=== PATIENT | female | born 1945 | race Caucasian/White ===

== ENCOUNTER → 2017-03-25 | Day surgery (SDC) | payer OTHER ==
[~2017-03-25] VITALS: Ht 160 cm; Wt 82.0 kg
[~2017-03-25] MED LIST: AMLO5TAB2 PO; ASPI1TAB69 PO; CHOL50006 PO; CYAN1LOZ BUCCAL; FAMO20TA2 PO; FAMOTIDINE 20 MG/2 ML VIAL ONE; KETOROLAC TROMETHAMINE 60 MG/2 ML (IM) VIAL IM ONE; LACTATED RINGER'S 1000 ML INJ 1,000 ML ONE; LEVO75TA3 PO; MIDAZOLAM HCL 2 MG/2 ML VIAL ONE; MULTTAB67 PO; OMEP20TA PO; ONDANSETRON HCL 4 MG/2 ML VIAL IV PUSH ONE; PROPOFOL 200 MG/20 ML AMP IV ONE; TRAM50TA PO; ceFAZolin INJ 1,000 MG VIAL ONE
[2017-03-25 07:50] VITALS: BP 135/81; PULSE 61; RESP 20; TEMP 98.9; O2SAT 96
[2017-03-25 11:43] VITALS: TEMP 98.8
[2017-03-25 12:03] VITALS: BP 150/79; PULSE 73; RESP 16; O2SAT 98
--- NOTE | 2017-04-26 16:08 | PD.OP ---
post menopausal bleeding Operative Report Date of Surgery: March 25, 2017 Preoperative Diagnosis: (1) Postmenopausal bleeding (2) Abnormal findings on diagnostic imaging of other specified body structures (3) Body mass index (BMI) of 39.0-39.9 in adult Postoperative Diagnosis: (1) Postmenopausal bleeding (2) Abnormal findings on diagnostic imaging of other specified body structures (3) Body mass index (BMI) of 39.0-39.9 in adult Procedure: Hysteroscopy with dilation and curettage Anesthesia: general, Dr. Hoffman Surgeon: Leona Schuster Procurement Clerk(s): Christen Leger Surgeon: n/a Operation and Findings: Indications: [post-menopausal bleeding, irregular and thickened endometrium and ultrasound-] Findings: Patient was found on hysteroscopic view to have [no polyps and thin endometrium. Procedure: Patient was brought to the OR and laid supine on the table. After inducing general anesthesia she was positioned in low stirrups in dorso- lithotomy position. An open-sided speculum was placed in the vagina after Betadine prep and time out. The anterior lip of the cervix was grasped with a single tooth tenaculum, and the cervix was dilated to accept a standard rigid hysteroscope. The endocervix was curetted for a separate specimen. The endometrium was then thoroughly sampled using a medium sharp curet. A small amount of tissue returned. A second hysteroscopic view confirmed that all the findings described above were included in the specimen. The procedure being complete, the instruments were removed, the patient was replaced supine and she was awakened. She was transferred to the PACU breathing on her own in stable condition. Sponge, needle, and instrument counts were correct. Leona Schuster MD Apr 26, 2017 16:08
== END | disposition home or self-care (01) ==
LOC: PHSDC 06:43
PROVIDERS: ATTEND Obstetrics & Gynecology
DX: N95.0 Postmenopausal bleeding (principal); N88.2 Stricture and stenosis of cervix uteri; I10 Essential (primary) hypertension; E03.9 Hypothyroidism, unspecified; K21.9 Gastro-esophageal reflux disease without esophagitis; M16.10 Unilateral primary osteoarthritis, unspecified hip; J30.9 Allergic rhinitis, unspecified; Z87.891 Personal history of nicotine dependence
CPT/HCPCS: 00952; 58558; 88305; J0690; J1885; J2250; J2405; J7120

== ENCOUNTER 2017-08-25 06:30 | Inpatient (IN) | payer OTHER, MEDICARE ==
[~2017-08-25] VITALS: Ht 160 cm; Wt 75.6 kg
[2017-08-25] VITALS (8 sets, daily range): BP systolic 145–183; BP diastolic 79–98; PULSE 57–85; RESP 16–20; TEMP 96.1–98.2; O2SAT 94–99
[~2017-08-25 06:30] MED LIST changes: -FAMOTIDINE 20 MG/2 ML VIAL ONE; -KETOROLAC TROMETHAMINE 60 MG/2 ML (IM) VIAL IM ONE; -LACTATED RINGER'S 1000 ML INJ 1,000 ML ONE; -MIDAZOLAM HCL 2 MG/2 ML VIAL ONE; -ONDANSETRON HCL 4 MG/2 ML VIAL IV PUSH ONE; -PROPOFOL 200 MG/20 ML AMP IV ONE; -ceFAZolin INJ 1,000 MG VIAL ONE
[2017-08-25] MEDS ORDERED: ASPI81CH CHEW (06:49)
--- NOTE | 2017-08-25 06:54 | PD ---
HPI Chief Complaint: Abdominal Pain Time Seen by Provider: 06:51 Travel History International Travel<30 days: No Contact w/Intl Traveler<30days: No Traveled to known affect area: No History of Present Illness HPI The patient is a 72-year-old female who presents to the emergency department for epigastric abdominal pain. The patient developed epigastric abdominal pain at 3 AM associated with nausea and vomiting which she describes as dry heaves. The abdominal pain is epigastric, nonradiating, sharp, and burning. The patient does have a history of recent upper GI series which revealed questionable gastric carcinoma and was advised to follow-up with gastroenterology. The patient had an appointment later in August, however, was told by her insurance company [employer] that she would be able to follow-up with a nursing home administrator in [place], [place]. However, she is unable to follow-up with a nursing home administrator and must schedule an appointment for a local GI physician appointment for outpatient endoscopy. The patient does have a previous history of diverticulitis with partial colon resection, cholecystectomy, and tubal ligation. She denies any fever, chills, sweats, or dysuria. Last bowel movement was earlier today and normal. She denies any associated diarrhea. Symptoms are moderate without any alleviating or exacerbating factors. PFSH Past Medical History Cancer: No Cardiovascular Problems: No Diabetes: No Endocrine: No Genitourinary: No Hepatitis: No Hiatal Hernia: No Immune Disorder: No Musculoskeletal: No Neurologic: No Psychiatric: No Reproductive: No Respiratory: No Thyroid Disease: Yes ?: Not Past Surgical History Abdominal Surgery: Yes (BOWEL REPAIR, CHOLECYSTECTOMY, LAP BAND) AICD: No Eye Surgery: Yes (BL CATARACTS) Gynecologic Surgery: Yes (TUBAL LIGATION, D&C) Joint Replacement: No Oral Surgery: Yes (T&A) Pacemaker: No Social History Tobacco Use: No Substance Use: No Allergies-Medications (Allergen,Severity, Reaction): Coded Allergies: Sulfa (Sulfonamide Antibiotics) (Unverified Allergy, Severe, Hives, ) amoxicillin (Unverified Allergy, Severe, Hives, 08/25/17) clavulanic acid (Unverified Allergy, Severe, Hives, 08/25/17) doxycycline (Unverified Allergy, Severe, Nausea/Vomiting, 08/25/17) meloxicam (Unverified Allergy, Unknown, gi upset, 08/25/17) Uncoded Allergies: METAL (Allergy, Severe, Rash, 03/25/17) ALL METAL EXCEPT GOLD AND SILVER Reported Meds & Prescriptions Reported Meds & Active Scripts Active Reported Aspirin 81 Mg Chew 81 Mg CHEW DAILY Omeprazole 20 Mg Tab 20 Mg PO DAILY Levothyroxine (Levothyroxine Sodium) 75 Mcg Tab 75 Mcg PO HS Multiple Vitamin 1 Tab 1 Tab PO DAILY Amlodipine (Amlodipine Besylate) 5 Mg Tab 5 Mg PO DAILY Review of Systems Except as stated in HPI: all other systems reviewed are Neg General / Constitutional: No: Fever, Chills Cardiovascular: No: Chest Pain or Discomfort Respiratory: No: Shortness of Breath Gastrointestinal: Positive: Nausea, Vomiting, Abdominal Pain, No: Diarrhea Genitourinary: No: Dysuria Neurologic: No: Dizziness Physical Exam Narrative GENERAL: Awake, alert, nontoxic-appearing 72-year-old female who appears her stated age and is in no acute respiratory distress. SKIN: Focused skin assessment warm/dry. HEAD: Atraumatic. Normocephalic. EYES: Pupils equal and round. No scleral icterus. No injection or drainage. ENT: No nasal bleeding or discharge. Mucous membranes pink and moist. NECK: Trachea midline. No JVD. CARDIOVASCULAR: Regular rate and rhythm. No murmur appreciated. RESPIRATORY: No accessory muscle use. Clear to auscultation. Breath sounds equal bilaterally. GASTROINTESTINAL: Abdomen soft, tender palpation in the epigastrium with palpable lab band. No guarding or rigidity. MUSCULOSKELETAL: No obvious deformities. No clubbing. No cyanosis. No edema. NEUROLOGICAL: Awake and alert. No obvious cranial nerve deficits. Motor grossly within normal limits. Normal speech. PSYCHIATRIC: Appropriate mood and affect; insight and judgment normal. Data Data Last Documented VS Vital Signs Date Time Temp Pulse Resp B/P (MAP) Pulse Ox O2 Delivery O2 Flow Rate FiO2 08/25/17 09:36 68 18 148/82 (104) 96 Room Air 08/25/17 06:37 98.1 Orders Orders Complete Blood Count With Diff (08/25/17 06:58) Comprehensive Metabolic Panel (08/25/17 06:58) Lipase (08/25/17 06:58) Ct Abd/Pel W Iv Contrast(Rout) (08/25/17 06:58) Iv Access Insert/Monitor (08/25/17 06:58) Ecg Monitoring (08/25/17 06:58) Oximetry (08/25/17 06:58) Morphine Inj (Morphine Inj) (08/25/17 07:00) Ondansetron Inj (Zofran Inj) (08/25/17 07:00) Sodium Chlor 0.9% 1000 Ml Inj (Ns 1000 M (08/25/17 06:58) Sodium Chloride 0.9% Flush (Ns Flush) (08/25/17 07:00) Famotidine Inj (Pepcid Inj) (08/25/17 07:00) Al-Mag Hy-Si 40-40-4 Mg/Ml Liq (Mag-Al P (08/25/17 07:00) Lidocaine 2% Viscous (Xylocaine 2% Visco (08/25/17 07:00) Oral Contrast - Adult (08/25/17 07:32) Diatrizoate Liq ( Gastroview Liq) (08/25/17 07:39) Morphine Inj (Morphine Inj) (08/25/17 09:00) Ondansetron Inj (Zofran Inj) (08/25/17 09:00) Iohexol 350 Inj (Omnipaque 350 Inj) (08/25/17 09:06) Admit Order (Ed Use Only) (08/25/17 09:43) Labs Laboratory Tests Test 08/25/17 07:15 White Blood Count 11.9 TH/MM3 Red Blood Count 4.55 MIL/MM3 Hemoglobin 11.3 GM/DL Hematocrit 34.7 % Mean Corpuscular Volume 76.3 FL Mean Corpuscular Hemoglobin 24.8 PG Mean Corpuscular Hemoglobin Concent 32.5 % Red Cell Distribution Width 14.2 % Platelet Count 367 TH/MM3 Mean Platelet Volume 8.6 FL Neutrophils (%) (Auto) 87.2 % Lymphocytes (%) (Auto) 8.1 % Monocytes (%) (Auto) 2.8 % Eosinophils (%) (Auto) 1.2 % Basophils (%) (Auto) 0.7 % Neutrophils # (Auto) 10.4 TH/MM3 Lymphocytes # (Auto) 1.0 TH/MM3 Monocytes # (Auto) 0.3 TH/MM3 Eosinophils # (Auto) 0.1 TH/MM3 Basophils # (Auto) 0.1 TH/MM3 CBC Comment AUTO DIFF Differential Comment AUTO DIFF CONFIRMED Blood Urea Nitrogen 10 MG/DL Creatinine 0.69 MG/DL Random Glucose 177 MG/DL Total Protein 7.5 GM/DL Albumin 3.4 GM/DL Calcium Level 9.0 MG/DL Alkaline Phosphatase 124 U/L Aspartate Amino Transf (AST/SGOT) 12 U/L Alanine Aminotransferase (ALT/SGPT) 13 U/L Total Bilirubin 0.2 MG/DL Sodium Level 140 MEQ/L Potassium Level 3.5 MEQ/L Chloride Level 105 MEQ/L Carbon Dioxide Level 26.2 MEQ/L Anion Gap 9 MEQ/L Estimat Glomerular Filtration Rate 84 ML/MIN Lipase 119 U/L MDM Medical Decision Making Medical Screen Exam Complete: Yes Emergency Medical Condition: Yes Medical Record Reviewed: Yes Interpretation(s) The patient had a upper GI with air and small bowel performed on July 23, 2017 which revealed a left band across the proximal stomach and the fundus. Beyond this the folds along the lesser curvature. All-purpose lobular and enlarged with suggestion of faint contrast type diverticulum or ulceration. The possibility of gastric carcinoma not excludable and direct visualization is recommended. Differential Diagnosis Differential diagnosis includes gastritis, peptic ulcer disease, gastric ulcer, peptic ulcer disease, pancreatitis, perforated viscus, retained biliary stone, atypical diverticulitis. Narrative Course IV was established, labs are drawn and sent, and the patient was placed on cardiac telemetry monitoring and continuous pulse oximetry monitoring. I reviewed the patient's upper GI series study that she had with her, printed report. The patient was administered morphine, Zofran, GI cocktail, Zantac, and IV fluids. CT of the abdomen and pelvis with oral and IV contrast was ordered. Labs reveal mildly elevated white count, otherwise unremarkable. CT the abdomen and pelvis reveals questionable masslike structure in the thorax, possibly could be hiatal hernia, recommends CT of the thorax. The patient continued to have nausea and vomiting, was redosed with morphine and Zofran. She was then reevaluated and continued to have moderate epigastric pain and mild nausea. I had a discussion with the patient regarding 23 hour observation versus discharge home with outpatient follow-up. The patient states her symptoms are still persisting, therefore, patient will be 23 hour observation. The patient's primary physician is Dr. Rodriguez with [facility], therefore, [facility] were paged for 23 hour observation. Physician Communication Physician Communication I discussed the patient with Dr. Banks who agrees with 23 hour observation. Diagnosis Primary Impression: Intractable epigastric abdominal pain Condition: Stable Jett Zepeda MD Aug 25, 2017 06:54
[2017-08-25] MEDS ORDERED: SODIUM CHLOR 0.9% 1000 ML INJ 1,000 ML IV SCH (06:58)
[2017-08-25] MEDS ORDERED: LIDOCAINE VISCOUS 2% SOLN 15 ML UDC PO ONE (07:00)
[2017-08-25] MEDS ORDERED: ONDANSETRON HCL 4 MG/2 ML VIAL IVP ONE (07:00)
[2017-08-25] MEDS ORDERED: FAMOTIDINE 20 MG/2 ML VIAL IV PUSH ONE (07:00)
[2017-08-25] MEDS ORDERED: ALUMINUM/MAGNESIUM/SIMETH 30 ML CUP PO ONE (07:00)
[2017-08-25] MEDS ORDERED: SODIUM CHLORIDE 0.9% FLUSH 10 ML FLUSH IV FLUSH PRN ×2 (07:00→09:45)
[2017-08-25] MEDS ORDERED: MORPHINE SULFATE 4 MG/ML INJ IV PUSH ONE ×2 (07:00→09:00)
[2017-08-25 07:26] LABS: AUTOMATED NEUTROPHIL # 10.4 TH/MM3 (1.8-7.7); BASOPHIL # 0.1 TH/MM3 (0-0.2); BASOPHIL % 0.7 % (0.0-2.0); EOSINOPHIL # 0.1 TH/MM3 (0-0.4); EOSINOPHIL % 1.2 % (0.0-4.0); HEMATOCRIT 34.7 % (35.0-46.0); LYMPH % 8.1 % (9.0-44.0); MEAN CELL VOLUME 76.3 FL (80.0-100.0); MEAN CORPUSCULAR HEMOGLOBIN 24.8 PG (27.0-34.0); MEAN CORPUSCULAR HGB CONC 32.5 % (32.0-36.0); MONO % 2.8 % (0.0-8.0); NEUT % 87.2 % (16.0-70.0); PLATELET COUNT 367 TH/MM3 (150-450); RED BLOOD COUNT 4.55 MIL/MM3 (4.00-5.30); RED CELL DISTRIBUTION WIDTH 14.2 % (11.6-17.2); WHITE BLOOD COUNT 11.9 TH/MM3 (4.0-11.0)
[2017-08-25 07:29] LABS: HEMO FLAGS AUTO DIFF
[2017-08-25 07:35] LABS: CHLORIDE 105 MEQ/L (98-107); POTASSIUM 3.5 MEQ/L (3.5-5.1); SODIUM (NA) 140 MEQ/L (136-145)
[2017-08-25 07:39] LABS: ANION GAP 9 MEQ/L (5-15); BICARBONATE 26.2 MEQ/L (21.0-32.0); BLOOD UREA NITROGEN 10 MG/DL (7-18)
[2017-08-25] MEDS ORDERED: DIATRIZOATE MEGLUM/DIATRIZOATE SOD 9 ML CUP ONE (07:39)
[2017-08-25 07:42] LABS: ALT (GPT) 13 U/L (10-53); AST (GOT) 12 U/L (15-37); GLOMERULAR FILTRATION RATE 84 ML/MIN (>89)
[2017-08-25 07:43] LABS: TOTAL BILIRUBIN ADULT 0.2 MG/DL (0.2-1.0)
[2017-08-25 07:44] LABS: ALKALINE PHOSPHATASE 124 U/L (45-117)
[2017-08-25 07:51] LABS: SCAN/DIFF AUTO DIFF CONFIRMED
[2017-08-25] MEDS ORDERED: ONDANSETRON HCL 4 MG/2 ML VIAL IV PUSH ONE (09:00)
[2017-08-25] MEDS ORDERED: IOHEXOL 350 MG/ML 10 ML VIAL (for RAD DIAG) IVCONTRAST ONE (09:06)
--- NOTE | 2017-08-25 09:18 | RADRPT ---
EXAM DATE/TIME: 08/25/2017 08:50 [facility] COMPARISON: No previous studies available for comparison. INDICATIONS : Epigastric pain with nausea and vomiting. IV CONTRAST: 90 cc Omnipaque 350 (iohexol) IV ORAL CONTRAST: Prescribed oral contrast ingested. RADIATION DOSE: 17.92 CTDIvol (mGy) MEDICAL HISTORY : Hypertension. Diverticulitis. Gastroesophageal reflux disease. SURGICAL HISTORY : Colon resection. Tubal ligation.Cholecystectomy.Lap band. ENCOUNTER: Initial ACUITY: 1 day PAIN SCALE: 6/10 LOCATION: upper quadrant TECHNIQUE: Volumetric scanning of the abdomen and pelvis was performed. Using automated exposure control and ad justment of the mA and/or kV according to patient size, radiation dose was kept as low as reasonably achievable to obtain optimal diagnostic quality images. DICOM format image data is available electro nically for review and comparison. FINDINGS: LOWER LUNGS: Nearly masslike nodular medial lung base airspace consolidation and trace left pleural effusion. LIVER: Liver is enlarged with mild intrahepatic ductal dilatation likely due to reservoir effect from prior cholecystectomy. SPLEEN: Normal size without lesion. PANCREAS: Within normal limits. KIDNEYS: 1.57 m cyst in the posterior mid left kidney. Smaller sub-centimeters cystic lesion or inferiorly is too small to characterize. Kidneys otherwise demonstrate symmetrical enhancement without evidence for hydronephrosis or radiopaque renal calculi. ADRENAL GLANDS: Within normal limits. VASCULAR: There is no aortic aneurysm. BOWEL/MESENTERY: Post surgical features of lap band procedure. Small hiatal hernia. Postsurgical features of apparent partial sigmoidectomy. All appear grossly unremarkable without evidence for obstruction. No free air or pneumatosis. No focal drainable fluid collections. ABDOMINAL WALL: Within normal limits. RETROPERITONEUM: There is no lymphadenopathy. BLADDER: No wall thickening or mass. REPRODUCTIVE: Within normal limits. INGUINAL: There is no lymphadenopathy or hernia. MUSCULOSKELETAL: Degenerative spondylosis of the lower lumbar spine. No definite abnormal focal lytic or blastic bony lesions. CONCLUSION: 1. No acute CT abnormality to account for patient's veloping. 2. Postsurgical features of prior partial sigmoidectomy and lap band procedure with small hiatal nadya ia. 3. Medial nodular somewhat masslike lung base airspace consolidation with associated pleural effusion . This is partially imaged on this examination and may reflect chronic change in the left lung base d ue to small hiatal hernia. Consider chest CT examination for full characterization. Jeffrey Hill MD on August 25, 2017 at 9:06 Board Certified Radiologist. This report was verified electronically.
[2017-08-25] MEDS ORDERED: NALOXONE HCL 0.4 MG/ML AMP IV PUSH PRN (09:45)
[2017-08-25] MEDS ORDERED: BISACODYL 10 MG SUPP RECTAL PRN (09:45)
[2017-08-25] MEDS ORDERED: MORPHINE SULFATE 4 MG/ML INJ IV PUSH PRN (10:00)
[2017-08-25] MEDS ORDERED: LACTULOSE SYRUP 20 GM/30 ML CUP PO PRN (10:00)
[2017-08-25] MEDS ORDERED: MAGNESIUM HYDROXIDE SUSP 30 ML CUP PO PRN (10:00)
[2017-08-25] MEDS ORDERED: SENNOSIDES 8.6 MG TAB PO PRN (10:00)
[2017-08-25] MEDS ORDERED: ACETAMINOPHEN 325 MG TAB PO PRN (10:00)
--- NOTE | 2017-08-25 10:28 | RADRPT ---
EXAM DATE/TIME: 08/25/2017 09:55 [facility] COMPARISON: No previous studies available for comparison. INDICATIONS : Evaluate for mass. RADIATION DOSE: 14.51 CTDIvol (mGy) MEDICAL HISTORY : Hypertension. Diverticulitis. Gastroesophageal reflux disease. SURGICAL HISTORY : Colon resection. Tubal ligation.Cholecystectomy. Lap band. ENCOUNTER: Initial ACUITY: 1 day PAIN SCALE: 4/10 LOCATION: chest TECHNIQUE: Volumetric scanning of the chest was performed. Using automated exposure control and adjustment of t he mA and/or kV according to patient size, radiation dose was kept as low as reasonably achievable to obtain optimal diagnostic quality images. DICOM format image data is available electronically for r eview and comparison. Follow-up recommendations for detected pulmonary nodules are based at a minimum on nodule size and pa tient risk factors according to Fleischner Society Guidelines. FINDINGS: There is a 2.7 cm mass in the left infrahilar region with left hilar adenopathy suspicious for malign minnie. A small left sided effusion is present. The right lung is free of acute parenchymal opacity. Coronary artery calcifications are present. There is adenopathy involving aortic root window and left hilar region. Gastric banding is present. CONCLUSION: 1. 2.7 cm left infrahilar mass with mediastinal adenopathy suspicious for malignancy. PET/CT scan is recommended to further evaluation if clinically indicated. James Mensah MD on August 25, 2017 at 10:24 Board Certified Radiologist. This report was verified electronically.
[2017-08-25] MEDS: SODIUM CHLOR 0.9% 1000 ML INJ 1,000 ML IV SCH ×2 (10:36→21:16)
[2017-08-25] MEDS: PANTOPRAZOLE SODIUM 40 MG VIAL IV PUSH SCH (10:36)
[2017-08-25] MEDS ORDERED: METOCLOPRAMIDE HCL 10 MG/2 ML VIAL IV PUSH PRN (11:00)
[2017-08-25] MEDS: ACETAMINOPHEN/HYDROcodone 325 MG/5 MG TAB PO PRN ×2 (11:53→17:15)
--- NOTE | 2017-08-25 13:14 | HHI.HP ---
[facility] Service [facility] Primary Care Physician Raoul Rodriguez MD Admission Diagnosis intractable epigastric pain, intractable nausea/vomiting Diagnoses: Travel History International Travel<30 Days: No Contact w/Intl Traveler <30 Da: No Traveled to Known Affected Are: No History of Present Illness This is a pleasant 72-year-old female with past medical history of diverticulitis status post partial colon resection, irritable bowel syndrome, lap band in 2006 who presents to the emergency department with intermittent epigastric pain nausea and vomiting. The patient states that she has been having belching for months along with intermittent epigastric pain associated with nausea since May. Her PCP had ordered an upper GI series which revealed questionable gastric carcinoma and was advised to follow-up with gastroenterology. The patient has been having difficulty getting in to see a compound worker. This morning around 3 AM she woke up with severe epigastric pain associated with nausea and dry heaves. The patient states she has lost 10-12 pounds over the past several months. She denies any blood in the stool. The patient does have chronic diarrhea since her partial colon resection. She denies difficulty swallowing or globus sensation. Eating seems to cause the pain flareup. The patient received morphine IV in the emergency department and currently states she does not have abdominal pain. Abdominal CT scan without contrast in the emergency department showed nodular masslike left lung base airspace consolidation, postsurgical features of prior lap band procedure. Chest CT reveals a 2.7 cm left infrahilar mass with mediastinal adenopathy suspicious for malignancy. Review of Systems Constitutional: COMPLAINS OF: Weight loss, DENIES: Fever Eyes: DENIES: Blurred vision, Diplopia Ears, nose, mouth, throat: DENIES: Throat pain, Odynophagia Respiratory: DENIES: Cough, Shortness of breath Cardiovascular: DENIES: Chest pain, Palpitations Gastrointestinal: COMPLAINS OF: Abdominal pain, Diarrhea, Nausea, Vomiting, DENIES: Black stools, Bloody stools, Difficulty Swallowing Genitourinary: DENIES: Urinary frequency, Dysuria Integumentary: DENIES: Rash, Breast masses Hematologic/lymphatic: DENIES: Lymphadenopathy Neurologic: DENIES: Abnormal gait, Headache Psychiatric: DENIES: Anxiety, Confusion Past Family Social History Past Medical History Hypothyroidism Hypertension GERD Past Surgical History Partial sigmoid colon resection Cholecystectomy, lap band, bilateral cataracts, tubal ligation, D&C, tonsillectomy Reported Medications Allergies Coded Allergies Type Severity Reaction Last Updated Verified Sulfa (Sulfonamide Antibiotics) Allergy Severe Hives 08/25/17 No amoxicillin Allergy Severe Hives 08/25/17 No clavulanic acid Allergy Severe Hives 08/25/17 No doxycycline Allergy Severe Nausea/Vomiting 08/25/17 No meloxicam Allergy Unknown gi upset 08/25/17 No Uncoded Allergies Type Severity Reaction Last Updated Verified METAL Allergy Severe Rash 03/25/17 Active Scripts Medications Dose Route/Sig Max Daily Dose Days Date Category Aspirin 81 Mg Chew 81 Mg CHEW DAILY 08/25/17 Reported Omeprazole 20 Mg Tab 20 Mg PO DAILY 03/25/17 Reported Levothyroxine (Levothyroxine Sodium) 75 Mcg Tab 75 Mcg PO HS 03/25/17 Reported Multiple Vitamin 1 Tab 1 Tab PO DAILY 03/25/17 Reported Amlodipine (Amlodipine Besylate) 5 Mg Tab 5 Mg PO DAILY 03/25/17 Reported Allergies: Coded Allergies: Sulfa (Sulfonamide Antibiotics) (Unverified Allergy, Severe, Hives, ) amoxicillin (Unverified Allergy, Severe, Hives, 08/25/17) clavulanic acid (Unverified Allergy, Severe, Hives, 08/25/17) doxycycline (Unverified Allergy, Severe, Nausea/Vomiting, 08/25/17) meloxicam (Unverified Allergy, Unknown, gi upset, 08/25/17) Uncoded Allergies: METAL (Allergy, Severe, Rash, 03/25/17) ALL METAL EXCEPT GOLD AND SILVER Family History Negative for gastric or colon cancer. Social History She quit smoking several years ago after smoking on and off for 40 years. No significant alcohol use. Physical Exam Vital Signs Vital Signs Date Time Temp Pulse Resp B/P (MAP) Pulse Ox O2 Delivery O2 Flow Rate FiO2 08/25/17 12:00 96.1 85 20 165/98 (120) 98 08/25/17 11:17 08/25/17 09:36 68 18 148/82 (104) 96 Room Air 08/25/17 09:35 18 08/25/17 08:35 63 18 161/87 (111) 99 Room Air 08/25/17 07:44 18 08/25/17 07:35 68 18 178/87 (117) 95 Room Air 08/25/17 07:33 18 95 Room Air 08/25/17 06:37 98.1 71 16 183/79 (113) 95 Physical Exam GENERAL: Well-nourished, well-developed pleasant elderly obese female patient. SKIN: Warm and dry. HEAD: Normocephalic. EYES: No scleral icterus. No injection or drainage. NECK: Supple, trachea midline. No JVD or lymphadenopathy. CARDIOVASCULAR: Regular rate and rhythm without murmurs, gallops, or rubs. RESPIRATORY: Breath sounds equal bilaterally. No accessory muscle use. GASTROINTESTINAL: Abdomen soft, non-tender, nondistended. EXTREMITIES: No cyanosis, or edema. NEUROLOGICAL: Awake, alert, and oriented x 3. Non-focal. Laboratory Laboratory Tests Test 08/25/17 07:15 White Blood Count 11.9 Red Blood Count 4.55 Hemoglobin 11.3 Hematocrit 34.7 Mean Corpuscular Volume 76.3 Mean Corpuscular Hemoglobin 24.8 Mean Corpuscular Hemoglobin Concent 32.5 Red Cell Distribution Width 14.2 Platelet Count 367 Mean Platelet Volume 8.6 Neutrophils (%) (Auto) 87.2 Lymphocytes (%) (Auto) 8.1 Monocytes (%) (Auto) 2.8 Eosinophils (%) (Auto) 1.2 Basophils (%) (Auto) 0.7 Neutrophils # (Auto) 10.4 Lymphocytes # (Auto) 1.0 Monocytes # (Auto) 0.3 Eosinophils # (Auto) 0.1 Basophils # (Auto) 0.1 CBC Comment AUTO DIFF Differential Comment AUTO DIFF CONFIRMED Blood Urea Nitrogen 10 Creatinine 0.69 Random Glucose 177 Total Protein 7.5 Albumin 3.4 Calcium Level 9.0 Alkaline Phosphatase 124 Aspartate Amino Transf (AST/SGOT) 12 Alanine Aminotransferase (ALT/SGPT) 13 Total Bilirubin 0.2 Sodium Level 140 Potassium Level 3.5 Chloride Level 105 Carbon Dioxide Level 26.2 Anion Gap 9 Estimat Glomerular Filtration Rate 84 Lipase 119 Result Diagram: 08/25/1715 08/25/1715 Imaging Last Impressions Abdomen/Pelvis CT 08/25/1758 Signed Impressions: Service Date/Time: Friday, August 25, 2017 08:50 - CONCLUSION: 1. No acute CT abnormality to account for patient's veloping. 2. Postsurgical features of prior partial sigmoidectomy and lap band procedure with small hiatal hernia. 3. Medial nodular somewhat masslike lung base airspace consolidation with associated pleural effusion. This is partially imaged on this examination and may reflect chronic change in the left lung base due to small hiatal hernia. Consider chest CT examination for full characterization. Jeffrey Hill MD Chest CT 08/25/17 0000 Signed Impressions: Service Date/Time: Friday, August 25, 2017 09:55 - CONCLUSION: 1. 2.7 cm left infrahilar mass with mediastinal adenopathy suspicious for malignancy. PET/CT scan is recommended to further evaluation if clinically indicated. MD China Taylor VTE Risk Assessment Capangeloi VTE Risk Assessment: Mod/High Risk (score >= 2) Caprini Risk Assessment Model Point Value = 1 Point Value = 2 Point Value = 3 Point Value = 5 Age 41-60 Minor surgery BMI > 25 kg/m2 Swollen legs Varicose veins or History of unexplained or recurrent spontaneous Oral contraceptives or hormone replacement Sepsis (< 1 month) Serious lung disease, including pneumonia (< 1 month) Abnormal pulmonary function Acute myocardial infarction Congestive heart failure (< 1 month) History of inflammatory bowel disease Medical patient at bed rest Age 61-74 Arthroscopic surgery Major open surgery (> 45 min) Laparoscopic surgery (> 45 min) Malignancy Confined to bed (> 72 hours) Immobilizing plaster cast Central venous access Age >= 75 History of VTE Family history of VTE Factor V Leiden Prothrombin [id number] Lupus anticoagulant Anticardiolipin antibodies Elevated serum homocysteine Heparin-induced thrombocytopenia Other congenital or acquired thrombophilia Stroke (< 1 month) Elective arthroplasty Hip, pelvis, or leg fracture Acute spinal cord injury (< 1 month) Prophylaxis Regimen Total Risk Factor Score Risk Level Prophylaxis Regimen 0-1 Low Early ambulation 2 Moderate Order ONE of the following: *Sequential Compression Device (SCD) *Heparin 5000 units SQ BID 3-4 Higher Order ONE of the following medications: *Heparin 5000 units SQ TID *Enoxaparin/Lovenox 40 mg SQ daily (WT < 150 kg, CrCl > 30 mL/min) *Enoxaparin/Lovenox 30 mg SQ daily (WT < 150 kg, CrCl > 10-29 mL/min) *Enoxaparin/Lovenox 30 mg SQ BID (WT < 150 kg, CrCl > 30 mL/min) AND/OR *Sequential Compression Device (SCD) 5 or more Highest Order ONE of the following medications: *Heparin 5000 units SQ TID (Preferred with Epidurals) *Enoxaparin/Lovenox 40 mg SQ daily (WT < 150 kg, CrCl > 30 mL/min) *Enoxaparin/Lovenox 30 mg SQ daily (WT < 150 kg, CrCl > 10-29 mL/min) *Enoxaparin/Lovenox 30 mg SQ BID (WT < 150 kg, CrCl > 30 mL/min) AND *Sequential Compression Device (SCD) Assessment and Plan Problem List: (1) Gastric mass ICD Code: K31.9 - Disease of stomach and duodenum, unspecified (2) Lung mass ICD Code: R91.8 - Other nonspecific abnormal finding of lung field (3) Epigastric pain ICD Code: R10.13 - Epigastric pain Assessment and Plan -Epigastric pain, nausea, vomiting, belching associated with 10-12 pound weight loss over the past several months in a patient with previous lap band- outpatient upper GI study showing possible gastric mass with obstruction. Positive tobacco and GERD history. Abdominal CT scan without contrast in the emergency department showed nodular masslike left lung base airspace consolidation, postsurgical features of prior lap band procedure. Chest CT reveals a 2.7 cm left infrahilar mass with mediastinal adenopathy suspicious for malignancy. GI has been consulted and plans for an EGD. If EGD shows a gastric mass I will consult hematology. Otherwise she will need pulmonology consult for the lung mass. We will continue with symptom control with IV fluids , anti-medics and pain medicine as needed. Continue PPI. -Hypothyroidism - continue Synthroid. -Hypertension - continue Norvasc. -GERD - continue PPI -DVT prophylaxis with SCDs. Zuri Banks MD Aug 25, 2017 13:14
--- NOTE | 2017-08-25 15:22 | PD.CONS ---
HPI History of Present Illness This is a 72 year old female who presented to the ED with c/o epigastric abdominal pain, nausea, and vomiting. Reports symptoms have been present since May of this year. Reports increased belching and intermittent epigastric pain, with associated nausea and vomiting. Patient states that usually symptoms improve if she lies flat, but recently this has no longer helped alleviate her symptoms. Eating aggravates her symptoms. PCP ordered an upper GI series which showed questionable gastric carcinoma and patient was advised to followup with GI, but she has not done so. Reports weight loss of 10-12 pounds since May 2017. PMH significant for diverticulitis s/p partial colon resection, irritable bowel syndrome, and lap band (2006). States she has had chronic diarrhea since partial colon resection. Denies dark stools or bright red blood in stools. (Tana Ashraf) PFSH Past Medical History Hypothyroidism Hypertension GERD Past Surgical History Diverticulitis, s/p partial sigmoid colon resection Cholecystectomy Lap band Bilateral cataracts Tubal ligation, D&C Tonsillectomy (Tana Ashraf) Coded Allergies: Sulfa (Sulfonamide Antibiotics) (Unverified Allergy, Severe, Hives, ) amoxicillin (Unverified Allergy, Severe, Hives, 08/25/17) clavulanic acid (Unverified Allergy, Severe, Hives, 08/25/17) doxycycline (Unverified Allergy, Severe, Nausea/Vomiting, 08/25/17) meloxicam (Unverified Allergy, Unknown, gi upset, 08/25/17) Uncoded Allergies: METAL (Allergy, Severe, Rash, 03/25/17) ALL METAL EXCEPT GOLD AND SILVER Medications Current Medications Medications (Trade) Dose Ordered Sig/Finn Route PRN Reason Start Time Stop Time Status Last Admin Dose Admin Sodium Chloride (NS Flush) 2 ml UNSCH PRN IV FLUSH FLUSH AFTER USING IV ACCESS 08/25/17 07:00 Sodium Chloride 1,000 ml @ 100 mls/hr Q10H IV 08/25/17 11:00 08/25/17 10:36 Sodium Chloride (NS Flush) 2 ml UNSCH PRN IV FLUSH FLUSH AFTER USING IV ACCESS 08/25/17 09:45 Sodium Chloride (NS Flush) 2 ml BID IV FLUSH 08/25/17 21:00 Acetaminophen (Tylenol) 650 mg Q4H PRN PO TEMP > 100.4 08/25/17 10:00 Ondansetron HCl (Zofran Inj) 4 mg Q6H PRN IVP SEE LABEL COMMENTS 08/25/17 11:00 Metoclopramide HCl (Reglan Inj) 5 mg Q6H PRN IV PUSH SEE LABEL COMMENTS 08/25/17 11:00 Acetaminophen/ Hydrocodone Bitart (Nephi 5-325 Mg) 1 tab Q4H PRN PO PAIN SCALE 3 TO 5 08/25/17 10:00 08/25/17 11:53 Morphine Sulfate (Morphine Inj) 2 mg Q3H PRN IV PUSH Pain 3-5; if unable to take PO 08/25/17 10:00 Naloxone HCl (Narcan Inj) 0.4 mg UNSCH PRN IV PUSH SEE LABEL COMMENTS 08/25/17 09:45 Senna/Docusate Sodium (Tamika-Colace) 1 tab BID PO 08/25/17 21:00 Magnesium Hydroxide (Milk Of Magnesia Liq) 30 ml Q12H PRN PO MILD - MODERATE CONSTIPATION 08/25/17 10:00 Sennosides (Senokot) 17.2 mg Q12H PRN PO MODERATE - SEVERE CONSTIPATION 08/25/17 10:00 Bisacodyl (Dulcolax Supp) 10 mg DAILY PRN RECTAL SEVERE CONSITIPATION 08/25/17 09:45 Lactulose (Lactulose Liq) 30 ml DAILY PRN PO SEVERE CONSITIPATION 08/25/17 10:00 Pantoprazole Sodium (Protonix Inj) 40 mg Q24H IV PUSH 08/25/17 10:00 08/25/17 10:36 Amlodipine Besylate (Norvasc) 5 mg DAILY PO 08/26/17 09:00 Levothyroxine Sodium (Synthroid) 75 mcg DAILY@0600 PO 08/26/17 06:00 Multivitamins (Theragran) 1 tab DAILY PO 08/26/17 09:00 Family History Non contributory Social History Tobacco, history. Quit 3 years ago, used to smoke intermittently for 40 years ETOH, denies Illicit Drugs, denies. (Tana Ashraf) Review of Systems Constitutional: COMPLAINS OF: Weight loss, DENIES: Diaphoretic episodes, Fatigue, Fever, Weight gain, Chills, Dizziness, Change in appetite, Night Sweats Endocrine: DENIES: Polydipsia, Polyuria Eyes: DENIES: Blurred vision, Photosensitivity, Double Vision Ears, nose, mouth, throat: DENIES: Hearing loss, Vertigo, Oral lesions, Throat pain, Hoarseness Respiratory: DENIES: Cough, Wheezing, Hemoptysis, Sputum production, Shortness of breath Cardiovascular: DENIES: Chest pain, Palpitations, Syncope, Lower Extremity Edema, Orthopnea, Claudication Gastrointestinal: COMPLAINS OF: Abdominal pain, Diarrhea, Nausea, Vomiting, DENIES: Black stools, Bloody stools, Constipation, Difficulty Swallowing, Anorexia, Odynophagia, Swelling of Abdomen, Heartburn, Hematemesis Genitourinary: DENIES: Urinary frequency, Urinary incontinence, Urgency, Hematuria, Dysuria, Nocturia Musculoskeletal: DENIES: Joint pain, Muscle aches, Stiffness, Joint Swelling, Back pain, Neck pain Integumentary: DENIES: Abnormal pigmentation, Nail changes, Pruritus, Rash, Jaundice Hematologic/lymphatic: DENIES: Bruising, Lymphadenopathy Immunologic/allergic: DENIES: Eczema, Urticaria Neurologic: DENIES: Abnormal gait, Headache, Localized weakness, Paresthesias Psychiatric: DENIES: Anxiety, Confusion, Mood changes, Depression, Agitation, Suicidal Ideation (Tana Ashraf) GI Exam Vitals I&O Vital Signs Date Time Temp Pulse Resp B/P (MAP) Pulse Ox O2 Delivery O2 Flow Rate FiO2 08/25/17 12:00 96.1 85 20 165/98 (120) 98 08/25/17 11:17 08/25/17 09:36 68 18 148/82 (104) 96 Room Air 08/25/17 09:35 18 08/25/17 08:35 63 18 161/87 (111) 99 Room Air 08/25/17 07:44 18 08/25/17 07:35 68 18 178/87 (117) 95 Room Air 08/25/17 07:33 18 95 Room Air 08/25/17 06:37 98.1 71 16 183/79 (113) 95 I/O 08/24/17 08/24/17 08/24/17 08/25/17 08/25/17 08/25/17 07:00 15:00 23:00 07:00 15:00 23:00 Intake Total 1000 ml Balance 1000 ml Intake IV Total 1000 ml Imaging Last Impressions Abdomen/Pelvis CT 08/25/17 0658 Signed Impressions: Service Date/Time: Friday, August 25, 2017 08:50 - CONCLUSION: 1. No acute CT abnormality to account for patient's veloping. 2. Postsurgical features of prior partial sigmoidectomy and lap band procedure with small hiatal hernia. 3. Medial nodular somewhat masslike lung base airspace consolidation with associated pleural effusion. This is partially imaged on this examination and may reflect chronic change in the left lung base due to small hiatal hernia. Consider chest CT examination for full characterization. Jeffrey Hill MD Chest CT 08/25/17 0000 Signed Impressions: Service Date/Time: Friday, August 25, 2017 09:55 - CONCLUSION: 1. 2.7 cm left infrahilar mass with mediastinal adenopathy suspicious for malignancy. PET/CT scan is recommended to further evaluation if clinically indicated. James Mensah MD Laboratory Test 08/25/17 07:15 White Blood Count 11.9 TH/MM3 Red Blood Count 4.55 MIL/MM3 Hemoglobin 11.3 GM/DL Hematocrit 34.7 % Mean Corpuscular Volume 76.3 FL Mean Corpuscular Hemoglobin 24.8 PG Mean Corpuscular Hemoglobin Concent 32.5 % Red Cell Distribution Width 14.2 % Platelet Count 367 TH/MM3 Mean Platelet Volume 8.6 FL Neutrophils (%) (Auto) 87.2 % Lymphocytes (%) (Auto) 8.1 % Monocytes (%) (Auto) 2.8 % Eosinophils (%) (Auto) 1.2 % Basophils (%) (Auto) 0.7 % Neutrophils # (Auto) 10.4 TH/MM3 Lymphocytes # (Auto) 1.0 TH/MM3 Monocytes # (Auto) 0.3 TH/MM3 Eosinophils # (Auto) 0.1 TH/MM3 Basophils # (Auto) 0.1 TH/MM3 CBC Comment AUTO DIFF Differential Comment AUTO DIFF CONFIRMED Blood Urea Nitrogen 10 MG/DL Creatinine 0.69 MG/DL Random Glucose 177 MG/DL Total Protein 7.5 GM/DL Albumin 3.4 GM/DL Calcium Level 9.0 MG/DL Alkaline Phosphatase 124 U/L Aspartate Amino Transf (AST/SGOT) 12 U/L Alanine Aminotransferase (ALT/SGPT) 13 U/L Total Bilirubin 0.2 MG/DL Sodium Level 140 MEQ/L Potassium Level 3.5 MEQ/L Chloride Level 105 MEQ/L Carbon Dioxide Level 26.2 MEQ/L Anion Gap 9 MEQ/L Estimat Glomerular Filtration Rate 84 ML/MIN Lipase 119 U/L Physical Examination HEENT: Normocephalic; atraumatic; no jaundice. NECK: Neck is supple. CHEST: CTA CARDIAC: RRR with no murmur gallop or rubs. ABDOMEN: Soft, nondistended, mild epigastric TTP; bowel sounds are present. EXTREMITIES: No clubbing, cyanosis, or edema. SKIN: Normal; no rash; no jaundice. MEDICAL ADMINISTRATIVE SPECIALIST: No focal deficits; alert and oriented x 3 (Tana Ashraf) Assessment and Plan Plan ASSESSMENT: - Epigastric pain, with nausea/vomiting. Increased belching. + Weight loss 10- 12 pounds since May. History of lap band in 2006. Upper GI series showed questionable gastric carcinoma? Abdomen/Pelvis CT --1. No acute CT abnormality to account for patient's veloping. 2. Postsurgical features of prior partial sigmoidectomy and lap band procedure with small hiatal hernia. 3. Medial nodular somewhat masslike lung base airspace consolidation with associated pleural effusion. This is partially imaged on this examination and may reflect chronic change in the left lung base due to small hiatal hernia. Consider chest CT examination for full characterization. Chest CT 08/25/17--1. 2.7 cm left infrahilar mass with mediastinal adenopathy suspicious for malignancy. PET/CT scan is recommended to further evaluation if clinically indicated. - Hypothyroidism, hypertension, GERD, per attending. PLAN: - EGD Thursday - Obtain consents - NPO after MN tonight. - Monitor labs - Supportive care - Further recommendations to follow based on the results of above. Patient seen and examined by Dr. Decker and myself and this note is written on his behalf. (Tana Ashraf) Plan patient was seen and examined, agree with above note, will plan on doing upper endoscopy tomorrow for evaluation of the nausea vomiting and abdominal pain (Sima Decker MD) Tana Ashraf [facility] Aug 25, 2017 15:22 Sima Decker MD Aug 25, 2017 17:48
[2017-08-25] MEDS: ONDANSETRON HCL 4 MG/2 ML VIAL IVP PRN (17:14)
[2017-08-25] MEDS: SODIUM CHLORIDE 0.9% FLUSH 10 ML FLUSH IV FLUSH SCH (21:15)
[2017-08-25] MEDS: DOCUSATE SODIUM 50 MG/SENNA 8.6 MG TAB PO SCH (21:15)
[2017-08-26] VITALS: BP 150/90; PULSE 70; RESP 20; TEMP 98; O2SAT 95
[2017-08-26] MEDS: LEVOTHYROXINE SODIUM 75 MCG TAB PO SCH (05:28)
[2017-08-26 05:44] LABS: AUTOMATED NEUTROPHIL # 7.9 TH/MM3 (1.8-7.7); BASOPHIL % 0.3 % (0.0-2.0); EOSINOPHIL # 0.3 TH/MM3 (0-0.4); EOSINOPHIL % 2.8 % (0.0-4.0); LYMPH % 12.8 % (9.0-44.0); LYMPHOCYTE # 1.3 TH/MM3 (1.0-4.8); MEAN CELL VOLUME 77.1 FL (80.0-100.0); MEAN CORPUSCULAR HEMOGLOBIN 24.9 PG (27.0-34.0); MEAN CORPUSCULAR HGB CONC 32.3 % (32.0-36.0); MONO % 5.7 % (0.0-8.0); NEUT % 78.4 % (16.0-70.0); PLATELET COUNT 332 TH/MM3 (150-450); RED CELL DISTRIBUTION WIDTH 14.3 % (11.6-17.2); WHITE BLOOD COUNT 10.1 TH/MM3 (4.0-11.0)
[2017-08-26 05:52] LABS: POTASSIUM 3.5 MEQ/L (3.5-5.1)
[2017-08-26 05:55] LABS: BICARBONATE 29.8 MEQ/L (21.0-32.0); HEMO FLAGS AUTO DIFF
[2017-08-26] MEDS: SODIUM CHLOR 0.9% 1000 ML INJ 1,000 ML IV SCH ×2 (06:15→16:12)
[2017-08-26 07:44] LABS: SCAN/DIFF AUTO DIFF CONFIRMED
[2017-08-26 08:00] VITALS: BP 159/88; PULSE 76; RESP 20; TEMP 98.6; O2SAT 94
[2017-08-26] MEDS: SODIUM CHLORIDE 0.9% FLUSH 10 ML FLUSH IV FLUSH SCH ×2 (08:01→20:29)
[2017-08-26] MEDS: amLODIPine BESYLATE 5 MG TAB PO SCH (08:01)
[2017-08-26] MEDS: DOCUSATE SODIUM 50 MG/SENNA 8.6 MG TAB PO SCH ×2 (08:02→20:29)
[2017-08-26] MEDS: MULTIVITAMIN TAB PO SCH (08:02)
[2017-08-26] MEDS ORDERED: ASPIRIN 81 MG CHEW TAB CHEW SCH (09:00)
[2017-08-26] MEDS ORDERED: NON-FORMULARY DRUG (Omeprazole 20 MG) PO SCH (09:00)
[2017-08-26] MEDS ORDERED: PROPOFOL 200 MG/20 ML AMP IV ONE (09:54)
--- NOTE | 2017-08-26 10:07 | PD.PROCEDR ---
GI Procedure REFERRING PHYSICIAN HANSA PROCEDURE PERFORMED EGD INDICATION FOR PROCEDURE Nausea vomiting, abdominal pain PROCEDURE: The procedure, risks and benefits were discussed with Ms. Cohn and informed consent was obtained. Anesthesia sedated her with Diprivan. She was placed in the left lateral decubitus position. EGD: The Pentax videoscope was introduced through the oropharynx and advanced to the second portion of the duodenum under direct visualization. Retroflexion was performed in the stomach. FINDINGS: The esophagus this was normal The stomach there was a foreign body noted in the upper third of the stomach this is the lap band that has eroded into the stomach otherwise gastric mucosa appeared to be unremarkable and within normal limits The duodenum this was normal ESTIMATED BLOOD LOSS: None SPECIMENS REMOVED: None COMPLICATIONS: None IMPRESSION: Eroded lap band into the stomach PLAN: Will need for surgical evaluation for lap band removal Continue with current supportive care Jonah Angeles MD Aug 26, 2017 10:07
--- NOTE | 2017-08-26 10:22 | EKG ---
Date Performed: 08/25/2017 Time Performed: 19:58:33 PTAGE: 72 years EKG: Sinus rhythm WITH OCCASIONAL VENTRICULAR PREMATURE COMPLEXES BORDERLINE ECG NO PREVIOUS TRACING DOCTOR: Josiah Salazar Interpretating Date/Time 08/26/2017 10:20:48
[2017-08-26] MEDS: ONDANSETRON HCL 4 MG/2 ML VIAL IVP PRN (11:14)
[2017-08-26] MEDS: ACETAMINOPHEN/HYDROcodone 325 MG/5 MG TAB PO PRN (11:15)
[2017-08-26] MEDS: PANTOPRAZOLE SODIUM 40 MG VIAL IV PUSH SCH (11:15)
--- NOTE | 2017-08-26 11:48 | HHI.PR ---
Subjective Remarks Having some R sided abdominal pain, no n/v, tiana clears. s/p EGD this morning showing lap band eroded into stomach. Objective Vitals Vital Signs Date Time Temp Pulse Resp B/P (MAP) Pulse Ox O2 Delivery O2 Flow Rate FiO2 08/26/17 08:10 98.6 73 16 140/90 (107) 97 08/26/17 08:00 98.6 76 20 159/88 (111) 94 08/26/17 00:00 98.0 70 20 150/90 (110) 95 08/25/17 20:00 98.2 66 20 154/90 (111) 94 08/25/17 16:00 97.6 57 20 145/85 (105) 96 08/25/17 12:00 96.1 85 20 165/98 (120) 98 I/O 08/25/17 08/25/17 08/25/17 08/26/17 08/26/17 08/26/17 07:00 15:00 23:00 07:00 15:00 23:00 Intake Total 1000 ml 1000 ml 400 ml Balance 1000 ml 1000 ml 400 ml Intake Oral 60 ml IV Total 1000 ml 1000 ml 140 ml Other 200 ml # Voids 3 2 # Bowel Movements 1 0 Result Diagram: 08/26/1744708/26/17447 Objective Remarks GENERAL: Well-nourished, well-developed pleasant CF patient. SKIN: Warm and dry. HEAD: Normocephalic. EYES: No scleral icterus. No injection or drainage. NECK: Supple, trachea midline. No JVD or lymphadenopathy. CARDIOVASCULAR: Regular rate and rhythm without murmurs, gallops, or rubs. RESPIRATORY: Breath sounds equal bilaterally. No accessory muscle use. GASTROINTESTINAL: Abdomen soft, non-tender, nondistended. EXTREMITIES: No cyanosis, or edema. NEUROLOGICAL: Awake, alert, and oriented x 3. Non-focal. A/P Problem List: (1) Lung mass ICD Code: R91.8 - Other nonspecific abnormal finding of lung field (2) Epigastric pain ICD Code: R10.13 - Epigastric pain (3) LAP-BAND surgery status ICD Code: Z98.84 - Bariatric surgery status Assessment and Plan -Epigastric pain, nausea, vomiting, belching associated with 10-12 pound weight loss over the past several months in a patient with previous lap band- outpatient upper GI study showing possible gastric mass with obstruction. EGD this morning showing erosion of lap band into stomach, no gastric mass. General surgery has been consulted for removal. - Chest CT demonstrates 2.7 cm left infrahilar mass with mediastinal adenopathy suspicious for malignancy. +tobacco history. Needs biopsy, outpatient PET. Consult pulmonology. -Overdue for colonoscopy - was told 5 years ago she had an abnormal polyp and to have repeat colonoscopy in 3 years, however did not followup. Patient to f/u outpatient with GI. -Hypothyroidism - continue Synthroid. -Hypertension - continue Norvasc. -GERD - continue PPI -DVT prophylaxis with SCDs. D/w daughter at bedside. Zuri Banks MD Aug 26, 2017 11:48
[2017-08-26 12:00] VITALS: BP 143/89; PULSE 73; RESP 20; TEMP 98.4; O2SAT 95
[2017-08-26] MEDS ORDERED: LACTATED RINGER'S 1000 ML INJ 1,000 ML ONE (12:07)
[2017-08-26 14:26] LABS: APTT (PATIENT) 31.4 SEC (24.3-30.1); PROTHROMBIN TIME - PATIENT 10.5 SEC (9.8-11.6)
[2017-08-26 16:00] VITALS: BP 138/85; PULSE 64; RESP 20; TEMP 98.3; O2SAT 93
[2017-08-26 20:00] VITALS: BP 149/84; PULSE 73; RESP 20; TEMP 98.3; O2SAT 98
[2017-08-26 22:30] VITALS: BP 166/75; PULSE 77; RESP 16; TEMP 98.7; O2SAT 95
[2017-08-27] VITALS: BP 166/75; PULSE 77; RESP 16; TEMP 98.7; O2SAT 95
[2017-08-27 04:00] VITALS: BP 140/61; PULSE 67; RESP 17; TEMP 98.7; O2SAT 96
[2017-08-27] MEDS: SODIUM CHLOR 0.9% 1000 ML INJ 1,000 ML IV SCH ×2 (05:12→13:00)
[2017-08-27] MEDS: LEVOTHYROXINE SODIUM 75 MCG TAB PO SCH (06:00)
[2017-08-27 07:50] VITALS: BP 140/76; PULSE 66; RESP 18; TEMP 98.7; O2SAT 96
[2017-08-27] MEDS: DOCUSATE SODIUM 50 MG/SENNA 8.6 MG TAB PO SCH ×2 (09:00→20:12)
[2017-08-27 09:01] LABS: HEMATOCRIT 33.3 % (35.0-46.0); MEAN CELL VOLUME 77.7 FL (80.0-100.0); MEAN CORPUSCULAR HEMOGLOBIN 24.7 PG (27.0-34.0); MEAN CORPUSCULAR HGB CONC 31.8 % (32.0-36.0); PLATELET COUNT 309 TH/MM3 (150-450); RED BLOOD COUNT 4.29 MIL/MM3 (4.00-5.30); RED CELL DISTRIBUTION WIDTH 15.8 % (11.6-17.2); REVIEW FLAG FINAL; WHITE BLOOD COUNT 7.8 TH/MM3 (4.0-11.0)
[2017-08-27] MEDS ORDERED: RESP: ALBUTEROL CONC 2.5 MG/0.5 ML NEB NEB SCH (09:15)
[2017-08-27] MEDS ORDERED: RESP: LIDOCAINE HCL 4% PF 5 ML NEB NEB SCH (09:15)
[2017-08-27] MEDS: PANTOPRAZOLE SODIUM 40 MG VIAL IV PUSH SCH (09:25)
[2017-08-27] MEDS: amLODIPine BESYLATE 5 MG TAB PO SCH (09:25)
[2017-08-27] MEDS: MULTIVITAMIN TAB PO SCH (09:25)
[2017-08-27] MEDS: SODIUM CHLORIDE 0.9% FLUSH 10 ML FLUSH IV FLUSH SCH ×2 (09:26→20:11)
[2017-08-27] MEDS ORDERED: SODIUM CHLOR 0.45% 1000 ML INJ 1,000 ML IV SCH (10:00)
--- NOTE | 2017-08-27 11:34 | HHI.PR ---
Subjective Remarks Reports she feels good. No complaint of abdominal pain at this time. No shortness of breath. She is surprised of the findings of the CT Objective Vitals Vital Signs Date Time Temp Pulse Resp B/P (MAP) Pulse Ox O2 Delivery O2 Flow Rate FiO2 08/27/17 09:47 Room Air 08/27/17 07:50 98.7 66 18 140/76 (97) 96 08/27/17 04:00 98.7 67 17 140/61 (87) 96 08/27/17 00:00 98.7 77 16 166/75 (105) 95 08/27/17 00:00 Room Air 08/26/17 22:30 98.7 77 16 166/75 (105) 95 08/26/17 20:00 98.3 73 20 149/84 (105) 98 08/26/17 16:00 98.3 64 20 138/85 (102) 93 08/26/17 12:00 98.4 73 20 143/89 (107) 95 I/O 08/26/17 08/26/17 08/26/17 08/27/17 08/27/17 08/27/17 07:00 15:00 23:00 07:00 15:00 23:00 Intake Total 1000 ml 500 ml 1671 ml 885 ml Balance 1000 ml 500 ml 1671 ml 885 ml Intake Oral 60 ml 1525 ml 800 ml IV Total 1000 ml 240 ml 146 ml 85 ml Other 200 ml # Voids 2 5 4 # Bowel Movements 0 2 3 Result Diagram: 08/27/17 0828 08/26/17 0448 Imaging Last Impressions Abdomen/Pelvis CT 08/25/17 0658 Signed Impressions: Service Date/Time: Friday, August 25, 2017 08:50 - CONCLUSION: 1. No acute CT abnormality to account for patient's veloping. 2. Postsurgical features of prior partial sigmoidectomy and lap band procedure with small hiatal hernia. 3. Medial nodular somewhat masslike lung base airspace consolidation with associated pleural effusion. This is partially imaged on this examination and may reflect chronic change in the left lung base due to small hiatal hernia. Consider chest CT examination for full characterization. Jeffrey Hill MD Chest CT 08/25/17 0000 Signed Impressions: Service Date/Time: Friday, August 25, 2017 09:55 - CONCLUSION: 1. 2.7 cm left infrahilar mass with mediastinal adenopathy suspicious for malignancy. PET/CT scan is recommended to further evaluation if clinically indicated. James Mensah MD Objective Remarks GENERAL: This is a well-nourished, well-developed patient, in no apparent distress. CARDIOVASCULAR: Regular rate and rhythm with 3/6 systolic murmur RESPIRATORY: Clear to auscultation. Breath sounds equal bilaterally. No wheezes , rales, or rhonchi. GASTROINTESTINAL: Abdomen soft, non-tender, nondistended. Normal active bowel sounds MUSCULOSKELETAL: Extremities without clubbing, cyanosis, or edema. NEURO: Alert & Oriented x4 to person, place, time, situation. Moves all ext x4 Procedures EGD performed on 08/27 showed erosion of lap band into stomach, no gastric mass A/P Problem List: (1) Lung mass ICD Code: R91.8 - Other nonspecific abnormal finding of lung field Status: Acute (2) Epigastric pain ICD Code: R10.13 - Epigastric pain Status: Resolved (3) LAP-BAND surgery status ICD Code: Z98.84 - Bariatric surgery status Status: Chronic Assessment and Plan 1. Presenting Epigastric pain, nausea, vomiting, belching associated with 10- 12 pound weight loss over the past several months in a patient with previous lap band-outpatient upper GI study showing possible gastric mass with obstruction. EGD performed on 08/27 showed erosion of lap band into stomach, no gastric mass. Dr. Wilde, Gen. surgery has been consulted for removal and will follow with the patient as outpatient for future surgical intervention due to findings of lung mass and heart murmur that needs further evaluation workup during this hospitalization. 2.-Left infrahilar mass with mediastinal adenopathy suspicious for malignancy with her tobacco history pulmonary has recommended a bronchoscopy and outpatient PET scan Heart murmur 2-D echo for further workup and evaluation - Overdue for colonoscopy - was told 5 years ago she had an abnormal polyp and to have repeat colonoscopy in 3 years, however did not followup. Patient to f/u outpatient with GI. 3.-Hypothyroidism - continue Synthroid. 4.-Hypertension, essential - continue Norvasc. Overall blood pressure controlled 5.-GERD - continue PPI 6.-DVT prophylaxis with SCDs. Discharge Planning Home when workup completed Meghan Minaya MD Aug 27, 2017 11:31
[2017-08-27 12:00] VITALS: BP 141/82; PULSE 71; RESP 19; TEMP 98.1; O2SAT 95
--- NOTE | 2017-08-27 12:17 | ECHRPT ---
Indication: Nonrheumatic aortic (valve) stenosis CONCLUSIONS The left ventricular systolic function is normal with an estimated ejection fraction in the range of 55-60%. Wall thickness is measured at the upper limits of normal. Normal left ventricular size. Trace mitral valve regurgitation. Mild aortic valve stenosis. Aortic valve area is 1.8 cm. There is mild to moderate tricuspid valve regurgitation. The estimated pulmonary arterial pressure is 38.9 mmHg. BP: 140 / 76 HR: 66 Rhythm: Sinus MEASUREMENTS (Male / Female) Normal Values Technical Quality:Fair 2D ECHO LV Diastolic Diameter PLAX 4.3 cm 4.2 - 5.9 / 3.9 - 5.3 cm LV Systolic Diameter PLAX 3.3 cm IVS Diastolic Thickness 1.1 cm 0.6 - 1.0 / 0.6 - 0.9 cm LVPW Diastolic Thickness 1.2 cm 0.6 - 1.0 / 0.6 - 0.9 cm LV Relative Wall Thickness 0.5 LVOT Diameter 2.4 cm Aortic Root Diameter 2.8 cm M-MODE Aortic Root Diameter MM 2.5 cm AV Cusp Separation MM 1.7 cm DOPPLER AV Peak Velocity 282.6 cm/s AV Peak Gradient 31.9 mmHg AV Mean Gradient 19.7 mmHg AV Velocity Time Integral 68.2 cm LVOT Peak Velocity 110.0 cm/s LVOT Peak Gradient 4.8 mmHg AV Area Cont Eq pk 1.8 cm MR Peak Velocity 392.5 cm/s MR Peak Gradient 61.6 mmHg Mitral E Point Velocity 89.3 cm/s Mitral A Point Velocity 120.0 cm/s Mitral E to A Ratio 0.7 LV E' Lateral Velocity 6.6 cm/s Mitral E to LV E' Lateral Ratio 13.5 LV E' Septal Velocity 6.9 cm/s Mitral E to LV E' Septal Ratio 12.9 TR Peak Velocity 269.0 cm/s TR Peak Gradient 28.9 mmHg Right Atrial Pressure 10.0 mmHg Pulmonary Artery Systolic Pressu 38.9 mmHg Right Ventricular Systolic Press 38.9 mmHg PV Peak Velocity 141.0 cm/s PV Peak Gradient 8.0 mmHg FINDINGS LEFT VENTRICLE The left ventricular systolic function is normal with an estimated ejection fraction in the range of 55-60%. Wall thickness is measured at the upper limits of normal. Normal left ventricular size. RIGHT VENTRICLE Normal right ventricular size and systolic function. LEFT ATRIUM The left atrial size is normal. RIGHT ATRIUM The right atrial size is normal. ATRIAL SEPTUM Normal atrial septal thickness without atrial level shunting by limited color doppler interrogation. AORTA The aortic root and proximal ascending aorta are normal in size on limited imaging. MITRAL VALVE Trace mitral valve regurgitation. AORTIC VALVE Mild aortic valve stenosis. Aortic valve area is 1.8 cm. TRICUSPID VALVE There is mild to moderate tricuspid valve regurgitation. The estimated pulmonary arterial pressure is 38.9 mmHg. PULMONARY VALVE No pulmonary valve regurgitation or stenosis. VESSELS The inferior vena cava is normal in size. PERICARDIUM No pericardial effusion. Josiah Salazar MD, FACC (Electronically Signed) Final Date:27 August 2017 12:16
[2017-08-27] MEDS ORDERED: LIDOCAINE 2%/EPINEPHrine 1:100,000 20ML MDV INFIL ONE (13:00)
[2017-08-27] MEDS ORDERED: LIDOCAINE 2%/EPINEPHrine 1:100,000 30ML MDV INFIL ONE (13:00)
--- NOTE | 2017-08-27 13:14 | MB ---
cc: Corbin MOYER DATE OF CONSULTATION 08/27/2017 HISTORY OF PRESENT ILLNESS Ms. Cohn is a 72-year-old white female who presented to the hospital with epigastric pain on 08/25. She had a prior history of diverticulitis and a partial colon resection for that and a lap band was done in 2006. CT scan of her abdomen and pelvis on presentation revealed postsurgical features and the lap band with a small hiatal hernia. An abnormality was also noted at the left base of her lung and a CT of the chest was suggested. She was endoscoped by GI and has been found to have an erosion of the lap band into the stomach which is now being addressed by the surgeon. I spoke to Dr. Wilde earlier today and he did not feel this was an emergent problem but something that could be evaluated over the next several days and also he would like to take into account what we find with her lung. CT scan the chest was done and she has a 2.7 cm left infrahilar mass with mediastinal adenopathy very suspicious for malignancy. I reviewed these scans with the radiologist. The patient was surprised by these findings because she has no pulmonary symptoms. However, she was a smoker of one pack to 1-1/2 packs per day for about 40 years. She quit smoking back in the . She has never been diagnosed with COPD. She has not had recurrent pneumonias. She has no current cough or congestion. No chest pain. No progressive dyspnea. No hemoptysis. Again, this came as a surprise to her as she has been asymptomatic. PAST MEDICAL HISTORY 1. The colon surgery noted above due to diverticulitis. 2. Prior cholecystectomy. 3. The lap band surgery in 2006. 4. She has had a tubal ligation. 5. Bilateral cataracts removed. 6. She is hypothyroid. 7. Has chronic reflux disease. 8. Hypertension. ALLERGIES SULFA. AMOXICILLIN. DOXYCYCLINE. MELOXICAM. SOCIAL HISTORY Smoking noted above. No excessive alcohol use. FAMILY HISTORY Negative for lung cancer. She does have a daughter who is in the health care profession and works at the [employer] in [place]. CURRENT MEDICATIONS Reviewed in the EMR and she is on no anticoagulants. PHYSICAL EXAMINATION VITAL SIGNS: 98 degrees, 140/60, respirations 18-20, pulse 70, room air saturation 96%. EYES: Sclerae anicteric. PHARYNX: Clear. LYMPHATICS: No palpable adenopathy in the neck or supraclavicular region. CHEST: Completely clear. No wheezes, rales or congestion. CARDIOVASCULAR: Soft systolic murmur. No audible S3. Regular rhythm. ABDOMEN: Soft. EXTREMITIES: No peripheral edema or calf tenderness. No cyanosis or clubbing. IMAGING STUDIES Chest CT is reviewed as noted above. LABORATORY DATA White count is 7800, hemoglobins is 10, BUN and creatinine are normal. Electrolytes were normal. INR is normal. Ms. Cohn presented with abdominal complaints but on CT scan was found to have a left infrahilar mass with mediastinal adenopathy. In light of the prior smoking history, this is suspicious for malignancy. I have reviewed these findings with the patient and recommended that we proceed with a diagnostic bronchoscopy including EBUS. We have reviewed the potential for complications including although not limited to anesthetic complications, bleeding or pneumothorax related to biopsy. She also understands that the procedure may not provide a definitive diagnosis. As I noted above, Dr. Wilde and I spoke earlier today; he agrees with proceeding with the lung evaluation initially while he is pursuing further recommendations for the problem with the lap band. Further diagnostic and/or therapeutic intervention with regard to the lung problem well depend on the results of these initial diagnostic studies. I have also ordered a bedside spirometry. Preoperative orders have also been placed today with the plan for this procedure to be done tomorrow. R. MD SHAY Hinton/SOO /12:29 PM /12:37 PM
[2017-08-27 16:00] VITALS: BP 138/70; PULSE 69; RESP 18; TEMP 98.5; O2SAT 97
--- NOTE | 2017-08-27 18:18 | MB ---
cc: CYNDI MOCK MD DATE OF CONSULTATION 08/27/17 REASON FOR CONSULTATION Epigastric pain, gastric band with erosion HISTORY OF PRESENT ILLNESS The patient is a 72-year-old female with a history of morbid obesity and gastric band placement in 2007. The patient had relatively good weight loss of approximately 100 pounds with some weight gain. However, recently the patient developed onset of nausea, vomiting and epigastric pain. The symptoms seem to have progressed and the patient has had some significant recent weight loss. She was admitted to the hospital with further workup including CT scan and an upper GI by her primary care showing concerns and EGD was also done showing concern for erosion of gastric band. Bariatric surgery was consulted for further evaluation. There is also a question of a gastric carcinoma as well. On my exam, the patient is resting a little more comfortably. She states her pain is a little better controlled with IV pain medication. She states her pain is epigastric with some radiation to bilateral upper quadrants. It is currently a 6/10 occasionally 8/10. It is sharp and she has not had pain quite this severe, although she has had some difficulty with gastric band in the past. She does state she has seen bariatric surgeon approximately five years ago. She is unsure as to the amount of fluid that is currently retained in her band. She has complained of chronic diarrhea as well. Denies any blood in the stool. PAST MEDICAL HISTORY 1. Morbid obesity, 2. Hypothyroidism, 3. Hypertension 4. Reflux. PAST SURGICAL HISTORY 1. Diverticulitis with sigmoid colon resection, 2. Cholecystectomy, 3. Laparoscopic banding placed in 2007, 4. Cataracts 5. Tubal ligation, 6. Tonsillectomy ALLERGIES SULFA AMOXICILLIN CLAVULANIC ACID DOXYCYCLINE MELOXICAM MEDICATIONS See EMR. FAMILY HISTORY Denies hypertension or diabetes. SOCIAL HISTORY Distant history of smoking, quit three years ago, smokes approximately 40 years, denies ETOH or IVDA. REVIEW OF SYSTEMS GENERAL: Complains of weight loss. Denies fevers or chills. HEENT: Denies eye pain, ear pain. NECK: Denies swelling or pain. LUNGS: Denies cough or wheeze, lung mass. CARDIAC: Denies palpitation or chest pain. ABDOMEN: Complains of nausea, vomiting and abdominal pain. : Denies dysuria or hematuria. MUSCULOSKELETAL: Denies arthralgia, myalgias. INTEGUMENT: Denies pigmentation or nail changes. HEMATOLOGIC: Denies bruising or bleeding DERMATOLOGIC: Denies eczema. NEUROLOGIC: Denies numbness or tingling. PHYSICAL EXAMINATION GENERAL: The patient in no acute distress. VITAL SIGNS: Temperature 98.7, pulse 67, respirations 17, blood pressure 140/61, saturation 96%. HEENT: Pupils equal, round, reactive. NECK: Supple, trachea midline. No evidence of adenopathy. HEART: S1-S2 regular rhythm. ABDOMEN: Soft. Mild tenderness to palpation in epigastrium. Well-healed surgical scars. No rebound. No guarding or peritoneal signs. EXTREMITIES: Warm, well-perfused. NEUROLOGIC: GCS of 15, 5/5 motor all extremities. PSYCHIATRIC: Appropriate mood and insight. LABORATORY DATA WBC 7.8, hemoglobin 10.6, hematocrit 33.3, platelets 309. Sodium 139, potassium 3.5, chloride 103, BUN of five, creatinine 0.64, glucose 104, INR is one. IMAGING STUDIES CT scan reviewed by myself. Evidence of partial sigmoidectomy, banding in place, small hiatal hernia, small effusion with lung nodule confirmed on CT chest with a 2.7 cm left hilar mass with mediastinal adenopathy suspicious for malignancy. ASSESSMENT The patient is a 72-year-old female with history of morbid obesity, gastric banding placement, currently with hiatal hernia and nausea, vomiting, decreased p.o. intake, also with a left lung mass suspicious for carcinoma. PLAN After full clinical, radiologic and laboratory workup, the patient with above-named issues. The patient has two main issues. The patient does have a gastric band in place and appears to have some erosion. At this point, the patient is not septic or displaying any peritoneal signs which is relatively typical of eroded gastric band. The patient will need the gastric band removed. However, this is a non-emergent situation. Further, the patient does have a lung mass that is being evaluated by pulmonology with bronchoscopy tomorrow. This is very suspicious and concerning for cancer. The further issue is that when biopsies are obtained, the final diagnosis of the lung mass will dictate of course further management. If indeed the patient does have a cancer and appears to be locally advanced and the patient is a candidate for chemo radiation, this could pose some problems with gastric healing and the eroded band. So likely the patient would warrant the band being removed first allowing for several weeks of healing and then the initiation of chemo radiation. We will continue to follow and await biopsy results and further delineation of treatment for the patient's current somewhat complex situation. Discussed with the patient in detail. The patient understands. In the meantime, I will deflate the band and access the port and continue to review the records. Thank you for consultation. MD DEXTER Conte/ /5:16 PM /5:52 PM
[2017-08-27 20:00] VITALS: BP 154/80; PULSE 68; RESP 20; TEMP 98.6; O2SAT 97
[2017-08-28] VITALS: BP 135/76; PULSE 68; RESP 19; TEMP 97.6; O2SAT 96
[2017-08-28] MEDS: SODIUM CHLOR 0.9% 1000 ML INJ 1,000 ML IV SCH ×3 (03:45→17:28)
[2017-08-28 04:00] VITALS: BP 151/77; PULSE 65; RESP 19; TEMP 98; O2SAT 98
[2017-08-28] MEDS: LEVOTHYROXINE SODIUM 75 MCG TAB PO SCH (05:03)
[2017-08-28] MEDS: DOCUSATE SODIUM 50 MG/SENNA 8.6 MG TAB PO SCH ×2 (07:39→20:32)
[2017-08-28] MEDS: MULTIVITAMIN TAB PO SCH (07:40)
[2017-08-28] MEDS: amLODIPine BESYLATE 5 MG TAB PO SCH (07:40)
[2017-08-28] MEDS: SODIUM CHLORIDE 0.9% FLUSH 10 ML FLUSH IV FLUSH SCH ×2 (07:40→20:31)
--- NOTE | 2017-08-28 07:42 | PD.CONS ---
HPI History of Present Illness This is a 72 year old []. CT Abdomen and pelvis (08/25/17)---> No acute abnormality to account for patient' s veloping. Post surgical features of prior partial sigmoidectomy and lab band procedure with small hiatal hernia. Medial nodular somewhat masslike lung base airspace consolidation with associated pleural effusion. This is partially imaged on this examination and may reflect chronic change in the left lung base due to small hiatal hernia. Consider chest CT examination for full characterization. CT thorax (08/25/17)----> 2.7 cm left infrahilar mass with mediastinal adenopathy suspicious for malignancy. PET/CT scan is recommended for further evaluation if clinically indicated. PFSH Past Medical History Hypothyroidism Hypertension GERD Sinusitis Diverticulitis Past Surgical History Diverticulitis, s/p partial sigmoid colon resection Cholecystectomy Lap band Bilateral cataracts Tubal ligation, D&C Tonsillectomy Coded Allergies: Sulfa (Sulfonamide Antibiotics) (Unverified Allergy, Severe, Hives, ) amoxicillin (Unverified Allergy, Severe, Hives, 08/25/17) clavulanic acid (Unverified Allergy, Severe, Hives, 08/25/17) doxycycline (Unverified Allergy, Severe, Nausea/Vomiting, 08/25/17) meloxicam (Unverified Allergy, Unknown, gi upset, 08/25/17) Uncoded Allergies: METAL (Allergy, Severe, Rash, 03/25/17) ALL METAL EXCEPT GOLD AND SILVER Medications Allergies Coded Allergies Type Severity Reaction Last Updated Verified Sulfa (Sulfonamide Antibiotics) Allergy Severe Hives 08/25/17 No amoxicillin Allergy Severe Hives 08/25/17 No clavulanic acid Allergy Severe Hives 08/25/17 No doxycycline Allergy Severe Nausea/Vomiting 08/25/17 No meloxicam Allergy Unknown gi upset 08/25/17 No Uncoded Allergies Type Severity Reaction Last Updated Verified METAL Allergy Severe Rash 03/25/17 Active Scripts Medications Dose Route/Sig Max Daily Dose Days Date Category Aspirin 81 Mg Chew 81 Mg CHEW DAILY 08/25/17 Reported Omeprazole 20 Mg Tab 20 Mg PO DAILY 03/25/17 Reported Levothyroxine (Levothyroxine Sodium) 75 Mcg Tab 75 Mcg PO HS 03/25/17 Reported Multiple Vitamin 1 Tab 1 Tab PO DAILY 03/25/17 Reported Amlodipine (Amlodipine Besylate) 5 Mg Tab 5 Mg PO DAILY 03/25/17 Reported Family History Non contributory Social History Tobacco, history. Quit 3 years ago, used to smoke intermittently for 40 years ETOH, denies Illicit Drugs, denies. GI Exam Vitals I&O Vital Signs Date Time Temp Pulse Resp B/P (MAP) Pulse Ox O2 Delivery O2 Flow Rate FiO2 08/28/17 04:00 98.0 65 19 151/77 (101) 98 08/28/17 00:00 97.6 68 19 135/76 (95) 96 08/27/17 20:00 98.6 68 20 154/80 (104) 97 08/27/17 19:45 Room Air 08/27/17 16:00 98.5 69 18 138/70 (92) 97 08/27/17 12:00 98.1 71 19 141/82 (101) 95 08/27/17 09:47 Room Air 08/27/17 07:50 98.7 66 18 140/76 (97) 96 I/O 08/27/17 08/27/17 08/27/17 08/28/17 08/28/17 08/28/17 07:00 15:00 23:00 07:00 15:00 23:00 Intake Total 885 ml 960 ml 1830 ml Balance 885 ml 960 ml 1830 ml Intake Oral 800 ml 960 ml 580 ml IV Total 85 ml 1250 ml # Voids 4 3 4 # Bowel Movements 3 4 0 Laboratory Test 08/27/17 08:28 White Blood Count 7.8 TH/MM3 Red Blood Count 4.29 MIL/MM3 Hemoglobin 10.6 GM/DL Hematocrit 33.3 % Mean Corpuscular Volume 77.7 FL Mean Corpuscular Hemoglobin 24.7 PG Mean Corpuscular Hemoglobin Concent 31.8 % Red Cell Distribution Width 15.8 % Platelet Count 309 TH/MM3 Mean Platelet Volume 8.4 FL Physical Examination HEENT: Pupils round and reactive to light; normocephalic; atraumatic; no jaundice. Throat is clear. NECK: Neck is supple, no JVD, no lymphadenopathy. CHEST: Chest is clear to auscultation and percussion. CARDIAC: Regular rate and rhythm with no murmur gallop or rubs. ABDOMEN: Soft, nondistended, nontender; no hepatosplenomegaly; bowel sounds are present in all four quadrants. EXTREMITIES: No clubbing, cyanosis, or edema. SKIN: Normal; no rash; no jaundice. HOME AIDE: No focal deficits; alert and oriented times three. Assessment and Plan Plan patient was seen and examined, agree with above note, will plan on doing upper endoscopy tomorrow for evaluation of the nausea vomiting and abdominal pain Samanta Gorman Aug 28, 2017 07:42
[2017-08-28 08:00] VITALS: BP 126/75; PULSE 62; RESP 18; TEMP 97.9; O2SAT 97
[2017-08-28] MEDS: PANTOPRAZOLE SODIUM 40 MG VIAL IV PUSH SCH (10:23)
--- NOTE | 2017-08-28 10:23 | HHI.GIFU ---
Subjective Remarks Resting bed. Not currently having nausea/vomiting. She was having some abdominal discomfort, but states this is better after moving her bowels. Going for bronchoscopy today at 2pm. GS is also following for removal of eroded lap band, timing to be determined. Pt is concerned, states she had an upper GI series at [facility] on July 23, and that this showed some growth with blood vessels on the outside of her stomach. Also states that she would like to get a colonoscopy done. (Samanta Gorman) Objective Vitals I&O Vital Signs Date Time Temp Pulse Resp B/P (MAP) Pulse Ox O2 Delivery O2 Flow Rate FiO2 08/28/17 08:00 97.9 62 18 126/75 (92) 97 08/28/17 07:45 Room Air 08/28/17 04:00 98.0 65 19 151/77 (101) 98 08/28/17 00:00 97.6 68 19 135/76 (95) 96 08/27/17 20:00 98.6 68 20 154/80 (104) 97 08/27/17 19:45 Room Air 08/27/17 16:00 98.5 69 18 138/70 (92) 97 08/27/17 12:00 98.1 71 19 141/82 (101) 95 I/O 08/27/17 08/27/17 08/27/17 08/28/17 08/28/17 08/28/17 07:00 15:00 23:00 07:00 15:00 23:00 Intake Total 885 ml 960 ml 1830 ml Balance 885 ml 960 ml 1830 ml Intake Oral 800 ml 960 ml 580 ml IV Total 85 ml 1250 ml # Voids 4 3 4 # Bowel Movements 3 4 0 Imaging Last Impressions Abdomen/Pelvis CT 08/25/17 0658 Signed Impressions: Service Date/Time: Friday, August 25, 2017 08:50 - CONCLUSION: 1. No acute CT abnormality to account for patient's veloping. 2. Postsurgical features of prior partial sigmoidectomy and lap band procedure with small hiatal hernia. 3. Medial nodular somewhat masslike lung base airspace consolidation with associated pleural effusion. This is partially imaged on this examination and may reflect chronic change in the left lung base due to small hiatal hernia. Consider chest CT examination for full characterization. Jeffrey Hill MD Chest CT 08/25/17 0000 Signed Impressions: Service Date/Time: Friday, August 25, 2017 09:55 - CONCLUSION: 1. 2.7 cm left infrahilar mass with mediastinal adenopathy suspicious for malignancy. PET/CT scan is recommended to further evaluation if clinically indicated. James Mensah MD Physical Exam HEENT: Normocephalic; atraumatic; no jaundice. CHEST: CTA CARDIAC: RRR. ABDOMEN: Soft, nondistended, nontender; no hepatosplenomegaly; bowel sounds are present in all four quadrants. EXTREMITIES: No clubbing, cyanosis, or edema. SKIN: Normal; no rash; no jaundice. NAVAL MARINE ENGINEER: No focal deficits; alert and oriented times three. (Samanta Gorman) Assessment and Plan Plan ASSESSMENT: - Epigastric pain, with nausea/vomiting. Increased belching. History of lap band in 2006. Abdomen/Pelvis CT 08/25/17--1. No acute CT abnormality to account for patient's symptoms 2. Postsurgical features of prior partial sigmoidectomy and lap band procedure with small hiatal hernia. 3. Medial nodular somewhat masslike lung base airspace consolidation with associated pleural effusion. This is partially imaged on this examination and may reflect chronic change in the left lung base due to small hiatal hernia. Consider chest CT examination for full characterization. S/P EGD (08/26/17)----> Eroded lap band into the stomach. GS following. Not having abdominal pain, nausea/vomiting. NPO for procedure - 2.[address] 08/25/17--1. 2.7 cm left infrahilar mass with mediastinal adenopathy suspicious for malignancy. PET/CT scan is recommended to further evaluation if clinically indicated. For bronchoscopy today. - Eroded lap. band into stomach. GS following, will need to be removed- timing to be determined. - Hypothyroidism, hypertension, GERD, per attending. - Abnormal weight loss. 10-12 lbs since May 2017. - Constipation. improved. + BM. Pt is requesting colonoscopy, states last one was 5 years ago. - Pt reports that she had an upper GI series by PCP on 07/23/17 at [facility], which showed questionable gastric carcinoma and patient was advised to followup with GI, but she has not done so. Reports weight loss of 10-12 pounds since May 2017. I looked in our outpatient records and we do not have records of this. Will try to get records- primary Dr. Rodriguez. PLAN: - NPO for procedures - Okay to have MATT from GI standpoint - Cont. PPI - Supportive care - Obtain records of Upper GI series [facility] 07/23, Dr. Rodriguez as outpatient - Further recommendations to follow based on the results of above. - Pt requesting colonoscopy. We can plan for this as outpatient after she has the above issues addressed - Pt seen and examined by Dr. Hampton and myself and this note is written on her behalf (Samanta Gorman) Physician Comments seen, examined agree with above s/p bronchoscopy-preliminary showing malignant cells awaiting Laband removal by dr Wilde, most likely the cause of her problems gi will sign off call us as needed (Jada Hampton MD) Samanta Gorman Aug 28, 2017 10:23 Jada Hampton MD Aug 28, 2017 18:53
[2017-08-28 12:00] VITALS: BP 123/76; PULSE 62; RESP 18; TEMP 98.2; O2SAT 96
[2017-08-28] MEDS ORDERED: PROPOFOL 200 MG/20 ML AMP IV ONE (12:13)
[2017-08-28] MEDS ORDERED: ONDANSETRON HCL 4 MG/2 ML VIAL IV PUSH ONE (12:13)
[2017-08-28] MEDS ORDERED: LIDOCAINE HCL 1% PF 5 ML AMPULE OTHER ONE (12:13)
[2017-08-28] MEDS ORDERED: ROCURONIUM INJ 50 MG/5 ML SYRINGE IV PUSH ONE (12:13)
[2017-08-28] MEDS ORDERED: NEOSTIGMINE 3 MG/3 ML SYR IV ONE (12:13)
[2017-08-28] MEDS ORDERED: PHENYLEPH/NS 1000 MCG/10 ML SYR IV ONE (12:13)
[2017-08-28] MEDS ORDERED: GLYCOPYRROLATE 1 MG/5 ML SYRINGE IV PUSH ONE (12:13)
[2017-08-28] MEDS ORDERED: ePHEDrine/NS 25 MG/5 ML SYR IV ONE (12:13)
--- NOTE | 2017-08-28 12:35 | HHI.PR ---
Subjective Remarks Patient states that she has no pain at this time. No complaints of abdominal pain. Objective Vitals Vital Signs Date Time Temp Pulse Resp B/P (MAP) Pulse Ox O2 Delivery O2 Flow Rate FiO2 08/28/17 08:00 97.9 62 18 126/75 (92) 97 08/28/17 07:45 Room Air 08/28/17 04:00 98.0 65 19 151/77 (101) 98 08/28/17 00:00 97.6 68 19 135/76 (95) 96 08/27/17 20:00 98.6 68 20 154/80 (104) 97 08/27/17 19:45 Room Air 08/27/17 16:00 98.5 69 18 138/70 (92) 97 I/O 08/27/17 08/27/17 08/27/17 08/28/17 08/28/17 08/28/17 07:00 15:00 23:00 07:00 15:00 23:00 Intake Total 885 ml 960 ml 1830 ml Balance 885 ml 960 ml 1830 ml Intake Oral 800 ml 960 ml 580 ml IV Total 85 ml 1250 ml # Voids 4 3 4 # Bowel Movements 3 4 0 Result Diagram: 08/27/17 0828 08/26/17 0448 Imaging Last Impressions Abdomen/Pelvis CT 08/25/17 0658 Signed Impressions: Service Date/Time: Friday, August 25, 2017 08:50 - CONCLUSION: 1. No acute CT abnormality to account for patient's veloping. 2. Postsurgical features of prior partial sigmoidectomy and lap band procedure with small hiatal hernia. 3. Medial nodular somewhat masslike lung base airspace consolidation with associated pleural effusion. This is partially imaged on this examination and may reflect chronic change in the left lung base due to small hiatal hernia. Consider chest CT examination for full characterization. Jeffrey Hill MD Chest CT 08/25/17 0000 Signed Impressions: Service Date/Time: Friday, August 25, 2017 09:55 - CONCLUSION: 1. 2.7 cm left infrahilar mass with mediastinal adenopathy suspicious for malignancy. PET/CT scan is recommended to further evaluation if clinically indicated. James Mensah MD Objective Remarks GENERAL: This is a well-nourished, well-developed patient, in no apparent distress. CARDIOVASCULAR: Regular rate and rhythm with 3/6 systolic murmur RESPIRATORY: Clear to auscultation. Breath sounds equal bilaterally. No wheezes , rales, or rhonchi. GASTROINTESTINAL: Abdomen soft, non-tender, nondistended. Normal active bowel sounds MUSCULOSKELETAL: Extremities without clubbing, cyanosis, or edema. NEURO: Alert & Oriented x4 to person, place, time, situation. Moves all ext x4 Procedures EGD performed on 08/27 showed erosion of lap band into stomach, no gastric mass A/P Problem List: (1) Lung mass ICD Code: R91.8 - Other nonspecific abnormal finding of lung field Status: Acute (2) Epigastric pain ICD Code: R10.13 - Epigastric pain Status: Resolved (3) LAP-BAND surgery status ICD Code: Z98.84 - Bariatric surgery status Status: Chronic Assessment and Plan 1. Presenting Epigastric pain, nausea, vomiting, belching associated with 10- 12 pound weight loss over the past several months in a patient with previous lap band- outpatient upper GI study showing possible gastric mass with obstruction. EGD performed on 08/27 showed erosion of lap band into stomach, no gastric mass. Dr. Wilde Gen. surgery has been consulted for removal; he has completed deflating the band and access port at bedside yesterday he plans to further evaluate the area with EGD when patient is undergoing bronchoscopy with Dr. ayala today to determine next steps. 2.-Left infrahilar mass with mediastinal adenopathy suspicious for malignancy with her tobacco history pulmonary scheduled a bronchoscopy today and recommended outpatient PET scan for further workup Heart murmur 2-D echo for further workup and evaluation which showed EF of 55-60 %, moderate TR, mild aortic stenosis, trace MR, - 3.-Hypothyroidism - continue Synthroid. 4.-Hypertension, essential - continue Norvasc. Overall blood pressure controlled 5.-GERD - continue PPI 6.-DVT prophylaxis with SCDs. Discharge Planning Home when workup completed and cleared by Meghan Conrad MD Aug 28, 2017 12:35
[2017-08-28] MEDS ORDERED: RESP: ALBUTEROL CONC 2.5 MG/0.5 ML NEB ONE (13:04)
[2017-08-28] MEDS ORDERED: RESP: LIDOCAINE HCL 4% PF 5 ML NEB ONE (13:05)
[2017-08-28] MEDS ORDERED: RESP: ALBUTEROL 2.5 MG/IPRATROPIUM 0.5 MG NEB (PRN) NEB (16:30)
[2017-08-28] MEDS ORDERED: DO NOT ADM ANY ANTICOAGULANT DRUGS PRN (16:31)
[2017-08-28] MEDS ORDERED: RESP: ALBUTEROL 2.5 MG/IPRATROPIUM 0.5 MG NEB (PRN) INH (17:15)
--- NOTE | 2017-08-28 17:20 | RADRPT ---
EXAM DATE/TIME: 08/28/2017 16:44 [place] COMPARISON: CT THORAX W/O CONTRAST, August 25, 2017, 9:55. INDICATIONS : Evaluate for pneumothorax post bronch. MEDICAL HISTORY : Hypertension. Diverticulitis. Gastroesophageal reflux disease. SURGICAL HISTORY : Colon resection. Tubal ligation.Cholecystectomy. Lap band. ENCOUNTER: Initial ACUITY: 1 day PAIN SCORE: 0/10 LOCATION: Bilateral chest FINDINGS: No significant pneumothorax. Redemonstration of left infrahilar prominence corresponding to mass note d on recent CT exam. Mild volume loss in the left lower lobe with patchy ill-defined opacities in the left lower to midlung zones. Small left pleural effusion. Cardiomediastinal contours are stable. Rem ainder of the exam is unchanged. CONCLUSION: 1. No significant pneumothorax status post bronchoscopy. 2. Left infrahilar prominence corresponding to mass noted on recent CT exam. 3. Redemonstration of patchy left mid to lower lung zone airspace disease and small left pleural effu chucky. Jeffrey Hill MD on August 28, 2017 at 17:17 Board Certified Radiologist. This report was verified electronically.
[2017-08-28 18:00] VITALS: BP 136/98; PULSE 78; RESP 18; TEMP 97.6; O2SAT 93
--- NOTE | 2017-08-28 18:08 | MP ---
cc: CRISTINE MOYER DATE OF SURGERY: 08/28/2017 TYPE OF PROCEDURE: Bronchoscopy. INDICATIONS FOR PROCEDURE: Mediastinal adenopathy. Probable malignancy. PROCEDURE: After informed consent was obtained the patient underwent diagnostic bronchoscopy with ultrasound guidance for lymph node biopsies and fluoroscopy. Initial examination of the mid to distal trachea was normal. Examination of the right main stem bronchus, right upper lobe middle lobe and lower lobe orifices was entirely unremarkable. Examination of the left main stem bronchus revealed narrowing from its outset, down to the takeoff of the left upper lobe and lower lobes. There was clearly extrinsic compression but careful examination of the lingula, left upper lobe and lower lobe orifices revealed no endobronchial pathology. Just marked mucosal thickening and extrinsic compression. Evus was performed and lymph nodes were identified in the 4L, 10L and 1lL location. Initial aspirate from the station 10L where she had large bulky lymph nodes was performed using ultrasound. Math Professor assisted with preparation of slides for rapid on site evaluation. Additional specimens with a separate needle were then taken from the 4L location and submitted in Cytolyt for evaluation and additional specimens again with ultrasound guidance were taken from the 11L location and submitted Cytolyt for further evaluation. At that point we got a call from the pathologist and there were malignant cells in the initial specimens. Having established a malignant cells were present and having collected three separate stations and submitted additional material in Cytolyt for cell blocks we then washed the left upper lobe extensively and brushed the left upper lobe for cytology. Washings were submitted for cytology and cultures. At the end of the procedure there was minimal bleeding. No active bleeding. She tolerated the procedure well without apparent complication. Fluoroscopy was performed at the end of the procedure and no pneumothorax was identified. The patient was actually scheduled to have an upper endoscopy following this procedure by Dr. Wilde because she had a lap band that had eroded into her stomach. She tolerated the bronchoscopy well as I said fluoroscopy revealed no obvious pneumothorax and I left the case and turned over to anesthesia and the surgeon for her upper endoscopy. All specimens are submitted through of the laboratory for cytology and cultures. The patient will be transferred to recovery after the upper endoscopy procedure. RMD SHAY Canchola/nancy /5:12 PM /5:56 PM
[2017-08-28 20:00] VITALS: BP 135/65; PULSE 82; RESP 19; TEMP 98.2; O2SAT 97
[2017-08-29] VITALS: BP 148/73; PULSE 98; RESP 21; TEMP 98.8; O2SAT 94
[2017-08-29] MEDS: ACETAMINOPHEN/HYDROcodone 325 MG/5 MG TAB PO PRN (01:59)
[2017-08-29] MEDS: SODIUM CHLOR 0.9% 1000 ML INJ 1,000 ML IV SCH ×2 (03:05→12:21)
[2017-08-29 04:00] VITALS: BP 127/60; PULSE 84; RESP 24; TEMP 99.3; O2SAT 93
[2017-08-29] MEDS: LEVOTHYROXINE SODIUM 75 MCG TAB PO SCH (05:56)
--- NOTE | 2017-08-29 07:24 | MP ---
cc: KAIDEN WILDE MD DATE OF SURGERY: 08/28/2017 PREOPERATIVE DIAGNOSIS: Eroded lap band. Concern for lung cancer. POSTOPERATIVE DIAGNOSIS Eroded lap band. Concern for lung cancer. PROCEDURE PERFORMED Esophagogastroduodenoscopy SURGEON Dr. Kaiden Wilde TRAINING OFFICER: None ANESTHESIA GETA. IV FLUIDS See anesthesia sheet. ESTIMATED BLOOD LOSS: None. DRAINS: None. COMPLICATIONS: None. WOUND CLASSIFICATION: Clean contaminated INDICATION The patient is 78-year-old female who has history of laparoscopic gastric banding. The patient presented with epigastric pain, nausea, vomiting. She had or further workup. Including CT chest, abdomen, pelvis upper GI and EGD evaluation showing reviewed gastric band and concern for pulmonary malignancy. She is being brought to the endoscopy suite for evaluation of mediastinal at the adenopathy with endobronchial ultrasound the patient is in need of EGD for evaluation and possible removal discussed with the patient in detail. PROCEDURE IN DETAIL The patient was already and taken to the endoscopy suite, placed in supine position and intubated for endobronchial ultrasound by Dr. Kirk Bradley to dictate his portion of procedure and S1. On completion of his procedure. A new time-out was done stating correct patient, procedure surgical site were all in agreement with this. The consent was documented and Signed. The mechanical wound was checked for proper functioning. The patient again was already under anesthesia the Olympus endoscope was obtained and introduced through the mouth and oropharynx, esophagus down to the stomach. Upon evaluation of the esophagus, mild dilation entrance through the GE junction noted small hiatal hernia and evidence of significant portion of for eroded gastric band. My scope was advanced and band had eroded significantly so, almost completely occluding the inter loom of the band and therefore appearance of liquid and scope passed laterally to the band. On retroflexion again noted the band to be significant portion that had eroded through and was visible. There is no identified buccal in the scar tissue. Several pictures were taken. The scope was advanced down to the first portion of the duodenum which otherwise looked normal. On gross examination there is no evidence of intraluminal gastric mass to be identified. Following this the gastroscope was slowly removed to the stomach was desufflated. The patient tolerated procedure well. There is no intraoperative complication. The patient was extubated, taken to the PACU. MD Carol Conte /6:46 AM /7:14 AM
[2017-08-29 08:00] VITALS: BP 129/69; PULSE 69; RESP 20; TEMP 98.4; O2SAT 95
[2017-08-29] MEDS: DOCUSATE SODIUM 50 MG/SENNA 8.6 MG TAB PO SCH ×2 (09:00→20:10)
[2017-08-29] MEDS: SODIUM CHLORIDE 0.9% FLUSH 10 ML FLUSH IV FLUSH SCH ×2 (09:00→20:10)
[2017-08-29] MEDS: MULTIVITAMIN TAB PO SCH (09:09)
[2017-08-29] MEDS: amLODIPine BESYLATE 5 MG TAB PO SCH (09:09)
[2017-08-29] MEDS: PANTOPRAZOLE SODIUM 40 MG VIAL IV PUSH SCH (10:25)
[2017-08-29 12:00] VITALS: BP 146/69; PULSE 74; RESP 20; TEMP 98.4; O2SAT 96
--- NOTE | 2017-08-29 14:31 | HHI.PR ---
Subjective Remarks Patient denied pain, afebrile, she is anxious about the next step surgeon will be taking Objective Vitals Vital Signs Date Time Temp Pulse Resp B/P (MAP) Pulse Ox O2 Delivery O2 Flow Rate FiO2 08/29/17 12:00 98.4 74 20 146/69 (94) 96 08/29/17 08:00 98.4 69 20 129/69 (89) 95 08/29/17 08:00 95 Room Air 08/29/17 04:00 99.3 84 24 127/60 (82) 93 08/29/17 00:00 98.8 98 21 148/73 (98) 94 08/28/17 20:00 Room Air 08/28/17 20:00 98.2 82 19 135/65 (88) 97 08/28/17 18:00 97.6 78 18 136/98 (111) 93 08/28/17 17:10 16 96 Room Air 08/28/17 17:00 80 16 125/78 (94) 100 08/28/17 16:45 92 16 127/72 (90) 100 Nasal Cannula 2 08/28/17 16:30 98.0 86 16 123/68 (86) 100 Nasal Cannula 2 I/O 08/28/17 08/28/17 08/28/17 08/29/17 08/29/17 08/29/17 07:00 15:00 23:00 07:00 15:00 23:00 Intake Total 1830 ml 1000 ml 928 ml 760 ml Balance 1830 ml 1000 ml 928 ml 760 ml Intake Oral 580 ml 580 ml IV Total 1250 ml 348 ml 760 ml Other 1000 ml # Voids 4 3 8 # Bowel Movements 0 1 0 Result Diagram: 08/27/17 0828 08/26/17 0448 Objective Remarks GENERAL: This is a well-nourished, well-developed patient, in no apparent distress. SKIN: No rashes, warm and dry HEAD: Atraumatic. Normocephalic. EYES: Pupils equal round and reactive. Extraocular motions intact. No scleral icterus. ENT: Nose without bleeding, or drainage, Airway patent. NECK: Trachea midline. Supple CARDIOVASCULAR: Regular rate and rhythm positive systolic murmur 3 out of 6 RESPIRATORY: Fair air entry bilaterally. No wheezes, rales, or rhonchi. GASTROINTESTINAL: Abdomen soft, non-tender, nondistended. Positive bowel sounds MUSCULOSKELETAL: Extremities without clubbing, cyanosis, or edema. Pedal pulses appreciated NEUROLOGICAL: Awake and alert. Moves all extremity. Normal speech.no focal neurological deficit Procedures EGD performed on 08/27 showed erosion of lap band into stomach, no gastric mass A/P Problem List: (1) Lung mass ICD Code: R91.8 - Other nonspecific abnormal finding of lung field Status: Acute (2) Epigastric pain ICD Code: R10.13 - Epigastric pain Status: Resolved (3) LAP-BAND surgery status ICD Code: Z98.84 - Bariatric surgery status Status: Chronic Assessment and Plan 08/29: Discussed with the nurse awaiting surgery for further recommendation, continue current care 1. Presenting Epigastric pain, nausea, vomiting, belching associated with 10- 12 pound weight loss over the past several months in a patient with previous lap band- outpatient upper GI study showing possible gastric mass with obstruction. EGD performed on 08/27 showed erosion of lap band into stomach, no gastric mass. Dr. Wilde, Gen. surgery has been consulted for removal; status post deflating the band and access port at bedside status post EGD 2.-Left infrahilar mass with mediastinal adenopathy suspicious for malignancy with her tobacco history status post bronchoscopy and recommended outpatient PET scan for further workup Heart murmur 2-D echo for further workup and evaluation which showed EF of 55-60 %, moderate TR, mild aortic stenosis, trace MR, - 3.-Hypothyroidism - continue Synthroid. 4.-Hypertension, essential - continue Norvasc. Overall blood pressure controlled 5.-GERD - continue PPI 6.-DVT prophylaxis with SCDs. Discharge Planning Home when workup completed and cleared by Arabella Rico MD Aug 29, 2017 14:31
[2017-08-29 16:00] VITALS: BP 124/72; PULSE 64; RESP 20; TEMP 98.4; O2SAT 95
--- NOTE | 2017-08-29 16:47 | HHI.PR ---
Subjective Subjective Notes Feels OK today Results of EGD reviewed with her again; she didn't remember much after procedure when Dr. Wilde discussed findings. Objective Vitals/I&O Vital Signs Date Time Temp Pulse Resp B/P (MAP) Pulse Ox O2 Delivery O2 Flow Rate FiO2 08/29/17 16:00 95 Room Air 08/29/17 12:00 98.4 74 20 146/69 (94) 08/28/17 16:45 2 Labs Date/Time Source Procedure Growth Status 08/28/17 17:11 Bronchial Washings Left Upper Lobe Fungal Smear - Final NO FUNGAL ELEMENTS SEEN. 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 Dr. José Luis Bradley would like band removed prior to starting any treatment for lung neoplasm. Endoscopic vs. laparoscopic removal depending on equipment available for Dr. Wilde. Ayan Pat MD Aug 29, 2017 16:47
--- NOTE | 2017-08-29 19:05 | HHI.PR ---
Subjective Remarks ALERT NO SOB AT REST Objective Vital Signs Date Time Temp Pulse Resp B/P (MAP) Pulse Ox O2 Delivery O2 Flow Rate FiO2 08/29/17 16:00 98.4 64 20 124/72 (89) 95 08/29/17 16:00 95 Room Air 08/29/17 12:00 98.4 74 20 146/69 (94) 96 08/29/17 08:00 98.4 69 20 129/69 (89) 95 08/29/17 08:00 95 Room Air 08/29/17 04:00 99.3 84 24 127/60 (82) 93 08/29/17 00:00 98.8 98 21 148/73 (98) 94 08/28/17 20:00 Room Air 08/28/17 20:00 98.2 82 19 135/65 (88) 97 I/O 08/28/17 08/28/17 08/28/17 08/29/17 08/29/17 08/29/17 06:59 14:59 22:59 06:59 14:59 22:59 Intake Total 1830 ml 1000 ml 580 ml 1108 ml 720 ml Balance 1830 ml 1000 ml 580 ml 1108 ml 720 ml Intake Oral 580 ml 580 ml 720 ml IV Total 1250 ml 1108 ml Other 1000 ml # Voids 4 3 8 4 # Bowel Movements 0 1 0 3 Result Diagram: 08/27/17 0828 08/26/17 0448 Objective Remarks GENERAL: SKIN: Warm and dry. HEAD: Atraumatic. Normocephalic. EYES: Pupils equal and round. No scleral icterus. No injection or drainage. ENT: No nasal bleeding or discharge. Mucous membranes pink and moist. NECK: Trachea midline. No JVD. CARDIOVASCULAR: Regular rate and rhythm. RESPIRATORY: No accessory muscle use. Clear to auscultation. Breath sounds equal bilaterally. GASTROINTESTINAL: Abdomen soft, non-tender, nondistended. Hepatic and splenic margins not palpable. MUSCULOSKELETAL: Extremities without clubbing, cyanosis, or edema. No obvious deformities. NEUROLOGICAL: Awake and alert. No obvious cranial nerve deficits. Motor grossly within normal limits. Five out of 5 muscle strength in the arms and legs. Normal speech. PSYCHIATRIC: Appropriate mood and affect; insight and judgment normal. Medications and IVs Laboratory Tests Test 08/27/17 08:28 Hemoglobin 10.6 GM/DL (11.6-15.3) Hematocrit 33.3 % (35.0-46.0) Mean Corpuscular Volume 77.7 FL (80.0-100.0) Mean Corpuscular Hemoglobin 24.7 PG (27.0-34.0) Mean Corpuscular Hemoglobin Concent 31.8 % (32.0-36.0) Assessment and Plan Assessment and Plan LUNG MASS LAPBAND EROSION PLAN FOR LAPBAND REMOVAL Ethan Long MD Aug 29, 2017 19:05
[2017-08-29 20:04] VITALS: BP 143/75; PULSE 74; RESP 20; TEMP 98.5; O2SAT 96
[2017-08-30] VITALS: BP 122/57; PULSE 72; RESP 20; TEMP 98.5; O2SAT 95
[2017-08-30] MEDS: SODIUM CHLOR 0.9% 1000 ML INJ 1,000 ML IV SCH ×3 (01:00→20:51)
[2017-08-30 04:00] VITALS: BP 137/79; PULSE 67; RESP 20; TEMP 98.3; O2SAT 93
[2017-08-30] MEDS: LEVOTHYROXINE SODIUM 75 MCG TAB PO SCH (06:04)
[2017-08-30 08:00] VITALS: BP 130/71; PULSE 60; RESP 20; TEMP 98.1; O2SAT 94
[2017-08-30] MEDS: DOCUSATE SODIUM 50 MG/SENNA 8.6 MG TAB PO SCH ×2 (09:54→20:51)
[2017-08-30] MEDS: MULTIVITAMIN TAB PO SCH (09:54)
[2017-08-30] MEDS: amLODIPine BESYLATE 5 MG TAB PO SCH (09:54)
[2017-08-30] MEDS: PANTOPRAZOLE SODIUM 40 MG VIAL IV PUSH SCH (09:55)
[2017-08-30] MEDS: SODIUM CHLORIDE 0.9% FLUSH 10 ML FLUSH IV FLUSH SCH ×2 (09:56→20:51)
[2017-08-30 12:00] VITALS: BP 146/70; PULSE 75; RESP 20; TEMP 98.8; O2SAT 92
--- NOTE | 2017-08-30 15:01 | HHI.PR ---
Subjective Remarks Discussed with the patient, family at the bedside She stated she hasn't been passing flatus, but she is burping Plan is for lap band removal either by endoscopy or laparoscopy per surgery( awaiting some surgical equipment) Objective Vitals Vital Signs Date Time Temp Pulse Resp B/P (MAP) Pulse Ox O2 Delivery O2 Flow Rate FiO2 08/30/17 12:00 98.8 75 20 146/70 (95) 92 08/30/17 08:00 Room Air 08/30/17 08:00 98.1 60 20 130/71 (90) 94 08/30/17 04:00 98.3 67 20 137/79 (98) 93 08/30/17 00:00 98.5 72 20 122/57 (78) 95 08/29/17 20:11 Room Air 08/29/17 20:04 98.5 74 20 143/75 (97) 96 08/29/17 16:00 98.4 64 20 124/72 (89) 95 08/29/17 16:00 95 Room Air I/O 08/29/17 08/29/17 08/29/17 08/30/17 08/30/17 08/30/17 07:00 15:00 23:00 07:00 15:00 23:00 Intake Total 928 ml 760 ml 720 ml 400 ml Balance 928 ml 760 ml 720 ml 400 ml Intake Oral 580 ml 720 ml 400 ml IV Total 348 ml 760 ml # Voids 8 4 2 # Bowel Movements 0 3 Result Diagram: 08/27/17 0828 08/26/17 0448 Objective Remarks GENERAL: This is a well-nourished, well-developed patient, in no apparent distress. SKIN: No rashes, warm and dry HEAD: Atraumatic. Normocephalic. EYES: Pupils equal round and reactive. Extraocular motions intact. No scleral icterus. ENT: Nose without bleeding, or drainage, Airway patent. NECK: Trachea midline. Supple CARDIOVASCULAR: Regular rate and rhythm positive systolic murmur 3 out of 6 RESPIRATORY: Fair air entry bilaterally. No wheezes, rales, or rhonchi. GASTROINTESTINAL: Abdomen soft, non-tender, nondistended. Positive bowel sounds MUSCULOSKELETAL: Extremities without clubbing, cyanosis, or edema. Pedal pulses appreciated NEUROLOGICAL: Awake and alert. Moves all extremity. Normal speech.no focal neurological deficit Procedures EGD performed on 08/27 showed erosion of lap band into stomach, no gastric mass A/P Problem List: (1) Lung mass ICD Code: R91.8 - Other nonspecific abnormal finding of lung field Status: Acute (2) Epigastric pain ICD Code: R10.13 - Epigastric pain Status: Resolved (3) LAP-BAND surgery status ICD Code: Z98.84 - Bariatric surgery status Status: Chronic Assessment and Plan 08/29: Discussed with the nurse awaiting surgery for further recommendation, continue current care 08/30: Continue current care, surgery following for lap band removal(awaiting some surgical equipment) A/P: 1. Presenting Epigastric pain, nausea, vomiting, belching associated with 10- 12 pound weight loss over the past several months in a patient with previous lap band- outpatient upper GI study showing possible gastric mass with obstruction. EGD performed on 08/27 showed erosion of lap band into stomach, no gastric mass. Dr. Wilde, Gen. surgery has been consulted for removal; status post deflating the band and access port at bedside status post EGD 2.-Left infrahilar mass with mediastinal adenopathy suspicious for malignancy with her tobacco history status post bronchoscopy and recommended outpatient PET scan for further workup Heart murmur 2-D echo for further workup and evaluation which showed EF of 55-60 %, moderate TR, mild aortic stenosis, trace MR, - 3.-Hypothyroidism - continue Synthroid. 4.-Hypertension, essential - continue Norvasc. Overall blood pressure controlled 5.-GERD - continue PPI 6.-DVT prophylaxis with SCDs. Discharge Planning Home when workup completed and cleared by Arabella Rico MD Aug 30, 2017 15:01
[2017-08-30 16:00] VITALS: BP 132/79; PULSE 81; RESP 20; TEMP 98.6; O2SAT 97
[2017-08-30 19:58] VITALS: BP 145/74; PULSE 77; RESP 20; TEMP 98.9; O2SAT 96
[2017-08-31 00:05] VITALS: BP 122/61; PULSE 72; RESP 20; TEMP 99.2; O2SAT 93
[2017-08-31 03:36] VITALS: BP 127/61; PULSE 70; RESP 20; TEMP 98.7; O2SAT 97
[2017-08-31] MEDS: SODIUM CHLOR 0.9% 1000 ML INJ 1,000 ML IV SCH ×2 (07:00→17:00)
[2017-08-31] MEDS: LEVOTHYROXINE SODIUM 75 MCG TAB PO SCH (07:17)
[2017-08-31 08:00] VITALS: BP 124/70; PULSE 65; RESP 20; TEMP 98.2; O2SAT 94
[2017-08-31] MEDS: MULTIVITAMIN TAB PO SCH (08:32)
[2017-08-31] MEDS: SODIUM CHLORIDE 0.9% FLUSH 10 ML FLUSH IV FLUSH SCH ×2 (08:32→21:17)
[2017-08-31] MEDS: amLODIPine BESYLATE 5 MG TAB PO SCH (08:32)
[2017-08-31] MEDS: DOCUSATE SODIUM 50 MG/SENNA 8.6 MG TAB PO SCH ×2 (08:32→21:00)
[2017-08-31] MEDS: PANTOPRAZOLE SODIUM 40 MG VIAL IV PUSH SCH (10:51)
--- NOTE | 2017-08-31 11:18 | RSPPFT ---
DATE OF PROCEDURE: 08/28/17 COMMENTS: The forced vital capacity shows a moderate reduction with borderline improvement after bronchodilator. The FEV1 and FEF 25-75 are both mildly reduced with borderline improvement after bronchodilator. The FEV1/FVC ratio is normal. IMPRESSION: This is compatible with mild, large and small airways, partially reversible obstructive lung disease.
[2017-08-31 12:00] VITALS: BP 146/74; PULSE 80; RESP 20; TEMP 98.5; O2SAT 95
[2017-08-31 16:00] VITALS: BP 135/72; PULSE 77; RESP 20; TEMP 98.7; O2SAT 97
--- NOTE | 2017-08-31 17:02 | HHI.PR ---
Subjective Remarks Stable no acute issue, plan for surgery on Thursday morning as she was told by the surgeon Objective Vitals Vital Signs Date Time Temp Pulse Resp B/P (MAP) Pulse Ox O2 Delivery O2 Flow Rate FiO2 08/31/17 16:00 98.7 77 20 135/72 (93) 97 08/31/17 12:00 98.5 80 20 146/74 (98) 95 08/31/17 09:57 97 Room Air 08/31/17 08:00 98.2 65 20 124/70 (88) 94 08/31/17 03:36 98.7 70 20 127/61 (83) 97 08/31/17 00:05 99.2 72 20 122/61 (81) 93 08/30/17 20:54 Room Air 08/30/17 19:58 98.9 77 20 145/74 (97) 96 I/O 08/30/17 08/30/17 08/30/17 08/31/17 08/31/17 08/31/17 07:00 15:00 23:00 07:00 15:00 23:00 Intake Total 400 ml 840 ml 420 ml 720 ml Balance 400 ml 840 ml 420 ml 720 ml Intake Oral 400 ml 840 ml 420 ml 720 ml # Voids 2 4 4 # Bowel Movements 2 1 Result Diagram: 08/27/17827 Objective Remarks GENERAL: This is a well-nourished, well-developed patient, in no apparent distress. SKIN: No rashes, warm and dry HEAD: Atraumatic. Normocephalic. EYES: Pupils equal round and reactive. Extraocular motions intact. No scleral icterus. ENT: Nose without bleeding, or drainage, Airway patent. NECK: Trachea midline. Supple CARDIOVASCULAR: Regular rate and rhythm positive systolic murmur 3 out of 6 RESPIRATORY: Fair air entry bilaterally. No wheezes, rales, or rhonchi. GASTROINTESTINAL: Abdomen soft, non-tender, nondistended. Positive bowel sounds MUSCULOSKELETAL: Extremities without clubbing, cyanosis, or edema. Pedal pulses appreciated NEUROLOGICAL: Awake and alert. Moves all extremity. Normal speech.no focal neurological deficit Procedures EGD performed on 08/27 showed erosion of lap band into stomach, no gastric mass A/P Problem List: (1) Lung mass ICD Code: R91.8 - Other nonspecific abnormal finding of lung field Status: Acute (2) Epigastric pain ICD Code: R10.13 - Epigastric pain Status: Resolved (3) LAP-BAND surgery status ICD Code: Z98.84 - Bariatric surgery status Status: Chronic Assessment and Plan 08/29: Discussed with the nurse awaiting surgery for further recommendation, continue current care 08/30: Continue current care, surgery following for lap band removal(awaiting some surgical equipment) 08/31: Continue current care, plan for lap band removal surgery on Thursday A/P: 1. Presenting Epigastric pain, nausea, vomiting, belching associated with 10- 12 pound weight loss over the past several months in a patient with previous lap band- outpatient upper GI study showing possible gastric mass with obstruction. EGD performed on 08/27 showed erosion of lap band into stomach, no gastric mass. Dr. Wilde Gen. surgery has been consulted for removal; status post deflating the band and access port at bedside status post EGD 2.-Left infrahilar mass with mediastinal adenopathy suspicious for malignancy with her tobacco history status post bronchoscopy and recommended outpatient PET scan for further workup Heart murmur 2-D echo for further workup and evaluation which showed EF of 55-60 %, moderate TR, mild aortic stenosis, trace MR, - 3.-Hypothyroidism - continue Synthroid. 4.-Hypertension, essential - continue Norvasc. Overall blood pressure controlled 5.-GERD - continue PPI 6.-DVT prophylaxis with SCDs. Discharge Planning Home when workup completed and cleared by Arabella Rico MD Aug 31, 2017 17:02
[2017-08-31 20:00] VITALS: BP 145/69; PULSE 74; RESP 18; TEMP 98.8; O2SAT 93
--- NOTE | 2017-08-31 21:37 | HHI.PR ---
Subjective Subjective Notes tolerating liquids, path pending, still with pain but better Objective Vitals/I&O Vital Signs Date Time Temp Pulse Resp B/P (MAP) Pulse Ox O2 Delivery O2 Flow Rate FiO2 08/31/17 16:00 98.7 77 20 135/72 (93) 97 08/31/17 09:57 Room Air 08/28/17 16:45 2 Labs Date/Time Source Procedure Growth Status 08/28/17 17:11 Bronchial Washings Left Upper Lobe Fungal Smear - Final NO FUNGAL ELEMENTS SEEN. Resulted 08/28/17 17:11 Bronchial Washings Left Upper Lobe Fungal Culture Pending Resulted Abdomen: Other (soft mild ttp, palpable port) A/P Assessment and Plan eroded gastric band, lung cancer PLAN Will plan for OR thursday for port removal discussed with pt Endoscopic removal possible laparoscopic removal, power port placement await bx results consult rad and med onc will continue to follow Kaiden Wilde MD Aug 31, 2017 21:37
[2017-09-01] VITALS: BP_SYST 112; BP_SYST 132; BP_DIAS 55; BP_DIAS 69; PULSE 71; PULSE 73; RESP 18; TEMP 97.1; TEMP 98.8; O2SAT 93; O2SAT 95
[2017-09-01] MEDS: SODIUM CHLOR 0.9% 1000 ML INJ 1,000 ML IV SCH ×3 (03:00→23:00)
[2017-09-01 04:00] VITALS: BP 138/65; PULSE 68; RESP 18; TEMP 97.5; O2SAT 92
[2017-09-01] MEDS: LEVOTHYROXINE SODIUM 75 MCG TAB PO SCH (06:04)
--- NOTE | 2017-09-01 06:05 | MB ---
cc: RONNIE SIM MD DATE OF CONSULTATION 08/31/2017 DATE OF 1945. REASON FOR CONSULTATION Lung mass. HISTORY OF PRESENT ILLNESS Ms. Cohn is a 72-year lady with a history of lap band placement, diverticulitis status post partial colon resection, irritable bowel syndrome who presented to the emergency department on August 25 with epigastric pain, nausea and vomiting. She reports that this has been progressively worsening over the past two to three months. EGD was performed on August 25 which showed a foreign body in the upper third of the stomach which was found to be the lap band that had eroded into the stomach. Otherwise gastric mucosa was noted to be within normal limits. CT of the chest performed on August 25 showed a 2.7 cm left infrahilar mass with mediastinal adenopathy suspicious for malignancy. CT of the abdomen and pelvis showed post-surgical features of prior partial sigmoidectomy an dlap band procedure with a small hiatal hernia. Laboratory studies reveal a WBC count of 7.8, hemoglobin of 10.6, a platelet count of 309,000. Chemistry studies with normal renal function, elevated alkaline phosphatase of 124 and coags with slightly prolonged PTT of 31.4. She is status bronchoscopy with final pathology pending. PAST MEDICAL HISTORY 1. Hypothyroidism. 2. Hypertension. 3. Acid reflux. PAST SURGICAL HISTORY 1. Partial sigmoid colon resection. 2. Cholecystectomy. 3. Lap band in 2006. 4. Bilateral cataracts. 5. Tubal ligation. 6. D&C. 7. Tonsillectomy. FAMILY HISTORY Dad at the age of 46 [address]. A brother from lymphoma. SOCIAL HISTORY Quit smoking in 1992. Prior to that she was an intermittent low-volume smoker. No illegal drug use. Reports social alcohol use. She is retired with a good support system. ALLERGIES SULFA. AMOXICILLIN. DOXYCYCLINE. MELOXICAM. REVIEW OF SYSTEMS Positive for intermittent epigastric pain, nausea and vomiting. All other review of systems are negative. PHYSICAL EXAMINATION GENERAL: A well-developed, well-nourished lady in no distress. SKIN: Warm and dry. HEAD: Normocephalic, atraumatic. EYES: No scleral icterus. No injection or drainage. NECK: Supple with no palpable lymphadenopathy. CARDIOVASCULAR: Regular rate and rhythm with no murmurs. RESPIRATORY: Clear to auscultation bilaterally. GASTROINTESTINAL: Abdomen is soft, nontender, nondistended with bowel sounds present. EXTREMITIES: With no edema. NEUROLOGIC: Awake and alert. No focal deficits. PSYCH: Normal mood and affect. ASSESSMENT AND PLAN 1. Lung lesion suspicious for primary lung malignancy: s/p bronchoscopy and awaiting final pathology results. Will order MRi of brain. She has been evaluated by radiation oncology team. 2. Anemia. With history of lap band placement. Will order anemia workup to include iron profile, ferritin, vitamin B12, folate, smear review. Thank you for this consult. Will continue to follow. Ronnie Sim MD BLANK/SSB /10:44 PM /5:52 AM MTDD
[2017-09-01 08:00] VITALS: BP 136/87; PULSE 71; RESP 17; TEMP 98.5; O2SAT 94
[2017-09-01] MEDS: DOCUSATE SODIUM 50 MG/SENNA 8.6 MG TAB PO SCH ×2 (08:07→21:00)
[2017-09-01] MEDS: amLODIPine BESYLATE 5 MG TAB PO SCH (08:07)
[2017-09-01] MEDS: MULTIVITAMIN TAB PO SCH (08:07)
[2017-09-01] MEDS: SODIUM CHLORIDE 0.9% FLUSH 10 ML FLUSH IV FLUSH SCH ×2 (08:07→21:32)
[2017-09-01 08:46] LABS: TRANSFERRIN IRON PROFILE 236 MG/DL (200-360)
[2017-09-01 09:11] LABS: FERRITIN 35 NG/ML (8-252)
[2017-09-01] MEDS: PANTOPRAZOLE SODIUM 40 MG VIAL IV PUSH SCH (10:07)
[2017-09-01] MEDS ORDERED: GADODIAMIDE PF 287 MG/ML 5 ML VIAL (for RAD MRI) IVCONTRAST ONE (10:17)
--- NOTE | 2017-09-01 11:39 | RADRPT ---
EXAM DATE/TIME: 09/01/2017 10:05 [facility] COMPARISON: No previous studies available for comparison. INDICATIONS : Lung cancer. CONTRAST: 15 cc Omniscan (gadodiamide) IV MEDICAL HISTORY : Carcinoma, lung. SURGICAL HISTORY : Tonsillectomy. Cholecystectomy. Colon resection. lap band, tubal, d/c, cataract ENCOUNTER: Subsequent ACUITY: 4-6 days PAIN SCORE: Nonresponsive. LOCATION: cranial TECHNIQUE: Multiplanar, multisequence MRI of the brain was performed both prior to and following the administrat ion of paramagnetic contrast. FINDINGS: CEREBRUM: The ventricles are normal for age. No evidence of midline shift, mass lesion, hemorrhage or acute in farction. No extraaxial fluid collections are seen. The pituitary gland and suprasellar cistern are normal in configuration. WHITE MATTER: Moderate T2 hyperintense changes are identified throughout the cerebral white matter. A there signifi cant hyperintensity in the periventricular and deep white matter tracks. Subcortical involvement is a lso noted. POSTERIOR FOSSA: The cerebellum and brainstem are intact. The 4th ventricle is midline. The cerebellopontine angle is unremarkable. The cerebellar tonsils are normal in position. DIFFUSION IMAGING: No focal areas of restricted diffusion are seen. No evidence of acute infarction. EXTRACRANIAL: The visualized portions of the orbits and paranasal sinuses are unremarkable. POST-CONTRAST: No abnormal areas of parenchymal or dural enhancement. No evidence of blood-brain barrier breakdown. CONCLUSION: 1. Moderate cerebral white matter disease characteristic of chronic microvascular ischemic changes. 2. No evidence of enhancing intra-axial lesions. 3. No evidence of acute infarct, hemorrhage, mass, edema or metastatic disease. Juan Luis Cintron MD on September 01, 2017 at 11:20 Board Certified Radiologist. This report was verified electronically.
--- NOTE | 2017-09-01 11:51 | HHI.PR ---
Subjective Subjective Notes Resting in bed watching TV No issues Objective Vitals/I&O Vital Signs Date Time Temp Pulse Resp B/P (MAP) Pulse Ox O2 Delivery O2 Flow Rate FiO2 09/01/17 08:00 98.5 71 17 136/87 (103) 94 08/31/17 20:15 Room Air 08/28/17 16:45 2 Labs Laboratory Tests Test 09/01/17 06:50 Iron Level 27 Total Iron Binding Capacity 330 Percent Iron Saturation 8.2 Ferritin 35 Vitamin B12 Level 631 Folate 18.9 Date/Time Source Procedure Growth Status 08/28/17 17:11 Bronchial Washings Left Upper Lobe Fungal Smear - Final NO FUNGAL ELEMENTS SEEN. Resulted 08/28/17 17:11 Bronchial Washings Left Upper Lobe Fungal Culture Pending Resulted Cardiovascular: Regular Lungs: Clear Abdomen: Non-distended, Non-tender Extremities: No edema A/P Assessment and Plan 72 year old female with newly found lung mass s/p bx; eroded LapBand in need of removal -Plan for Lap Band removal tomorrow; endoscopically vs laparoscopically; in addition will plan to place port -Obtain consents -Continue full liquids; NPO after MN -OOB and mobilize -Medical Oncology and Radiation Oncology following Attending Statement patient seen at bedside discussed with patient risks and benefits of surgery pt agrees and would like to proceed Attestation The exam, history, and the medical decision-making described in the above note were completed with the assistance of the mid-level provider. I reviewed and agree with the findings presented. I attest that I had a [id number] encounter with the patient on the same day, and personally performed and documented my assessment and findings in the medical record. Darby Aguirre Sep 01, 2017 11:51 Kaiden Wilde MD Sep 09, 2017 13:04
[2017-09-01 12:00] VITALS: BP 130/75; PULSE 89; RESP 18; TEMP 98.8; O2SAT 95
--- NOTE | 2017-09-01 14:24 | HHI.PR ---
Subjective Remarks no acute event overnight planned for lab band removal tomorrow morning for surgery MRI of the brain as ordered by the oncology team Objective Vitals Vital Signs Date Time Temp Pulse Resp B/P (MAP) Pulse Ox O2 Delivery O2 Flow Rate FiO2 09/01/17 12:00 98.8 89 18 130/75 (93) 95 09/01/17 08:00 98.5 71 17 136/87 (103) 94 09/01/17 04:00 97.5 68 18 138/65 (89) 92 09/01/17 00:00 98.8 71 18 132/69 (90) 95 08/31/17 20:15 Room Air 08/31/17 20:00 98.8 74 18 145/69 (94) 93 08/31/17 16:00 98.7 77 20 135/72 (93) 97 I/O 08/31/17 08/31/17 08/31/17 09/01/17 09/01/17 09/01/17 07:00 15:00 23:00 07:00 15:00 23:00 Intake Total 420 ml 720 ml Output Total 200 ml Balance 420 ml 520 ml Intake Oral 420 ml 720 ml Output Urine Total 200 ml # Voids 4 # Bowel Movements 1 Objective Remarks GENERAL: This is a well-nourished, well-developed patient, in no apparent distress. SKIN: No rashes, warm and dry HEAD: Atraumatic. Normocephalic. EYES: Pupils equal round and reactive. Extraocular motions intact. No scleral icterus. ENT: Nose without bleeding, or drainage, Airway patent. NECK: Trachea midline. Supple CARDIOVASCULAR: Regular rate and rhythm positive systolic murmur 3 out of 6 RESPIRATORY: Fair air entry bilaterally. No wheezes, rales, or rhonchi. GASTROINTESTINAL: Abdomen soft, non-tender, nondistended. Positive bowel sounds MUSCULOSKELETAL: Extremities without clubbing, cyanosis, or edema. Pedal pulses appreciated NEUROLOGICAL: Awake and alert. Moves all extremity. Normal speech.no focal neurological deficit Procedures EGD performed on 08/27 showed erosion of lap band into stomach, no gastric mass A/P Problem List: (1) Lung mass ICD Code: R91.8 - Other nonspecific abnormal finding of lung field Status: Acute (2) Epigastric pain ICD Code: R10.13 - Epigastric pain Status: Resolved (3) LAP-BAND surgery status ICD Code: Z98.84 - Bariatric surgery status Status: Chronic Assessment and Plan 08/29: Discussed with the nurse awaiting surgery for further recommendation, continue current care 08/30: Continue current care, surgery following for lap band removal(awaiting some surgical equipment) 08/31: Continue current care, plan for lap band removal surgery on Thursday morning 09/01: MRI ordered by oncology team, Will follow, plan to go to or in a.m. A/P: 1. Presenting Epigastric pain, nausea, vomiting, belching associated with 10- 12 pound weight loss over the past several months in a patient with previous lap band- outpatient upper GI study showing possible gastric mass with obstruction. EGD performed on 08/27 showed erosion of lap band into stomach, no gastric mass. Dr. Wilde, Gen. surgery has been consulted for removal; status post deflating the band and access port at bedside status post EGD 2.-Left infrahilar mass with mediastinal adenopathy suspicious for malignancy with her tobacco history status post bronchoscopy and recommended outpatient PET scan for further workup Heart murmur 2-D echo for further workup and evaluation which showed EF of 55-60 %, moderate TR, mild aortic stenosis, trace MR, - 3.-Hypothyroidism - continue Synthroid. 4.-Hypertension, essential - continue Norvasc. Overall blood pressure controlled 5.-GERD - continue PPI 6.-DVT prophylaxis with SCDs. Discharge Planning Home when workup completed and cleared by Arabella Rico MD Sep 01, 2017 14:24
[2017-09-01 16:00] VITALS: BP 126/71; PULSE 81; RESP 18; TEMP 99.2; O2SAT 94
[2017-09-01 20:00] VITALS: BP 155/83; PULSE 78; RESP 18; TEMP 99.1; O2SAT 97
[2017-09-01] MEDS: ACETAMINOPHEN/HYDROcodone 325 MG/5 MG TAB PO PRN (21:32)
[2017-09-02] VITALS: BP 123/62; PULSE 69; RESP 18; TEMP 98.7; O2SAT 96
[2017-09-02 04:00] VITALS: BP 144/71; PULSE 63; RESP 16; TEMP 97.5; O2SAT 96
[2017-09-02] MEDS: LEVOTHYROXINE SODIUM 75 MCG TAB PO SCH (05:14)
[2017-09-02] MEDS ORDERED: MIDAZOLAM HCL 2 MG/2 ML VIAL ONE (07:58)
[2017-09-02] MEDS ORDERED: FAMOTIDINE 20 MG/2 ML VIAL ONE (07:58)
[2017-09-02] MEDS ORDERED: DEXAMETHASONE SOD PHOS 4 MG/ML VIAL ONE (07:58)
[2017-09-02 08:00] VITALS: BP 157/77; PULSE 80; RESP 18; TEMP 99; O2SAT 93
[2017-09-02] MEDS ORDERED: ceFAZolin 2 GM PREMIX 50 ML ONE ×2 (08:44→14:01)
[2017-09-02] MEDS ORDERED: metroNIDAZOLE 500 MG INJ 100 ML IV ONE (08:44)
[2017-09-02] MEDS: DOCUSATE SODIUM 50 MG/SENNA 8.6 MG TAB PO SCH ×2 (09:00→20:27)
[2017-09-02] MEDS: SODIUM CHLOR 0.9% 1000 ML INJ 1,000 ML IV SCH (09:00)
[2017-09-02] MEDS: amLODIPine BESYLATE 5 MG TAB PO SCH (09:00)
[2017-09-02] MEDS: MULTIVITAMIN TAB PO SCH (09:00)
[2017-09-02] MEDS: PANTOPRAZOLE SODIUM 40 MG VIAL IV PUSH SCH ×3 (10:00→16:00)
[2017-09-02] MEDS ORDERED: HEPARIN SODIUM - IV 10,000 UNITS/10 ML VIAL ONE (10:11)
[2017-09-02] MEDS ORDERED: HEPARIN SODIUM - SQ 10,000 UNITS/ML VIAL ONE (10:11)
[2017-09-02] MEDS ORDERED: BUPIVACAINE/EPINEPHRINE 0.25% 50 ML VIAL ONE (10:12)
[2017-09-02] MEDS ORDERED: PHENYLEPH/NS 1000 MCG/10 ML SYR IV ONE (12:00)
[2017-09-02] MEDS ORDERED: ePHEDrine/NS 25 MG/5 ML SYR IV ONE (12:00)
[2017-09-02] MEDS ORDERED: ROCURONIUM INJ 50 MG/5 ML SYRINGE IV PUSH ONE (12:00)
[2017-09-02] MEDS ORDERED: ONDANSETRON HCL 4 MG/2 ML VIAL IV PUSH ONE (12:00)
[2017-09-02] MEDS ORDERED: LIDOCAINE HCL 1% PF 5 ML AMPULE OTHER ONE (12:00)
[2017-09-02] MEDS ORDERED: PROPOFOL 200 MG/20 ML AMP IV ONE (12:00)
[2017-09-02] MEDS ORDERED: NEOSTIGMINE 3 MG/3 ML SYR IV ONE (12:00)
[2017-09-02] MEDS ORDERED: GLYCOPYRROLATE 1 MG/5 ML SYRINGE IV PUSH ONE (12:00)
[2017-09-02] MEDS ORDERED: PHENYLEPHRINE HCL 10 MG/ML VIAL IV ONE (12:00)
[2017-09-02] MEDS ORDERED: LIDOCAINE 2%/EPINEPHrine PF 1:200,000 20ML SDV ONE (13:02)
[2017-09-02] MEDS ORDERED: DO NOT ADM ANY ANTICOAGULANT DRUGS PRN (14:37)
[2017-09-02] MEDS ORDERED: *RESP: ALBUTEROL 2.5 MG/3 ML NEB (PRN) PERIprocedural Use ONLY NEB ONE (14:40)
[2017-09-02] MEDS ORDERED: *morphine SULFATE 8 MG/ML PERIprocedure ONLY ONE ×2 (14:41→14:53)
[2017-09-02] MEDS ORDERED: LACTATED RINGER'S 1000 ML IV PRN (14:45)
[2017-09-02] MEDS ORDERED: CHLORHEXIDINE GLUCONATE 2 % 1 PACK (2 CLOTHS) TOPICAL PRN (14:45)
[2017-09-02] MEDS ORDERED: SODIUM CHLORID 0.9% 500 ML IV PRN (14:45)
[2017-09-02] MEDS ORDERED: METOPROLOL TARTRATE 25 MG TAB PO PRN (14:45)
[2017-09-02] MEDS ORDERED: INSULIN HUMAN REGULAR 1,000 UNITS/10 ML VIAL SQ PRN (14:45)
[2017-09-02] MEDS ORDERED: POVIDONE IODINE 5% (ANTISEPSIS KIT) 4 APPLICATIONS EACH NARE PRN (14:45)
--- NOTE | 2017-09-02 14:45 | GIPROC ---
[facility] [address] [facility]. [facility], [address] EGD PROCEDURE REPORT EXAM DATE: 09/02/2017 PATIENT NAME: Pearl Cohn MR #: [id number] BIRTHDATE: 1945 ATTENDING: Vonda Schultz ORDER #: [id number] ENTRY LEVEL SOFTWARE DEVELOPER: Tena Padilla and Brandon Schuster STATUS: inpatient INDICATIONS: The patient is a 72 yr old female here for an EGD due to foreign body removal and foreign body removal from stomach PROCEDURE PERFORMED: EGD w/ fb removal MEDICATIONS: None and Per Anesthesia. TOPICAL ANESTHETIC: CONSENT: The patient understands the risks and benefits of the procedure and understands that these risks include, but are not limited to: sedation, allergic reaction, infection, perforation and/or bleeding. Alternative means of evaluation and treatment include, among others: physical exam, x-rays, and/or surgical intervention. The patient elects to proceed with this endoscopic procedure. medical equipment was checked for proper function. Hand hygiene and appropriate measures for infection prevention was taken. After the risks, benefits and alternatives of the procedure were thoroughly explained, Informed consent was verified, confirmed and timeout was successfully executed by the treatment team. The patient was anesthetized with topical anesthesia and the Pentax [id number] endoscope was introduced through the mouth and advanced to the stomach antrum. Retroflexed views revealed no abnormalities The gastroscope was then slowly withdrawn and removed. ESOPHAGUS: The mucosa of the esophagus appeared normal. STOMACH: Severe gastritis and blood seen. Gastric lap band grabbed with long jaw forceps and pulled into the hypopharynx. This was then grabbed under diret vision with a laryngoscope using Mcgills forceps and removed through the mouth. ADVERSE EVENTS: There were no complications. IMPRESSIONS: 1. The esophagus appeared normal 2. Severe gastritis and blood seen. Gastric lap band grabbed with long jaw forceps and pulled into the hypopharynx. This was then grabbed under diret vision with a laryngoscope using Mcgills forceps and removed through the mouth 3. Retroflexed views revealed no abnormalities RECOMMENDATIONS: 1. Anti-reflux regimen 2. Continue PPI PATIENT CONDITION: stable DISPOSITION: Inpatient REPEAT EXAM: Return as needed for EGD Vonda Schultz eSigned: Vonda Schultz MD 09/02/2017 2:45 PM cc: Kaiden Wilde MD PATIENT NAME: SukiPearl MR#: [id number]
--- NOTE | 2017-09-02 14:51 | HHI.PR ---
Immediate Post Op Note Procedure Date: Sep 02, 2017 Pre Op Diagnosis: gastric band erosion, lung cancer Post Op Diagnosis: same Surgeon: Kaiden Wilde MD Hydrogenation Still Operator(s): see or sheet Procedure: endoscopic band removal with laparoscopic assistance, laparoscopic repair of gastrotomy, laparoscopic lysis of adhesions, right subclavian port placement under fluoroscopy Findings: eroded gastric band, intense fibrous reaction, multiple intraabdominal adhesions , good flush good return from port, cxr pending Anesthesia: General Drains: ROCHELLE IVF (1999) Patient to: PACU Patient Condition: Good Kaiden Wilde MD Sep 02, 2017 14:51
--- NOTE | 2017-09-02 15:31 | HHI.PR ---
Subjective Remarks Seen earlier today patient going for endoscopic versus laparoscopic LAP-BAND removal, no issues overnight Objective Vitals Vital Signs Date Time Temp Pulse Resp B/P (MAP) Pulse Ox O2 Delivery O2 Flow Rate FiO2 09/02/17 15:15 92 16 112/56 (74) 96 Nasal Cannula 3 09/02/17 14:34 98.1 93 14 125/84 (98) 96 Nasal Cannula 3 09/02/17 08:00 99.0 80 18 157/77 (103) 93 09/02/17 04:00 97.5 63 16 144/71 (95) 96 09/02/17 00:00 98.7 69 18 123/62 (82) 96 09/01/17 20:00 Room Air 09/01/17 20:00 99.1 78 18 155/83 (107) 97 09/01/17 16:00 99.2 81 18 126/71 (89) 94 I/O 09/01/17 09/01/17 09/01/17 09/02/17 09/02/17 09/02/17 07:00 15:00 23:00 07:00 15:00 23:00 Intake Total 840 ml 2000 ml Output Total 1401 ml 450 ml Balance -561 ml 1550 ml Intake Oral 840 ml Other 2000 ml Output Urine Total 1400 ml 400 ml Stool Total 1 ml Estimated Blood Loss 50 ml # Voids 4 Objective Remarks GENERAL: This is a well-nourished, well-developed patient, in no apparent distress. SKIN: No rashes, warm and dry HEAD: Atraumatic. Normocephalic. EYES: Pupils equal round and reactive. Extraocular motions intact. No scleral icterus. ENT: Nose without bleeding, or drainage, Airway patent. NECK: Trachea midline. Supple CARDIOVASCULAR: Regular rate and rhythm positive systolic murmur 3 out of 6 RESPIRATORY: Fair air entry bilaterally. No wheezes, rales, or rhonchi. GASTROINTESTINAL: Abdomen soft, non-tender, nondistended. Positive bowel sounds MUSCULOSKELETAL: Extremities without clubbing, cyanosis, or edema. Pedal pulses appreciated NEUROLOGICAL: Awake and alert. Moves all extremity. Normal speech.no focal neurological deficit Procedures EGD performed on 08/27 showed erosion of lap band into stomach, no gastric mass A/P Problem List: (1) Lung mass ICD Code: R91.8 - Other nonspecific abnormal finding of lung field Status: Acute (2) Epigastric pain ICD Code: R10.13 - Epigastric pain Status: Resolved (3) LAP-BAND surgery status ICD Code: Z98.84 - Bariatric surgery status Status: Chronic Assessment and Plan 08/29: Discussed with the nurse awaiting surgery for further recommendation, continue current care 08/30: Continue current care, surgery following for lap band removal(awaiting some surgical equipment) 08/31: Continue current care, plan for lap band removal surgery on 09/01: MRI ordered by oncology team, Will follow, plan to go to or in a.m. 09/02: Going for LAP-BAND removal today, MRI of the brain>Moderate changes consistent with chronic microvascular ischemic changes A/P: 1. Presenting Epigastric pain, nausea, vomiting, belching associated with 10- 12 pound weight loss over the past several months in a patient with previous lap band- outpatient upper GI study showing possible gastric mass with obstruction. EGD performed on 08/27 showed erosion of lap band into stomach, no gastric mass. Dr. Wilde, Gen. surgery has been consulted for removal; status post deflating the band and access port at bedside status post EGD 2.-Left infrahilar mass with mediastinal adenopathy suspicious for malignancy with her tobacco history status post bronchoscopy and recommended outpatient PET scan for further workup Heart murmur 2-D echo for further workup and evaluation which showed EF of 55-60 %, moderate TR, mild aortic stenosis, trace MR, - 3.-Hypothyroidism - continue Synthroid. 4.-Hypertension, essential - continue Norvasc. Overall blood pressure controlled 5.-GERD - continue PPI 6.-DVT prophylaxis with SCDs. Discharge Planning Home when workup completed and cleared by Arabella Rico MD Sep 02, 2017 15:31
[2017-09-02] MEDS ORDERED: SODIUM CHLORIDE 0.9% INJ 10 ML ONE (15:39)
[2017-09-02 16:00] VITALS: BP 135/68; PULSE 103; RESP 20; TEMP 97.2; O2SAT 96
[2017-09-02] MEDS: MORPHINE SULFATE 2 MG/ML INJ IV PUSH PRN ×3 (16:55→23:18)
[2017-09-02] MEDS: metroNIDAZOLE 500 MG INJ 100 ML IV SCH (16:58)
[2017-09-02] MEDS: SODIUM CHLORIDE 0.9% FLUSH 10 ML FLUSH IV FLUSH SCH (20:26)
[2017-09-02 20:30] VITALS: BP 135/70; PULSE 109; RESP 18; TEMP 99.1; O2SAT 93
--- NOTE | 2017-09-02 22:02 | RADRPT ---
EXAM DATE/TIME: 09/02/2017 21:35 [facility] COMPARISON: CHEST SINGLE AP, August 28, 2017, 16:44. INDICATIONS : Port placement MEDICAL HISTORY : Carcinoma, lung. SURGICAL HISTORY : Tonsillectomy. Cholecystectomy. Colon resection. lap band, tubal, d/c, ENCOUNTER: Initial ACUITY: 1 day PAIN SCORE: 0/10 LOCATION: Bilateral chest FINDINGS: A right sided [id number] has been placed. The central line appears to be in good position. There i s no pneumothorax. There is an infiltrate in the left lung base. The right lung is clear. The heart s ize is stable. There is an NG tube in stomach. The bony structures are stable. CONCLUSION: Right sided central line in place. Scattered infiltrates in the left lower lung. Kirit Lombardo MD on September 02, 2017 at 22:00 Board Certified Radiologist. This report was verified electronically.
[2017-09-02] MEDS: D5-1/2 NS + KCL 10 MEQ INJ 1,000 ML IV SCH (23:19)
[2017-09-02 23:27] VITALS: BP 129/64; PULSE 99; RESP 18; TEMP 98; O2SAT 94
[2017-09-03] MEDS: metroNIDAZOLE 500 MG INJ 100 ML IV SCH ×3 (01:27→15:37)
[2017-09-03] MEDS: PANTOPRAZOLE SODIUM 40 MG VIAL IV PUSH SCH ×2 (03:17→15:36)
[2017-09-03 04:17] VITALS: BP 141/77; PULSE 85; RESP 18; TEMP 97.7; O2SAT 96
[2017-09-03] MEDS: LEVOTHYROXINE SODIUM 75 MCG TAB PO SCH (05:48)
[2017-09-03] MEDS: D5-1/2 NS + KCL 10 MEQ INJ 1,000 ML IV SCH ×3 (05:49→22:17)
[2017-09-03] MEDS: MORPHINE SULFATE 2 MG/ML INJ IV PUSH PRN ×5 (06:13→18:32)
[2017-09-03 07:34] LABS: BASOPHIL % 0.3 % (0.0-2.0); EOSINOPHIL % 0.1 % (0.0-4.0); HEMATOCRIT 31.8 % (35.0-46.0); HEMO FLAGS DIFF FINAL; LYMPH % 5.8 % (9.0-44.0); LYMPHOCYTE # 0.9 TH/MM3 (1.0-4.8); MEAN CELL VOLUME 77.6 FL (80.0-100.0); MEAN CORPUSCULAR HGB CONC 32.2 % (32.0-36.0); MONO % 5.6 % (0.0-8.0); NEUT % 88.2 % (16.0-70.0); PLATELET COUNT 263 TH/MM3 (150-450); RED CELL DISTRIBUTION WIDTH 15.4 % (11.6-17.2); WHITE BLOOD COUNT 15.9 TH/MM3 (4.0-11.0)
[2017-09-03 08:00] VITALS: BP 156/80; PULSE 81; RESP 20; TEMP 98.8; O2SAT 95
[2017-09-03 08:02] LABS: BICARBONATE 29.2 MEQ/L (21.0-32.0); POTASSIUM 3.6 MEQ/L (3.5-5.1)
[2017-09-03] MEDS: DOCUSATE SODIUM 50 MG/SENNA 8.6 MG TAB PO SCH ×3 (09:00→22:17)
[2017-09-03] MEDS: SODIUM CHLORIDE 0.9% FLUSH 10 ML FLUSH IV FLUSH SCH ×2 (09:00→21:00)
[2017-09-03] MEDS: amLODIPine BESYLATE 5 MG TAB PO SCH (09:23)
[2017-09-03] MEDS: MULTIVITAMIN TAB PO SCH (09:23)
--- NOTE | 2017-09-03 10:25 | HHI.PR ---
Subjective Subjective Notes feeling better, no acute events Objective Vitals/I&O Vital Signs Date Time Temp Pulse Resp B/P (MAP) Pulse Ox O2 Delivery O2 Flow Rate FiO2 09/03/17 08:00 98.8 81 20 156/80 (105) 95 09/03/17 00:00 Nasal Cannula 2.00 Labs Laboratory Tests Test 09/03/17 06:58 White Blood Count 15.9 Red Blood Count 4.10 Hemoglobin 10.2 Hematocrit 31.8 Mean Corpuscular Volume 77.6 Mean Corpuscular Hemoglobin 25.0 Mean Corpuscular Hemoglobin Concent 32.2 Red Cell Distribution Width 15.4 Platelet Count 263 Mean Platelet Volume 8.8 Neutrophils (%) (Auto) 88.2 Lymphocytes (%) (Auto) 5.8 Monocytes (%) (Auto) 5.6 Eosinophils (%) (Auto) 0.1 Basophils (%) (Auto) 0.3 Neutrophils # (Auto) 14.0 Lymphocytes # (Auto) 0.9 Monocytes # (Auto) 0.9 Eosinophils # (Auto) 0.0 Basophils # (Auto) 0.0 CBC Comment DIFF FINAL Differential Comment Blood Urea Nitrogen 8 Creatinine 0.66 Random Glucose 104 Calcium Level 8.2 Sodium Level 140 Potassium Level 3.6 Chloride Level 106 Carbon Dioxide Level 29.2 Anion Gap 5 Estimat Glomerular Filtration Rate 88 Prealbumin 11 Date/Time Source Procedure Growth Status 08/28/17 17:11 Bronchial Washings Left Upper Lobe Fungal Smear - Final NO FUNGAL ELEMENTS SEEN. Resulted 08/28/17 17:11 Bronchial Washings Left Upper Lobe Fungal Culture Pending Resulted Cardiovascular: Regular Lungs: Clear Abdomen: Other (soft, margaret serosang, incisions c/d/i, incisional tenderness) A/P Assessment and Plan eroded gastric band, lung cancer, s/p endoscopic band removal with laparoscopic assistance, laparoscopic repair of gastrotomy, laparoscopic lysis of adhesions , right subclavian port placement POD 1 PLAN NPO, NG sxn, will check ugi swallow in 3-4 days, ok for small cup of ice chips abx d/c rosenbaum pain control radiation and medical oncology following will continue to follow Kaiden Wilde MD Sep 03, 2017 10:25
[2017-09-03 12:00] VITALS: BP 153/74; PULSE 80; RESP 20; TEMP 99; O2SAT 96
--- NOTE | 2017-09-03 12:38 | HHI.PR ---
Subjective Remarks doing well post op yesterday pt had lab band removal ngt and surgical drainer in place with dark liquid drained no n/v no cp , sob tolerable abd soreness Objective Vitals Vital Signs Date Time Temp Pulse Resp B/P (MAP) Pulse Ox O2 Delivery O2 Flow Rate FiO2 09/03/17 09:16 Nasal Cannula 2.00 09/03/17 08:00 98.8 81 20 156/80 (105) 95 09/03/17 04:17 97.7 85 18 141/77 (98) 96 09/03/17 00:00 Nasal Cannula 2.00 09/02/17 23:27 98.0 99 18 129/64 (85) 94 09/02/17 20:30 99.1 109 18 135/70 (91) 93 09/02/17 20:00 Room Air 09/02/17 17:00 2.00 09/02/17 16:00 97.2 103 20 135/68 (90) 96 09/02/17 15:45 98.2 91 14 118/59 (78) 99 Nasal Cannula 3 09/02/17 15:30 89 14 108/59 (75) 97 Nasal Cannula 3 09/02/17 15:15 92 16 112/56 (74) 96 Nasal Cannula 3 09/02/17 15:00 82 19 102/51 (68) 96 Aerosol Mask 09/02/17 14:45 88 18 123/74 (90) 95 Aerosol Mask 09/02/17 14:34 98.1 93 14 125/84 (98) 96 Nasal Cannula 3 I/O 09/02/17 09/02/17 09/02/17 09/03/17 09/03/17 09/03/17 07:00 15:00 23:00 07:00 15:00 23:00 Intake Total 2000 ml 200 ml 2177 ml Output Total 500 ml 600 ml 650 ml Balance 1500 ml -400 ml 1527 ml Intake Oral 0 ml 0 ml IV Total 200 ml 2177 ml Other 2000 ml Output Urine Total 400 ml 400 ml 450 ml Gastric Drainage Total 150 ml 150 ml Drainage Total 50 ml 50 ml 50 ml Estimated Blood Loss 50 ml # Voids 4 # Bowel Movements 0 0 Result Diagram: 09/03/1765709/03/17657 Objective Remarks GENERAL: This is a well-nourished, well-developed patient, in no apparent distress. SKIN: No rashes, warm and dry HEAD: Atraumatic. Normocephalic. EYES: Pupils equal round and reactive. Extraocular motions intact. No scleral icterus. ENT: Nose without bleeding, or drainage, Airway patent. NECK: Trachea midline. Supple CARDIOVASCULAR: Regular rate and rhythm positive systolic murmur 3 out of 6 RESPIRATORY: Fair air entry bilaterally. No wheezes, rales, or rhonchi. GASTROINTESTINAL: Abdomen soft, non-tender, nondistended. Positive bowel sounds MUSCULOSKELETAL: Extremities without clubbing, cyanosis, or edema. Pedal pulses appreciated NEUROLOGICAL: Awake and alert. Moves all extremity. Normal speech.no focal neurological deficit Procedures EGD performed on 08/27 showed erosion of lap band into stomach, no gastric mass A/P Problem List: (1) Lung mass ICD Code: R91.8 - Other nonspecific abnormal finding of lung field Status: Acute (2) Epigastric pain ICD Code: R10.13 - Epigastric pain Status: Resolved (3) LAP-BAND surgery status ICD Code: Z98.84 - Bariatric surgery status Status: Chronic Assessment and Plan A/P: - Presenting Epigastric pain, nausea, vomiting, belching associated with 10-12 pound weight loss over the past several months in a patient with previous lap band- outpatient upper GI study showing possible gastric mass with obstruction. EGD performed on 08/27 showed erosion of lap band into stomach, no gastric mass. Dr. Wilde, Gen. surgery has been consulted for removal; status post deflating the band and access port at bedside status post EGD s/p LAP-BAND removal 09/02 , surgery following , MRI of the brain>Moderate changes consistent with chronic microvascular ischemic changes .-Left infrahilar mass with mediastinal adenopathy suspicious for malignancy with her tobacco history status post bronchoscopy , seen by Radiation oncology , oncology , chemo after done with lab band sx -Heart murmur 2-D echo for further workup and evaluation which showed EF of 55- 60%, moderate TR, mild aortic stenosis, trace MR, - -Hypothyroidism - continue Synthroid. .-Hypertension, essential - continue Norvasc. Overall blood pressure controlled .-GERD - continue PPI .-DVT prophylaxis with SCDs. Discharge Planning when cleared by surgery Arabella Cooley MD Sep 03, 2017 12:38
[2017-09-03 16:00] VITALS: BP 156/70; PULSE 90; RESP 20; TEMP 99; O2SAT 95
[2017-09-03 20:39] VITALS: BP 156/67; PULSE 94; RESP 18; TEMP 100.1; O2SAT 93
--- NOTE | 2017-09-03 21:55 | RF ---
cc: JATIN CURTIS F o l l o w u p R e p o r t DATE OF SERVICE: 09/03/17 AGE: 72 SEX: F Ms. Cohn is a 72-year-old female seen as an inpatient. Initially encountered likely stage III [id number] lung cancer. Pathology pending. She is seen today as an inpatient. Pathology does confirm findings consistent with [id number] lung cancer. We discussed definitive radiation therapy. She does have an MRI of her brain obtained 09/03/2017 for staging purposes demonstrating no evidence of metastases. We discussed definitive chemoradiation therapy. We will coordinate care with Dr. Sutherland, medical oncologist. We will contact her. We will schedule her for CT simulation as well. Complex blocking will be done. Greater than 50% 20-minute [id number] encounter today discussed definitive treatment. She did recently undergo removal of lap band and had port placement. Consider PET CT for restaging as she has a 2.7 cm left infrahilar region left hilar adenopathy, biopsy-proven cancer. Jatin Curtis MD Radiation Oncologist WILLIE/ /5:26 PM /9:45 PM
[2017-09-03 23:52] VITALS: BP 123/76; PULSE 88; RESP 18; TEMP 98.5; O2SAT 95
[2017-09-04] VITALS (8 sets, daily range): BP systolic 132–151; BP diastolic 71–85; PULSE 86–96; RESP 16–20; TEMP 98.4–99.4; O2SAT 91–99
[2017-09-04] MEDS: metroNIDAZOLE 500 MG INJ 100 ML IV SCH ×3 (02:56→16:15)
[2017-09-04] MEDS: PANTOPRAZOLE SODIUM 40 MG VIAL IV PUSH SCH ×2 (06:08→15:05)
[2017-09-04] MEDS: LEVOTHYROXINE SODIUM 75 MCG TAB PO SCH (06:12)
[2017-09-04] MEDS: MORPHINE SULFATE 2 MG/ML INJ IV PUSH PRN (06:33)
[2017-09-04] MEDS: D5-1/2 NS + KCL 10 MEQ INJ 1,000 ML IV SCH ×2 (06:53→16:15)
[2017-09-04] MEDS: DOCUSATE SODIUM 50 MG/SENNA 8.6 MG TAB PO SCH ×2 (09:00→21:00)
[2017-09-04] MEDS: MULTIVITAMIN TAB PO SCH (10:23)
[2017-09-04] MEDS: SODIUM CHLORIDE 0.9% FLUSH 10 ML FLUSH IV FLUSH SCH (10:23)
[2017-09-04] MEDS: amLODIPine BESYLATE 5 MG TAB PO SCH (10:23)
[2017-09-04] MEDS ORDERED: BENZOCAINE 6 MG/MENTHOL 10 MG LOZENGE BUCCAL PRN (10:45)
[2017-09-04] MEDS: ACETAMINOPHEN/HYDROcodone 325 MG/5 MG TAB PO PRN (10:57)
--- NOTE | 2017-09-04 12:10 | HHI.PR ---
Subjective Remarks Patient reports she is doing okay. Pain is controlled. Not happy about NG tube but agreed to keep it in. Objective Vitals Vital Signs Date Time Temp Pulse Resp B/P (MAP) Pulse Ox O2 Delivery O2 Flow Rate FiO2 09/04/17 08:00 98.4 90 20 143/79 (100) 94 09/04/17 06:38 18 09/04/17 04:39 98.9 88 18 132/71 (91) 94 09/03/17 23:52 98.5 88 18 123/76 (92) 95 09/03/17 20:39 100.1 94 18 156/67 (96) 93 09/03/17 16:00 99.0 90 20 156/70 (98) 95 I/O 09/03/17 09/03/17 09/03/17 09/04/17 09/04/17 09/04/17 06:59 14:59 22:59 06:59 14:59 22:59 Intake Total 2177 ml 0 ml 120 ml Output Total 650 ml 870 ml 1200 ml Balance 1527 ml -870 ml -1080 ml Intake Oral 0 ml 0 ml 120 ml IV Total 2177 ml Output Urine Total 450 ml 600 ml 1150 ml Gastric Drainage Total 150 ml 200 ml Drainage Total 50 ml 70 ml 50 ml # Voids 2 # Bowel Movements 0 0 0 Result Diagram: 09/03/1758 09/03/1758 Imaging Last Impressions Chest X-Ray 09/02/17 0000 Signed Impressions: Service Date/Time: Saturday, September 02, 2017 21:35 - CONCLUSION: Right sided central line in place. Scattered infiltrates in the left lower lung. Kirit Lombardo MD Brain MRI 09/01/17 0000 Signed Impressions: Service Date/Time: Friday, September 01, 2017 10:05 - CONCLUSION: 1. Moderate cerebral white matter disease characteristic of chronic microvascular ischemic changes. 2. No evidence of enhancing intra-axial lesions. 3. No evidence of acute infarct, hemorrhage, mass, edema or metastatic disease. Juan Luis Cintron MD Abdomen/Pelvis CT 08/25/17 0658 Signed Impressions: Service Date/Time: Friday, August 25, 2017 08:50 - CONCLUSION: 1. No acute CT abnormality to account for patient's veloping. 2. Postsurgical features of prior partial sigmoidectomy and lap band procedure with small hiatal hernia. 3. Medial nodular somewhat masslike lung base airspace consolidation with associated pleural effusion. This is partially imaged on this examination and may reflect chronic change in the left lung base due to small hiatal hernia. Consider chest CT examination for full characterization. Jeffrey Hill MD Chest CT 08/25/17 0000 Signed Impressions: Service Date/Time: Friday, August 25, 2017 09:55 - CONCLUSION: 1. 2.7 cm left infrahilar mass with mediastinal adenopathy suspicious for malignancy. PET/CT scan is recommended to further evaluation if clinically indicated. James Mensah MD Objective Remarks GENERAL: Elderly female in no apparent distress. NGT in place CARDIOVASCULAR: Normal rate and regular rhythm without murmurs, gallops, or rubs. RESPIRATORY: Good respiratory efforts. Breath sounds equal and clear to auscultation bilaterally. GASTROINTESTINAL: Abdomen soft, incision looks clean. Normal active bowel sounds MUSCULOSKELETAL: Extremities without cyanosis, or edema. NEURO: Alert & Oriented x4 to person, place, time, situation. Moves all ext x4 PSYCH: Appropriate mood and affect. Procedures EGD performed on 08/27 showed erosion of lap band into stomach, no gastric mass A/P Problem List: (1) Lung mass ICD Code: R91.8 - Other nonspecific abnormal finding of lung field Status: Acute (2) Epigastric pain ICD Code: R10.13 - Epigastric pain Status: Resolved (3) LAP-BAND surgery status ICD Code: Z98.84 - Bariatric surgery status Status: Chronic Assessment and Plan 72-year-old female who presented with epigastric pain, nausea, vomiting, belching associated with 10-12 pound weight loss over the past several months in a patient with previous lap band-outpatient upper GI study showing possible gastric mass with obstruction. EGD performed on 08/27 showed erosion of lap band into stomach, no gastric mass. Dr. Wilde, Gen. surgery has been consulted for removal; status post deflating the band and access port at bedside status post EGD s/p LAP-BAND removal 09/02 Surgery following -NPO, NG tube to suction. General surgery planning for upper GI swallowing 3-4 days. -Continue antibiotics -Radiation and Medical Oncology following -Left infrahilar mass with mediastinal adenopathy suspicious for malignancy with her tobacco history status post bronchoscopy , seen by Radiation oncology , oncology , chemo after done with lab band sx. MRI of the brain>Moderate changes consistent with chronic microvascular ischemic changes -Heart murmur 2-D echo for further workup and evaluation which showed EF of 55- 60%, moderate TR, mild aortic stenosis, trace MR, - -Hypothyroidism - continue Synthroid. -Hypertension, essential - continue Norvasc. Overall blood pressure controlled -GERD - continue PPI -DVT prophylaxis with SCDs. Discharge Planning Pending improvement in GI issues. Will need clearance from surgery and appropriate follow-up with medical oncology and radiation oncology Mari Valera MD Sep 04, 2017 12:10
--- NOTE | 2017-09-04 12:53 | HHI.PR ---
Subjective Subjective Notes OOB Family visiting Objective Vitals/I&O Vital Signs Date Time Temp Pulse Resp B/P (MAP) Pulse Ox O2 Delivery O2 Flow Rate FiO2 09/04/17 12:15 19 09/04/17 08:00 98.4 90 143/79 (100) 94 09/03/17 09:16 Nasal Cannula 2.00 Labs Date/Time Source Procedure Growth Status 08/28/17 17:11 Bronchial Washings Left Upper Lobe Fungal Smear - Final NO FUNGAL ELEMENTS SEEN. Resulted 08/28/17 17:11 Bronchial Washings Left Upper Lobe Fungal Culture Pending Resulted Cardiovascular: Regular Lungs: Clear Abdomen: Other (incisions c/d/i; ROCHELLE with SS drainage; abdomen minmally tender at incision sites; soft; NGT in place) Extremities: No edema A/P Assessment and Plan 72 year old female with newly found lung mass s/p bx; eroded LapBand in need of removal; POD2 endoscopic band removal with laparoscopic assistance, laparoscopic repair of gastrotomy, laparoscopic lysis of adhesions, right subclavian port placement -NPO, NG sxn, will check ugi swallow in 3-4 days, ok for small cup of ice chips -Continue antibiotics -Pain control -Radiation and Medical Oncology following -OOB and mobilize Attending Statement The exam, history, and the medical decision-making described in the above note were completed with the assistance of the mid-level provider. I reviewed and agree with the findings presented. I attest that I had a [id number] encounter with the patient on the same day, and personally performed and documented my assessment and findings in the medical record. Physical Exam: Abdomen soft, no rebound tenderness or guarding, incision clean, dry, intact Pain controlled, ROCHELLE clear fluid, continue NG until upper GI is negative Darby Aguirre Sep 04, 2017 12:53 Edgardo Owens MD Sep 11, 2017 16:43
--- NOTE | 2017-09-04 15:43 | MP ---
cc: CYNDI WILDE MD DATE OF SURGERY 09/02/2007 PREOPERATIVE DIAGNOSIS 1. Band erosion 2. Left lung cancer SURGEON Dr. Payal Wilde TRAIN ANNOUNCER See OR sheet, Dr. Schultz assisted with endoscopy ANESTHESIA GETA IV IV FLUIDS 10,000 mL. ESTIMATED BLOOD LOSS 50 mL URINE OUTPUT 400 mL. DRAINS 19-Montenegrin Giovanni drain COMPLICATIONS None. WOUND CLASSIFICATION Clean contaminated FINDINGS Eroded gastric band. Approximately 50% intraluminal. Intense fibrous adhesions with scarring around band, no leak from repair of anterior gastrotomy with saline submersion PROCEDURE PERFORMED 1. Esophagogastroduodenoscopy with endoscopic band removal, laparoscopic assisted. 2. Laparoscopic repair of anterior gastrotomy 3. Laparoscopic lysis of adhesions greater than 120 minutes 4. Right subclavian port placement under direct fluoroscopy SPECIMEN None INDICATION The patient is a 72-year-old female who presented with epigastric pain and nausea, vomiting. She had further workup including CT scan chest, abdomen and pelvis, upper GI and endoscopy confirmation of laparoscopic band erosion. The patient had a gastric band placed in 2006 with relatively little complication initially. She was also noted to have a left lower lobe 2.7 cm lung cancer non-small cell confirmed with endoscopic bronchoscopy. The patient will need likely chemo radiation therefore discussion in regards to eroded laparoscopic band removal and port placement. We have discussed with the patient in detail. PROCEDURE IN DETAIL The patient was taken to the operating suite, placed in supine position. She was prepped and draped in usual sterile fashion after induction of general endotracheal anesthesia. Brief time-out stating correct patient, procedure, surgical site, all were in agreement with this. Mouth bite block was placed. The single-lumen gastroscope was obtained and entered the mouth, oropharynx down the esophagus. On initial inspection there was noted confirmation of eroded gastric band approximately 50% of band noted in the lumen. Attempts to transect the band were successful and this was done using a hydrophilic wire that was introduced down the band port and the scope was completely removed. The scope was reintroduced. A snare was obtained to grasp the end of the wire. The wire was brought back through the esophagus out the mouth. At this point, we had both ends of the wire and it was looped around the exposed gastric band. A Soehendra lithotripsy device was used. The wires were placed in the device and the mechanical crank was used to fracture gastric band. This was done under direct visualization after reinduction of the gastroscope. After this was completed and attempts were made to grasp the end of the gastric band in order to extract it from the intraluminal stomach and bring it through the esophagus. Multiple attempts were done. A loop grasper was used initially. Next, a double channel scope was obtained, two loop graspers were obtained and placed one through the other, initial loop to the band and then a second loop around the band. Attempts to remove the band were again tried without success. There was noted to be likely due to the intense fibrous scarring and inflammatory reaction of the band this was not possible. Laparoscopic assistance was then decided. At this point, the patient was completely prepped and draped in usual sterile fashion and the approach was done laparoscopically at this point.. The xiphoid border was noted 15 cm distal small incision was made with a 15 blade after injection of local anesthetic. The OptiView 5 mm trocar was used with 5 mm scope to enter the abdomen. Abdomen was insufflated to 50 mm pneumoperitoneum. We placed another scope, noted no evidence of injury. There were several adhesions to the anterior abdominal wall. Several other ports were placed, one right lower quadrant 5 mm port followed by a right lower quadrant 12 mm port followed by two left lower and left lateral 5 mm ports. The patient then placed in steep reverse Trendelenburg and airplaned to the right. Also, a right upper quadrant liver retractor port was placed. The robot arm was secured and the liver was retracted. There was noted to be intense fibrous adhesions to the GE junction where the band laid. The band was actually not grossly visual at this point. Liver retractor was placed. Tedious dissection was begun to lyse the adhesions in between the liver and the stomach and the omentum. Upon further dissection, the advancement of the liver retractor was done in order to fully better exposure. Further attempting to do this given the tense fibrosis and adhesions made this very difficult. At this point, the tubing connected to the port through the band was identified and started caudally going cephalad in order to identify the entrance port where the tubing entered to the band around the GE junction. This tubing was grasped and Harmonic was used to further dissect the adhesions around the gastric port tubing. This was done in a proximal fashion cephalad in order to assist in exposure of the gastric band. Again noting the fibrous adhesions wrapped around the band, was not initially readily identified and given the fact that the patient had erosion with severe scarring adhesions decision was made to continue to incise the port and do a small gastrotomy anteriorly at healthy tissue in order to totally identify the band. Once we were intraluminal from the last laparoscopic viewpoint, the band was identified. There was noted to be thickened fibrous adhesions around the band and the buckle was also identified. The buckle was transected with a harmonic scalpel in order to free up the band and the band was also partially transected in order to remove the band partially. This portion of the band approximately 25% was removed through the laparoscopic approach and removed from the abdomen. Then decision was made to reenter endoscopically with continued laparoscopic visualization. The anterior gastrotomy was closed with a 2-0 polysorb in a running fashion. Dr. Schultz assisted at this point to reintroduce the gastroscope into the esophagus. Upon doing this, the rest of the band was completely visualized. The band was then grasped and still noted some fibrous adhesions but had been better mobilized at this point. The band was brought through to the upper esophageal sphincter. At this point, it was proximal enough for me to assist with Ivan forceps to grasp the portion of the band and completely remove it. The band was then compared on the back table and noted to be a complete band entity, although again noted to be in two pieces that matched up. Tubing was compared and also matched as well. This confirmed that the band was removed in its entirety. The endoscope was then reintroduced and the stomach was insufflated. From a laparoscopic viewpoint for which I prescribed in and introduced saline to the anterior gastrotomy, noted no leaking of air at this point noting that the gastrotomy was completely sealed. Following this, the stomach was then desufflated and the procedure was completed laparoscopically. Several interrupted 2-0 polysorb sutures were used in order to place a gram patch over the anterior stomach defect. This was done with 2-0 Polysorbs, again in an intra____ fashion. Once we were satisfied with this, further exploration in the abdomen noted no significant abnormality. The right upper quadrant liver retractor was then removed and a 19-Montenegrin Giovanni drain was obtained and placed across the anterior gastric repair and sutured with a 2-0 nylon brought through the port of the right lateral port. Pneumoperitoneum was removed. Ports were removed as well. Attention then directed to the anterior gastric band port. Incision was made over previous scar. This was done with an 11-blade. Further dissection was done with electro Bovie cautery until the port was identified. The port was grasped with a Ulises clamp and was incised completely off the fascia and completely removed. The cavity was then irrigated. A 0 prolene was used to close the fascial defect. The cavity was then noted to be hemostat with electro Bovie cautery and closed in layers with 3-0 Vicryl and 4-0 Monocryl. Next all incisions were closed. Sterile dressings were placed. Attention then directed to placement of a right [id number]-Vyma in the right subclavian vein. The patient was reprepped and draped and a time-out was done confirming correct patient, procedure and surgical site. The were identified to the sternal notch and the clavicle and amarjit ligament. The introducer needle was used in order to cannulate the subclavian vein. Upon withdrawal of , confirmation into the right subclavian was noted. The syringe was removed and a guidewire placed. This was done under fluoroscopic guidance and following the guidewire all the way down to the SVC atrial junction. The patient was noted be in Trendelenburg of the point. Next, the local anesthetic was injected at the port cavity. A 15 blade was used for horizontal incision. Further dissection with electro Bovie cautery and done to create a port cavity. The introducer sheath was advanced over the guidewire into the vessel again confirmation of placement with fluoroscopic guidance. The inner sheath and dilator and wire were removed and a Port-A-Cath was obtained, tunneled through the skin underneath the subcutaneous tissues and advanced through the introducer sheath. This was again advanced with fluoroscopic guidance. The breakaway sheath was removed. Next the catheter was pulled back to a point that was noted to be in the SVC an appropriate location and length approximately 18 cm with marking from the catheter tubing. The was connected to the tubing with a stat connector. 3-0 Prolene sutures were used to tack the port down to the port cavity pectoralis wall. Again, hemostasis was obtained. The port cavity was closed with 3-0 Vicryl and 4-0 Monocryl. Sterile dressings were in place. A Mir needle was used to access the port. Confirmation with good flush and good return. The 2 mL of heparinized saline was instilled in the port catheter. Again, fluoroscopy was used to confirm position and placement. The patient was then placed flat. The patient tolerated procedure well and there was no intraoperative complications. All lap and instrument counts were correct at the end of the procedure. The patient was taken stable to the PACU and extubated. MD DEXTER Conte/ /4:19 PM /3:22 PM [facility]
--- NOTE | 2017-09-04 18:03 | PD.ONC.PN ---
Subjective Subjective Remarks Patient is resting comfortably in bed. She reports that she is having abdominal pain from recent lap band removal. Daughter and niece is at bedside. Objective Data Date Time Temp Pulse Resp B/P (MAP) Pulse Ox O2 Delivery O2 Flow Rate FiO2 09/04/17 12:15 19 09/04/17 12:00 99.4 86 20 148/76 (100) 91 09/04/17 11:40 97 09/04/17 11:05 99 Nasal Cannula 2.00 09/04/17 08:00 98.4 90 20 143/79 (100) 94 09/04/17 06:38 18 09/04/17 04:39 98.9 88 18 132/71 (91) 94 09/03/17 23:52 98.5 88 18 123/76 (92) 95 09/03/17 20:39 100.1 94 18 156/67 (96) 93 09/04/17 09/04/17 09/04/17 07:00 15:00 23:00 Intake Total 120 ml Output Total 1200 ml 880 ml Balance -1080 ml -880 ml Result Diagram: 09/03/1758 09/03/1758 Administered Medications Medications (Trade) Dose Ordered Sig/Finn Route PRN Reason Start Time Stop Time Status Last Admin Dose Admin Sodium Chloride (NS Flush) 2 ml BID IV FLUSH 08/25/17 21:00 09/04/17 10:23 Ondansetron HCl (Zofran Inj) 4 mg Q6H PRN IVP SEE LABEL COMMENTS 08/25/17 11:00 08/26/17 11:14 Acetaminophen/ Hydrocodone Bitart ([place] 5-325 Mg) 1 tab Q4H PRN PO PAIN SCALE 3 TO 5 08/25/17 10:00 09/04/17 10:57 Senna/Docusate Sodium (Tamika-Colace) 1 tab BID PO 08/25/17 21:00 08/30/17 09:54 Amlodipine Besylate (Norvasc) 5 mg DAILY PO 08/26/17 09:00 09/04/17 10:23 Levothyroxine Sodium (Synthroid) 75 mcg DAILY@0600 PO 08/26/17 06:00 09/04/17 06:12 Multivitamins (Theragran) 1 tab DAILY PO 08/26/17 09:00 09/04/17 10:23 Pantoprazole Sodium (Protonix Inj) 40 mg Q12H IV PUSH 09/02/17 16:00 09/04/17 15:05 Cefazolin Sodium 1000 mg/Sodium Chloride 100 ml @ 200 mls/hr Q8H IV 09/02/17 22:00 09/04/17 13:26 Metronidazole 100 ml @ 100 mls/hr Q8H IV 09/02/17 17:00 09/04/17 16:15 Morphine Sulfate (Morphine Inj) 2 mg Q3H PRN IV PUSH pain 6-10 09/02/17 14:45 09/04/17 06:33 Potassium Chloride/Dextrose/ Sod Cl 1,000 ml @ 125 mls/hr Q8H IV 09/02/17 22:00 09/04/17 16:15 Objective Remarks GENERAL: Well-nourished, well-developed patient. SKIN: Warm and dry. HEAD: Normocephalic. EYES: No scleral icterus. No injection or drainage. RESPIRATORY: No accessory muscle use. GASTROINTESTINAL: NG tube in place, tender abdomen NEUROLOGICAL: No obvious focal deficit. Awake, alert, and oriented x3. PSYCHIATRIC: Appropriate mood and affect; insight and judgment normal. Assessment/Plan Assessment 1. Non small cell lung cancer: with 2.7 cm left infrahilar mass, hilar adenopathy and suspicious mediastinal LN on CT scan. MRI brain negative for disease. Radiation oncology team is following. Pathology from [facility] with enough tissue to determine NSCLC, unable to perform other studies due to paucity of tissue. PFTs performed. -Outpatient PET CT -Will have patient recover from lap band removal prior to proceeding with treatment for NSCLC. -Will consult CT surgery for consideration of further evaluation of mediastinal LN, to obtain more tissue for pathology stains. Sinai Sutherland MD Sep 04, 2017 18:03
[2017-09-05] MEDS: D5-1/2 NS + KCL 10 MEQ INJ 1,000 ML IV SCH ×3 (00:05→17:08)
[2017-09-05] MEDS: SODIUM CHLORIDE 0.9% FLUSH 10 ML FLUSH IV FLUSH SCH ×3 (00:05→20:51)
[2017-09-05] MEDS: metroNIDAZOLE 500 MG INJ 100 ML IV SCH ×3 (00:12→17:08)
[2017-09-05 00:17] VITALS: BP 144/83; PULSE 90; RESP 16; TEMP 98.9; O2SAT 92
[2017-09-05 02:34] VITALS: O2SAT 93
[2017-09-05] MEDS: PANTOPRAZOLE SODIUM 40 MG VIAL IV PUSH SCH ×2 (05:08→17:08)
[2017-09-05] MEDS: LEVOTHYROXINE SODIUM 75 MCG TAB PO SCH (05:09)
[2017-09-05 09:37] VITALS: BP 140/86; PULSE 94; RESP 18; TEMP 97.8; O2SAT 98
[2017-09-05] MEDS: MULTIVITAMIN TAB PO SCH (09:39)
[2017-09-05] MEDS: amLODIPine BESYLATE 5 MG TAB PO SCH (09:39)
[2017-09-05] MEDS: DOCUSATE SODIUM 50 MG/SENNA 8.6 MG TAB PO SCH ×2 (09:39→20:48)
--- NOTE | 2017-09-05 11:00 | HHI.PR ---
Subjective Remarks Patient reports that abdominal pain has improved. Would like to have NG tube out. Objective Vitals Vital Signs Date Time Temp Pulse Resp B/P (MAP) Pulse Ox O2 Delivery O2 Flow Rate FiO2 09/05/17 09:37 97.8 94 18 140/86 (104) 98 09/05/17 02:45 Room Air 21 09/05/17 02:34 93 09/05/17 00:17 98.9 90 16 144/83 (103) 92 09/04/17 21:34 96 16 144/85 (104) 96 09/04/17 19:40 99.4 90 18 151/79 (103) 94 09/04/17 16:00 98.5 86 20 145/75 (98) 94 09/04/17 12:15 19 09/04/17 12:00 99.4 86 20 148/76 (100) 91 09/04/17 11:40 97 09/04/17 11:05 99 Nasal Cannula 2.00 I/O 09/04/17 09/04/17 09/04/17 09/05/17 09/05/17 09/05/17 07:00 15:00 23:00 07:00 15:00 23:00 Intake Total 120 ml 120 ml Output Total 1200 ml 880 ml 200 ml Balance -1080 ml -880 ml -80 ml Intake Oral 120 ml 120 ml Output Urine Total 1150 ml 200 ml Gastric Drainage Total 880 ml Drainage Total 50 ml # Bowel Movements 0 Result Diagram: 09/03/17 0658 09/03/17 0658 Objective Remarks GENERAL: Elderly female in no apparent distress. NGT in place CARDIOVASCULAR: Normal rate and regular rhythm without murmurs, gallops, or rubs. RESPIRATORY: Good respiratory efforts. Breath sounds equal and clear to auscultation bilaterally. GASTROINTESTINAL: Abdomen soft, incision looks clean. Normal active bowel sounds MUSCULOSKELETAL: Extremities without cyanosis, or edema. NEURO: Alert & Oriented x4 to person, place, time, situation. Moves all ext x4 PSYCH: Appropriate mood and affect. Procedures EGD performed on 08/27 showed erosion of lap band into stomach, no gastric mass A/P Problem List: (1) Lung mass ICD Code: R91.8 - Other nonspecific abnormal finding of lung field Status: Acute (2) Epigastric pain ICD Code: R10.13 - Epigastric pain Status: Resolved (3) LAP-BAND surgery status ICD Code: Z98.84 - Bariatric surgery status Status: Chronic Assessment and Plan 72-year-old female who presented with epigastric pain, nausea, vomiting, belching associated with 10-12 pound weight loss over the past several months in a patient with previous lap band-outpatient upper GI study showing possible gastric mass with obstruction. EGD performed on 08/27 showed erosion of lap band into stomach, no gastric mass. Dr. Wilde, Gen. surgery has been consulted for removal; status post deflating the band and access port at bedside status post EGD. Patient also has known small cell lung cancer with a 2.7 cm left infrahilar mass suspicious for malignancy. s/p LAP-BAND removal 09/02 Surgery following -NPO, NG tube to suction. General surgery planning for upper GI swallowing 3-4 days. -Continue antibiotics -Radiation and Medical Oncology following Non small cell lung cancer/Left infrahilar mass with mediastinal adenopathy suspicious for malignancy with her tobacco history status post bronchoscopy , seen by Radiation oncology , oncology , chemo after done with lab band sx. MRI of the brain>Moderate changes consistent with chronic microvascular ischemic changes. - CT surgery consulted for further evaluation of mediastinal lymph node, to obtain more tissue for pathology stains. - Oncology planning for Outpatient PET CT - Awaiting for patient to recover prior to proceeding with treatment for NSCLC. -Heart murmur 2-D echo for further workup and evaluation which showed EF of 55- 60%, moderate TR, mild aortic stenosis, trace MR, - -Hypothyroidism - continue Synthroid. -Hypertension, essential - continue Norvasc. Overall blood pressure controlled -GERD - continue PPI -DVT prophylaxis with SCDs. Chemoprophylaxis when cleared by surgery. Discharge Planning Ongoing workup and treatment. Pending improvement in GI issues. Oncology following as well Mari Valera MD Sep 05, 2017 10:59
[2017-09-05 11:52] VITALS: BP 151/94; PULSE 94; RESP 18; TEMP 98.2; O2SAT 95
--- NOTE | 2017-09-05 13:07 | PD.CONS ---
History of Present Illness Service CT Surgery Consult Requested By Dr. Sutherland Reason for Consult Newly diagnosed lung cancer Primary Care Physician Raoul Rodriguez MD Diagnoses: (1) Lung cancer, hilus History of Present Illness 72 y/o female presents with intractable epigastric pain with nausea/vomiting. She was found to have erosion of a gastric lap band and has been treated for this problem. She underwent a chest Ct as part of the initial evaluation and was dounf to have a 2.7cm infrahilar lung mass in the left lung. She underwent transbronchial biopsy of a 10L lymph node which was positive for malignant cells consistent with non small cell lung cancer. A 4L biopsy was non- diagnostic. A brain MRI is negative for malignancy. She states she has had a ~ 10lb weight loss. She denies hemoptysis and was a heavy smoker at one time. Review of Systems Constitutional: COMPLAINS OF: Fatigue, Weight loss, Change in appetite, DENIES : Diaphoretic episodes, Fever, Weight gain, Chills, Dizziness, Night Sweats Endocrine: DENIES: Abnorml menstrual pattern, Heat/cold intolerance, Polydipsia , Polyuria, Polyphagia Eyes: DENIES: Blurred vision, Diplopia, Eye inflammation, Eye pain, Vision loss , Photosensitivity, Double Vision Ears, nose, mouth, throat: DENIES: Tinnitus, Hearing loss, Vertigo, Nasal discharge, Oral lesions, Throat pain, Hoarseness, Ear Pain, Running Nose, Epistaxis, Sinus Pain, Toothache, Odynophagia Respiratory: DENIES: Apneas, Cough, Snoring, Wheezing, Hemoptysis, Sputum production, Shortness of breath Cardiovascular: COMPLAINS OF: Chest pain, DENIES: Palpitations, Syncope, Dyspnea on Exertion, PND, Lower Extremity Edema, Orthopnea, Claudication Gastrointestinal: COMPLAINS OF: Abdominal pain, DENIES: Black stools, Bloody stools, Constipation, Diarrhea, Nausea, Vomiting, Difficulty Swallowing, Anorexia Genitourinary: DENIES: Abnormal vaginal bleeding, Dysmenorrhea, Dyspareunia, Sexual dysfunction, Urinary frequency, Urinary incontinence, Urgency, Hematuria , Dysuria, Nocturia, Vaginal discharge Musculoskeletal: DENIES: Joint pain, Muscle aches, Stiffness, Joint Swelling, Back pain, Neck pain Integumentary: DENIES: Abnormal pigmentation, Pruritus, Rash, Nail changes, Breast masses, Breast skin changes, Nipple discharge Hematologic/lymphatic: DENIES: Bruising, Lymphadenopathy Immunologic/allergic: DENIES: Eczema, Urticaria Neurologic: DENIES: Abnormal gait, Headache, Localized weakness, Paresthesias, Seizures, Speech Problems, Tremor, Poor Balance Psychiatric: DENIES: Anxiety, Confusion, Mood changes, Depression, Hallucinations, Agitation, Suicidal Ideation, Homicidal Ideation, Delusions Past Family Social History Allergies: Coded Allergies: Sulfa (Sulfonamide Antibiotics) (Unverified Allergy, Severe, Hives, ) amoxicillin (Unverified Allergy, Severe, Hives, 08/25/17) clavulanic acid (Unverified Allergy, Severe, Hives, 08/25/17) doxycycline (Unverified Allergy, Severe, Nausea/Vomiting, 08/25/17) meloxicam (Unverified Allergy, Unknown, gi upset, 08/25/17) Uncoded Allergies: METAL (Allergy, Severe, Rash, 03/25/17) ALL METAL EXCEPT GOLD AND SILVER Past Medical History Hypothyroidism Hypertension GERD Past Surgical History Partial sigmoid colon resection Cholecystectomy, lap band, bilateral cataracts, tubal ligation, D&C, tonsillectomy Reported Medications Allergies Coded Allergies Type Severity Reaction Last Updated Verified Sulfa (Sulfonamide Antibiotics) Allergy Severe Hives 08/25/17 No amoxicillin Allergy Severe Hives 08/25/17 No clavulanic acid Allergy Severe Hives 08/25/17 No doxycycline Allergy Severe Nausea/Vomiting 08/25/17 No meloxicam Allergy Unknown gi upset 08/25/17 No Uncoded Allergies Type Severity Reaction Last Updated Verified METAL Allergy Severe Rash 03/25/17 Active Scripts Medications Dose Route/Sig Max Daily Dose Days Date Category Aspirin 81 Mg Chew 81 Mg CHEW DAILY 08/25/17 Reported Omeprazole 20 Mg Tab 20 Mg PO DAILY 03/25/17 Reported Levothyroxine (Levothyroxine Sodium) 75 Mcg Tab 75 Mcg PO HS 03/25/17 Reported Multiple Vitamin 1 Tab 1 Tab PO DAILY 03/25/17 Reported Amlodipine (Amlodipine Besylate) 5 Mg Tab 5 Mg PO DAILY 03/25/17 Reported Family History Negative for gastric or colon cancer. Social History She quit smoking several years ago after smoking on and off for 40 years. No significant alcohol use. Physical Exam Vital Signs Vital Signs Date Time Temp Pulse Resp B/P (MAP) Pulse Ox O2 Delivery O2 Flow Rate FiO2 10/14/17 11:52 98.2 94 18 151/94 (113) 95 09/05/17 09:37 97.8 94 18 140/86 (104) 98 09/05/17 02:45 Room Air 21 09/05/17 02:34 93 09/05/17 00:17 98.9 90 16 144/83 (103) 92 09/04/17 21:34 96 16 144/85 (104) 96 09/04/17 19:40 99.4 90 18 151/79 (103) 94 09/04/17 16:00 98.5 86 20 145/75 (98) 94 Physical Exam GENERAL: This is a well-nourished, well-developed patient, with an NG tube in place. SKIN: No rashes, ecchymoses or lesions. Cool and dry. Wound - dry and intact HEAD: Atraumatic. Normocephalic. No temporal or scalp tenderness. EYES: Pupils equal round and reactive. Extraocular motions intact. No scleral icterus. No injection or drainage. ENT: Nose without bleeding, purulent drainage or septal hematoma. Throat without erythema, tonsillar hypertrophy or exudate. Uvula midline. Airway patent. NECK: Trachea midline. No JVD or lymphadenopathy. Supple, nontender, no meningeal signs. CARDIOVASCULAR: Regular rate and rhythm without murmurs, gallops, or rubs. RESPIRATORY: Clear to auscultation. Breath sounds equal bilaterally. No wheezes , rales, or rhonchi. GASTROINTESTINAL: Abdomen soft, non-tender, nondistended. No hepato-splenomegaly , or palpable masses. No guarding. MUSCULOSKELETAL: Extremities without clubbing, cyanosis, or edema. No joint tenderness, effusion, or edema noted. No calf tenderness. Negative Homans sign bilaterally. NEUROLOGICAL: Awake and alert. Cranial nerves II through XII intact. Motor and sensory grossly within normal limits. Five out of 5 muscle strength in all muscle groups. Normal speech. Laboratory Date/Time Source Procedure Growth Status 08/28/17 17:11 Bronchial Washings Left Upper Lobe Fungal Smear - Final NO FUNGAL ELEMENTS SEEN. Resulted 08/28/17 17:11 Bronchial Washings Left Upper Lobe Fungal Culture - Preliminary NO GROWTH IN 1 WEEK Resulted Result Diagram: 09/03/17 0658 09/03/17 0658 Imaging Last Impressions Chest X-Ray 09/02/17 0000 Signed Impressions: Service Date/Time: Saturday, September 02, 2017 21:35 - CONCLUSION: Right sided central line in place. Scattered infiltrates in the left lower lung. Kirit Lombardo MD Brain MRI 09/01/17 0000 Signed Impressions: Service Date/Time: Friday, September 01, 2017 10:05 - CONCLUSION: 1. Moderate cerebral white matter disease characteristic of chronic microvascular ischemic changes. 2. No evidence of enhancing intra-axial lesions. 3. No evidence of acute infarct, hemorrhage, mass, edema or metastatic disease. Juan Luis Cintron MD Abdomen/Pelvis CT 08/25/17 0658 Signed Impressions: Service Date/Time: Friday, August 25, 2017 08:50 - CONCLUSION: 1. No acute CT abnormality to account for patient's veloping. 2. Postsurgical features of prior partial sigmoidectomy and lap band procedure with small hiatal hernia. 3. Medial nodular somewhat masslike lung base airspace consolidation with associated pleural effusion. This is partially imaged on this examination and may reflect chronic change in the left lung base due to small hiatal hernia. Consider chest CT examination for full characterization. Jeffrey Hill MD Chest CT 08/25/17 0000 Signed Impressions: Service Date/Time: Friday, August 25, 2017 09:55 - CONCLUSION: 1. 2.7 cm left infrahilar mass with mediastinal adenopathy suspicious for malignancy. PET/CT scan is recommended to further evaluation if clinically indicated. James Mensah MD Course The patient is s/p EGD and laparoscopy to remove the eroded gastric lap band. She is also s/p bronchoscopy and infusaport placement. She has been seen by both oncology and radiation tx. She underwent PFts and her FEV1 is 1.43 post bronchodilator tx. Assessment and Plan Problem List: (1) Lung cancer, hilus ICD Codes: C34.00 - Malignant neoplasm of unspecified main bronchus Assessment and Plan Unfortunate 72 y/o female with newly diagnosed NSCLC involving the left hilum. Her clinical stage is [id number]. She may have involvement of the mediastinum given the tumor location, so stage 2A optimistically, but more likely 3A. Complete resection of this tumor would require a pneumonectomy, but the patient' s PFTs are not sufficient to support this option. Mediastinoscopy is an option , but I would not recommend this until she has more time to recover from her previous abdominal surgery. I do not see enlarged paratracheal nodes except at the takeoff of the left mainstem bronchus which are immediately adjacent to the tumor. If more tissue is required, I would consider mediastinoscopy in 2-3 weeks if cleared by General Surgery vs endobronchial ultrasound for further biopsies. Problem Qualifiers (1) Lung cancer, hilus: Qualified Codes: C34.02 - Malignant neoplasm of left main bronchus Jen Patrick MD Sep 05, 2017 13:07
[2017-09-05 17:11] VITALS: BP 136/82; PULSE 88; RESP 16; TEMP 97.8; O2SAT 98
[2017-09-05 20:42] VITALS: BP 143/93; PULSE 99; RESP 16; TEMP 98.8; O2SAT 92
[2017-09-06] VITALS (7 sets, daily range): BP systolic 119–141; BP diastolic 67–85; PULSE 81–97; RESP 16–20; TEMP 98.1–99; O2SAT 94–99
[2017-09-06] MEDS: metroNIDAZOLE 500 MG INJ 100 ML IV SCH ×3 (01:00→16:33)
--- NOTE | 2017-09-06 01:09 | HHI.PR ---
Subjective Subjective Notes late entry note 09/05/17 Objective Vitals/I&O Vital Signs Date Time Temp Pulse Resp B/P (MAP) Pulse Ox O2 Delivery O2 Flow Rate FiO2 09/05/17 20:43 98 Room Air 09/05/17 20:42 98.8 99 16 143/93 (110) 09/05/17 02:45 21 09/04/17 11:05 2.00 Labs Date/Time Source Procedure Growth Status 08/28/17 17:11 Bronchial Washings Left Upper Lobe Fungal Smear - Final NO FUNGAL ELEMENTS SEEN. Resulted 08/28/17 17:11 Bronchial Washings Left Upper Lobe Fungal Culture - Preliminary NO GROWTH IN 1 WEEK Resulted Abdomen: Non-distended, Post-op tenderness Narrative Exam ROCHELLE clear A/P Assessment and Plan 72 year old female with newly found lung mass s/p bx; eroded LapBand in need of removal; POD3 endoscopic band removal with laparoscopic assistance, laparoscopic repair of gastrotomy, laparoscopic lysis of adhesions, right subclavian port placement -NPO, NG LIS, will check ugi swallow on Thursday, ok for small cup of ice chips -Continue antibiotics -Pain control -Radiation and Medical Oncology following -OOB and mobilize Edgardo Owens MD Sep 06, 2017 01:09
[2017-09-06] MEDS: D5-1/2 NS + KCL 10 MEQ INJ 1,000 ML IV SCH ×4 (01:47→22:12)
[2017-09-06] MEDS: PANTOPRAZOLE SODIUM 40 MG VIAL IV PUSH SCH ×2 (04:00→16:29)
[2017-09-06] MEDS: LEVOTHYROXINE SODIUM 75 MCG TAB PO SCH (06:00)
[2017-09-06 08:36] LABS: AUTOMATED NEUTROPHIL # 9.3 TH/MM3 (1.8-7.7); BASOPHIL % 0.3 % (0.0-2.0); EOSINOPHIL # 0.2 TH/MM3 (0-0.4); EOSINOPHIL % 1.9 % (0.0-4.0); HEMATOCRIT 32.3 % (35.0-46.0); HEMO FLAGS DIFF FINAL; LYMPH % 8.6 % (9.0-44.0); MEAN CELL VOLUME 76.7 FL (80.0-100.0); MEAN CORPUSCULAR HGB CONC 32.6 % (32.0-36.0); MONO % 8.1 % (0.0-8.0); NEUT % 81.1 % (16.0-70.0); PLATELET COUNT 358 TH/MM3 (150-450); RED BLOOD COUNT 4.21 MIL/MM3 (4.00-5.30); RED CELL DISTRIBUTION WIDTH 15.2 % (11.6-17.2); WHITE BLOOD COUNT 11.4 TH/MM3 (4.0-11.0)
[2017-09-06 08:48] LABS: BICARBONATE 26.2 MEQ/L (21.0-32.0); POTASSIUM 3.2 MEQ/L (3.5-5.1)
[2017-09-06] MEDS: SODIUM CHLORIDE 0.9% FLUSH 10 ML FLUSH IV FLUSH SCH ×2 (09:00→20:42)
[2017-09-06] MEDS ORDERED: POTASSIUM CHLOR 20 MEQ PREMIX 100 ML IV ONE (09:45)
[2017-09-06] MEDS: DOCUSATE SODIUM 50 MG/SENNA 8.6 MG TAB PO SCH ×2 (10:54→20:42)
[2017-09-06] MEDS: MULTIVITAMIN TAB PO SCH (10:54)
[2017-09-06] MEDS: amLODIPine BESYLATE 5 MG TAB PO SCH (10:54)
[2017-09-06] MEDS ORDERED: PHENOL 1.4% SOLN 180 ML BTL OROPHARYNG PRN (11:15)
--- NOTE | 2017-09-06 11:20 | HHI.PR ---
Subjective Subjective Notes sore throat, wants NG out. Abdomen is fine Objective Vitals/I&O Vital Signs Date Time Temp Pulse Resp B/P (MAP) Pulse Ox O2 Delivery O2 Flow Rate FiO2 09/06/17 08:30 Room Air 09/06/17 08:06 98.8 91 20 139/83 (101) 94 09/05/17 02:45 21 09/04/17 11:05 2.00 Labs Laboratory Tests Test 09/06/17 07:04 White Blood Count 11.4 Red Blood Count 4.21 Hemoglobin 10.5 Hematocrit 32.3 Mean Corpuscular Volume 76.7 Mean Corpuscular Hemoglobin 25.0 Mean Corpuscular Hemoglobin Concent 32.6 Red Cell Distribution Width 15.2 Platelet Count 358 Mean Platelet Volume 8.9 Neutrophils (%) (Auto) 81.1 Lymphocytes (%) (Auto) 8.6 Monocytes (%) (Auto) 8.1 Eosinophils (%) (Auto) 1.9 Basophils (%) (Auto) 0.3 Neutrophils # (Auto) 9.3 Lymphocytes # (Auto) 1.0 Monocytes # (Auto) 0.9 Eosinophils # (Auto) 0.2 Basophils # (Auto) 0.0 CBC Comment DIFF FINAL Differential Comment Blood Urea Nitrogen 3 Creatinine 0.53 Random Glucose 126 Calcium Level 8.3 Sodium Level 137 Potassium Level 3.2 Chloride Level 103 Carbon Dioxide Level 26.2 Anion Gap 8 Estimat Glomerular Filtration Rate 113 Date/Time Source Procedure Growth Status 08/28/17 17:11 Bronchial Washings Left Upper Lobe Fungal Smear - Final NO FUNGAL ELEMENTS SEEN. Resulted 08/28/17 17:11 Bronchial Washings Left Upper Lobe Fungal Culture - Preliminary NO GROWTH IN 1 WEEK Resulted Abdomen: Non-distended, Non-tender Wound Wound : Wound Location: Abdomen Appearance: Clean & Dry A/P Assessment and Plan s/p lap band removal for erosion UGI tomorrow will add chloraseptic spray for throat Bola Bradley MD Sep 06, 2017 11:20
--- NOTE | 2017-09-06 13:17 | HHI.PR ---
Subjective Remarks No abdominal pain. Would like NGT out. Objective Vitals Vital Signs Date Time Temp Pulse Resp B/P (MAP) Pulse Ox O2 Delivery O2 Flow Rate FiO2 09/06/17 08:30 Room Air 09/06/17 08:06 98.8 91 20 139/83 (101) 94 09/06/17 05:14 98.6 94 16 141/81 (101) 95 09/06/17 01:39 98.4 97 16 137/85 (102) 94 09/05/17 20:43 98 Room Air 09/05/17 20:42 98.8 99 16 143/93 (110) 92 09/05/17 17:12 Room Air 09/05/17 17:11 97.8 88 16 136/82 (100) 98 I/O 09/05/17 09/05/17 09/05/17 09/06/17 09/06/17 09/06/17 07:00 15:00 23:00 07:00 15:00 23:00 Intake Total 120 ml 1050 ml Output Total 200 ml 900 ml 50 ml Balance -80 ml 150 ml -50 ml Intake Oral 120 ml IV Total 1050 ml Output Urine Total 200 ml 600 ml Gastric Drainage Total 200 ml 10 ml Drainage Total 100 ml 40 ml # Voids 4 # Bowel Movements 0 Result Diagram: 09/06/17 0704 09/06/17 0704 Objective Remarks GENERAL: Elderly female in no apparent distress. NGT in place CARDIOVASCULAR: Normal rate and regular rhythm without murmurs, gallops, or rubs. RESPIRATORY: Good respiratory efforts. Breath sounds equal and clear to auscultation bilaterally. GASTROINTESTINAL: Abdomen soft, incision looks clean. Normal active bowel sounds MUSCULOSKELETAL: Extremities without cyanosis, or edema. NEURO: Alert & Oriented x4 to person, place, time, situation. Moves all ext x4 PSYCH: Appropriate mood and affect. Procedures EGD performed on 08/27 showed erosion of lap band into stomach, no gastric mass A/P Problem List: (1) Lung mass ICD Code: R91.8 - Other nonspecific abnormal finding of lung field Status: Acute (2) Epigastric pain ICD Code: R10.13 - Epigastric pain Status: Resolved (3) LAP-BAND surgery status ICD Code: Z98.84 - Bariatric surgery status Status: Chronic Assessment and Plan 72-year-old female who presented with epigastric pain, nausea, vomiting, belching associated with 10-12 pound weight loss over the past several months in a patient with previous lap band-outpatient upper GI study showing possible gastric mass with obstruction. EGD performed on 08/27 showed erosion of lap band into stomach, no gastric mass. Dr. Wilde Gen. surgery has been consulted for removal; status post deflating the band and access port at bedside status post EGD. Patient also has known small cell lung cancer with a 2.7 cm left infrahilar mass suspicious for malignancy. s/p LAP-BAND removal 09/02 Surgery following -NPO, NG tube to suction. General surgery planning for upper GI tomorrow -Continue antibiotics -Radiation and Medical Oncology following Non small cell lung cancer/Left infrahilar mass with mediastinal adenopathy suspicious for malignancy with her tobacco history status post bronchoscopy , seen by Radiation oncology , oncology , chemo after done with lab band sx. MRI of the brain>Moderate changes consistent with chronic microvascular ischemic changes. - CT surgery consulted for further evaluation of mediastinal lymph node, to obtain more tissue for pathology stains. CT surgery recommends deferring procedure for 2-3 weeks to allow her time to recover from her current GI issues. - Oncology planning for Outpatient PET CT - Awaiting for patient to recover prior to proceeding with treatment for NSCLC. -Heart murmur 2-D echo for further workup and evaluation which showed EF of 55- 60%, moderate TR, mild aortic stenosis, trace MR, - -Hypothyroidism - continue Synthroid. -Hypertension, essential - continue Norvasc. Overall blood pressure controlled -GERD - continue PPI -DVT prophylaxis with SCDs. Chemoprophylaxis when cleared by surgery. Discharge Planning Ongoing workup and treatment. Pending improvement in GI issues. Gen Surgery and Oncology following as well Mari Valera MD Sep 06, 2017 13:17
[2017-09-07] MEDS: metroNIDAZOLE 500 MG INJ 100 ML IV SCH ×3 (00:09→16:54)
[2017-09-07] MEDS: PANTOPRAZOLE SODIUM 40 MG VIAL IV PUSH SCH ×2 (04:14→16:00)
[2017-09-07 04:15] VITALS: BP 141/89; PULSE 82; RESP 16; TEMP 98.7; O2SAT 94
[2017-09-07] MEDS: D5-1/2 NS + KCL 10 MEQ INJ 1,000 ML IV SCH ×3 (06:00→22:00)
[2017-09-07 06:26] LABS: AUTOMATED NEUTROPHIL # 6.8 TH/MM3 (1.8-7.7); BASOPHIL # 0.1 TH/MM3 (0-0.2); BASOPHIL % 0.7 % (0.0-2.0); EOSINOPHIL # 0.4 TH/MM3 (0-0.4); EOSINOPHIL % 4.7 % (0.0-4.0); HEMATOCRIT 31.5 % (35.0-46.0); HEMO FLAGS DIFF FINAL; LYMPH % 10.2 % (9.0-44.0); LYMPHOCYTE # 0.9 TH/MM3 (1.0-4.8); MEAN CELL VOLUME 76.9 FL (80.0-100.0); MEAN CORPUSCULAR HEMOGLOBIN 25.1 PG (27.0-34.0); MEAN CORPUSCULAR HGB CONC 32.6 % (32.0-36.0); MONO % 9.7 % (0.0-8.0); NEUT % 74.7 % (16.0-70.0); PLATELET COUNT 346 TH/MM3 (150-450); RED BLOOD COUNT 4.09 MIL/MM3 (4.00-5.30); RED CELL DISTRIBUTION WIDTH 15.6 % (11.6-17.2); WHITE BLOOD COUNT 9.1 TH/MM3 (4.0-11.0)
[2017-09-07] MEDS: LEVOTHYROXINE SODIUM 75 MCG TAB PO SCH (06:40)
[2017-09-07 08:15] VITALS: BP 144/85; PULSE 93; RESP 18; TEMP 99.1
[2017-09-07] MEDS: DOCUSATE SODIUM 50 MG/SENNA 8.6 MG TAB PO SCH ×2 (09:00→19:26)
[2017-09-07] MEDS: MULTIVITAMIN TAB PO SCH (09:00)
[2017-09-07] MEDS: amLODIPine BESYLATE 5 MG TAB PO SCH (09:01)
[2017-09-07] MEDS: SODIUM CHLORIDE 0.9% FLUSH 10 ML FLUSH IV FLUSH SCH ×2 (09:06→19:26)
--- NOTE | 2017-09-07 11:52 | HHI.PR ---
Subjective Remarks Follow-up removal of lap band for erosion/non-small cell lung cancer 09/07/17-patient seen and examined, currently nothing by mouth with NG tube in place and denies any nausea or vomiting. Patient complains of throat irritation. Plan for radiation stimulation today Objective Vitals Vital Signs Date Time Temp Pulse Resp B/P (MAP) Pulse Ox O2 Delivery O2 Flow Rate FiO2 09/07/17 08:15 99.1 93 18 144/85 (104) 09/07/17 04:15 98.7 82 16 141/89 (106) 94 09/06/17 23:58 98.6 88 16 121/81 (94) 96 09/06/17 20:57 Room Air 09/06/17 20:40 99.0 88 131/84 (100) 94 09/06/17 16:00 98.4 92 18 119/67 (84) 95 09/06/17 12:00 98.1 81 20 119/67 (84) 99 I/O 09/06/17 09/06/17 09/06/17 09/07/17 09/07/17 09/07/17 07:00 15:00 23:00 07:00 15:00 23:00 Intake Total 1130 ml Output Total 50 ml 850 ml 1205 ml Balance -50 ml -850 ml -75 ml Intake Oral 30 ml IV Total 1100 ml Output Urine Total 750 ml 1150 ml Gastric Drainage Total 10 ml 75 ml 25 ml Drainage Total 40 ml 25 ml 30 ml # Voids 4 # Bowel Movements 0 Result Diagram: 09/07/17 0450 09/06/17 0704 Imaging Last Impressions Chest X-Ray 09/02/17 0000 Signed Impressions: Service Date/Time: Saturday, September 02, 2017 21:35 - CONCLUSION: Right sided central line in place. Scattered infiltrates in the left lower lung. Kirit Lombardo MD Brain MRI 09/01/17 0000 Signed Impressions: Service Date/Time: Friday, September 01, 2017 10:05 - CONCLUSION: 1. Moderate cerebral white matter disease characteristic of chronic microvascular ischemic changes. 2. No evidence of enhancing intra-axial lesions. 3. No evidence of acute infarct, hemorrhage, mass, edema or metastatic disease. Juan Luis Cintron MD Abdomen/Pelvis CT 08/25/17 0658 Signed Impressions: Service Date/Time: Friday, August 25, 2017 08:50 - CONCLUSION: 1. No acute CT abnormality to account for patient's veloping. 2. Postsurgical features of prior partial sigmoidectomy and lap band procedure with small hiatal hernia. 3. Medial nodular somewhat masslike lung base airspace consolidation with associated pleural effusion. This is partially imaged on this examination and may reflect chronic change in the left lung base due to small hiatal hernia. Consider chest CT examination for full characterization. Jeffrey Hill MD Chest CT 08/25/17 0000 Signed Impressions: Service Date/Time: Friday, August 25, 2017 09:55 - CONCLUSION: 1. 2.7 cm left infrahilar mass with mediastinal adenopathy suspicious for malignancy. PET/CT scan is recommended to further evaluation if clinically indicated. James Mensah MD Objective Remarks GENERAL: NAD SKIN: Warm and dry. HEAD: Normocephalic. EYES: No scleral icterus. No injection or drainage. NECK: Supple, trachea midline. No JVD or lymphadenopathy. CARDIOVASCULAR: Regular rate and rhythm without murmurs, gallops, or rubs. RESPIRATORY: Breath sounds equal bilaterally. No accessory muscle use. GASTROINTESTINAL: Abdomen soft, non-tender, nondistended. MUSCULOSKELETAL: No cyanosis, or edema. BACK: Nontender without obvious deformity. No CVA tenderness. Procedures EGD performed on 08/27 showed erosion of lap band into stomach, no gastric mass A/P Problem List: (1) Lung mass ICD Code: R91.8 - Other nonspecific abnormal finding of lung field Status: Acute (2) Epigastric pain ICD Code: R10.13 - Epigastric pain Status: Resolved (3) LAP-BAND surgery status ICD Code: Z98.84 - Bariatric surgery status Status: Chronic Assessment and Plan 72-year-old female with s/p LAP-BAND removal 09/02 secondary to erosion Management per surgery Continue with antibiotics, NG tube, currently clamped Plan for small bowel follow-through today 09/07/17 Non small cell lung cancer/Left infrahilar mass with mediastinal adenopathy suspicious for malignancy with her tobacco history status post bronchoscopy , seen by Radiation oncology , oncology Plan for radiation stimulation today 09/07/17 Appreciate input from cardiothoracic surgery however recommended deferring procedure for 2-3 weeks to allow her time to recover from her current GI issues. Oncology planning for Outpatient PET CT -Heart murmur 2-D echo for further workup and evaluation which showed EF of 55- 60%, moderate TR, mild aortic stenosis, trace MR, - -Hypothyroidism - continue Synthroid. -Hypertension, essential - continue Norvasc. Overall blood pressure controlled -GERD - continue PPI -DVT prophylaxis with SCDs. Chemoprophylaxis when cleared by surgery. Frandy Ac MD Sep 07, 2017 11:52
[2017-09-07] MEDS ORDERED: PHENOL 1.4% SOLN 180 ML BTL MT PRN (12:00)
[2017-09-07] MEDS ORDERED: DIATRIZOATE MEGLUM/DIATRIZOATE SOD 120 ML BTL (for RAD DIAG) NG ONE (14:45)
--- NOTE | 2017-09-07 15:08 | RADRPT ---
EXAM DATE/TIME: 09/07/2017 14:17 [facility] COMPARISON: CT ABDOMEN & PELVIS W CONTRAST, August 25, 2017, 8:50. INDICATIONS : Post lap repair of gastrotomy. FLUORO TIME: 2.0 minutes IMAGE COUNT: 8 CONTRAST: 1. MD Gardner MEDICAL HISTORY : Hypertension. Diverticulitis. Gastroesophageal reflux disease. SURGICAL HISTORY : Colon resection. Tubal ligation.Cholecystectomy. Lap band. ENCOUNTER: Initial ACUITY: 1 day PAIN SCORE: 0/10 LOCATION: Bilateral Abdomen FINDINGS: T[employer] Keeper view of the abdomen demonstrates a nasogastric tube distal tip in the distal stomach. Surgical drain courses obliquely across the a left upper quadrant and upper abdomen. Cholecystectomy clips are present. Innumerable clips overlie the left pelvis. There is airspace opacity in the left lower lobe . The already indwelling nasogastric tube was utilized to inject the Gastroview contrast material. Cont rast fills the stomach with good distention and no leak is identified. Contrast opacifies the proxima l and mid small bowel appears within normal limits. Real-time fluoroscopic images also demonstrate no concerning abnormality. CONCLUSION: No gastric leak is observed in this patient post gastric patch and lap band removal. Herbert Coley MD on September 07, 2017 at 14:54 Board Certified Radiologist. This report was verified electronically.
--- NOTE | 2017-09-07 16:35 | HHI.PR ---
Subjective Subjective Notes Ambulating in room No issues Objective Vitals/I&O Vital Signs Date Time Temp Pulse Resp B/P (MAP) Pulse Ox O2 Delivery O2 Flow Rate FiO2 09/07/17 08:15 99.1 93 18 144/85 (104) 09/07/17 04:15 94 09/06/17 20:57 Room Air 09/05/17 02:45 21 09/04/17 11:05 2.00 Labs Laboratory Tests Test 09/07/17 04:50 White Blood Count 9.1 Red Blood Count 4.09 Hemoglobin 10.3 Hematocrit 31.5 Mean Corpuscular Volume 76.9 Mean Corpuscular Hemoglobin 25.1 Mean Corpuscular Hemoglobin Concent 32.6 Red Cell Distribution Width 15.6 Platelet Count 346 Mean Platelet Volume 8.8 Neutrophils (%) (Auto) 74.7 Lymphocytes (%) (Auto) 10.2 Monocytes (%) (Auto) 9.7 Eosinophils (%) (Auto) 4.7 Basophils (%) (Auto) 0.7 Neutrophils # (Auto) 6.8 Lymphocytes # (Auto) 0.9 Monocytes # (Auto) 0.9 Eosinophils # (Auto) 0.4 Basophils # (Auto) 0.1 CBC Comment DIFF FINAL Differential Comment Date/Time Source Procedure Growth Status 08/28/17 17:11 Bronchial Washings Left Upper Lobe Fungal Smear - Final NO FUNGAL ELEMENTS SEEN. Resulted 08/28/17 17:11 Bronchial Washings Left Upper Lobe Fungal Culture - Preliminary NO GROWTH IN 1 WEEK Resulted Cardiovascular: Regular Lungs: Clear Abdomen: Other (lap sites c/d/i ) Extremities: No edema A/P Assessment and Plan 72 year old female with newly found lung mass s/p bx; eroded LapBand in need of removal; POD5 endoscopic band removal with laparoscopic assistance, laparoscopic repair of gastrotomy, laparoscopic lysis of adhesions, right subclavian port placement -UGI negative for leak -DC NGT -Start sips of clear liquids -Continue antibiotics -Pain control -Radiation and Medical Oncology following -OOB and mobilize Attending Statement The exam, history, and the medical decision-making described in the above note were completed with the assistance of the mid-level provider. I reviewed and agree with the findings presented. I attest that I had a [id number] encounter with the patient on the same day, and personally performed and documented my assessment and findings in the medical record. Physical Exam: Abdomen soft, no rebound tenderness or guarding, incision clean, dry, intact patient doing well overall, slowly advance diet and DC drain/NG Darby Aguirre Sep 07, 2017 16:35 Edgardo Owens MD Sep 11, 2017 16:48
[2017-09-07 20:30] VITALS: BP 118/72; PULSE 79; RESP 18; TEMP 97.6; O2SAT 95
[2017-09-08] VITALS (8 sets, daily range): BP systolic 107–127; BP diastolic 64–77; PULSE 45–88; RESP 16–18; TEMP 97.8–98.7; O2SAT 94–97
[2017-09-08] MEDS: metroNIDAZOLE 500 MG INJ 100 ML IV SCH ×3 (00:25→16:36)
[2017-09-08] MEDS: PANTOPRAZOLE SODIUM 40 MG VIAL IV PUSH SCH ×2 (05:03→16:00)
[2017-09-08] MEDS: LEVOTHYROXINE SODIUM 75 MCG TAB PO SCH (05:03)
[2017-09-08] MEDS: D5-1/2 NS + KCL 10 MEQ INJ 1,000 ML IV SCH ×2 (05:04→21:35)
[2017-09-08] MEDS: MULTIVITAMIN TAB PO SCH (08:31)
[2017-09-08] MEDS: amLODIPine BESYLATE 5 MG TAB PO SCH (08:32)
[2017-09-08] MEDS: DOCUSATE SODIUM 50 MG/SENNA 8.6 MG TAB PO SCH ×2 (08:32→21:00)
[2017-09-08] MEDS: SODIUM CHLORIDE 0.9% FLUSH 10 ML FLUSH IV FLUSH SCH ×2 (08:33→21:35)
--- NOTE | 2017-09-08 09:36 | HHI.PR ---
Subjective Remarks Follow-up removal of lap band for erosion/non-small cell lung cancer 09/07/17-patient seen and examined, currently nothing by mouth with NG tube in place and denies any nausea or vomiting. Patient complains of throat irritation. Plan for radiation stimulation today 09/08/17-patient seen and examined, NG tube was removed yesterday and patient is now on a clear liquid which she tolerated without any complication of nausea and vomiting. Objective Vitals Vital Signs Date Time Temp Pulse Resp B/P (MAP) Pulse Ox O2 Delivery O2 Flow Rate FiO2 09/08/17 08:10 98.5 78 16 117/77 (90) 96 09/08/17 05:11 97.8 76 16 117/71 (86) 94 09/08/17 00:25 98.1 74 16 107/64 (78) 94 09/07/17 20:30 97.6 79 18 118/72 (87) 95 09/07/17 20:30 Room Air 21 09/07/17 17:27 Room Air I/O 09/07/17 09/07/17 09/07/17 09/08/17 09/08/17 09/08/17 07:00 15:00 23:00 07:00 15:00 23:00 Intake Total 1130 ml 1230 ml 1311 ml Output Total 1205 ml 835 ml 15 ml Balance -75 ml 395 ml 1311 ml -15 ml Intake Oral 30 ml 150 ml IV Total 1100 ml 1080 ml 1311 ml Output Urine Total 1150 ml Gastric Drainage Total 25 ml 800 ml Chest Tube Drainage Total 35 ml Drainage Total 30 ml 15 ml # Voids 4 2 # Bowel Movements 4 2 Result Diagram: 09/07/17 0450 09/06/17 0704 Imaging Last Impressions Upper GI Series 09/07/17 0000 Signed Impressions: Service Date/Time: Thursday, September 07, 2017 14:17 - CONCLUSION: No gastric leak is observed in this patient post gastric patch and lap band removal. Herbert Coley MD Chest X-Ray 09/02/17 0000 Signed Impressions: Service Date/Time: Saturday, September 02, 2017 21:35 - CONCLUSION: Right sided central line in place. Scattered infiltrates in the left lower lung. Kirit Lombardo MD Brain MRI 09/01/17 0000 Signed Impressions: Service Date/Time: Friday, September 01, 2017 10:05 - CONCLUSION: 1. Moderate cerebral white matter disease characteristic of chronic microvascular ischemic changes. 2. No evidence of enhancing intra-axial lesions. 3. No evidence of acute infarct, hemorrhage, mass, edema or metastatic disease. Juan Luis Cintron MD Abdomen/Pelvis CT 08/25/17 0658 Signed Impressions: Service Date/Time: Friday, August 25, 2017 08:50 - CONCLUSION: 1. No acute CT abnormality to account for patient's veloping. 2. Postsurgical features of prior partial sigmoidectomy and lap band procedure with small hiatal hernia. 3. Medial nodular somewhat masslike lung base airspace consolidation with associated pleural effusion. This is partially imaged on this examination and may reflect chronic change in the left lung base due to small hiatal hernia. Consider chest CT examination for full characterization. Jeffrey Hill MD Chest CT 08/25/17 0000 Signed Impressions: Service Date/Time: Friday, August 25, 2017 09:55 - CONCLUSION: 1. 2.7 cm left infrahilar mass with mediastinal adenopathy suspicious for malignancy. PET/CT scan is recommended to further evaluation if clinically indicated. James Mensah MD Objective Remarks GENERAL: NAD SKIN: Warm and dry. HEAD: Normocephalic. EYES: No scleral icterus. No injection or drainage. NECK: Supple, trachea midline. No JVD or lymphadenopathy. CARDIOVASCULAR: Regular rate and rhythm without murmurs, gallops, or rubs. RESPIRATORY: Breath sounds equal bilaterally. No accessory muscle use. GASTROINTESTINAL: Abdomen soft, non-tender, nondistended. MUSCULOSKELETAL: No cyanosis, or edema. BACK: Nontender without obvious deformity. No CVA tenderness. Procedures EGD performed on 08/27 showed erosion of lap band into stomach, no gastric mass A/P Problem List: (1) Lung mass ICD Code: R91.8 - Other nonspecific abnormal finding of lung field Status: Acute (2) Epigastric pain ICD Code: R10.13 - Epigastric pain Status: Resolved (3) LAP-BAND surgery status ICD Code: Z98.84 - Bariatric surgery status Status: Chronic Assessment and Plan 72-year-old female with s/p LAP-BAND removal 09/02 secondary to erosion Management per surgery NG tube removed 09/07/17 Continue with antibiotics, Small bowel follow-through without any evidence of leak on 09/07/17 Non small cell lung cancer/Left infrahilar mass with mediastinal adenopathy suspicious for malignancy with her tobacco history status post bronchoscopy , Management per Radiation oncology , oncology Plan for radiation stimulation today 09/08/17 Appreciate input from cardiothoracic surgery however recommended deferring procedure for 2-3 weeks to allow her time to recover from her current GI issues. Oncology planning for Outpatient PET CT -Heart murmur 2-D echo for further workup and evaluation which showed EF of 55- 60%, moderate TR, mild aortic stenosis, trace MR, - -Hypothyroidism - continue Synthroid. -Hypertension, essential - continue Norvasc. Overall blood pressure controlled -GERD - continue PPI -DVT prophylaxis with SCDs. Chemoprophylaxis when cleared by surgery. Frandy Ac MD Sep 08, 2017 09:36
[2017-09-08] MEDS ORDERED: POTASSIUM CHLORIDE 25 MEQ EFFERVESCENT TAB PO ONE (09:45)
--- NOTE | 2017-09-08 10:45 | HHI.PR ---
Subjective Subjective Notes Doing well Ready for full liquids Objective Vitals/I&O Vital Signs Date Time Temp Pulse Resp B/P (MAP) Pulse Ox O2 Delivery O2 Flow Rate FiO2 09/08/17 08:10 98.5 78 16 117/77 (90) 96 09/07/17 20:30 Room Air 21 09/04/17 11:05 2.00 Labs Date/Time Source Procedure Growth Status 08/28/17 17:11 Bronchial Washings Left Upper Lobe Fungal Smear - Final NO FUNGAL ELEMENTS SEEN. Resulted 08/28/17 17:11 Bronchial Washings Left Upper Lobe Fungal Culture - Preliminary NO GROWTH IN 1 WEEK Resulted Cardiovascular: Regular Lungs: Clear Abdomen: Non-distended, Non-tender, Other (lap sites c/d/i; MARGARET with minimal serous fluid ) Extremities: No edema A/P Assessment and Plan 72 year old female with newly found lung mass s/p bx; eroded LapBand in need of removal; POD6 endoscopic band removal with laparoscopic assistance, laparoscopic repair of gastrotomy, laparoscopic lysis of adhesions, right subclavian port placement -UGI negative for leak -Advance to full liquid diet -Will keep MARGARET drain in for now -Pain control -Radiation and Medical Oncology following -OOB and mobilize Attending Statement patient seen at bedside doing well after band removal ugi negative liquid diet will d/c margaret when taking good po Attestation aThe exam, history, and the medical decision-making described in the above note were completed with the assistance of the mid-level provider. I reviewed and agree with the findings presented. I attest that I had a [id number] encounter with the patient on the same day, and personally performed and documented my assessment and findings in the medical record. Darby Aguirre Sep 08, 2017 10:45 Kaiden Wilde MD Sep 09, 2017 13:59
--- NOTE | 2017-09-08 16:46 | PD.ONC.PN ---
Subjective Subjective Remarks Sitting up in bed, comforable, no distress, working on computer. Objective Data Date Time Temp Pulse Resp B/P (MAP) Pulse Ox O2 Delivery O2 Flow Rate FiO2 09/08/17 16:15 98.7 88 18 116/74 (88) 97 09/08/17 12:37 98.2 45 18 122/73 (89) 97 09/08/17 08:10 98.5 78 16 117/77 (90) 96 09/08/17 05:11 97.8 76 16 117/71 (86) 94 09/08/17 00:25 98.1 74 16 107/64 (78) 94 09/07/17 20:30 97.6 79 18 118/72 (87) 95 09/07/17 20:30 Room Air 21 09/07/17 17:27 Room Air 09/08/17 09/08/17 09/08/17 07:00 15:00 23:00 Intake Total 1311 ml Output Total 15 ml Balance 1311 ml -15 ml Result Diagram: 09/07/17 0450 09/06/17 0704 Administered Medications Medications (Trade) Dose Ordered Sig/Finn Route PRN Reason Start Time Stop Time Status Last Admin Dose Admin Sodium Chloride (NS Flush) 2 ml BID IV FLUSH 08/25/17 21:00 09/07/17 09:06 Ondansetron HCl (Zofran Inj) 4 mg Q6H PRN IVP SEE LABEL COMMENTS 08/25/17 11:00 08/26/17 11:14 Acetaminophen/ Hydrocodone Bitart (Auberry 5-325 Mg) 1 tab Q4H PRN PO PAIN SCALE 3 TO 5 08/25/17 10:00 09/04/17 10:57 Senna/Docusate Sodium (Tamika-Colace) 1 tab BID PO 08/25/17 21:00 09/08/17 08:32 Amlodipine Besylate (Norvasc) 5 mg DAILY PO 08/26/17 09:00 09/08/17 08:32 Levothyroxine Sodium (Synthroid) 75 mcg DAILY@0600 PO 08/26/17 06:00 09/08/17 05:03 Multivitamins (Theragran) 1 tab DAILY PO 08/26/17 09:00 09/08/17 08:31 Pantoprazole Sodium (Protonix Inj) 40 mg Q12H IV PUSH 09/02/17 16:00 09/08/17 05:03 Cefazolin Sodium 1000 mg/Sodium Chloride 100 ml @ 200 mls/hr Q8H IV 09/02/17 22:00 09/08/17 05:03 Metronidazole 100 ml @ 100 mls/hr Q8H IV 09/02/17 17:00 09/08/17 08:33 Morphine Sulfate (Morphine Inj) 2 mg Q3H PRN IV PUSH pain 6-10 09/02/17 14:45 09/04/17 06:33 Potassium Chloride/Dextrose/ Sod Cl 1,000 ml @ 125 mls/hr Q8H IV 09/02/17 22:00 09/08/17 05:04 Objective Remarks GENERAL: Well-nourished, well-developed patient. SKIN: Warm and dry. HEAD: Normocephalic. RESPIRATORY: No accessory muscle use. GASTROINTESTINAL:healing surgical incisions EXTREMITIES: No cyanosis, or edema. NEUROLOGICAL: No obvious focal deficit. Awake, alert, and oriented x3. PSYCHIATRIC: Appropriate mood and affect; insight and judgment normal. Assessment/Plan Assessment 1. Non small cell lung cancer: with 2.7 cm left infrahilar mass, hilar adenopathy and suspicious mediastinal LN on CT scan. She is clinically stage IIA, however CT scan mentioned suspicious mediastinal adenopathy with PET CT pending. MRI brain negative for disease. Radiation oncology team is following. Pathology from EBUS with enough tissue to determine NSCLC, unable to perform other studies due to paucity of tissue. She has been evaluated by CT surgery and would not be a candidate for surgical resection as she would require pneumonectomy. She is unable to have this surgery performed due to poor pulmonary function tests. s/p port placement. -Outpatient PET CT -CT simulation with radiation oncology team -Discussed case with Dr. Bradley. Will plan for repeat EBUS for more tissue to further pathology evaluation. -Will have patient recover from lap band removal prior to proceeding with treatment for NSCLC. Sinai Sutherland MD Sep 08, 2017 16:46
[2017-09-09] VITALS (8 sets, daily range): BP systolic 120–150; BP diastolic 69–83; PULSE 65–93; RESP 16–18; TEMP 97.6–98.7; O2SAT 94–98
[2017-09-09] MEDS: PANTOPRAZOLE SODIUM 40 MG VIAL IV PUSH SCH ×2 (00:14→14:00)
[2017-09-09] MEDS: metroNIDAZOLE 500 MG INJ 100 ML IV SCH ×3 (00:15→16:47)
[2017-09-09] MEDS: LEVOTHYROXINE SODIUM 75 MCG TAB PO SCH (04:58)
[2017-09-09] MEDS: D5-1/2 NS + KCL 10 MEQ INJ 1,000 ML IV SCH ×3 (04:58→21:37)
[2017-09-09 06:28] LABS: AUTOMATED NEUTROPHIL # 7.9 TH/MM3 (1.8-7.7); BASOPHIL % 0.3 % (0.0-2.0); EOSINOPHIL # 0.6 TH/MM3 (0-0.4); EOSINOPHIL % 5.5 % (0.0-4.0); HEMATOCRIT 28.3 % (35.0-46.0); HEMO FLAGS DIFF FINAL; LYMPH % 13.4 % (9.0-44.0); LYMPHOCYTE # 1.4 TH/MM3 (1.0-4.8); MEAN CELL VOLUME 75.9 FL (80.0-100.0); MEAN CORPUSCULAR HGB CONC 32.9 % (32.0-36.0); MONO % 5.7 % (0.0-8.0); NEUT % 75.1 % (16.0-70.0); PLATELET COUNT 388 TH/MM3 (150-450); RED BLOOD COUNT 3.73 MIL/MM3 (4.00-5.30); RED CELL DISTRIBUTION WIDTH 15.2 % (11.6-17.2); WHITE BLOOD COUNT 10.5 TH/MM3 (4.0-11.0)
[2017-09-09 06:58] LABS: BICARBONATE 25.8 MEQ/L (21.0-32.0); POTASSIUM 3.6 MEQ/L (3.5-5.1)
[2017-09-09] MEDS: SODIUM CHLORIDE 0.9% FLUSH 10 ML FLUSH IV FLUSH SCH ×2 (08:41→21:00)
[2017-09-09] MEDS: amLODIPine BESYLATE 5 MG TAB PO SCH (08:43)
[2017-09-09] MEDS: MULTIVITAMIN TAB PO SCH (08:43)
[2017-09-09] MEDS: DOCUSATE SODIUM 50 MG/SENNA 8.6 MG TAB PO SCH ×2 (08:43→21:34)
--- NOTE | 2017-09-09 09:43 | HHI.PR ---
Subjective Remarks Follow-up removal of lap band for erosion/non-small cell lung cancer 09/07/17-patient seen and examined, currently nothing by mouth with NG tube in place and denies any nausea or vomiting. Patient complains of throat irritation. Plan for radiation stimulation today 09/08/17-patient seen and examined, NG tube was removed yesterday and patient is now on a clear liquid which she tolerated without any complication of nausea and vomiting. 09/09/17-patient seen and examined, tolerated full liquid without any complication of nausea and vomiting. Denies any abdominal pain. ROCHELLE drain with minimal output. Objective Vitals Vital Signs Date Time Temp Pulse Resp B/P (MAP) Pulse Ox O2 Delivery O2 Flow Rate FiO2 09/09/17 09:11 98.6 81 18 122/77 (92) 96 09/09/17 08:46 Room Air 09/09/17 05:00 98.4 78 16 120/71 (87) 96 09/09/17 00:18 98.4 83 16 128/81 (97) 96 09/08/17 21:44 98.7 80 16 127/74 (91) 96 09/08/17 21:36 Room Air 21 09/08/17 16:15 98.7 88 18 116/74 (88) 97 09/08/17 12:37 98.2 45 18 122/73 (89) 97 I/O 09/08/17 09/08/17 09/08/17 09/09/17 09/09/17 09/09/17 07:00 15:00 23:00 07:00 15:00 23:00 Intake Total 1311 ml 100 ml 1280 ml 2138 ml Output Total 15 ml 30 ml Balance 1311 ml 85 ml 1280 ml 2108 ml Intake Oral 1080 ml IV Total 1311 ml 100 ml 200 ml 2138 ml Drainage Total 15 ml 30 ml # Voids 2 6 # Bowel Movements 2 Result Diagram: 09/09/17 0505 09/09/17 0505 Objective Remarks GENERAL: NAD SKIN: Warm and dry. HEAD: Normocephalic. EYES: No scleral icterus. No injection or drainage. NECK: Supple, trachea midline. No JVD or lymphadenopathy. CARDIOVASCULAR: Regular rate and rhythm without murmurs, gallops, or rubs. RESPIRATORY: Breath sounds equal bilaterally. No accessory muscle use. GASTROINTESTINAL: Abdomen soft, non-tender, nondistended. ROCHELLE drain in place. Hypoactive bowel son; MUSCULOSKELETAL: No cyanosis, or edema. BACK: Nontender without obvious deformity. No CVA tenderness. Procedures EGD performed on 08/27 showed erosion of lap band into stomach, no gastric mass A/P Problem List: (1) Lung mass ICD Code: R91.8 - Other nonspecific abnormal finding of lung field Status: Acute (2) Epigastric pain ICD Code: R10.13 - Epigastric pain Status: Resolved (3) LAP-BAND surgery status ICD Code: Z98.84 - Bariatric surgery status Status: Chronic Assessment and Plan 72-year-old female with s/p LAP-BAND removal 09/02 secondary to erosion Management per surgery NG tube removed 09/07/17 Continue with antibiotics, Small bowel follow-through without any evidence of leak on 09/07/17 Likely to remove the ROCHELLE drain today 09/09/17 Continue full liquid diet and advance as tolerated Non small cell lung cancer/Left infrahilar mass with mediastinal adenopathy suspicious for malignancy with her tobacco history status post bronchoscopy , Management per Radiation oncology , oncology Patient had radiation stimulation 09/08/17 Appreciate input from cardiothoracic surgery however recommended deferring procedure for 2-3 weeks to allow her time to recover from her current GI issues. Oncology planning for Outpatient PET CT -Heart murmur 2-D echo for further workup and evaluation which showed EF of 55- 60%, moderate TR, mild aortic stenosis, trace MR, - -Hypothyroidism - continue Synthroid. -Hypertension, essential - continue Norvasc. Overall blood pressure controlled -GERD - continue PPI -DVT prophylaxis with SCDs. Chemoprophylaxis when cleared by surgery. Discharge Planning Likely discharge 09/10/17 Frandy Ac MD Sep 09, 2017 09:43
--- NOTE | 2017-09-09 12:54 | HHI.PR ---
Subjective Subjective Notes no acute issues, tolerating liquids, pain controlled Objective Vitals/I&O Vital Signs Date Time Temp Pulse Resp B/P (MAP) Pulse Ox O2 Delivery O2 Flow Rate FiO2 09/09/17 12:12 98.7 74 18 123/78 (93) 98 09/09/17 08:46 Room Air 09/08/17 21:36 21 Labs Laboratory Tests Test 09/09/17 05:05 White Blood Count 10.5 Red Blood Count 3.73 Hemoglobin 9.3 Hematocrit 28.3 Mean Corpuscular Volume 75.9 Mean Corpuscular Hemoglobin 25.0 Mean Corpuscular Hemoglobin Concent 32.9 Red Cell Distribution Width 15.2 Platelet Count 388 Mean Platelet Volume 8.4 Neutrophils (%) (Auto) 75.1 Lymphocytes (%) (Auto) 13.4 Monocytes (%) (Auto) 5.7 Eosinophils (%) (Auto) 5.5 Basophils (%) (Auto) 0.3 Neutrophils # (Auto) 7.9 Lymphocytes # (Auto) 1.4 Monocytes # (Auto) 0.6 Eosinophils # (Auto) 0.6 Basophils # (Auto) 0.0 CBC Comment DIFF FINAL Differential Comment Blood Urea Nitrogen 3 Creatinine 0.57 Random Glucose 95 Calcium Level 7.9 Sodium Level 143 Potassium Level 3.6 Chloride Level 110 Carbon Dioxide Level 25.8 Anion Gap 7 Estimat Glomerular Filtration Rate 104 Date/Time Source Procedure Growth Status 08/28/17 17:11 Bronchial Washings Left Upper Lobe Fungal Smear - Final NO FUNGAL ELEMENTS SEEN. Resulted 08/28/17 17:11 Bronchial Washings Left Upper Lobe Fungal Culture - Preliminary NO GROWTH IN 1 WEEK Resulted Abdomen: Other (soft, incisions c/d/i margaret serous) A/P Assessment and Plan eroded gastric band, lung cancer, s/p endoscopic band removal with laparoscopic assistance, laparoscopic repair of gastrotomy, laparoscopic lysis of adhesions , right subclavian port placement POD 1 PLAN reg soft diet pain control dvt ppx d/c margaret today ok to d/c home today or tomorrow Kaiden Wilde MD Sep 09, 2017 12:54
[2017-09-10] VITALS: BP 128/66; PULSE 80; RESP 18; TEMP 98.6; O2SAT 94
[2017-09-10] MEDS: metroNIDAZOLE 500 MG INJ 100 ML IV SCH ×2 (01:38→07:58)
[2017-09-10 04:00] VITALS: BP 129/79; PULSE 81; RESP 20; TEMP 98.5; O2SAT 95
[2017-09-10] MEDS: LEVOTHYROXINE SODIUM 75 MCG TAB PO SCH (05:53)
[2017-09-10] MEDS: PANTOPRAZOLE SODIUM 40 MG VIAL IV PUSH SCH (05:53)
[2017-09-10] MEDS: D5-1/2 NS + KCL 10 MEQ INJ 1,000 ML IV SCH (07:15)
[2017-09-10] MEDS: SODIUM CHLORIDE 0.9% FLUSH 10 ML FLUSH IV FLUSH SCH (07:58)
[2017-09-10] MEDS: DOCUSATE SODIUM 50 MG/SENNA 8.6 MG TAB PO SCH (07:58)
[2017-09-10] MEDS: amLODIPine BESYLATE 5 MG TAB PO SCH (07:58)
[2017-09-10] MEDS: MULTIVITAMIN TAB PO SCH (07:58)
[2017-09-10 08:00] VITALS: BP 139/97; PULSE 78; RESP 18; TEMP 98.3; O2SAT 98
--- NOTE | 2017-09-10 09:57 | HHI.PR ---
Subjective Remarks Follow-up removal of lap band for erosion/non-small cell lung cancer 09/07/17-patient seen and examined, currently nothing by mouth with NG tube in place and denies any nausea or vomiting. Patient complains of throat irritation. Plan for radiation stimulation today 09/08/17-patient seen and examined, NG tube was removed yesterday and patient is now on a clear liquid which she tolerated without any complication of nausea and vomiting. 09/09/17-patient seen and examined, tolerated full liquid without any complication of nausea and vomiting. Denies any abdominal pain. ROCHELLE drain with minimal output. 09/10/17-patient seen and examined, denies any nausea or vomiting as well as abdominal pain with by mouth intake. ROCHELLE drain was removed yesterday and patient has been cleared by surgery for discharge. Objective Vitals Vital Signs Date Time Temp Pulse Resp B/P (MAP) Pulse Ox O2 Delivery O2 Flow Rate FiO2 09/10/17 04:00 98.5 81 20 129/79 (96) 95 09/10/17 00:00 98.6 80 18 128/66 (86) 94 09/09/17 21:25 96 Room Air 09/09/17 20:00 98.6 83 18 139/80 (99) 96 09/09/17 17:37 97.6 93 18 136/83 (100) 94 09/09/17 12:51 98.6 77 18 124/77 (93) 98 09/09/17 12:12 98.7 74 18 123/78 (93) 98 I/O 09/09/17 09/09/17 09/09/17 09/10/17 09/10/17 09/10/17 06:59 14:59 22:59 06:59 14:59 22:59 Intake Total 2138 ml 1000 ml 655 ml Output Total 30 ml 10 ml Balance 2108 ml 1000 ml 645 ml Intake Oral 655 ml IV Total 2138 ml 1000 ml Drainage Total 30 ml 10 ml # Voids 2 Result Diagram: 09/09/17 0505 09/09/17 0505 Imaging Last Impressions Upper GI Series 09/07/17 0000 Signed Impressions: Service Date/Time: Thursday, September 07, 2017 14:17 - CONCLUSION: No gastric leak is observed in this patient post gastric patch and lap band removal. Herbert Coley MD Chest X-Ray 09/02/17 0000 Signed Impressions: Service Date/Time: Saturday, September 02, 2017 21:35 - CONCLUSION: Right sided central line in place. Scattered infiltrates in the left lower lung. Kirit Lombardo MD Brain MRI 09/01/17 0000 Signed Impressions: Service Date/Time: Friday, September 01, 2017 10:05 - CONCLUSION: 1. Moderate cerebral white matter disease characteristic of chronic microvascular ischemic changes. 2. No evidence of enhancing intra-axial lesions. 3. No evidence of acute infarct, hemorrhage, mass, edema or metastatic disease. Juan Luis Cintron MD Abdomen/Pelvis CT 08/25/17 0658 Signed Impressions: Service Date/Time: Friday, August 25, 2017 08:50 - CONCLUSION: 1. No acute CT abnormality to account for patient's veloping. 2. Postsurgical features of prior partial sigmoidectomy and lap band procedure with small hiatal hernia. 3. Medial nodular somewhat masslike lung base airspace consolidation with associated pleural effusion. This is partially imaged on this examination and may reflect chronic change in the left lung base due to small hiatal hernia. Consider chest CT examination for full characterization. Jeffrey Hill MD Chest CT 08/25/17 0000 Signed Impressions: Service Date/Time: Friday, August 25, 2017 09:55 - CONCLUSION: 1. 2.7 cm left infrahilar mass with mediastinal adenopathy suspicious for malignancy. PET/CT scan is recommended to further evaluation if clinically indicated. James Mensah MD Objective Remarks GENERAL: NAD SKIN: Warm and dry. HEAD: Normocephalic. EYES: No scleral icterus. No injection or drainage. NECK: Supple, trachea midline. No JVD or lymphadenopathy. CARDIOVASCULAR: Regular rate and rhythm without murmurs, gallops, or rubs. RESPIRATORY: Breath sounds equal bilaterally. No accessory muscle use. GASTROINTESTINAL: Abdomen soft, non-tender, nondistended. MUSCULOSKELETAL: No cyanosis, or edema. BACK: Nontender without obvious deformity. No CVA tenderness. Procedures EGD performed on 08/27 showed erosion of lap band into stomach, no gastric mass A/P Problem List: (1) Lung mass ICD Code: R91.8 - Other nonspecific abnormal finding of lung field Status: Acute (2) Epigastric pain ICD Code: R10.13 - Epigastric pain Status: Resolved (3) LAP-BAND surgery status ICD Code: Z98.84 - Bariatric surgery status Status: Chronic Assessment and Plan 72-year-old female with s/p LAP-BAND removal 09/02 secondary to erosion Management per surgery NG tube removed 09/07/17; ROCHELLE drain removed 09/09/17 Continue with antibiotics, Small bowel follow-through without any evidence of leak on 09/07/17 Tolerating current diet Non small cell lung cancer/Left infrahilar mass with mediastinal adenopathy suspicious for malignancy with her tobacco history status post bronchoscopy , Management per Radiation oncology , oncology .Plan for repeat EBUS for more tissue to further pathology evaluation. Patient had radiation stimulation 09/08/17 Appreciate input from cardiothoracic surgery however recommended deferring procedure for 2-3 weeks to allow her time to recover from her current GI issues. Oncology planning for Outpatient PET CT outpatient -Heart murmur 2-D echo for further workup and evaluation which showed EF of 55- 60%, moderate TR, mild aortic stenosis, trace MR, - -Hypothyroidism - continue Synthroid. -Hypertension, essential - continue Norvasc. Overall blood pressure controlled -GERD - continue PPI -DVT prophylaxis with SCDs. Chemoprophylaxis when cleared by surgery. Discharge Planning Likely discharge 09/10/17 Frandy Ac MD Sep 10, 2017 09:57
[2017-09-10] MEDS ORDERED: HYDR-3288 PO (11:22)
[2017-09-10] MEDS ORDERED: PERI8.6T PO (11:22)
--- NOTE | 2017-09-10 11:25 | HHI.DS ---
Discharge Summary Admission Date Aug 25, 2017 at 13:33 Discharge Date: Sep 10, 2017 Admitting Diagnosis intractable epigastric pain, intractable nausea/vomiting (1) Lung mass ICD Code: R91.8 - Other nonspecific abnormal finding of lung field Status: Acute (2) Epigastric pain ICD Code: R10.13 - Epigastric pain Status: Resolved (3) LAP-BAND surgery status ICD Code: Z98.84 - Bariatric surgery status Status: Chronic Procedures EGD performed on 08/27 showed erosion of lap band into stomach, no gastric mass Brief History - From Admission This is a pleasant 72-year-old female with past medical history of diverticulitis status post partial colon resection, irritable bowel syndrome, lap band in 2006 who presents to the emergency department with intermittent epigastric pain nausea and vomiting. The patient states that she has been having belching for months along with intermittent epigastric pain associated with nausea since May. Her PCP had ordered an upper GI series which revealed questionable gastric carcinoma and was advised to follow-up with gastroenterology. 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 This morning around 3 AM she woke up with severe epigastric pain associated with nausea and dry heaves. The patient states she has lost 10-12 pounds over the past several months. She denies any blood in the stool. The patient does have chronic diarrhea since her partial colon resection. She denies difficulty swallowing or globus sensation. Eating seems to cause the pain flareup. The patient received morphine IV in the emergency department and currently states she does not have abdominal pain. Abdominal CT scan without contrast in the emergency department showed nodular masslike left lung base airspace consolidation, postsurgical features of prior lap band procedure. Chest CT reveals a 2.7 cm left infrahilar mass with mediastinal adenopathy suspicious for malignancy. CBC/BMP: 09/09/17 0505 09/09/17 0505 Significant Findings Laboratory Tests Test 09/09/17 05:05 Red Blood Count 3.73 MIL/MM3 (4.00-5.30) Hemoglobin 9.3 GM/DL (11.6-15.3) Hematocrit 28.3 % (35.0-46.0) Mean Corpuscular Volume 75.9 FL (80.0-100.0) Mean Corpuscular Hemoglobin 25.0 PG (27.0-34.0) Neutrophils (%) (Auto) 75.1 % (16.0-70.0) Eosinophils (%) (Auto) 5.5 % (0.0-4.0) Neutrophils # (Auto) 7.9 TH/MM3 (1.8-7.7) Eosinophils # (Auto) 0.6 TH/MM3 (0-0.4) Blood Urea Nitrogen 3 MG/DL (7-18) Calcium Level 7.9 MG/DL (8.5-10.1) Chloride Level 110 MEQ/L (98-107) Imaging Last Impressions Upper GI Series 09/07/17 0000 Signed Impressions: Service Date/Time: Thursday, September 07, 2017 14:17 - CONCLUSION: No gastric leak is observed in this patient post gastric patch and lap band removal. Herbert Coley MD Chest X-Ray 09/02/17 0000 Signed Impressions: Service Date/Time: Saturday, September 02, 2017 21:35 - CONCLUSION: Right sided central line in place. Scattered infiltrates in the left lower lung. Kirit Lombardo MD Brain MRI 09/01/17 0000 Signed Impressions: Service Date/Time: Friday, September 01, 2017 10:05 - CONCLUSION: 1. Moderate cerebral white matter disease characteristic of chronic microvascular ischemic changes. 2. No evidence of enhancing intra-axial lesions. 3. No evidence of acute infarct, hemorrhage, mass, edema or metastatic disease. Juan Luis Cintron MD Abdomen/Pelvis CT 08/25/17 0658 Signed Impressions: Service Date/Time: Friday, August 25, 2017 08:50 - CONCLUSION: 1. No acute CT abnormality to account for patient's veloping. 2. Postsurgical features of prior partial sigmoidectomy and lap band procedure with small hiatal hernia. 3. Medial nodular somewhat masslike lung base airspace consolidation with associated pleural effusion. This is partially imaged on this examination and may reflect chronic change in the left lung base due to small hiatal hernia. Consider chest CT examination for full characterization. Jeffrey iHll MD Chest CT 08/25/17 0000 Signed Impressions: Service Date/Time: Friday, August 25, 2017 09:55 - CONCLUSION: 1. 2.7 cm left infrahilar mass with mediastinal adenopathy suspicious for malignancy. PET/CT scan is recommended to further evaluation if clinically indicated. James Mensah MD PE at Discharge GENERAL: NAD SKIN: Warm and dry. HEAD: Normocephalic. EYES: No scleral icterus. No injection or drainage. NECK: Supple, trachea midline. No JVD or lymphadenopathy. CARDIOVASCULAR: Regular rate and rhythm without murmurs, gallops, or rubs. RESPIRATORY: Breath sounds equal bilaterally. No accessory muscle use. GASTROINTESTINAL: Abdomen soft, non-tender, nondistended. MUSCULOSKELETAL: No cyanosis, or edema. BACK: Nontender without obvious deformity. No CVA tenderness. Hospital Course Patient admitted secondary to epigastric abdominal pain for which was recurrent urology was consulted and she had EGD performed. Surgery was also consulted and patient underwent LAP-BAND removal 09/02/17 secondary to finding of erosion. H&H treated with nothing by mouth and NG tube placed which was subsequently removed on 08/24/17 and patient's diet was advanced accordingly after small bowel follow-through did not show any evidence of leak. Oncology was consulted secondary to patient's history of non-small cell lung cancer. Secondary to the finding of left infrahilar mass with mediastinal adenopathy cardiothoracic surgery as well as pulmonary medicine were all consulted. She had EBUS, and will need a repeat EBUS for more tissue to further help with pathology evaluation. Patient will also need outpatient PET/CT. She will follow with pulmonary medicine for bronchoscopy. Treatment for other chronic medical conditions were resumed. DVT and GI prophylaxis were provided. Prior to discharge, patient's condition improved and vitals remained stable. Pt Condition on Discharge: Stable Discharge Disposition: Discharge Home Discharge Time: > 30 minutes Discharge Instructions DIET: Follow Instructions for: Heart Healthy Diet Activities you can perform: Regular-No Restrictions Follow up Referrals: Oncology PCP Follow-up - 1 Week Pulmonology - 1 Week Surgical - 1 Week with Kaiden Wilde MD Vascular Surgery New Medications: Hydrocodone-Acetaminophen ([place]) 7.5-325 mg Tab 1 TAB PO Q6H PRN for PAIN, #20 TAB 0 Refills Sennosides-Docusate Sodium ([place]am[place]-Colace) 8.6-50 Mg Tab 1 TAB PO BID for Constipation, #20 TAB 0 Refills Continued Medications: Amlodipine (Amlodipine) 5 Mg Tab 5 MG PO DAILY for Blood Pressure Management, TAB 0 Refills Aspirin (Aspirin) 81 Mg Chew 81 MG CHEW DAILY for Blood Clot Prevention, TAB 0 Refills Levothyroxine (Levothyroxine) 75 Mcg Tab 75 MCG PO HS for Thyroid, TAB 0 Refills Multiple Vitamin (Multiple Vitamin) 1 Tab 1 TAB PO DAILY for Nutritional Supplement, TAB 0 Refills Omeprazole (Omeprazole) 20 Mg Tab 20 MG PO DAILY, TAB 0 Refills Frandy Ac MD Sep 10, 2017 11:25
--- NOTE | 2017-09-10 12:35 | HHI.PR ---
Subjective Subjective Notes doing well, tolerating diet, no fevers Objective Vitals/I&O Vital Signs Date Time Temp Pulse Resp B/P (MAP) Pulse Ox O2 Delivery O2 Flow Rate FiO2 09/10/17 08:00 98.3 78 18 139/97 (111) 98 09/09/17 21:25 Room Air 09/08/17 21:36 21 Labs Date/Time Source Procedure Growth Status 08/28/17 17:11 Bronchial Washings Left Upper Lobe Fungal Smear - Final NO FUNGAL ELEMENTS SEEN. Resulted 08/28/17 17:11 Bronchial Washings Left Upper Lobe Fungal Culture - Preliminary NO GROWTH IN 1 WEEK Resulted Abdomen: Other A/P Assessment and Plan eroded gastric band, lung cancer, s/p endoscopic band removal with laparoscopic assistance, laparoscopic repair of gastrotomy, laparoscopic lysis of adhesions , right subclavian port placement PLAN reg soft diet pain control dvt ppx d/c home today f/u 1 week Kaiden Wilde MD Sep 10, 2017 12:35
== END 2017-09-10 11:55 | disposition home or self-care (01) | DRG 326 ==
LOC: PHED 06:30 → PHEDA 09:44 → PH3B 11:10 → OBSVTOIN 13:33 → N04B 08-26 22:19 → HCIS 09-04 21:10
PROVIDERS: ADMIT Hospitalist; ATTEND Hospitalist
PROC: 0DJ08ZZ Inspection of Upper Intestinal Tract, Via Natural or Artificial Opening Endoscopic (ICD-10-PCS; 2017-08-26)
PROC: 07973ZX Drainage of Thorax Lymphatic, Percutaneous Approach, Diagnostic (ICD-10-PCS; 2017-08-28)
PROC: 0BJ08ZZ Inspection of Tracheobronchial Tree, Via Natural or Artificial Opening Endoscopic (ICD-10-PCS; 2017-08-28)
PROC: 0DJ08ZZ Inspection of Upper Intestinal Tract, Via Natural or Artificial Opening Endoscopic (ICD-10-PCS; 2017-08-28)
PROC: 0DC68ZZ Extirpation of Matter from Stomach, Via Natural or Artificial Opening Endoscopic (ICD-10-PCS; 2017-09-02)
PROC: 0JH60XZ Insertion of Tunneled Vascular Access Device into Chest Subcutaneous Tissue and Fascia, Open Approach (ICD-10-PCS; 2017-09-02)
PROC: 05H533Z Insertion of Infusion Device into Right Subclavian Vein, Percutaneous Approach (ICD-10-PCS; 2017-09-02)
PROC: 0DP64CZ Removal of Extraluminal Device from Stomach, Percutaneous Endoscopic Approach (ICD-10-PCS; principal; 2017-09-02 08:13)
PROC: 0DU Gastrointestinal System, Supplement (ICD-10-PCS; 2017-09-02 08:13)
DX: K95.09 Other complications of gastric band procedure (principal); K25.5 Chronic or unspecified gastric ulcer with perforation; C77.1 Secondary and unspecified malignant neoplasm of intrathoracic lymph nodes; C34.02 Malignant neoplasm of left main bronchus; D64.9 Anemia, unspecified; I08.3 Combined rheumatic disorders of mitral, aortic and tricuspid valves; I10 Essential (primary) hypertension; E03.9 Hypothyroidism, unspecified; Z98.84 Bariatric surgery status; K52.9 Noninfective gastroenteritis and colitis, unspecified; K21.9 Gastro-esophageal reflux disease without esophagitis; Z87.891 Personal history of nicotine dependence; Y73.3 Surgical instruments, materials and gastroenterology and urology devices (including sutures) associated with adverse incidents; Y84.8 Other medical procedures as the cause of abnormal reaction of the patient, or of later complication, without mention of misadventure at the time of the procedure; K44.9 Diaphragmatic hernia without obstruction or gangrene; Z90.49 Acquired absence of other specified parts of digestive tract; R79.1 Abnormal coagulation profile
CPT/HCPCS: 70553; 71010; 71250; 74177; 74240; 76000; 77001; 80048; 80053; 82607; 82728; 82746; 82948; 83540; 83550; 83690; 84134; 85025; 85027; 85610; 85730; 87015; 87070; 87102; 87116; 87205; 87206; 88112; 88172; 88173; 88305; 93005; 93306; 94060; 94640; 94664; A9579; C1769; C1788; C9113; J0690; J1100; J1644; J2250; J2270; J2370; J2405; J2710; J3010; J3480; J7030; J7120; J7611; J7613; Q9963; Q9967

== ENCOUNTER 2017-09-15 11:49 | Day surgery (SDC) | payer OTHER ==
[~2017-09-15] VITALS: Ht 161.3 cm; Wt 75.0 kg
[~2017-09-15 11:49] MED LIST changes: -ASPI1TAB69 PO; +ASPI81CH CHEW; -CHOL50006 PO; -CYAN1LOZ BUCCAL; -FAMO20TA2 PO; +HYDR-3288 PO; +PERI8.6T PO; -TRAM50TA PO
[2017-09-15] MEDS ORDERED: SUCCINYLCHOLINE CHLORIDE 100 MG/5 ML SYRINGE IV PUSH ONE (12:00)
[2017-09-15] MEDS ORDERED: SODIUM CHLOR 0.9% 1000 ML INJ 1,000 ML IV SCH (12:00)
[2017-09-15] MEDS ORDERED: LIDOCAINE HCL 1% PF 5 ML AMPULE OTHER ONE (12:00)
[2017-09-15] MEDS ORDERED: PHENYLEPHRINE HCL 10 MG/ML VIAL IV ONE (12:00)
[2017-09-15] MEDS ORDERED: PROPOFOL 200 MG/20 ML AMP IV ONE (12:00)
[2017-09-15] MEDS ORDERED: PHENYLEPH/NS 1000 MCG/10 ML SYR IV ONE (12:00)
[2017-09-15 12:12] VITALS: BP 113/72; PULSE 115; RESP 20; TEMP 98.6; O2SAT 93
[2017-09-15] MEDS ORDERED: POVIDONE IODINE 5% (ANTISEPSIS KIT) 4 APPLICATIONS EACH NARE PRN (12:45)
[2017-09-15] MEDS ORDERED: CHLORHEXIDINE GLUCONATE 2 % 1 PACK (2 CLOTHS) TOPICAL PRN (12:45)
[2017-09-15] MEDS ORDERED: LACTATED RINGER'S 1000 ML IV PRN (12:45)
[2017-09-15] MEDS ORDERED: METOPROLOL TARTRATE 25 MG TAB PO PRN (12:45)
[2017-09-15] MEDS ORDERED: SODIUM CHLORID 0.9% 500 ML IV PRN (12:45)
[2017-09-15] MEDS ORDERED: RESP: LIDOCAINE HCL 4% PF 5 ML NEB NEB SCH (12:45)
[2017-09-15] MEDS ORDERED: INSULIN HUMAN REGULAR 1,000 UNITS/10 ML VIAL SQ PRN (12:45)
[2017-09-15] MEDS ORDERED: RESP: ALBUTEROL 2.5 MG/3 ML NEB (SCH) NEB (12:45)
[2017-09-15] MEDS ORDERED: RESP: ALBUTEROL CONC 2.5 MG/0.5 ML NEB ONE (12:56)
[2017-09-15] MEDS ORDERED: RESP: LIDOCAINE HCL 4% PF 5 ML NEB ONE (12:57)
[2017-09-15] MEDS ORDERED: EPINEPHrine HCL (1:1000) 1 MG/ML VIAL ONE (13:28)
[2017-09-15] MEDS ORDERED: LIDOCAINE HCL 2% 50 ML VIAL ONE (13:28)
[2017-09-15] MEDS ORDERED: DO NOT ADM ANY ANTICOAGULANT DRUGS PRN (18:43)
[2017-09-15] MEDS ORDERED: RESP: ALBUTEROL 2.5 MG/3 ML NEB (PRN) NEB (18:45)
[2017-09-15] MEDS ORDERED: *RESP: ALBUTEROL 2.5 MG/3 ML NEB (PRN) PERIprocedural Use ONLY NEB ONE (19:12)
--- NOTE | 2017-09-15 19:25 | RADRPT ---
EXAM DATE/TIME: 09/15/2017 19:04 [facility] COMPARISON: CT THORAX W/O CONTRAST, August 25, 2017, 9:55. CHEST SINGLE AP, August 28, 2017, 16:44. INDICATIONS : Post bronchoscopy. MEDICAL HISTORY : Hypertension. Diverticulitis. Gastroesophageal reflux disease SURGICAL HISTORY : Colon resection. Tubal ligation.Cholecystectomy. Lap band. ENCOUNTER: Initial ACUITY: 1 day PAIN SCORE: 0/10 LOCATION: Bilateral chest FINDINGS: Right subclavian [id number] is present with tip overlapping the expected region of the SVC. Slight left lung base consolidation is seen. Heart and mediastinum have not changed. No definite pneumothor ax is seen for technique. CONCLUSION: Left lung base consolidation versus mass not significantly changed. Washington Salmeron MD on September 15, 2017 at 19:23 Board Certified Radiologist. This report was verified electronically.
[2017-09-15] MEDS ORDERED: methylPREDNISolone SOD SUCC 40 MG/1 ML VIAL ONE (19:37)
[2017-09-15] MEDS ORDERED: methylPREDNISolone SOD SUCC 40 MG/1 ML VIAL IV PUSH ONE (20:30)
[2017-09-15 20:40] VITALS: BP 105/58; PULSE 109; RESP 20; TEMP 97.8; O2SAT 93
--- NOTE | 2017-09-15 23:42 | MP ---
cc: Corbin MOYER DATE OF SURGERY: 09/15/2017 PROCEDURE: Bronchoscopy INDICATIONS FOR PROCEDURE: Lung cancer. Additional lung tissue required for molecular markers. DESCRIPTION OF PROCEDURE: After informed consent was obtained the patient underwent diagnostic bronchoscopy with general anesthesia. Inspection of the airway on the right was normal. The left was markedly narrowed at the takeoff of the left main stem bronchus down through to the left upper and lower lobes. Marked extrinsic compression, although there was no significant endobronchial pathology. The purpose of this procedure was to collect additional tissue for molecular markers. Using ultrasound guidance, lymph nodes were identified in the 10L location and aspirates were submitted in Jaya light for cytology. A needle aspiration biopsy without ultrasound was also obtained from the chapo via the left upper lobe which was very abnormal and narrowing the left upper lobe bronchus, also submitted for cytology. She had minimal bleeding. The patient tolerated the procedure well without apparent complication and is being prepared for transfer to recovery. MD SHAY Cardona/VITA /6:44 PM /11:35 PM
== END 2017-09-15 20:40 | disposition home or self-care (01) ==
LOC: HSDC 11:49 → HRIP 11:50 → HSDC 20:40
PROVIDERS: ATTEND Internal Medicine
DX: C34.90 Malignant neoplasm of unspecified part of unspecified bronchus or lung (principal); I10 Essential (primary) hypertension; E03.9 Hypothyroidism, unspecified; K57.92 Diverticulitis of intestine, part unspecified, without perforation or abscess without bleeding
CPT/HCPCS: 00520; 31629; 71010; 94664; J0330; J2370; J2920; J3010; J7611; J7613; J0171

== ENCOUNTER 2017-09-21 18:05 | Inpatient (IN) | payer OTHER, MEDICARE ==
[~2017-09-21] VITALS: Ht 160 cm; Wt 91.5 kg
[~2017-09-21 18:05] MED LIST changes: -MULTTAB67 PO
[2017-09-21] MEDS ORDERED: IOHEXOL 350 MG/ML 10 ML VIAL (for RAD DIAG) IVCONTRAST ONE (18:06)
[2017-09-21 18:07] VITALS: BP 152/90; PULSE 130; RESP 19; O2SAT 95
--- NOTE | 2017-09-21 18:15 | PD ---
Physical Exam Date Seen by Provider: Sep 21, 2017 Time Seen by Provider: 18:13 Narrative 72-year-old white female presents to emergency department with complaints of abdominal pain today after drinking orange juice. Positive nausea but no vomiting. She states pain is severe. She is one-week status post removal of a lap band. Vital signs reviewed. pt waiting for bed placement Data Data Last Documented VS Vital Signs Date Time Temp Pulse Resp B/P (MAP) Pulse Ox O2 Delivery O2 Flow Rate FiO2 09/21/17 18:07 130 19 152/90 (110) 95 MDM Medical Record Reviewed: No Supervised Visit with STARR: Keenan Cortes Sep 21, 2017 18:14
[2017-09-21] MEDS ORDERED: HYDROmorphone HCL PF 1 MG/ML VIAL IV PUSH ONE ×2 (18:30→19:15)
[2017-09-21] MEDS ORDERED: SODIUM CHLORID 0.9% 500 ML INJ 500 ML IV ONE (18:30)
[2017-09-21] MEDS ORDERED: SODIUM CHLOR 0.9% 1000 ML INJ 1,000 ML IV SCH (18:30)
[2017-09-21] MEDS ORDERED: ONDANSETRON HCL 4 MG/2 ML VIAL IV PUSH ONE (18:30)
[2017-09-21 18:37] VITALS: O2SAT 98
--- NOTE | 2017-09-21 18:49 | PD ---
HPI Chief Complaint: Abdominal Pain Time Seen by Provider: 18:27 Travel History International Travel<30 days: No Contact w/Intl Traveler<30days: No Traveled to known affect area: No History of Present Illness HPI This is a 72-year-old female with history of lung cancer, who is status post lap band removal with stomach surgery 2 weeks ago, who presents with severe upper and mid abdominal pain. The patient states that she was drinking oral juice tonight when she had 2 sips, she reports severe pain in her abdomen. She denies any fevers, chills. She states that the pain is sharp and stabbing. She denies any previous history of such pain. She reports nausea with no vomiting. There is no reported diarrhea. There is no urinary symptoms. There are no other complaints time my examination. PFSH Past Medical History Cancer: No Cardiovascular Problems: No Diabetes: No Endocrine: No Gastrointestinal Disorders: Yes (COLON RUPTURE 1994, DIVERTICULITIS, GERD) GERD: Yes Genitourinary: No Hepatitis: No Hiatal Hernia: No Hypertension: Yes Immune Disorder: No Musculoskeletal: No Neurologic: No Psychiatric: No Reproductive: No Respiratory: No Immunizations Current: No Thyroid Disease: Yes Past Surgical History Abdominal Surgery: Yes (BOWEL REPAIR, LAP BAND) AICD: No Cholecystectomy: Yes Eye Surgery: Yes (BL CATARACTS) Gynecologic Surgery: Yes (TUBAL LIGATION, D&C) Joint Replacement: No Oral Surgery: Yes (T&A) Pacemaker: No Other Surgery: Yes Social History Alcohol Use: Yes (RARE) Tobacco Use: No Substance Use: No Allergies-Medications (Allergen,Severity, Reaction): Coded Allergies: Sulfa (Sulfonamide Antibiotics) (Unverified Allergy, Severe, Hives, ) amoxicillin (Unverified Allergy, Severe, Hives, 09/21/17) clavulanic acid (Unverified Allergy, Severe, Hives, 09/21/17) doxycycline (Unverified Allergy, Severe, Nausea/Vomiting, 09/21/17) meloxicam (Unverified Allergy, Unknown, gi upset, 09/21/17) Uncoded Allergies: METAL (Allergy, Severe, Rash, 03/25/17) ALL METAL EXCEPT GOLD AND SILVER Reported Meds & Prescriptions Reported Meds & Active Scripts Active Tamika-Colace (Sennosides-Docusate Sodium) 8.6-50 Mg Tab 1 Tab PO BID [place] (Hydrocodone-Acetaminophen) 7.5-325 mg Tab 1 Tab PO Q6H PRN Reported Aspirin 81 Mg Chew 81 Mg CHEW DAILY Omeprazole 20 Mg Tab 20 Mg PO BID Levothyroxine (Levothyroxine Sodium) 75 Mcg Tab 75 Mcg PO HS Amlodipine (Amlodipine Besylate) 5 Mg Tab 5 Mg PO DAILY Review of Systems Except as stated in HPI: all other systems reviewed are Neg General / Constitutional: No: Fever HENT: No: Headaches, Lightheadedness Cardiovascular: No: Chest Pain or Discomfort, Palpitations Respiratory: No: Cough, Shortness of Breath Gastrointestinal: Positive: Nausea, Abdominal Pain (dear upper abdominal), No: Vomiting, Diarrhea, Hematochezia, Constipation Genitourinary: No: Frequency, Dysuria Musculoskeletal: No: Weakness, Pain Neurologic: No: Weakness, Dizziness, Headache Physical Exam Narrative GENERAL: Well-developed well-nourished female in obvious distress and pain. SKIN: Focused skin assessment warm/dry. HEAD: Atraumatic. Normocephalic. EYES: No scleral icterus. No injection or drainage. ENT: No nasal bleeding or discharge. Mucous membranes pink and moist. NECK: Trachea midline. No JVD. CARDIOVASCULAR: Regular rate and rhythm. No murmur appreciated. RESPIRATORY: No accessory muscle use. Clear to auscultation. Breath sounds equal bilaterally. GASTROINTESTINAL: Abdomen soft, nondistended. Severe upper abdominal pain with voluntary guarding and rebound. MUSCULOSKELETAL: No obvious deformities. No clubbing. No cyanosis. No edema. NEUROLOGICAL: Awake and alert. No obvious cranial nerve deficits. Motor grossly within normal limits. Normal speech. Data Data Last Documented VS Vital Signs Date Time Temp Pulse Resp B/P (MAP) Pulse Ox O2 Delivery O2 Flow Rate FiO2 09/21/17 18:37 98 Room Air 09/21/17 18:07 130 19 Orders Orders Complete Blood Count With Diff (09/21/17 18:15) Comprehensive Metabolic Panel (09/21/17 18:15) Prothrombin Time / Inr (Pt) (09/21/17 18:15) Act Partial Throm Time (Ptt) (09/21/17 18:15) Lipase (09/21/17 18:15) Ua Includes Microscopic (09/21/17 18:15) Electrocardiogram (09/21/17 18:27) Ckmb (Isoenzyme) Profile (09/21/17 18:) Troponin I (09/21/17:) Abdomen, Upright Only (09/21/17 18:) Iv Access Insert/Monitor (09/21/17 18:) Ecg Monitoring (09/21/17 18:) Oximetry (09/21/17 18:) Ondansetron Inj (Zofran Inj) (09/21/17:) Hydromorphone Pf Inj (Dilaudid Pf Inj) (09/21/17 18:30) Sodium Chlorid 0.9% 500 Ml Inj (Ns 500 M (09/21/17 18:) Sodium Chlor 0.9% 1000 Ml Inj (Ns 1000 M (09/21/17 18:30) Labs Laboratory Tests Test 09/21/1730 MDM Medical Decision Making Medical Screen Exam Complete: Yes Emergency Medical Condition: Yes Differential Diagnosis Perforated viscus versus pancreatitis versus gastritis versus bowel obstruction Narrative Course 72-year-old female who had recent lap band removal with surgery to her stomach secondary to erosion, presents today with complaints of severe abdominal pain after drinking oysters. The patient reports the pain as a 10 out of 10 on the pain scale. Labs are pending at this time. The patient be signed out to Dr. Jocelyn Lynch, physician replacing me at change of shift. Disposition and diagnosis will be per Dr. Lynch. Diagnosis Primary Impression: Abdominal pain Additional Impression: recent lap band removal Justus Brito MD Sep 21, 2017 18:49
--- NOTE | 2017-09-21 19:18 | RADRPT ---
EXAM DATE/TIME: 09/21/2017 19:00 [facility] COMPARISON: CHEST SINGLE AP, September 15, 2017, 19:04. INDICATIONS : Abdominal pain. Recent abdominal surgery. MEDICAL HISTORY : Hypertension. Diverticulitis. Gastroesophageal reflux disease. Lung cancer. SURGICAL HISTORY : Colon resection. Tubal ligation.Cholecystectomy. Lap band. Infusaport. ENCOUNTER: Initial ACUITY: 3 days PAIN SCORE: 10/10 LOCATION: Bilateral abdomen. FINDINGS: A single erect view of the mid and upper abdomen again demonstrates mild hazy opacity at the left jonathan g base. No evidence of free intraperitoneal gas. There are multiple loops of nondilated air-containin g small bowel present with several small air-fluid levels. There is a relative paucity of bowel gas i n the colon. The patient is status post cholecystectomy with surgical clips in the right upper quadra nt. CONCLUSION: 1. Abnormal opacity remains at the left lung base which could indicate pneumonia. 2. Nonspecific bowel gas pattern which could represent an ileus or possible early small bowel obstruc tion. 3. That is post cholecystectomy. Ayan Kingsley MD on September 21, 2017 at 19:14 Board Certified Radiologist. This report was verified electronically.
--- NOTE | 2017-09-21 19:29 | PD ---
Physical Exam Narrative General: The patient is a well-developed well-nourished female, uncomfortable appearing on examination, reporting pain in the upper abdomen. Head and Neck exam: Head is normocephalic atraumatic. Eyes: EOMI, pupils are equal round and reactive to light. Nose: Midline septum with pink mucous membranes Mouth: Dentition unremarkable. Moist mucus membranes. Posterior oropharynx is not erythematous. No tonsillar hypertrophy. Uvula midline. Airway patent. Neck: No palpable lymphadenopathy. No nuchal rigidity. No thyromegaly. Cardiovascular: Irregularly irregular with what appears to be atrial fibrillation with RVR rate in the 1 teens on telemetry without murmurs, gallops, or rubs. Lungs: Clear to auscultation bilaterally. No wheezes, rhonchi, or rales. Abdomen: Soft, with tenderness on palpation of the midepigastric area and bilateral upper quadrants of the abdomen. No other tenderness on palpation of the lower quadrants. No guarding, rebound, or rigidity. Normal bowel sounds are audible. No tenderness on palpation of McBurney's point. Extremities: No clubbing, cyanosis, or edema. 2+ pulses in all 4 extremities. No calf tenderness on palpation. Back: No costovertebral angle tenderness to palpation. Neurologic Exam: Grossly nonfocal. Skin Exam: No rash noted. Intact skin that is warm and dry. Data Data Last Documented VS Vital Signs Date Time Temp Pulse Resp B/P (MAP) Pulse Ox O2 Delivery O2 Flow Rate FiO2 09/21/17 23:01 89 18 145/92 (109) 98 Room Air Orders Orders Complete Blood Count With Diff (09/21/17 18:) Comprehensive Metabolic Panel (09/21/17 18:) Prothrombin Time / Inr (Pt) (09/21/17:) Act Partial Throm Time (Ptt) (09/21/17:) Lipase (09/21/17:) Ua Includes Microscopic (09/21/17:) Electrocardiogram (09/21/17 18:) Ckmb (Isoenzyme) Profile (09/21/17 18:) Troponin I (09/21/17 18:) Abdomen, Upright Only (09/21/17:) Iv Access Insert/Monitor (09/21/17 18:) Ecg Monitoring (09/21/17 18:27) Oximetry (09/21/17 18:27) Ondansetron Inj (Zofran Inj) (09/21/17 18:30) Hydromorphone Pf Inj (Dilaudid Pf Inj) (09/21/17 18:30) Sodium Chlorid 0.9% 500 Ml Inj (Ns 500 M (09/21/17 18:30) Sodium Chlor 0.9% 1000 Ml Inj (Ns 1000 M (09/21/17 18:30) Hydromorphone Pf Inj (Dilaudid Pf Inj) (09/21/17 19:15) Lactic Acid Sepsis Protocol (09/21/17 19:29) Blood Culture (09/21/17 19:29) Sodium Chlor 0.9% 1000 Ml Inj (Ns 1000 M (09/21/17 19:30) Ct Abd/Pel W Iv Contrast(Rout) (09/21/17 19:29) Fentanyl Inj (Fentanyl Inj) (09/21/17 21:09) Pantoprazole Inj (Protonix Inj) (09/21/17 21:15) Aztreonam Inj (Azactam Inj) (09/21/17 21:30) Metronidazole 500 Mg Inj (Flagyl 500 Mg (09/21/17 21:30) Vancomycin Inj (Vancomycin Inj) (09/21/17 21:30) Iohexol 350 Inj (Omnipaque 350 Inj) (09/21/17 18:06) Admit Order (Ed Use Only) (09/21/17 23:25) Consult General Surgery (09/21/17 ) Labs Laboratory Tests Test 09/21/17 18:30 09/21/17 19:35 09/21/17 20:45 Total Creatine Kinase 75 U/L Troponin I 0.05 NG/ML Lactic Acid Level 1.9 mmol/L White Blood Count 18.1 TH/MM3 Red Blood Count 4.57 MIL/MM3 Hemoglobin 11.4 GM/DL Hematocrit 36.0 % Mean Corpuscular Volume 78.8 FL Mean Corpuscular Hemoglobin 25.0 PG Mean Corpuscular Hemoglobin Concent 31.7 % Red Cell Distribution Width 16.7 % Platelet Count 437 TH/MM3 Mean Platelet Volume 8.7 FL Neutrophils (%) (Auto) 92.5 % Lymphocytes (%) (Auto) 3.5 % Monocytes (%) (Auto) 3.5 % Eosinophils (%) (Auto) 0.1 % Basophils (%) (Auto) 0.4 % Neutrophils # (Auto) 16.8 TH/MM3 Lymphocytes # (Auto) 0.6 TH/MM3 Monocytes # (Auto) 0.6 TH/MM3 Eosinophils # (Auto) 0.0 TH/MM3 Basophils # (Auto) 0.1 TH/MM3 CBC Comment DIFF FINAL Differential Comment Prothrombin Time 13.3 SEC Prothromb Time International Ratio 1.2 RATIO Activated Partial Thromboplast Time 38.0 SEC Urine Color LIGHT-YELLOW Urine Turbidity CLEAR Urine pH 6.0 Urine Specific [place] 1.013 Urine Protein 30 mg/dL Urine Glucose (UA) 300 mg/dL Urine Ketones 40 mg/dL Urine Occult Blood TRACE Urine Nitrite NEG Urine Bilirubin NEG Urine Urobilinogen LESS THAN 2.0 MG/DL Urine Leukocyte Esterase SMALL Urine RBC 3 /hpf Urine WBC 3 /hpf Urine Squamous Epithelial Cells <1 /hpf Urine Bacteria OCC /hpf Urine Hyaline Casts 1 /lpf Urine Mucus FEW /lpf Blood Urea Nitrogen 17 MG/DL Creatinine 0.76 MG/DL Random Glucose 265 MG/DL Total Protein 7.5 GM/DL Albumin 2.9 GM/DL Calcium Level 7.9 MG/DL Alkaline Phosphatase 103 U/L Aspartate Amino Transf (AST/SGOT) 45 U/L Alanine Aminotransferase (ALT/SGPT) 23 U/L Total Bilirubin 0.3 MG/DL Sodium Level 137 MEQ/L Potassium Level 3.3 MEQ/L Chloride Level 106 MEQ/L Carbon Dioxide Level 20.5 MEQ/L Anion Gap 11 MEQ/L Estimat Glomerular Filtration Rate 75 ML/MIN Lipase 56 U/L [facility] Medical Record Reviewed: Yes Supervised Visit with STARR: No Interpretation(s) Last Impressions Abdomen/Pelvis CT 09/21/171928 Signed Impressions: Service Date/Time: Thursday, September 21, 2017 22:47 - CONCLUSION: Suspect pulmonary embolism. 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 Small left upper quadrant fluid and air collection may be postoperative or abscess. Prior to consideration of sampling of this collection , delineation of the exact course of the splenic flexure of colon would be required. Possible developing small bowel obstructive process versus ileus Progressive lung cancer findings in the left lung base Herbert Wylie MD Abdomen X-Ray 09/21/171826 Signed Impressions: Service Date/Time: Thursday, September 21, 2017 19:00 - CONCLUSION: 1. Abnormal opacity remains at the left lung base which could indicate pneumonia. 2. Nonspecific bowel gas pattern which could represent an ileus or possible early small bowel obstruction. 3. That is post cholecystectomy. Ayan Kingsley MD Narrative Course During the course of the patients emergency department visit, the patients history, examination, and differential diagnosis were reviewed with the patient. The patient was placed on a groundwater monitoring technician with oximetry and frequent blood pressure monitoring. The patient had IV access obtained and blood work sent for analysis. The patient was placed on a groundwater monitoring technician with oximetry and blood pressure monitoring. An ECG was done on arrival. The patient's ECG reveals what appears to be atrial fibrillation with RVR heart rate of 130, nonspecific T-wave abnormalities, no acute ST segment elevation. The patient denies having any prior history of heart disease. She denies being on any blood thinners. The patient's case is checked out to me by Dr. Brito. The patient presents with a history of recently being admitted to the hospital earlier in August and September 02 undergoing surgery to remove a lap band that was eroding into her stomach. This was done by Dr. Wilde. The patient reports that it was causing an obstruction. She reports that she was feeling well and had a follow-up visit with Dr. Wilde on Thursday. She reports that this morning she awoke and her usual state of health and then around noon began to have diarrhea. She reports having diarrhea approximately every 5-15 minutes. She reports that the stool is yellow in color without any mucus or blood. She reports that at 3:30 PM she began to drink a couple of sips of orange juice and had sudden onset of abdominal pain in the upper abdomen. She reports the pain is a 10 in attendance severity and is constant. She reports that the pain is a burning sensation. Incidentally, the patient also reports recently being diagnosed with lung cancer. She reports that she is planning to start radiation therapy when she heals from her abdominal surgery. The patient was initially provided hydromorphone 1 mg IV, Zofran 4 mg IV, normal saline 1 L IV fluid bolus which was supplemented with another 500 mL bolus. In spite of the initial treatment with pain medication patient continued to have severe pain and was given another dose of hydromorphone 1 mg IV. The patient continued to report pain and was given fentanyl 50 g IV. This seemed to control the patient's pain better, the tachycardia and hypertension resolved. The patients laboratory studies were reviewed and remarkable for a white count of 18.1, hemoglobin 11.4, platelets 437, neutrophils 92.5, leukocytes 3.5. CMP is remarkable for potassium of 3.3, CO2 20.5, lactic acid 1.9, glucose 265, AST 45, lipase 56, CPK 75, troponin I 0.05, PT 13.3, PTT 38, urinalysis shows 30 protein 300 glucose ketones 40, trace occult blood, small leukocyte esterase, occasional bacteria. Radiology studies were reviewed and remarkable for an abdominal x-ray that reveals abnormal opacity that remains of the left lung base which could indicate pneumonia, nonspecific bowel gas pattern which could represent an ileus or possible early small bowel obstruction, status post cholecystectomy, no other acute abnormality or free air. A CT scan of the abdomen and pelvis was ordered. The patient's case is discussed with Dr. Wilde who did come and evaluate the patient in the emergency department. Please see further information regarding this in the ED physician communication section of this note. I received a call from the radiologist, Dr. Wylie regarding the CT scan of the abdomen and pelvis reading. 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 I put a call out to Dr. Wilde as well as the admitting hospitalist regarding these findings. I spoke to Dr. Greenberg, the hospitalist regarding these findings. He plans to start the patient immediately on heparin by bolus and then a heparin drip. Dr. Wilde agreed with the plan to start the patient on heparin. The patients results were discussed with the patient, including the plan of care. I explained that further testing and/ or monitoring is indicated based on the patients history, examination, and/ or laboratory findings. Therefore, I recommended admission for additional evaluation. The patient expressed understanding and was agreeable with this plan. The patient was admitted to the hospital in guarded condition and sent to a bed under the care of the [facility] service. Critical Care Narrative Aggregate critical care time was 40 minutes. Time to perform other separately billable procedures was not included in the critical care time. My time did not include minutes spent treating any other patients simultaneously or on activities that did not directly contribute to the patient's treatment. The services I provided to this patient were to treat and/or prevent clinically significant deterioration that could result in: Respiratory failure related to fluid overload, versus cardiovascular collapse related to sepsis I provided critical care services requiring my management, as noted below: Chart data review, documentation time, medication orders and management, vital sign assessments/reviewing monitor data, ordering and reviewing lab tests, ordering and interpreting/reviewing x-rays and diagnostic studies, care of the patient and discussion of the patient with the admitting physicians. Sepsis Criteria SIRS Criteria (2 or more): Heart rate over 90, WBC > 58333, < 4000 or > 10% bands Sepsis Criteria (SIRS+source): Infect source susp/known Criteria Outcome: Meets SIRS criteria, Meets sepsis criteria Physician Communication Physician Communication I spoke to Dr. Wilde regarding this patient's case. He did come into the emergency department and evaluate the patient. He also reviewed the patient's imaging while the patient was in CT scan. He did not see any acute need for surgery this evening. He will see the patient and consultation. The patient will be admitted to the hospitalist service. He was agreeable with the plan for the patient to be started on broad-spectrum antibiotic. The patient's case including history, pertinent physical examination findings, and laboratory studies were discussed with Dr. Greenberg. It was agreed that the patient would be admitted to the [facility] hospitalist service. Diagnosis Primary Impression: Abdominal pain Qualified Codes: R10.10 - Upper abdominal pain, unspecified Additional Impressions: recent lap band removal Thrombosis of superior mesenteric artery Admitting Information Admitting Physician Requests: Admit Jocelyn Lynch MD Sep 21, 2017 19:29
[2017-09-21] MEDS ORDERED: SODIUM CHLOR 0.9% 1000 ML INJ 1,000 ML IV ONE (19:30)
[2017-09-21 19:41] LABS: TROPONIN I 0.05 NG/ML (0.02-0.05)
[2017-09-21 21:12] LABS: AUTOMATED NEUTROPHIL # 16.8 TH/MM3 (1.8-7.7); BASOPHIL # 0.1 TH/MM3 (0-0.2); BASOPHIL % 0.4 % (0.0-2.0); EOSINOPHIL % 0.1 % (0.0-4.0); HEMOGLOBIN 11.4 GM/DL (11.6-15.3); LYMPH % 3.5 % (9.0-44.0); LYMPHOCYTE # 0.6 TH/MM3 (1.0-4.8); MEAN CELL VOLUME 78.8 FL (80.0-100.0); MEAN CORPUSCULAR HGB CONC 31.7 % (32.0-36.0); MEAN PLATELET VOLUME 8.7 FL (7.0-11.0); MONO % 3.5 % (0.0-8.0); MONOCYTE # 0.6 TH/MM3 (0-0.9); NEUT % 92.5 % (16.0-70.0); PLATELET COUNT 437 TH/MM3 (150-450); RED BLOOD COUNT 4.57 MIL/MM3 (4.00-5.30); RED CELL DISTRIBUTION WIDTH 16.7 % (11.6-17.2); WHITE BLOOD COUNT 18.1 TH/MM3 (4.0-11.0)
[2017-09-21 21:15] LABS: BACTERIA, URINE OCC /hpf; BILIRUBIN, URINE NEG (NEG); BLOOD, URINE TRACE (NEG); GLUCOSE,URINE 300 mg/dL (NEG); HYALINE CAST, URINE 1 /lpf (RARE); KETONE, URINE 40 mg/dL (NEG); MUCUS URINE FEW /lpf (OCC); NITRITE,URINE NEG (NEG); SQUAMOUS EPITHELIAL CELL URINE <1 /hpf (0-5); URINE COLOR LIGHT-YELLOW (YELLW/STRAW); URINE LEUKOCYTE ESTERASE SMALL (NEG)
[2017-09-21] MEDS ORDERED: PANTOPRAZOLE SODIUM 40 MG VIAL IV PUSH ONE (21:15)
[2017-09-21 21:17] VITALS: BP 133/106; PULSE 89; RESP 18; O2SAT 100
[2017-09-21 21:21] LABS: ALBUMIN 2.9 GM/DL (3.4-5.0); AST (GOT) 45 U/L (15-37); BICARBONATE 20.5 MEQ/L (21.0-32.0); BLOOD UREA NITROGEN 17 MG/DL (7-18); CALCIUM 7.9 MG/DL (8.5-10.1); CHLORIDE 106 MEQ/L (98-107); CREATININE 0.76 MG/DL (0.50-1.00); GLOMERULAR FILTRATION RATE 75 ML/MIN (>89); GLUCOSE,RANDOM 265 MG/DL (74-106); LIPASE 56 U/L (73-393); SODIUM (NA) 137 MEQ/L (136-145)
[2017-09-21 21:23] LABS: ALT (GPT) 23 U/L (10-53)
[2017-09-21 21:25] LABS: ALKALINE PHOSPHATASE 103 U/L (45-117); INTERNATIONAL NORMALIZED RATIO 1.2 RATIO; PROTHROMBIN TIME - PATIENT 13.3 SEC (9.8-11.6); TOTAL BILIRUBIN ADULT 0.3 MG/DL (0.2-1.0); TOTAL PROTEIN 7.5 GM/DL (6.4-8.2)
[2017-09-21] MEDS ORDERED: metroNIDAZOLE 500 MG INJ 100 ML IV ONE (21:30)
[2017-09-21] MEDS ORDERED: VANCOMYCIN INJ 1,000 MG in SODIUM CHLOR 0.9% 250 ML INJ 250 ML IV ONE (21:30)
[2017-09-21] MEDS ORDERED: AZTREONAM INJ 1,000 MG in SODIUM CHLORIDE 0.9% INJ 100 ML IV ONE (21:30)
[2017-09-21 23:01] VITALS: BP 145/92; PULSE 89; RESP 18; O2SAT 98
[2017-09-21] MEDS ORDERED: NALOXONE HCL 0.4 MG/ML AMP IV PUSH PRN ×2 (23:30→23:45)
[2017-09-21] MEDS ORDERED: Vancomycin Consult Pharmacy 1 EA OTHER SCH (23:30)
[2017-09-21] MEDS ORDERED: MAGNESIUM HYDROXIDE SUSP 30 ML CUP PO PRN (23:30)
[2017-09-21] MEDS ORDERED: ONDANSETRON HCL 4 MG/2 ML VIAL IVP PRN (23:30)
[2017-09-21] MEDS ORDERED: BISACODYL 10 MG SUPP RECTAL PRN (23:30)
[2017-09-21] MEDS ORDERED: LACTULOSE SYRUP 20 GM/30 ML CUP PO PRN (23:30)
[2017-09-21] MEDS ORDERED: SODIUM CHLORIDE 0.9% FLUSH 10 ML FLUSH IV FLUSH PRN (23:30)
[2017-09-21] MEDS ORDERED: SENNOSIDES 8.6 MG TAB PO PRN (23:30)
[2017-09-21] MEDS ORDERED: ACETAMINOPHEN/HYDROcodone 325 MG/7.5 MG TAB PO PRN (23:45)
[2017-09-21] MEDS ORDERED: DEXTROSE 50% IN WATER 50 ML VIAL(D50) IV PUSH PRN (23:45)
[2017-09-21] MEDS ORDERED: GLUCAGON 1 MG/ML VIAL OTHER PRN (23:45)
[2017-09-21] MEDS ORDERED: MORPHINE SULFATE 4 MG/ML INJ IV PUSH PRN ×2 (23:45)
[2017-09-21] MEDS ORDERED: ACETAMINOPHEN/HYDROcodone 325 MG/5 MG TAB PO PRN (23:45)
[2017-09-21] MEDS ORDERED: cloNIDine HCL 0.1 MG TAB PO PRN (23:45)
--- NOTE | 2017-09-21 23:58 | HHI.HP ---
[facility] Raoul Rodriguez MD Admission Diagnosis Abdominal pain, postop s/p lap band removal Diagnoses: Chief Complaint: abdominal pain Travel History International Travel<30 Days: No Contact w/Intl Traveler <30 Da: No Traveled to Known Affected Are: No History of Present Illness Written by LUCY Cervantes acting as scribe for Dr. Dominguez] on 09/21/17 at 23:57. 72 y/o female with a history of lung cancer-recently diagnosed, hypothyroid and HTN presented to the ED with complaints of abdominal pain. She states at 3:30pm she drank some OJ and had a constant, sharp, non radiating abdominal pain with associated chills and drinking makes it worse. She denies any chest pain, or fevers. On 09/02/17 patient underwent a lap band removal secondary to erosion. Review of Systems Except as stated in HPI: all other systems reviewed are Neg Past Family Social History Past Medical History Hypothyroidism Hypertension GERD Past Surgical History Cholecystectomy Colon resection Gastric sleeve and removal Tubal ligation Reported Medications Reported Meds & Active Scripts Active Tamika-Colace (Sennosides-Docusate Sodium) 8.6-50 Mg Tab 1 Tab PO BID [place] (Hydrocodone-Acetaminophen) 7.5-325 mg Tab 1 Tab PO Q6H PRN Reported Aspirin 81 Mg Chew 81 Mg CHEW DAILY Omeprazole 20 Mg Tab 20 Mg PO BID Levothyroxine (Levothyroxine Sodium) 75 Mcg Tab 75 Mcg PO HS Amlodipine (Amlodipine Besylate) 5 Mg Tab 5 Mg PO DAILY Allergies: Coded Allergies: Sulfa (Sulfonamide Antibiotics) (Unverified Allergy, Severe, Hives, ) amoxicillin (Unverified Allergy, Severe, Hives, 09/21/17) clavulanic acid (Unverified Allergy, Severe, Hives, 09/21/17) doxycycline (Unverified Allergy, Severe, Nausea/Vomiting, 09/21/17) meloxicam (Unverified Allergy, Unknown, gi upset, 09/21/17) Uncoded Allergies: METAL (Allergy, Severe, Rash, 03/25/17) ALL METAL EXCEPT GOLD AND SILVER Active Ordered Medications Current Medications Medications (Trade) Dose Ordered Sig/Finn Route Start Time Stop Time Status Last Admin Aztreonam 1000 mg/ Sodium Chloride 100 ml @ 200 mls/hr Q6H IV 09/22/17 04:00 Metronidazole 100 ml @ 100 mls/hr Q6H IV 09/22/17 03:00 Pharmacy Profile Note 0 ml @ 0 mls/hr UNSCH OTHER 09/21/17 23:30 (NovoLOG SUPPLEMENTAL SCALE) 1 ACHS SLIDING SCALE SQ 09/22/17 08:00 Sodium Chloride 1,000 ml @ 100 mls/hr Q10H IV 09/21/17 23:30 09/22/17 00:36 (NS Flush) 2 ml UNSCH PRN IV FLUSH 09/21/17 23:30 (NS Flush) 2 ml BID IV FLUSH 09/22/17 09:00 (Zofran Inj) 4 mg Q6H PRN IVP 09/21/17 23:30 (Narcan Inj) 0.4 mg UNSCH PRN IV PUSH 09/21/17 23:30 (Milk Of Magnesia Liq) 30 ml Q12H PRN PO 09/21/17 23:30 (Senokot) 17.2 mg Q12H PRN PO 09/21/17 23:30 (Dulcolax Supp) 10 mg DAILY PRN RECTAL 09/21/17 23:30 (Lactulose Liq) 30 ml DAILY PRN PO 09/21/17 23:30 ([place] 5-325 Mg) 1 tab Q4H PRN PO 09/21/17 23:45 ([place] 7.5-325 Mg) 1 tab Q4H PRN PO 09/21/17 23:45 (Morphine Inj) 2 mg Q3H PRN IV PUSH 09/21/17 23:45 (Morphine Inj) 4 mg Q3H PRN IV PUSH 09/21/17 23:45 (Morphine Inj) 4 mg Q3H PRN IV PUSH 09/21/17 23:45 (Synthroid) 75 mcg HS PO 09/22/17 21:00 (Protonix) 20 mg BID PO 09/22/17 09:00 (Catapres) 0.1 mg Q6H PRN PO 09/21/17 23:45 (D50w (Vial) Inj) 50 ml UNSCH PRN IV PUSH 09/21/17 23:45 (Glucagon Inj) 1 mg UNSCH PRN OTHER 09/21/17 23:45 (Heparin Inj) 4,000 units NOW STAT IV PUSH 09/22/17 01:24 09/22/17 01:25 UNV (Heparin Inj) 5,000 units UNSCH PRN IV PUSH 09/22/17 07:30 UNV (Heparin Inj) 2,500 units UNSCH PRN IV PUSH 09/22/17 07:30 UNV Heparin Sodium/ Dextrose 250 ml @ 12.6 mls/hr TITRATE PRN IV 09/22/17 01:30 UNV Family History Dad: at 46 of heart disease Social History She quit smoking several years ago after smoking on and off for 40 years. No significant alcohol use. Physical Exam Vital Signs Vital Signs Date Time Temp Pulse Resp B/P (MAP) Pulse Ox O2 Delivery O2 Flow Rate FiO2 09/21/17 23:01 89 18 145/92 (109) 98 Room Air 09/21/17 21:17 89 18 133/106 (115) 100 Room Air 09/21/17 18:37 98 Room Air 09/21/17 18:07 130 19 152/90 (110) 95 Physical Exam GENERAL: This is a well-nourished, well-developed patient, in a lot of pain. SKIN: No rashes, ecchymoses or lesions. Cool and dry. HEAD: Atraumatic. Normocephalic. EYES: Pupils equal round and reactive. ENT: Nose without bleeding, purulent drainage or septal hematoma. Airway patent. NECK: Trachea midline. No JVD . CARDIOVASCULAR: Regular rate and rhythm without murmurs, gallops, or rubs. RESPIRATORY: Clear to auscultation. Breath sounds equal bilaterally. No wheezes , rales, or rhonchi. GASTROINTESTINAL: Abdomen soft, tender throughout, nondistended. No hepato- splenomegaly, or palpable masses. No guarding. MUSCULOSKELETAL: Extremities without clubbing, cyanosis, or edema. No joint tenderness, effusion, or edema noted. No calf tenderness. NEUROLOGICAL: Awake and alert. Motor and sensory grossly within normal limits. Normal speech. Laboratory Laboratory Tests Test 09/21/17 18:30 09/21/17 19:35 09/21/17 20:45 Total Creatine Kinase 75 Troponin I 0.05 Lactic Acid Level 1.9 White Blood Count 18.1 Red Blood Count 4.57 Hemoglobin 11.4 Hematocrit 36.0 Mean Corpuscular Volume 78.8 Mean Corpuscular Hemoglobin 25.0 Mean Corpuscular Hemoglobin Concent 31.7 Red Cell Distribution Width 16.7 Platelet Count 437 Mean Platelet Volume 8.7 Neutrophils (%) (Auto) 92.5 Lymphocytes (%) (Auto) 3.5 Monocytes (%) (Auto) 3.5 Eosinophils (%) (Auto) 0.1 Basophils (%) (Auto) 0.4 Neutrophils # (Auto) 16.8 Lymphocytes # (Auto) 0.6 Monocytes # (Auto) 0.6 Eosinophils # (Auto) 0.0 Basophils # (Auto) 0.1 CBC Comment DIFF FINAL Differential Comment Prothrombin Time 13.3 Prothromb Time International Ratio 1.2 Activated Partial Thromboplast Time 38.0 Urine Color LIGHT-YELLOW Urine Turbidity CLEAR Urine pH 6.0 Urine Specific [place] 1.013 Urine Protein 30 Urine Glucose (UA) 300 Urine Ketones 40 Urine Occult Blood TRACE Urine Nitrite NEG Urine Bilirubin NEG Urine Urobilinogen LESS THAN 2.0 Urine Leukocyte Esterase SMALL Urine RBC 3 Urine WBC 3 Urine Squamous Epithelial Cells <1 Urine Bacteria OCC Urine Hyaline Casts 1 Urine Mucus FEW Blood Urea Nitrogen 17 Creatinine 0.76 Random Glucose 265 Total Protein 7.5 Albumin 2.9 Calcium Level 7.9 Alkaline Phosphatase 103 Aspartate Amino Transf (AST/SGOT) 45 Alanine Aminotransferase (ALT/SGPT) 23 Total Bilirubin 0.3 Sodium Level 137 Potassium Level 3.3 Chloride Level 106 Carbon Dioxide Level 20.5 Anion Gap 11 Estimat Glomerular Filtration Rate 75 Lipase 56 Date/Time Source Procedure Growth Status 09/21/17 19:35 Blood Peripheral Aerobic Blood Culture Pending Received 09/21/17 19:35 Blood Peripheral Anaerobic Blood Culture Pending Received Result Diagram: [id number]/21/[id number] Imaging Last Impressions Abdomen/Pelvis CT 09/21/171928 Signed Impressions: Service Date/Time: Thursday, September 21, 2017 22:47 - CONCLUSION: Suspect pulmonary embolism. 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 Small left upper quadrant fluid and air collection may be postoperative or abscess. Prior to consideration of sampling of this collection , delineation of the exact course of the splenic flexure of colon would be required. Possible developing small bowel obstructive process versus ileus Progressive lung cancer findings in the left lung base Herbert Wylie MD Abdomen X-Ray 09/21/172 Signed Impressions: Service Date/Time: Thursday, September 21, 2017 19:00 - CONCLUSION: 1. Abnormal opacity remains at the left lung base which could indicate pneumonia. 2. Nonspecific bowel gas pattern which could represent an ileus or possible early small bowel obstruction. 3. That is post cholecystectomy. Ayan Kingsley MD Caprindenys VTE Risk Assessment Caprini VTE Risk Assessment: Mod/High Risk (score >= 2) Caprini Risk Assessment Model Point Value = 1 Point Value = 2 Point Value = 3 Point Value = 5 Age 41-60 Minor surgery BMI > 25 kg/m2 Swollen legs Varicose veins or History of unexplained or recurrent spontaneous Oral contraceptives or hormone replacement Sepsis (< 1 month) Serious lung disease, including pneumonia (< 1 month) Abnormal pulmonary function Acute myocardial infarction Congestive heart failure (< 1 month) History of inflammatory bowel disease Medical patient at bed rest Age 61-74 Arthroscopic surgery Major open surgery (> 45 min) Laparoscopic surgery (> 45 min) Malignancy Confined to bed (> 72 hours) Immobilizing plaster cast Central venous access Age >= 75 History of VTE Family history of VTE Factor V Leiden Prothrombin [id number] Lupus anticoagulant Anticardiolipin antibodies Elevated serum homocysteine Heparin-induced thrombocytopenia Other congenital or acquired thrombophilia Stroke (< 1 month) Elective arthroplasty Hip, pelvis, or leg fracture Acute spinal cord injury (< 1 month) Prophylaxis Regimen Total Risk Factor Score Risk Level Prophylaxis Regimen 0-1 Low Early ambulation 2 Moderate Order ONE of the following: *Sequential Compression Device (SCD) *Heparin 5000 units SQ BID 3-4 Higher Order ONE of the following medications: *Heparin 5000 units SQ TID *Enoxaparin/Lovenox 40 mg SQ daily (WT < 150 kg, CrCl > 30 mL/min) *Enoxaparin/Lovenox 30 mg SQ daily (WT < 150 kg, CrCl > 10-29 mL/min) *Enoxaparin/Lovenox 30 mg SQ BID (WT < 150 kg, CrCl > 30 mL/min) AND/OR *Sequential Compression Device (SCD) 5 or more Highest Order ONE of the following medications: *Heparin 5000 units SQ TID (Preferred with Epidurals) *Enoxaparin/Lovenox 40 mg SQ daily (WT < 150 kg, CrCl > 30 mL/min) *Enoxaparin/Lovenox 30 mg SQ daily (WT < 150 kg, CrCl > 10-29 mL/min) *Enoxaparin/Lovenox 30 mg SQ BID (WT < 150 kg, CrCl > 30 mL/min) AND *Sequential Compression Device (SCD) Assessment and Plan Problem List: (1) Abdominal pain ICD Code: R10.9 - Unspecified abdominal pain Status: Acute (2) Lung cancer, hilus ICD Code: C34.00 - Malignant neoplasm of unspecified main bronchus Assessment and Plan 72 y/o female with a history of lung cancer- recently diagnosed presented to the ED with complaints of abdominal pain. 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 -Consult general surgery -Pain management with IV morphine -NPO -IV Aztreonam, vancomycin -Labs in AM -Pain management with IV morphine Pulmonary embolism -Heparin Drip Lung Cancer, recently diagnosed no treatment yet -Consult medical oncologist for assistance Hypothyroid, chronic -Resume home medications DVT prophylaxis: Heparin Discussed Condition With Patient and ED physician Physician Certification 2 Midnight Certification Type: Admission for Inpatient Services Order for Inpatient Services The services are ordered in accordance with Medicare regulations or non- Medicare payer requirements, as applicable. In the case of services not specified as inpatient-only, they are appropriately provided as inpatient services in accordance with the 2-midnight benchmark. Estimated LOS (days): 2 days is the estimated time the patient will need to remain in the hospital, assuming treatment plan goals are met and no additional complications. Post-Hospital Plan: Not yet determined Notes: This note was transcribed by LUCY Rizzo. I, Dr. Dandy Greenberg personally performed the history, physical exam, and medical decision making; and confirmed the accuracy of the information in the transcribed note. Authenticated by Dr. Dandy Greenberg on 09/22/17 at 05:57. Problem Qualifiers (1) Abdominal pain: Qualified Codes: R10.10 - Upper abdominal pain, unspecified Hellen Farfan Sep 21, 2017 23:58 Dandy Greenberg MD Sep 22, 2017 05:57
[2017-09-22] VITALS (10 sets, daily range): BP systolic 107–174; BP diastolic 72–106; PULSE 82–126; RESP 18–22; TEMP 95.9–99.2; O2SAT 90–96
--- NOTE | 2017-09-22 00:31 | RADRPT ---
EXAM DATE/TIME: 09/21/2017 22:47 [facility] COMPARISON: CT ABDOMEN & PELVIS W CONTRAST, August 25, 2017, 8:50. INDICATIONS : Status post lap band removal for erosion into stomach on 09/02. Severe pain today. IV CONTRAST: 95 cc Omnipaque 350 (iohexol) IV ORAL CONTRAST: No oral contrast ingested. RADIATION DOSE: 10.39 CTDIvol (mGy) MEDICAL HISTORY : Hypertension. Diverticulitis. Gastroesophageal reflux disease. SURGICAL HISTORY : Tubal ligation. Lap band. Bowel repair. ENCOUNTER: Initial ACUITY: 1 day PAIN SCALE: 10/10 LOCATION: Bilateral upper quadrant TECHNIQUE: Volumetric scanning of the abdomen and pelvis was performed. Using automated exposure control and ad justment of the mA and/or kV according to patient size, radiation dose was kept as low as reasonably achievable to obtain optimal diagnostic quality images. DICOM format image data is available electro nically for review and comparison. FINDINGS: LOWER LUNGS: There is a medial left base heterogeneous lung mass with pleural involvement and small pleural effusi on. This appears to progressed slightly since the previous exam. There is a filling defect in a media l posterior right lower lobe pulmonary vessel worrisome for pulmonary embolism. LIVER: Homogeneous density without lesion. There is no dilation of the biliary tree. Gallbladder surgically absent.. SPLEEN: Normal size without lesion. PANCREAS: Within normal limits. KIDNEYS: Stable left renal cysts. No suspicious mass, stone or hydronephrosis. ADRENAL GLANDS: Within normal limits. 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 The occlusion continues well into the mesentery. The celiac is patent. T he CARLYLE is patent BOWEL/MESENTERY: There has been interval removal of a lap band implant. There is a 4-5 cm irregular fluid and air tracy ection in the left upper quadrant anterior to the stomach which appears to be contiguous with the sit e where the band was dissected away from the gastric fundus. This may be a postoperative collection o r abscess, however the splenic flexure of colon is intimately associated with this region and cannot clearly be differentiated at this point. There is a small low density collection in the deep subcutan eous tissues of the right upper quadrant at site where the band reservoir was previously located. The re is moderate fluid and gaseous distention of multiple small bowel loops in the left abdomen which m ay reflect partial or closed loop obstructive process. The distal small bowel is decompressed. The co quinten is decompressed. There is no evidence of free pneumoperitoneum or free ascites. ABDOMINAL WALL: See above RETROPERITONEUM: There is no lymphadenopathy. BLADDER: No wall thickening or mass. REPRODUCTIVE: Within normal limits. INGUINAL: There is no lymphadenopathy or hernia. MUSCULOSKELETAL: Stable arthritic changes. CONCLUSION: Suspect pulmonary embolism. 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 Small left upper quadrant fluid and air collection may be postoperative or abscess. Prior to consider ation of sampling of this collection, delineation of the exact course of the splenic flexure of colon would be required. Possible developing small bowel obstructive process versus ileus Progressive lung cancer findings in the left lung base Herbert Wylie MD on September 22, 2017 at 0:04 Board Certified Radiologist. This report was verified electronically.
[2017-09-22] MEDS: SODIUM CHLOR 0.9% 1000 ML INJ 1,000 ML IV SCH ×3 (00:36→15:55)
[2017-09-22] MEDS ORDERED: HEPARIN - 10,000 UNITS/ML IV ADDITIVE IV PUSH STA (01:24)
[2017-09-22] MEDS: MORPHINE SULFATE 4 MG/ML INJ IV PUSH PRN ×6 (01:28→18:40)
[2017-09-22] MEDS ORDERED: HEPARIN-D5W 25,000 U/250 ML 250 ML IV PRN (01:30)
[2017-09-22] MEDS ORDERED: HEPARIN SODIUM - IV 10,000 UNITS/10 ML VIAL IV PUSH STA (01:42)
[2017-09-22 01:48] LABS: HEMATOCRIT 36.4 % (35.0-46.0); HEMOGLOBIN 11.7 GM/DL (11.6-15.3); MEAN CELL VOLUME 78.1 FL (80.0-100.0); MEAN CORPUSCULAR HEMOGLOBIN 25.1 PG (27.0-34.0); MEAN CORPUSCULAR HGB CONC 32.1 % (32.0-36.0); MEAN PLATELET VOLUME 8.1 FL (7.0-11.0); PLATELET COUNT 415 TH/MM3 (150-450); RED BLOOD COUNT 4.67 MIL/MM3 (4.00-5.30); WHITE BLOOD COUNT 23.6 TH/MM3 (4.0-11.0)
[2017-09-22 02:06] LABS: INTERNATIONAL NORMALIZED RATIO 1.1 RATIO; PROTHROMBIN TIME - PATIENT 12.6 SEC (9.8-11.6)
[2017-09-22] MEDS: metroNIDAZOLE 500 MG INJ 100 ML IV SCH ×4 (02:49→21:30)
[2017-09-22] MEDS: AZTREONAM INJ 1,000 MG in SODIUM CHLORIDE 0.9% INJ 100 ML IV SCH ×4 (04:19→21:29)
[2017-09-22] MEDS ORDERED: HEPARIN SODIUM - IV 10,000 UNITS/10 ML VIAL IV PUSH PRN ×2 (07:30)
[2017-09-22] MEDS: INSULIN ASPART SUPPLEMENTAL SCALE SQ SCH ×4 (08:00→21:00)
[2017-09-22] MEDS: PANTOPRAZOLE SOD 20 MG DELAYED RELEASE TAB PO SCH ×2 (08:02→21:00)
[2017-09-22] MEDS: SODIUM CHLORIDE 0.9% FLUSH 10 ML FLUSH IV FLUSH SCH ×2 (08:04→21:00)
[2017-09-22 08:19] LABS: AUTOMATED NEUTROPHIL # 27.2 TH/MM3 (1.8-7.7); BASOPHIL # 0.1 TH/MM3 (0-0.2); BASOPHIL % 0.3 % (0.0-2.0); HEMATOCRIT 39.8 % (35.0-46.0); HEMOGLOBIN 12.7 GM/DL (11.6-15.3); LYMPH % 1.4 % (9.0-44.0); LYMPHOCYTE # 0.4 TH/MM3 (1.0-4.8); MEAN CELL VOLUME 78.2 FL (80.0-100.0); MEAN CORPUSCULAR HEMOGLOBIN 24.9 PG (27.0-34.0); MEAN CORPUSCULAR HGB CONC 31.9 % (32.0-36.0); MEAN PLATELET VOLUME 9.1 FL (7.0-11.0); MONO % 4.4 % (0.0-8.0); MONOCYTE # 1.3 TH/MM3 (0-0.9); NEUT % 93.9 % (16.0-70.0); PLATELET COUNT 442 TH/MM3 (150-450); RED BLOOD COUNT 5.09 MIL/MM3 (4.00-5.30); RED CELL DISTRIBUTION WIDTH 17.3 % (11.6-17.2)
[2017-09-22 08:35] LABS: ALBUMIN 3.1 GM/DL (3.4-5.0); ALKALINE PHOSPHATASE 113 U/L (45-117); ALT (GPT) 22 U/L (10-53); AST (GOT) 56 U/L (15-37); BICARBONATE 21.4 MEQ/L (21.0-32.0); CALCIUM 8.5 MG/DL (8.5-10.1); CHLORIDE 102 MEQ/L (98-107); GLOMERULAR FILTRATION RATE 98 ML/MIN (>89); GLUCOSE,RANDOM 109 MG/DL (74-106); SODIUM (NA) 137 MEQ/L (136-145); TOTAL BILIRUBIN ADULT 0.4 MG/DL (0.2-1.0); TOTAL PROTEIN 7.6 GM/DL (6.4-8.2)
[2017-09-22 08:36] LABS: BLOOD UREA NITROGEN 12 MG/DL (7-18)
--- NOTE | 2017-09-22 09:58 | HHI.PR ---
Subjective Subjective Notes still with significant pain wbc 29k. bp stable Objective Vitals/I&O Vital Signs Date Time Temp Pulse Resp B/P (MAP) Pulse Ox O2 Delivery O2 Flow Rate FiO2 09/22/17 08:00 96.9 99 19 174/84 (114) 96 09/21/17 23:01 Room Air Labs Laboratory Tests Test 09/21/17 18:30 09/21/17 19:35 09/21/17 20:45 09/22/17 01:38 Total Creatine Kinase 75 Troponin I 0.05 Lactic Acid Level 1.9 White Blood Count 18.1 23.6 Red Blood Count 4.57 4.67 Hemoglobin 11.4 11.7 Hematocrit 36.0 36.4 Mean Corpuscular Volume 78.8 78.1 Mean Corpuscular Hemoglobin 25.0 25.1 Mean Corpuscular Hemoglobin Concent 31.7 32.1 Red Cell Distribution Width 16.7 17.0 Platelet Count 437 415 Mean Platelet Volume 8.7 8.1 Neutrophils (%) (Auto) 92.5 Lymphocytes (%) (Auto) 3.5 Monocytes (%) (Auto) 3.5 Eosinophils (%) (Auto) 0.1 Basophils (%) (Auto) 0.4 Neutrophils # (Auto) 16.8 Lymphocytes # (Auto) 0.6 Monocytes # (Auto) 0.6 Eosinophils # (Auto) 0.0 Basophils # (Auto) 0.1 CBC Comment DIFF FINAL Differential Comment Prothrombin Time 13.3 12.6 Prothromb Time International Ratio 1.2 1.1 Activated Partial Thromboplast Time 38.0 33.2 Urine Color LIGHT-YELLOW Urine Turbidity CLEAR Urine pH 6.0 Urine Specific [place] 1.013 Urine Protein 30 Urine Glucose (UA) 300 Urine Ketones 40 Urine Occult Blood TRACE Urine Nitrite NEG Urine Bilirubin NEG Urine Urobilinogen LESS THAN 2.0 Urine Leukocyte Esterase SMALL Urine RBC 3 Urine WBC 3 Urine Squamous Epithelial Cells <1 Urine Bacteria OCC Urine Hyaline Casts 1 Urine Mucus FEW Blood Urea Nitrogen 17 Creatinine 0.76 Random Glucose 265 Total Protein 7.5 Albumin 2.9 Calcium Level 7.9 Alkaline Phosphatase 103 Aspartate Amino Transf (AST/SGOT) 45 Alanine Aminotransferase (ALT/SGPT) 23 Total Bilirubin 0.3 Sodium Level 137 Potassium Level 3.3 Chloride Level 106 Carbon Dioxide Level 20.5 Anion Gap 11 Estimat Glomerular Filtration Rate 75 Lipase 56 Test 09/22/17 06:45 09/22/17 08:07 White Blood Count 29.0 Red Blood Count 5.09 Hemoglobin 12.7 Hematocrit 39.8 Mean Corpuscular Volume 78.2 Mean Corpuscular Hemoglobin 24.9 Mean Corpuscular Hemoglobin Concent 31.9 Red Cell Distribution Width 17.3 Platelet Count 442 Mean Platelet Volume 9.1 Neutrophils (%) (Auto) 93.9 Lymphocytes (%) (Auto) 1.4 Monocytes (%) (Auto) 4.4 Eosinophils (%) (Auto) 0.0 Basophils (%) (Auto) 0.3 Neutrophils # (Auto) 27.2 Lymphocytes # (Auto) 0.4 Monocytes # (Auto) 1.3 Eosinophils # (Auto) 0.0 Basophils # (Auto) 0.1 CBC Comment DIFF FINAL Differential Comment Hematology Comments Blood Urea Nitrogen 12 Creatinine 0.60 Random Glucose 109 Total Protein 7.6 Albumin 3.1 Calcium Level 8.5 Alkaline Phosphatase 113 Aspartate Amino Transf (AST/SGOT) 56 Alanine Aminotransferase (ALT/SGPT) 22 Total Bilirubin 0.4 Sodium Level 137 Potassium Level 4.3 Chloride Level 102 Carbon Dioxide Level 21.4 Anion Gap 14 Estimat Glomerular Filtration Rate 98 Activated Partial Thromboplast Time 50.5 Date/Time Source Procedure Growth Status 09/21/17 19:35 Blood Peripheral Aerobic Blood Culture Pending Received 09/21/17 19:35 Blood Peripheral Anaerobic Blood Culture Pending Received Abdomen: Other (soft +ttp diffuse, no rebound) A/P Assessment and Plan hx erosion of gastric band, lung ca, now with PE and SMA thrombosis PLAN IVF heparin gtt, abx, npo, pain control I discussed with vacular surgery who will come eval pt I discussed with IR defer to vacular first will continue to follow Kaiden Wilde MD Sep 22, 2017 09:58
[2017-09-22] MEDS ORDERED: VANCOMYCIN INJ 1,250 MG in SODIUM CHLOR 0.9% 250 ML INJ 250 ML IV SCH (11:00)
[2017-09-22] MEDS ORDERED: MIDAZOLAM HCL 2 MG/2 ML VIAL ONE (11:58)
[2017-09-22] MEDS ORDERED: SODIUM CHLORIDE 0.9% INJ 0 ML ONE (12:02)
[2017-09-22] MEDS ORDERED: SODIUM CHLORIDE 0.9% INJ 10 ML ONE (13:42)
[2017-09-22] MEDS ORDERED: STERILE WATER FOR INJECTION 10 ML VIAL ONE ×2 (13:44→14:13)
[2017-09-22] MEDS: amLODIPine BESYLATE 5 MG TAB PO SCH (14:00)
[2017-09-22] MEDS ORDERED: ALTEPLASE RECOMBINANT 2 MG VIAL ONE (14:14)
[2017-09-22] MEDS ORDERED: IODIXANOL 320 MG/ML 50 ML VIAL (for RAD SPEC) I-ARTERIAL ONE (15:17)
[2017-09-22] MEDS ORDERED: HEPARIN INJ 1,000 UNITS in SODIUM CHLORID 0.9% 500 ML INJ 500 ML IART PRN (15:30)
[2017-09-22] MEDS ORDERED: CATHFLO ACTIVASE INJ 10 MG in SODIUM CHLORID 0.9% 500 ML INJ 500 ML I-ARTERIAL PRN (15:30)
[2017-09-22] MEDS ORDERED: HEPARIN-D5W 25,000 U/250 ML 250 ML IV SCH (15:30)
--- NOTE | 2017-09-22 15:32 | PD.RAD ---
Post Procedure Progress Note Pre Procedure Diagnosis: (1) Thrombosis of superior mesenteric artery Post Procedure Diagnosis: (1) Thrombosis of superior mesenteric artery Procedure Date: Sep 22, 2017 Supervising Radiologist: James Mensah Proceduralist/Assist: Garcia Rizzo, RT(R), Ashleigh Christensen RT(R) Anesthesia: Conscious Sedation Plan of Activity Patient to Unit: Nursing Unit Patient Condition: Good See PACS Report for procedural detail/treatment Vascular-Arterial Procedure Procedure 1 Procedure Site: Abdominal Procedure(s): Thrombolysis Access Access Site(s): Right Femoral Artery Sheath(s) Remaining: Right Femoral Artery (complete throumbus of sma tpa infusion begun) James Mensah MD Sep 22, 2017 15:32
[2017-09-22] MEDS ORDERED: HEPARIN INJ 1,000 UNITS in SODIUM CHLORID 0.9% 500 ML INJ 500 ML I-ARTERIAL SCH (16:00)
[2017-09-22 16:20] LABS: AUTOMATED NEUTROPHIL # 29.2 TH/MM3 (1.8-7.7); BASOPHIL # 0.3 TH/MM3 (0-0.2); BASOPHIL % 0.8 % (0.0-2.0); HEMOGLOBIN 11.6 GM/DL (11.6-15.3); LYMPH % 1.3 % (9.0-44.0); LYMPHOCYTE # 0.4 TH/MM3 (1.0-4.8); MEAN CELL VOLUME 77.3 FL (80.0-100.0); MEAN CORPUSCULAR HEMOGLOBIN 24.3 PG (27.0-34.0); MEAN CORPUSCULAR HGB CONC 31.4 % (32.0-36.0); MEAN PLATELET VOLUME 8.1 FL (7.0-11.0); MONO % 7.9 % (0.0-8.0); MONOCYTE # 2.6 TH/MM3 (0-0.9); PLATELET COUNT 351 TH/MM3 (150-450); RED BLOOD COUNT 4.79 MIL/MM3 (4.00-5.30); RED CELL DISTRIBUTION WIDTH 17.2 % (11.6-17.2); WHITE BLOOD COUNT 32.4 TH/MM3 (4.0-11.0)
--- NOTE | 2017-09-22 16:26 | MB ---
cc: MD HEMALATHA,[facility] DATE OF CONSULTATION 09/22/[address] King, vascular surgery. REASON FOR CONSULTATION Superior mesenteric artery occlusion, ischemia of the intestine. Critical care time 40 minutes. HISTORY OF PRESENT DISEASE This 72-year-old female presented to the emergency room 24 hours ago with complaints of abdominal pain. The pain has been present for a day before. It is sharp and non-radiating in the midabdomen. 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 PAST SURGICAL HISTORY Surgical history is cholecystectomy, colectomy, gastric sleeve placement and then removal about 2 weeks ago. MEDICATIONS Can be found on the record. ALLERGIES ALLERGY TO METALS. SOCIAL HISTORY The patient quit smoking several years ago but smoked for most of her adult bowel. PHYSICAL EXAMINATION GENERAL: Physical examination reveals a pleasant 72-year-old female. HEENT: Normocephalic. No trauma to the head. Pupils equally reactive. Extraocular muscles intact. NECK: Neck is supple, bilateral carotid pulses. No bruits. CHEST: Clear, bilateral breath sounds. HEART: Regular rhythm. ABDOMEN: Abdomen is soft, however, tender in all four quadrants. The patient has no guarding but definitely has guarding in midabdomen and the supraumbilical area. No masses are noted. PELVIS: Normal. EXTREMITIES: The patient has good proximal distal pulses. No signs of vascular deficit. BACK: Back is normal. IMPRESSION/RECOMMENDATIONS I reviewed laboratory and diagnostic procedures. CT scan with contrast of the abdomen and pelvis clearly delineate total occlusion of the superior mesenteric artery at its origin but the clot is also extending into some of the branches and there is some collateral flow. This patient must have had some degree of stenosis of the superior mesenteric artery before and this is thromboembolic phenomenon superimposed on it. 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 At this point the recommendations are as follows: 1. Patients who present with mesenteric artery occlusion have peritoneal signs have to be taken to the operating room immediately for resection of the bowel and/or mesenteric artery thromboembolectomy and resection of the bowel depending on the situation. 2. Patients that do not have peritoneal signs and still have preserved some degree of blood flow can be observed as far as the laparotomy is concerned, but on the other hand need urgent therapy of the mesenteric artery thrombosis. This patient is now about 36 hours out of her commencement of pain so chances are decreasing as the time progresses. The standard therapy is superior mesenteric thromboembolectomy, however, endovascular therapy has gained some popularity in the last 5 or 6 years and I am equally familiar with it as radiology. The patient will be taken to the interventional radiology for catheter placement with TPA lysis and we will see how she does. If she does well and she does not develop peritoneal signs this will be all she will need. On the other hand, if the patient worsens I will take her to the operating room at any point for either mesenteric thromboembolectomy or bowel resection. Right now the patient is in the ICU. She is comfortable. Will follow her carefully with appropriate studies and exams and see which way this goes. Thank you very much for the referral. Jacki King SJ/EO /3:42 PM /4:01 PM
--- NOTE | 2017-09-22 17:01 | RADRPT ---
EXAM DATE/TIME: 09/22/2017 12:24 [facility] COMPARISON: No previous studies available for comparison. INDICATIONS : Patient presents with SMA thrombus in need of thrombolysis. MEDICAL HISTORY : Hypertension Hyperthyroidism GERD Diverticulitis SURGICAL HISTORY : Tubal ligation Cholecystectomy Gastric sleeve and removal Colon resection ENCOUNTER: Initial ACUITY: 1 day PAIN SCORE: 8/10 LOCATION: abdomen FLUORO TIME: 15.4 minutes IMAGE SERIES: 8 ACCESS SITE: Right Femoral artery SEDATION TIME: 60 minutes CONTRAST: 1.) 50 cc Visipaque (iodixanol) MEDICATION(S): 1.) 2.5 mg midazolam (Versed) IV 2.) 125 mcg fentanyl (Sublimaze) IV 3.) 2 mg TPA IART DEVICE(S): 1.) Superior mesenteric artery 4 Fr SIM 2 PROCEDURE : 1. Ultrasound-guided puncture of the access site. 2. Conscious sedation with continuous EKG and oximetry monitoring. 3. Angiography of the superior mesenteric artery 4. Infusion for thrombolysis The risks, benefits and alternatives to the procedure were explained and verbal and written consent w as obtained. The site was prepped in sterile fashion. Full sterile technique was used, including ca p, mask, sterile gloves and gown and a large sterile sheet. Hand hygiene and 2% chlorhexidine and/or betadine/alcohol prep was utilized per protocol for cutaneous antisepsis. Sterile gel and sterile p robe cover were utilized for ultrasound guidance. The skin and subcutaneous tissues were infiltrated with local anesthetic solution. With ultrasound and fluoroscopic guidance the prescribed common femoral artery was punctured and a va scular sheath was placed. Angiography of the superior mesenteric artery demonstrates complete occlusion of the superior mesente aletha artery at its origin. A diagnostic catheter was advanced through the vessel and injection of cont rast again demonstrates complete thrombosis of the vessel over the proximal 4-5 cm. 2 mg of TPA were placed intra-arterially. TPA infusion was begun via standard protocol. Conscious sedation was performed with the prescribed dosages and duration as above in the presence of an independent trained radiology nurse to assist in the monitoring of the patient. EKG and oximetry remained stable throughout the procedure. CONCLUSION: Uncomplicated initiation of thrombolytic therapy as above. Complete occlusion of the superior mesente aletha artery James Mensah MD on September 22, 2017 at 16:57 Board Certified Radiologist. This report was verified electronically.
[2017-09-22 17:13] LABS: BANDS 22 % (0-6); METAMYELOCYTES 2 % (0-1); MONOCYTES 3 % (0-8); NEUTROPHIL # MANUAL DIFF 31.4 TH/MM3 (1.8-7.7); POLYS (SEG NEUTROPHILS) 73 % (16-70)
[2017-09-22 17:22] LABS: OVALOCYTES 1+ (NORMAL)
--- NOTE | 2017-09-22 20:05 | EKG ---
Date Performed: 09/21/2017 Time Performed: 19:10:33 PTAGE: 72 years EKG: ATRIAL FIBRILLATION WITH RAPID VENTRICULAR RESPONSE NONSPECIFIC T-WAVE ABNORMALITY WHEN COM PARED TO PRIOR EKG PATIENT IS NOW IN ATRIAL FIBRILLATION. ABNORMAL RHYTHM ECG PREVIOUS TRACING : 08/25/2017 19.58 DOCTOR: Cristela Willingham Interpretating Date/Time 09/22/2017 20:04:30
[2017-09-22] MEDS ORDERED: SODIUM CHLORID 0.9% 500 ML INJ 500 ML IV ONE (21:00)
[2017-09-22] MEDS: LEVOTHYROXINE SODIUM 75 MCG TAB PO SCH (21:00)
--- NOTE | 2017-09-22 22:06 | MB ---
cc: CHRIS HOLM DATE OF CONSULTATION 09/22/17 REASON FOR CONSULTATION Consult requested by hospitalist for evaluation of lung cancer. HISTORY OF PRESENT ILLNESS Faith is a 72-year-old female. She was recently diagnosed with a stage II tdo-tssxs-[id number] lung cancer. She was evaluated by my associate Dr. Sutherland. Recommendation was made for combined concurrent radiation and chemotherapy. Dr. Curtis, radiation oncologist, also saw the patient. Since the patient had removal of the lap band due to the erosion on September 02, it was decided that the patient needed to recover from that surgery before she could be started on the treatment. The patient was in her usual status of health up until yesterday when she came to the emergency room complaining of abdominal pain. The pain was really sharp and shooting. 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 There was small left upper quadrant fluid and air collection noted due to postoperative abscess. Also, she was found to have a small bowel obstruction versus ileus. Also, there was a progression of the lung cancer noted as well. The patient was started on heparin and TPA. Vascular surgery was consulted. I have been asked to see the patient for further evaluation. The patient had thrombolysis with interventional radiologist and she is on TPA infusion. She has been complaining of abdominal pain. The rest of the review of systems is negative. PAST MEDICAL HISTORY 1. Non-small cell lung cancer stage II recently diagnosed 2. Hypothyroidism, 3. Hypertension, 4. Gastroesophageal reflux disease, 5. History of morbid obesity. PAST SURGICAL HISTORY 1. Cholecystectomy, 2. Colon resection 3. Gastric banding which was just removed a few weeks ago. 4. Tubal ligation. 5. Irgljf-C-Niit placement. ALLERGIES SULFA AMOXICILLIN DOXYCYCLINE MELOXICAM METAL EXCEPT GOLD AND SILVER MEDICATIONS Please see EMR. FAMILY HISTORY Noncontributory. SOCIAL HISTORY Does not smoke cigarettes, does not drink alcohol. PHYSICAL EXAMINATION GENERAL: A well-developed, well-nourished white female in no apparent distress. VITAL SIGNS: Temperature 98.1, heart rate is 126, respiratory rate is 22, blood pressure 107/72. HEENT: PERRLA, EOMI, anicteric. No oral lesions noted. No lymphadenopathy noted. LUNGS: Clear. No wheezing, rhonchi or rales. HEART: Tachycardia with no murmur. ABDOMEN: Tender from her recent procedure. EXTREMITIES: No pedal edema. NEUROLOGIC: Awake, alert, oriented times three SKIN: No significant lesions noted. ASSESSMENT 1. 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 2. Erosion of the gastric band which was placed in 2008 recently removed on September [address] Wilde. 3. Non-small cell lung cancer stage II or possible III. PLAN I have reviewed her available records and I have discussed with the patient, daughter and the rest of the family regarding her condition. The patient was recently diagnosed with lung cancer. Due to the recent abdominal surgery, she is not a candidate to start any chemotherapy. Now she has developed superior mesenteric artery thrombosis. She is receiving TPA therapy after the thrombectomy. The patient needs to recover from this before we could initiate any treatment for her lung cancer. Dr. Sutherland is out of town and she will resume the care when she comes back. Thank you for asking my opinion. Chris Holm MD / /9:06 PM /9:50 PM [facility]
--- NOTE | 2017-09-22 22:20 | HHI.PR ---
Subjective Remarks Patient in bed she is on TPA infusion to the mesenteric vessels, CVS and IR following Objective Vitals Vital Signs Date Time Temp Pulse Resp B/P (MAP) Pulse Ox O2 Delivery O2 Flow Rate FiO2 09/22/17 20:00 98.1 126 22 107/72 (84) 95 09/22/17 18:45 20 09/22/17 18:00 118 09/22/17 16:00 99.2 99 19 155/88 (110) 96 09/22/17 15:05 20 174/106 (128) 91 09/22/17 14:50 97.4 101 20 168/104 (125) 90 09/22/17 12:00 98.4 94 19 151/76 (101) 95 09/22/17 08:00 96.9 99 19 174/84 (114) 96 09/22/17 00:28 09/22/17 00:00 95.9 82 18 158/79 (105) 96 09/21/17 23:01 89 18 145/92 (109) 98 Room Air I/O 09/21/17 09/21/17 09/21/17 09/22/17 09/22/17 09/22/17 07:00 15:00 23:00 07:00 15:00 23:00 Intake Total 1800 ml 639.4 ml 1117 ml 220 ml Output Total 250 ml Balance 1800 ml 639.4 ml 1117 ml -30 ml Intake Oral 0 ml IV Total 1800 ml 639.4 ml 1117 ml 220 ml Output Urine Total 250 ml Result Diagram: 09/22/17 1601 09/22/17 0645 Objective Remarks GENERAL: This is a well-nourished, well-developed patient, in no apparent distress. SKIN: No rashes, warm and dry HEAD: Atraumatic. Normocephalic. EYES: Pupils equal round and reactive. Extraocular motions intact. No scleral icterus. ENT: Nose without bleeding, or drainage, Airway patent. NECK: Trachea midline. Supple CARDIOVASCULAR: Regular rate and rhythm without murmurs, gallops, or rubs. RESPIRATORY: Fair air entry bilaterally. No wheezes, rales, or rhonchi. GASTROINTESTINAL: Abdomen soft, non-tender, nondistended. Positive bowel sounds MUSCULOSKELETAL: Extremities without clubbing, cyanosis, or edema. Pedal pulses appreciated NEUROLOGICAL: Awake and alert. Moves all extremity. Normal speech.no focal neurological deficit A/P Problem List: (1) Abdominal pain ICD Code: R10.9 - Unspecified abdominal pain Status: Acute (2) Lung cancer, hilus ICD Code: C34.00 - Malignant neoplasm of unspecified main bronchus Assessment and Plan 72 y/o female with a history of lung cancer- recently diagnosed presented to the ED with complaints of abdominal pain. 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 -Appreciate general surgery consultation currently on TPA infusion, IR following as well -Pain management with IV morphine -NPO -IV Aztreonam, vancomycin -Labs in AM -Pain management with IV morphine Pulmonary embolism -Heparin Drip Lung Cancer, recently diagnosed no treatment yet -Patient medical oncology consult Hypertension not optimized increase Norvasc Leukocytosis WBC increased 23-29 Hypothyroid, chronic -Resume home medications DVT prophylaxis: Heparin Problem Qualifiers (1) Abdominal pain: Qualified Codes: R10.10 - Upper abdominal pain, unspecified Arabella Cooley MD Sep 22, 2017 22:20
--- NOTE | 2017-09-22 23:34 | HHI.CCPN ---
Subjective Brief History This 72-year-old female presented to the emergency room 24 hours ago with complaints of abdominal pain. The pain has been present for a day before. It is sharp and non-radiating in the midabdomen. 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 1. Patients who present with mesenteric artery occlusion have peritoneal signs have to be taken to the operating room immediately for resection of the bowel and/or mesenteric artery thromboembolectomy and resection of the bowel depending on the situation. 2. Patients that do not have peritoneal signs and still have preserved some degree of blood flow can be observed as far as the laparotomy is concerned, but on the other hand need urgent therapy of the mesenteric artery thrombosis. This patient is now about 36 hours out of her commencement of pain so chances are decreasing as the time progresses. The standard therapy is superior mesenteric thromboembolectomy, however, endovascular therapy has gained some popularity in the last 5 or 6 years and I am equally familiar with it as radiology. The patient will be taken to the interventional radiology for catheter placement with TPA lysis and we will see how she does. If she does well and she does not develop peritoneal signs this will be all she will need. On the other hand, if the patient worsens I will take her to the operating room at any point for either mesenteric thromboembolectomy or bowel resection. Right now the patient is in the ICU. She is comfortable. Will follow her carefully with appropriate studies and exams and see which way this goes. 24 Hour Review/Hospital Course Patient has been stable over the afternoon and early evening hours but I came to see her now for another exam and at this point patient is tachycardiac, tachypneic and developing periods of hypotension On abdominal exam patient has rebound in all 4 quadrants and is starting to guard in lower abdomen and right upper hemiabdomen This signifies the failure of endovascular therapy. At this point based on clinical exam this patient has ischemic and possibly necrotic bowel and has to have emergency surgery TPA has been stopped and heparin has been stopped patient be taken to the operating room immediately I've discussed this with the patient and her daughter and explained that the situation is rather critical and this is a condition associated with generally very high mortality in the 75% range, not from the surgery itself but from the fact that patient may have entire small bowel infarcted With this in mind patient scheduled to go to the operating room in next 20 minutes Objective Vital Signs Date Time Temp Pulse Resp B/P (MAP) Pulse Ox O2 Delivery O2 Flow Rate FiO2 09/22/17 22:27 94 Nasal Cannula 2.00 09/22/17 22:00 121 09/22/17 20:00 98.1 22 107/72 (84) Intake and Output 09/22/17 09/22/17 09/23/17 08:00 16:00 00:00 Intake Total 639.4 ml 1117 ml 918 ml Output Total 250 ml Balance 639.4 ml 1117 ml 668 ml Result Diagram: 09/22/17 1601 09/22/17 0645 Other Results Laboratory Tests Test 09/22/17 15:53 Blood Gas Puncture Site RT RADIAL Blood Gas Patient Temperature 98.6 Blood Gas HCO3 22 mmol/L (22-26) Blood Gas Base Excess -1.6 mmol/L (-2-2) Blood Gas Oxygen Saturation 94 % (90-100) Arterial Blood pH 7.45 (7.380-7.420) Arterial Blood Partial Pressure CO2 32 mmHg (38-42) Arterial Blood Partial Pressure O2 84 mmHg (61-120) Arterial Blood Oxygen Content 15.9 Vol % (12.0-20.0) Arterial Blood Carboxyhemoglobin 1.3 % (0-4) Arterial Blood Methemoglobin 1.1 % (0-2) Blood Gas Hemoglobin 12.0 G/DL (12.0-16.0) Oxygen Delivery Device NASAL CANNULA Blood Gas Liter Flow 2 L/M Imaging Last 24 hours Impressions Abdominal Angiography 09/22/17 0000 Signed Impressions: Service Date/Time: Friday, September 22, 2017 12:24 - CONCLUSION: Uncomplicated initiation of thrombolytic therapy as above. 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
[2017-09-22] MEDS ORDERED: ACETAMINOPHEN 1000 MG/100 ML 0 ML IV ONE (23:47)
[2017-09-23] VITALS (21 sets, daily range): BP systolic 94–151; BP diastolic 50–69; PULSE 69–115; RESP 14–18; TEMP 97.6–99.9; O2SAT 93–100
[2017-09-23 00:09] LABS: AUTOMATED NEUTROPHIL # 29.4 TH/MM3 (1.8-7.7); BASOPHIL % 0.2 % (0.0-2.0); HEMATOCRIT 36.3 % (35.0-46.0); HEMOGLOBIN 11.7 GM/DL (11.6-15.3); LYMPH % 1.3 % (9.0-44.0); LYMPHOCYTE # 0.4 TH/MM3 (1.0-4.8); MEAN CELL VOLUME 76.8 FL (80.0-100.0); MEAN CORPUSCULAR HEMOGLOBIN 24.8 PG (27.0-34.0); MEAN CORPUSCULAR HGB CONC 32.3 % (32.0-36.0); MEAN PLATELET VOLUME 8.3 FL (7.0-11.0); MONOCYTE # 1.9 TH/MM3 (0-0.9); NEUT % 92.5 % (16.0-70.0); PLATELET COUNT 309 TH/MM3 (150-450); RED BLOOD COUNT 4.73 MIL/MM3 (4.00-5.30); RED CELL DISTRIBUTION WIDTH 17.1 % (11.6-17.2); WHITE BLOOD COUNT 31.8 TH/MM3 (4.0-11.0)
[2017-09-23 00:55] LABS: BANDS 64 % (0-6); DOHLE BODIES PRESENT (NONE SEEN); MONOCYTES 4 % (0-8); NEUTROPHIL # MANUAL DIFF 30.5 TH/MM3 (1.8-7.7); POLYS (SEG NEUTROPHILS) 32 % (16-70); TOXIC GRANULATION 1+ (NORMAL)
[2017-09-23 00:56] LABS: ACANTHOCYTES OCC (NORMAL)
[2017-09-23 00:57] LABS: TOXIC VACUOLATION PRESENT (NONE SEEN)
[2017-09-23] MEDS ORDERED: PHENYLEPHRINE HCL 10 MG/ML VIAL ONE (01:04)
[2017-09-23] MEDS ORDERED: NOREPINEPHRINE-DEXTROSE DRIP 250 ML IV ONE (01:13)
[2017-09-23] MEDS: PROPOFOL 1000 MG/100 ML INJ 100 ML IV PRN ×2 (01:55→16:10)
[2017-09-23] MEDS: fentaNYL DRIP 250 ML IV PRN ×2 (01:55→21:44)
--- NOTE | 2017-09-23 02:42 | RADRPT ---
EXAM DATE/TIME: 09/23/2017 02:09 [facility] COMPARISON: CHEST SINGLE AP, September 15, 2017, 19:04. ANGIOGRAM, SMA, September 22, 2017, 12:24. INDICATIONS : Post intubation. MEDICAL HISTORY : Hypertension. Diverticulitis. Gastroesophageal reflux disease SURGICAL HISTORY : Colon resection. Tubal ligation.Cholecystectomy. Lap band. ENCOUNTER: Subsequent ACUITY: 1 week PAIN SCORE: 0/10 LOCATION: Bilateral chest FINDINGS: Endotracheal tube tip is present 2 cm above the chapo. A nasogastric tube reaches the distal esophag us. Advancement by an additional 10 cm would be required to have optimal positioning. Right chest por t is present in good position and is accessed. A mild bilateral perihilar and medial left base infilt rate. Cardiac contours and pulmonary vascularity are satisfactory. CONCLUSION: Satisfactory ET tube positioning. NG tube needs to be advanced. Slight interval worsening in aeration Herbert Wylie MD on September 23, 2017 at 2:35 Board Certified Radiologist. This report was verified electronically.
[2017-09-23] MEDS: VANCOMYCIN INJ 1,250 MG in SODIUM CHLOR 0.9% 250 ML INJ 250 ML IV SCH ×2 (02:55→14:02)
[2017-09-23] MEDS ORDERED: VANCOMYCIN INJ 1,000 MG in SODIUM CHLOR 0.9% 250 ML INJ 250 ML IV ONE (03:00)
[2017-09-23] MEDS: PANTOPRAZOLE SODIUM 40 MG VIAL IV PUSH SCH (03:30)
[2017-09-23] MEDS: metroNIDAZOLE 500 MG INJ 100 ML IV SCH ×4 (03:31→21:36)
[2017-09-23] MEDS: RESP: ALBUTEROL 2.5 MG/IPRATROPIUM 0.5 MG NEB (SCH) NEB ×4 (03:34→20:18)
[2017-09-23 04:00] LABS: HEMATOCRIT 22.4 % (35.0-46.0); HEMOGLOBIN 7.2 GM/DL (11.6-15.3); MEAN CELL VOLUME 76.7 FL (80.0-100.0); MEAN CORPUSCULAR HEMOGLOBIN 24.5 PG (27.0-34.0); MEAN CORPUSCULAR HGB CONC 31.9 % (32.0-36.0); MEAN PLATELET VOLUME 8.2 FL (7.0-11.0); PLATELET COUNT 202 TH/MM3 (150-450); RED BLOOD COUNT 2.92 MIL/MM3 (4.00-5.30); RED CELL DISTRIBUTION WIDTH 16.6 % (11.6-17.2); WHITE BLOOD COUNT 12.1 TH/MM3 (4.0-11.0)
[2017-09-23] MEDS: AZTREONAM INJ 1,000 MG in SODIUM CHLORIDE 0.9% INJ 100 ML IV SCH ×4 (04:09→21:36)
[2017-09-23] MEDS ORDERED: SODIUM CHLOR 0.9% 250 ML INJ 250 ML IV ONE (04:15)
[2017-09-23] MEDS: SODIUM CHLOR 0.9% 1000 ML INJ 1,000 ML IV SCH ×4 (04:40→14:03)
--- NOTE | 2017-09-23 06:32 | MB ---
cc: SARINA CHOWDARY M.D. DATE OF CONSULTATION 09/23/2017 DATE OF 1945 REASON FOR CONSULTATION Critical care management. HISTORY OF PRESENT ILLNESS The patient is a 72-year-old female with past medical history of [id number] lung cancer, recently diagnosed hypertension, hypothyroidism, gastroesophageal reflux disease, morbid obesity, gastric banding which was just removed a few weeks ago. The patient presented to [facility] ED on September 21 for abdominal pain and she had a CT scan of the abdomen and pelvis which showed an acute or subacute thromboembolic occlusion of the superior mesenteric artery and pulmonary embolism. She underwent t-PA infusion by Interventional Radiology followed by heparin. On September 22 she underwent abdominal angiography which showed complete occlusion of the superior mesenteric artery. She was seen by Dr. King from Vascular Surgery and she was taken to the OR where she underwent bowel resection with wound VAC placement. The patient is currently receiving a third unit of FFP. When seen she is sedated with Diprivan/fentanyl drip and on full mechanical ventilation. Her current blood pressure is 110/54 and saturation 97%. PAST MEDICAL HISTORY Significant for - 1. Ykj-dpabf-evcf lung cancer. 2. Hypertension. 3. Hypothyroidism. 4. Gastroesophageal reflux disease. 5. Morbid obesity. PAST SURGICAL HISTORY 1. Previous gastric banding which was just removed a few weeks ago. 1. Previous cholecystectomy. 2. Colon resection. 3. Tubal ligation. 4. Bxayup-L-Wtsc placement. ALLERGIES SULFA. AMOXICILLIN. DOXYCYCLINE. MELOXICAM. FAMILY HISTORY Noncontributory. SOCIAL HISTORY Nonsmoker, nondrinker. CURRENT MEDICATIONS 1. Norvasc. 2. Aztreonam. 3. Flagyl. 4. Fentanyl. 5. Diprivan. REVIEW OF SYSTEMS As per HPI. The rest of the review of systems unobtainable as the patient is intubated. PHYSICAL EXAMINATION GENERAL: On physical exam a 72-year-old female, critically ill, intubated, status post bowel resection with wound VAC placement. VITAL SIGNS: Temperature 97.6, pulse of 99, blood pressure 110/54, sats 97%. Vent setting - Assist control ventilation with a rate of 18, tidal volume 500, PEEP of 5, FIO2 40%. HEENT: Atraumatic, normocephalic. Pupils equal, round, reactive to light and accommodation. Extraocular muscles intact. Conjunctivae pink. Nonicteric sclerae. Oral mucosa within normal. NECK: Supple. No JVD, adenopathy or thyromegaly. Trachea in the midline. CARDIOVASCULAR EXAM: Regular rate and rhythm. Normal S1-S2. No murmur, rubs or gallops noted. PULMONARY EXAM: Bilateral equal air entry. No rales or wheezing. ABDOMEN: Soft. Wound VAC in place. EXTREMITIES: No cyanosis, clubbing or edema. NEURO: Intubated and sedated. LABORATORY DATA WBC 31.8, hemoglobin 11.7, hematocrit 36, platelet count 309. Sodium 137, potassium 4.3, chloride 102, CO2 21, BUN 12, creatinine 0.6, glucose 109, lactic acid 1.3, AST 56, ALT 22, total bilirubin 0.4. RADIOGRAPHIC STUDIES Chest x-ray post-intubation showed ET tube above the chapo, mild bilateral perihilar and medial left base infiltrate. CT abdomen and pelvis on September 21 showed suspect pulmonary embolism, acute thromboembolic occlusion of the SMA. IMPRESSION 1. Vent dependent respiratory failure. 2. Thromboembolic occlusion of the SMA status post t-PA and heparin. 3. Mesenteric ischemia status post bowel resection with a wound VAC placement. 4. Pulmonary embolism. 5. Recent diagnosis of zsa-qnwsy-wppv lung cancer. 6. Leukocytosis with bandemia. 7. Hypertension. 8. Hypothyroidism. 9. Status post removal of gastric banding a few weeks ago. RECOMMENDATIONS 1. Continue with Diprivan and fentanyl infusion for sedation. Daily sedation vacation when appropriate. 2. Continue with vent support and maintain sats above 92%. 3. Bronchodilators in the form of DuoNeb q. 6 and will initiate ICU vent bundle. ABG post-intubation reviewed. 4. Monitor heart rate and blood pressure closely and maintain MAP greater than 65 mmHg. Lactic acid level measured at 1.3. Hold Norvasc for now. 5. Monitor renal function, I's and O's and electrolyte replacement per protocol. 6. Continue with n.p.o. and place on Protonix 40 mg IV daily for GI prophylaxis. 7. Continue with antibiotics. She is currently on aztreonam and Flagyl. We will give one dose of vancomycin, 1 gram IV now. Monitor for signs of infection which include fever and WBC. Follow up on blood cultures and will consult Infectious Disease Service for possible peritonitis. 8. Continue sliding scale insulin with Accu-Cheks for glycemic control. In addition the patient is on Synthroid 75 mcg q.h.s. for underlying history of hypothyroidism. 9. Monitor CBC and coags. 10. GI prophylaxis with Protonix 4 mg daily. 11. DVT prophylaxis with SCDs. 12. Right-sided port in place. Further recommendations will be based on hospital course. Sarina Chowdary MD AI/SSB /3:04 AM /6:15 AM
--- NOTE | 2017-09-23 06:40 | MP ---
cc: JACKI PENNY MD DATE OF SURGERY 09/23/2017 PREOPERATIVE DIAGNOSIS Occlusion of superior mesenteric artery and gangrene of the small bowel. POSTOPERATIVE DIAGNOSIS Occlusion of superior mesenteric artery and gangrene of the small bowel. OPERATIVE PROCEDURE Exploratory laparotomy, resection of 8 feet of small bowel, placement of a wound Vac, exploration of the superior mesenteric artery. SURGEON Jacki Penny MD ANESTHESIA General ESTIMATED BLOOD LOSS About 50 cc INDICATIONS FOR PROCEDURE This unfortunate 72-year-old lady presented to the hospital with abdominal pain, occlusion of the superior mesenteric artery. She underwent tPA lysis and about eight hours into it became more tender with rebound and guarding and decision was made to take the patient to the operating room with suspicion of small bowel gangrene. PROCEDURE NOTE The patient was prepped and draped in the usual fashion. A midabdominal incision made. The abdomen entered. Upon entrance of the abdomen, some adhesions were found between the anterior abdominal wall and omentum. These were taken down and then the abdomen explored. The patient has indeed gangrene of the small bowel. The small bowel is dark green purplish appearing starting from about 2 feet from ligament of Treitz and then all the way down to about 3 feet from the ileocecal valve. The cecum, ascending colon, transverse colon, descending colon and rectum appeared to be perfused. Decision then made to remove the small bowel. Proximally and distally, the HARSH stapler fired and then the medial jejunum is clamped with Nicolasa clamps, divided and ligated with 0-silks and reinforced and 2-0 Vicryl stick ties [id number]. Once this was completed, the part of the bowel was removed and abdomen explored once more. The superior mesenteric artery is now visualized by up lifting up the transverse colon and then opening up the mesentery underneath. The superior mesenteric artery is indeed clotted. This is a firm clot that is not going anywhere. This is clearly chronic occlusion/chronic stenosis, but now completely occluded. Unfortunately, there is thrombosis of the various arteries and veins going into the mesentery from here down and this is more of a diffuse process than localized just to the superior mesenteric artery. The patient, at this point, is hemodynamically unstable so decision is made to stop the procedures here. The abdomen is irrigated with copious amounts of warm saline and wound Vac is applied. The patient taken out of operating room on vasopressors into the ICU for further care. Plan is to take the patient back today in about 12-14 hours after the first surgery for a second look procedure to see if he has more small bowel or we can safely put the ends of the small bowel together. Either way, this patient has a very poor prognosis in the face of her comorbidities. I explained to this to her family. Jacki AVINA /1:28 AM /6:35 AM
--- NOTE | 2017-09-23 08:24 | MB ---
cc: CYNDI MOCK MD DATE OF CONSULTATION 09/22/17 REASON FOR CONSULTATION Abdominal pain. HISTORY OF PRESENT ILLNESS The patient is a 72-year-old female with a history of morbid obesity, recent diagnosis of lung cancer and gastric band erosion. She presents with acute onset of mid epigastric pain. She states she was doing relatively well and developed acute onset of pain with drinking juice at dinner tonight. She states the pain was constant and 9/10, currently a 6/10. She states that her pain is worse with movement, better with lying still and some improvement with IV pain medication. She denies any fevers but did note that she broke out in a cold sweat ad came to the emergency department forf urther evaluation including CT scan showing concern for pulmonary embolism and concern for SMA thrombosis. She did have a leukocytosis of 18,000. Surgery was called for further evaluation. On my exam, the patient confirms the above and states the pain is pretty severe at this time. She is otherwise hemodynamically stable with mild tachycardia. She does note several episodes of diarrhea, denies any blood in this and states this is a different pain that she previously felt. The patient with a recent admission to the hospital with finding again of a band erosion. She underwent endoscopic laparoscopic band removal on 09/04/2017 and did relatively well. She also had endobronchial ultrasound and CT of the chest showing 2.7 cm lung cancer confirmed with positive lymphadenopathy. She was planning to undergo chemoradiation after surgical healing in several weeks, but in the interim denied developed severe abdominal pain. She was discharged last time on September 10. PAST MEDICAL HISTORY 1. Diverticulitis, 2. Perforated colon 3. Colon resection 4. Reflux, 5. Hypertension 6. Morbid obesity, 7. Hypothyroidism, 8. Atrial fibrillation. PAST SURGICAL HISTORY 1. Endoscopic band removal, 2. Laparoscopic port placement, 3. Cholecystectomy, 4. Bilateral cataract surgery, 5. Tubal ligation. SOCIAL HISTORY Occasional ETOH. Denies smoking or IVDA. ALLERGIES SULFA AMOXICILLIN DAVULANIC ACID DOXYCYCLINE MELOXICAM MEDICATIONS: See EMR. FAMILY HISTORY Denies hypertension or diabetes. REVIEW OF SYSTEMS General: The patient denies fevers. HEENT: Denies eye, ear pain. Neck: Denies swelling or pain. Lungs: Denies cough or wheeze. Heart: Denies palpitation or chest pain. Abdomen: Complains of nausea, abdominal pain. Denies vomiting. : Denies dysuria or hematuria. Endocrine: Denies polyuria, polydipsia. Neurologic: Denies numbness or weakness. Psych: Denies change in mood or sensorium. PHYSICAL EXAMINATION General: The patient is in no acute distress. Vital signs. Temperature 96.9, pulse 99, respiration 19, blood pressure 174/84, saturation 96%. HEENT: PERRLA, pupils equal round and reactive. Neck: Supple. Trachea midline. Lungs: Bilateral expansion. Clear. Heart: S1-S2 irregular. Abdomen: Soft, positive tenderness to palpation, epigastric area. Well-healed surgical incisions. No evidence of erythema, diffuse tenderness. No peritoneal signs. Extremities: Warm, well-perfused. Integument: No obvious masses or lesions. LABORATORY AND DIAGNOSTIC DATA WBC 18.1, hematocrit 11.4, hemoglobin 36, platelets 437, sodium 137, potassium 3.38, chloride 106, BUN 17, creatinine 0.7, lactate 1.9. ALT 45, ALT 23, albumin 2.9, lipase 56, INR 1.2. 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 ASSESSMENT The patient is 72-year-old female with complex medical-surgical history including lung cancer, gastric band erosion, presents with acute onset of epigastric pain consistent with SMA thrombosis. PLAN After full clinical and radiologic laboratory workup the patient with above-named issues including concern for SMA thromboembolic event. At this point the patient will need to be on heparin drip, IV pain control, IV antibiotics, IV fluid resuscitation. Will discuss further with vascular surgery for possible vascular intervention and consider also interventional radiology with possible thrombolytic directed therapy. Discussed with the patient in detail regarding potential for operative intervention and the risks of thromboembolic disease as the patient does have cancer, atrial fibrillation and surgical procedure recently. She states understanding of this. Again will follow the patient very closely and discuss with the appropriate specialist. MD DEXTER Conte/ /8:50 PM /8:22 AM
[2017-09-23] MEDS: amLODIPine BESYLATE 5 MG TAB PO SCH (08:45)
[2017-09-23] MEDS: CHLORHEXIDINE 0.12% (ORAL KIT) 15 ML CUP MT SCH ×2 (08:45→20:00)
[2017-09-23] MEDS: SODIUM CHLORIDE 0.9% FLUSH 10 ML FLUSH IV FLUSH SCH ×2 (08:45→21:37)
[2017-09-23] MEDS: INSULIN ASPART SUPPLEMENTAL SCALE SQ SCH ×4 (08:45→21:00)
--- NOTE | 2017-09-23 10:32 | RADRPT ---
EXAM DATE/TIME: 09/23/2017 08:46 [facility] COMPARISON: No previous studies available for comparison. INDICATIONS : Possible deep vein thrombosis. Swelling. MEDICAL HISTORY : Hypertension. Hypercholesterolemia. Hypothyroidism. Lung cancer. SURGICAL HISTORY : Lung surgery. Cholecystectomy. Knee repair. Colon resection. ENCOUNTER: Initial ACUITY: 1 day PAIN SCORE: Non-responsive LOCATION: Bilateral leg. TECHNIQUE: Venous ultrasound of the left and right leg was performed from the inguinal ligament to the proximal calf. Real-time, color Doppler and spectral tracing, compression and augmentation techniques were us ed. FINDINGS: RIGHT LEG: There is normal compressibility of the deep venous system from the inguinal region to the proximal ca lf. No echogenic clot is seen in the lumen of the common femoral, femoral, popliteal, and posterior tibial veins. There is a normal response of the venous system to proximal and distal augmentation an d respiration. LEFT LEG: There is normal compressibility of the deep venous system from the inguinal region to the proximal ca lf. No echogenic clot is seen in the lumen of the common femoral, femoral, popliteal, and posterior tibial veins. There is a normal response of the venous system to proximal and distal augmentation an d respiration. CONCLUSION: Negative for DVT Miky Yip MD FACR on September 23, 2017 at 10:29 Board Certified Radiologist. This report was verified electronically.
[2017-09-23 11:48] LABS: AUTOMATED NEUTROPHIL # 16.4 TH/MM3 (1.8-7.7); BASOPHIL % 0.1 % (0.0-2.0); HEMATOCRIT 29.4 % (35.0-46.0); HEMOGLOBIN 9.8 GM/DL (11.6-15.3); LYMPH % 3.9 % (9.0-44.0); LYMPHOCYTE # 0.7 TH/MM3 (1.0-4.8); MEAN CELL VOLUME 79.7 FL (80.0-100.0); MEAN CORPUSCULAR HEMOGLOBIN 26.5 PG (27.0-34.0); MEAN CORPUSCULAR HGB CONC 33.3 % (32.0-36.0); MEAN PLATELET VOLUME 8.8 FL (7.0-11.0); MONO % 3.9 % (0.0-8.0); MONOCYTE # 0.7 TH/MM3 (0-0.9); NEUT % 92.1 % (16.0-70.0); PLATELET COUNT 192 TH/MM3 (150-450); RED BLOOD COUNT 3.68 MIL/MM3 (4.00-5.30); RED CELL DISTRIBUTION WIDTH 18.5 % (11.6-17.2); WHITE BLOOD COUNT 17.8 TH/MM3 (4.0-11.0)
[2017-09-23 12:08] LABS: BICARBONATE 19.3 MEQ/L (21.0-32.0); CALCIUM 6.9 MG/DL (8.5-10.1); CREATININE 1.72 MG/DL (0.50-1.00)
[2017-09-23 12:27] LABS: CALCIUM-PROTEIN CORRECTED 8.1 MG/DL (8.5-10.1); TOTAL PROTEIN 4.9 GM/DL (6.4-8.2)
--- NOTE | 2017-09-23 14:08 | PD.ID.CON ---
History of Present Illness Service ID Consult Requested By Dr Leyva Reason for Consult leukocytosis, nbandemia Primary Care Physician Raoul Rodriguez MD Diagnoses: History of Present Illness 72 yo female with h/o remote gastric bypass for morbid obesity (10+ yrs ago) underwent laparoscopic repair of anterior gastrotomy with lysis of adhesions on 09/02/2007 2/2 band erosion SHe was also diagnosed with non small Left lung carcinoma on the same admission and she grew M. carlaum in BAL as well SHe was doing well after dischage untill couple days ago when she developped a sever abdominal pain and presented with it to ER last night She presentaed hypothermic with WBC of 30K and extreme bandemia up to 64% She was diagnosed with Occlusion of superior mesenteric artery ( CTA showed acute or subacute thromboembolic occlusion of the superior mesenteric artery) and gangrene of the small bowel and underwent exploratory laparotomy, resection of 8 feet of small bowel, placement of a wound Vac, exploration of the superior mesenteric artery.by Dr Jacki King last night CTA also showed Suspected pulmonary embolism, small left upper quadrant fluid and air collection may be postoperative or abscess. and progressive lung cancer findings in the left lung base She is small dose of levaphed Blood clx neg so far Review of Systems ROS Limitations: Clinical Condition, Intubated Past Family Social History Allergies: Coded Allergies: Sulfa (Sulfonamide Antibiotics) (Unverified Allergy, Severe, Hives, ) amoxicillin (Unverified Allergy, Severe, Hives, 09/21/17) clavulanic acid (Unverified Allergy, Severe, Hives, 09/21/17) doxycycline (Unverified Allergy, Severe, Nausea/Vomiting, 09/21/17) meloxicam (Unverified Allergy, Unknown, gi upset, 09/21/17) Uncoded Allergies: METAL (Allergy, Severe, Rash, 03/25/17) ALL METAL EXCEPT GOLD AND SILVER Past Medical History Non small lung cancer, newly diagnosed hypothyroidism obesity Past Surgical History Right subclavian port placement 09/02/2017 remote gastric bypass for morbid obesity (10+ yrs ago) laparoscopic repair of anterior gastrotomy with lysis of adhesions 2016 sp remote cholecystectomy, appendectomy Active Ordered Medications Medications where reviewed in EMR Antibiotics Include: azactam vancomycin flagyl Family History reviewed non contributory Social History Remte Tobacco. > 20 yrs ago No ETOH. No Illicit Drugs. Physical Exam Vital Signs Vital Signs Date Time Temp Pulse Resp B/P (MAP) Pulse Ox O2 Delivery O2 Flow Rate FiO2 09/23/17 12:00 40 09/23/17 12:00 99.9 106 18 110/52 (71) 97 09/23/17 11:56 97 40 09/23/17 09:44 97 40 09/23/17 08:00 98.1 88 18 94/50 (65) 98 09/23/17 08:00 91 09/23/17 08:00 40 09/23/17 07:02 98.4 88 18 131/64 100 09/23/17 06:35 98.4 109 18 151/69 99 09/23/17 06:02 98.0 93 18 126/59 100 09/23/17 06:00 92 09/23/17 05:26 98.2 115 18 143/60 98 09/23/17 04:00 98.2 98 18 102/50 (67) 100 09/23/17 04:00 88 09/23/17 04:00 40 09/23/17 03:35 98 40 09/23/17 02:50 99.0 88 18 109/52 99 09/23/17 02:00 88 09/23/17 01:47 97.6 107 14 133/54 93 09/23/17 01:39 93 40 09/23/17 01:30 40 09/22/17 22:27 94 Nasal Cannula 2.00 09/22/17 22:00 121 09/22/17 20:00 126 09/22/17 20:00 98.1 126 22 107/72 (84) 95 09/22/17 18:45 20 09/22/17 18:00 118 09/22/17 16:00 99.2 99 19 155/88 (110) 96 09/22/17 15:05 20 174/106 (128) 91 09/22/17 14:50 97.4 101 20 168/104 (125) 90 Physical Exam CONSTITUTIONAL/GENERAL: This is an adequately nourished patient, in no apparent distress. Sed[facility] TUBES/LINES/DRAINS: POrt in place w/o visible changes around it SKIN: No jaundice, rashes, or lesions. . Skin temperature appropriate. Not diaphoretic. HEAD: Atraumatic. Normocephalic. EYES: Pupils equal and round and reactive. Extraocular motions intact. No scleral icterus. No injection or drainage. Fundi not examined. ENT: Hearing grossly normal. Nose without bleeding or purulent drainage. Throat without visible erythema, exudates, masses, or lesions. NECK: Trachea midline. No JVD CARDIOVASCULAR: Regular rate and rhythm without murmurs, gallops, or rubs. Peripheral pulses symmetric. Perifertry well perfused RESPIRATORY/CHEST: Symmetric, unlabored respirations. Clear to auscultation. Breath sounds equal bilaterally. No wheezes, rales, or rhonchi. GASTROINTESTINAL: Abdomen soft, tender, distended. No hepato-splenomegaly, or palpable masses. No guarding. Bowel sounds diminished Large abdominal defect covered with VAC dressing wigh intense serosangious dc GENITOURINARY: Without palpable bladder distension. Patel catheter in place with clear yellow urine MUSCULOSKELETAL: Extremities without clubbing, cyanosis, or edema. No joint tenderness or effusion noted. No calf tenderness. No mottling or clubbing. LYMPHATICS: No palpable cervical or supraclavicular adenopathy. NEUROLOGICAL: Sedated, easily arousable. Motor and sensory grossly within normal limits. Follows commands. . Moves all extremities. PSYCHIATRIC: unable to assess Laboratory Laboratory Tests Test 09/22/17 15:53 09/22/17 16:01 09/22/17 18:47 09/22/17 21:40 Blood Gas Puncture Site RT RADIAL Blood Gas Patient Temperature 98.6 Blood Gas HCO3 22 Blood Gas Base Excess -1.6 Blood Gas Oxygen Saturation 94 Arterial Blood pH 7.45 Arterial Blood Partial Pressure CO2 32 Arterial Blood Partial Pressure O2 84 Arterial Blood Oxygen Content 15.9 Arterial Blood Carboxyhemoglobin 1.3 Arterial Blood Methemoglobin 1.1 Blood Gas Hemoglobin 12.0 Oxygen Delivery Device NASAL CANNULA Blood Gas Liter Flow 2 White Blood Count 32.4 Red Blood Count 4.79 Hemoglobin 11.6 Hematocrit 37.0 Mean Corpuscular Volume 77.3 Mean Corpuscular Hemoglobin 24.3 Mean Corpuscular Hemoglobin Concent 31.4 Red Cell Distribution Width 17.2 Platelet Count 351 Mean Platelet Volume 8.1 Neutrophils (%) (Auto) 90.0 Lymphocytes (%) (Auto) 1.3 Monocytes (%) (Auto) 7.9 Eosinophils (%) (Auto) 0.0 Basophils (%) (Auto) 0.8 Neutrophils # (Auto) 29.2 Lymphocytes # (Auto) 0.4 Monocytes # (Auto) 2.6 Eosinophils # (Auto) 0.0 Basophils # (Auto) 0.3 CBC Comment AUTO DIFF Differential Total Cells Counted 100 Neutrophils % (Manual) 73 Band Neutrophils % 22 Monocytes % 3 Neutrophils # (Manual) 31.4 Metamyelocytes 2 Differential Comment FINAL DIFF MANUAL Platelet Estimate NORMAL Platelet Morphology Comment NORMAL Ovalocytes 1+ Activated Partial Thromboplast Time 101.4 58.8 51.8 Fibrinogen 210 173 Nasal Screen MRSA (PCR) MRSA NOT DETECTED Test 09/22/17 23:40 09/23/17 02:20 09/23/17 03:46 09/23/17 10:48 White Blood Count 31.8 12.1 17.8 Red Blood Count 4.73 2.92 3.68 Hemoglobin 11.7 7.2 9.8 Hematocrit 36.3 22.4 29.4 Mean Corpuscular Volume 76.8 76.7 79.7 Mean Corpuscular Hemoglobin 24.8 24.5 26.5 Mean Corpuscular Hemoglobin Concent 32.3 31.9 33.3 Red Cell Distribution Width 17.1 16.6 18.5 Platelet Count 309 202 192 Mean Platelet Volume 8.3 8.2 8.8 Neutrophils (%) (Auto) 92.5 92.1 Lymphocytes (%) (Auto) 1.3 3.9 Monocytes (%) (Auto) 6.0 3.9 Eosinophils (%) (Auto) 0.0 0.0 Basophils (%) (Auto) 0.2 0.1 Neutrophils # (Auto) 29.4 16.4 Lymphocytes # (Auto) 0.4 0.7 Monocytes # (Auto) 1.9 0.7 Eosinophils # (Auto) 0.0 0.0 Basophils # (Auto) 0.0 0.0 CBC Comment AUTO DIFF DIFF FINAL Differential Total Cells Counted 100 Neutrophils % (Manual) 32 Band Neutrophils % 64 Monocytes % 4 Neutrophils # (Manual) 30.5 Differential Comment FINAL DIFF MANUAL Toxic Granulation 1+ Toxic Vacuolation PRESENT Dohle Bodies PRESENT Platelet Estimate NORMAL Platelet Morphology Comment ENLARGED Acanthocytes OCC Blood Gas Puncture Site ART LINE Blood Gas Patient Temperature 98.6 Blood Gas HCO3 21 Blood Gas Base Excess -2.9 Blood Gas Oxygen Saturation 93 Arterial Blood pH 7.40 Arterial Blood Partial Pressure CO2 35 Arterial Blood Partial Pressure O2 80 Arterial Blood Oxygen Content 10.9 Arterial Blood Carboxyhemoglobin 1.4 Arterial Blood Methemoglobin 1.2 Blood Gas Hemoglobin 8.3 Oxygen Delivery Device VENT Blood Gas Ventilator Setting SEE COMMENTS Blood Gas Inspired Oxygen 40 Hematology Comments Blood Urea Nitrogen 27 Creatinine 1.72 Random Glucose 106 Total Protein 4.9 Calcium Level 6.9 Sodium Level 143 Potassium Level 3.3 Chloride Level 112 Carbon Dioxide Level 19.3 Anion Gap 12 Estimat Glomerular Filtration Rate 29 Protein Corrected Calcium 8.1 Date/Time Source Procedure Growth Status 09/21/17 19:35 Blood Peripheral Aerobic Blood Culture - Preliminary NO GROWTH IN 2 DAYS Resulted 09/21/17 19:35 Blood Peripheral Anaerobic Blood Culture - Preliminary NO GROWTH IN 2 DAYS Resulted Result Diagram: 09/23/17 1048 09/23/17 1048 Imaging Last Impressions Lower Extremity Ultrasound 09/23/17 0000 Signed Impressions: Service Date/Time: Saturday, September 23, 2017 08:46 - CONCLUSION: Negative for DVT Miky Yip MD FACR Chest X-Ray 09/23/17 0000 Signed Impressions: Service Date/Time: Saturday, September 23, 2017 02:09 - CONCLUSION: Satisfactory ET tube positioning. NG tube needs to be advanced. Slight interval worsening in aeration Herbert Wylie MD Abdominal Angiography 09/22/17 0000 Signed Impressions: Service Date/Time: Friday, September 22, 2017 12:24 - CONCLUSION: Uncomplicated initiation of thrombolytic therapy as above. Complete occlusion of the superior mesenteric artery James Mensah MD Abdomen/Pelvis CT 09/21/17 192 Signed Impressions: Service Date/Time: Thursday, September 21, 2017 22:47 - CONCLUSION: Suspect pulmonary embolism. 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 Small left upper quadrant fluid and air collection may be postoperative or abscess. Prior to consideration of sampling of this collection , delineation of the exact course of the splenic flexure of colon would be required. Possible developing small bowel obstructive process versus ileus Progressive lung cancer findings in the left lung base Herbert Wylie MD Abdomen X-Ray 09/21/17 094 Signed Impressions: Service Date/Time: Thursday, September 21, 2017 19:00 - CONCLUSION: 1. Abnormal opacity remains at the left lung base which could indicate pneumonia. 2. Nonspecific bowel gas pattern which could represent an ileus or possible early small bowel obstruction. 3. That is post cholecystectomy. 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 sp emergent bowel resection Sepsis- intraabd source Acute VDRF Lung ca, no tx yet M. fortinium pulmonarty infection vs colonisation - no tx decision yet HIgh grade Augmentin/PCN reation - per dgtr: hives, skin "peeled" ? Miky Ames no Keflex reported Cont vancomycin, azactam, flagyl for now fu blood clx fu clinically unticipate eventually swith to oral abx Chralette Mtz MD Sep 23, 2017 14:08
--- NOTE | 2017-09-23 15:00 | PD.ONC.PN ---
Subjective Subjective Remarks Tmax 99.9. Pt intubated, sedated. About to go for 2nd OR procedure to reassess bowels. On vasopressor Objective Data Date Time Temp Pulse Resp B/P (MAP) Pulse Ox O2 Delivery O2 Flow Rate FiO2 09/23/17 14:01 98 40 09/23/17 12:00 40 09/23/17 12:00 99.9 106 18 110/52 (71) 97 09/23/17 11:56 97 40 09/23/17 09:44 97 40 09/23/17 08:00 98.1 88 18 94/50 (65) 98 09/23/17 08:00 91 09/23/17 08:00 40 09/23/17 07:02 98.4 88 18 131/64 100 09/23/17 06:35 98.4 109 18 151/69 99 09/23/17 06:02 98.0 93 18 126/59 100 09/23/17 06:00 92 09/23/17 05:26 98.2 115 18 143/60 98 09/23/17 04:00 98.2 98 18 102/50 (67) 100 09/23/17 04:00 88 09/23/17 04:00 40 09/23/17 03:35 98 40 09/23/17 02:50 99.0 88 18 109/52 99 09/23/17 02:00 88 09/23/17 01:47 97.6 107 14 133/54 93 09/23/17 01:39 93 40 09/23/17 01:30 40 09/22/17 22:27 94 Nasal Cannula 2.00 09/22/17 22:00 121 09/22/17 20:00 126 09/22/17 20:00 98.1 126 22 107/72 (84) 95 09/22/17 18:45 20 09/22/17 18:00 118 09/22/17 16:00 99.2 99 19 155/88 (110) 96 09/22/17 15:05 20 174/106 (128) 91 09/22/17 14:50 97.4 101 20 168/104 (125) 90 09/23/17 09/23/17 09/23/17 07:00 15:00 23:00 Intake Total 6928 ml 600 ml Output Total 1075 ml Balance 5853 ml 600 ml Result Diagram: 09/23/17 1048 09/23/17 1048 Laboratory Results Laboratory Tests Test 09/22/17 15:53 09/22/17 16:01 09/22/17 18:47 09/22/17 21:40 Blood Gas Puncture Site RT RADIAL Blood Gas Patient Temperature 98.6 Blood Gas HCO3 22 mmol/L Blood Gas Base Excess -1.6 mmol/L Blood Gas Oxygen Saturation 94 % Arterial Blood pH 7.45 Arterial Blood Partial Pressure CO2 32 mmHg Arterial Blood Partial Pressure O2 84 mmHg Arterial Blood Oxygen Content 15.9 Vol % Arterial Blood Carboxyhemoglobin 1.3 % Arterial Blood Methemoglobin 1.1 % Blood Gas Hemoglobin 12.0 G/DL Oxygen Delivery Device NASAL CANNULA Blood Gas Liter Flow 2 L/M White Blood Count 32.4 TH/MM3 Red Blood Count 4.79 MIL/MM3 Hemoglobin 11.6 GM/DL Hematocrit 37.0 % Mean Corpuscular Volume 77.3 FL Mean Corpuscular Hemoglobin 24.3 PG Mean Corpuscular Hemoglobin Concent 31.4 % Red Cell Distribution Width 17.2 % Platelet Count 351 TH/MM3 Mean Platelet Volume 8.1 FL Neutrophils (%) (Auto) 90.0 % Lymphocytes (%) (Auto) 1.3 % Monocytes (%) (Auto) 7.9 % Eosinophils (%) (Auto) 0.0 % Basophils (%) (Auto) 0.8 % Neutrophils # (Auto) 29.2 TH/MM3 Lymphocytes # (Auto) 0.4 TH/MM3 Monocytes # (Auto) 2.6 TH/MM3 Eosinophils # (Auto) 0.0 TH/MM3 Basophils # (Auto) 0.3 TH/MM3 CBC Comment AUTO DIFF Differential Total Cells Counted 100 Neutrophils % (Manual) 73 % Band Neutrophils % 22 % Monocytes % 3 % Neutrophils # (Manual) 31.4 TH/MM3 Metamyelocytes 2 % Differential Comment FINAL DIFF MANUAL Platelet Estimate NORMAL Platelet Morphology Comment NORMAL Ovalocytes 1+ Activated Partial Thromboplast Time 101.4 SEC 58.8 SEC 51.8 SEC Fibrinogen 210 mg/dL 173 mg/dL Nasal Screen MRSA (PCR) MRSA NOT DETECTED Test 09/22/17 23:40 09/23/17 02:20 09/23/17 03:46 09/23/17 10:48 White Blood Count 31.8 TH/MM3 12.1 TH/MM3 17.8 TH/MM3 Red Blood Count 4.73 MIL/MM3 2.92 MIL/MM3 3.68 MIL/MM3 Hemoglobin 11.7 GM/DL 7.2 GM/DL 9.8 GM/DL Hematocrit 36.3 % 22.4 % 29.4 % Mean Corpuscular Volume 76.8 FL 76.7 FL 79.7 FL Mean Corpuscular Hemoglobin 24.8 PG 24.5 PG 26.5 PG Mean Corpuscular Hemoglobin Concent 32.3 % 31.9 % 33.3 % Red Cell Distribution Width 17.1 % 16.6 % 18.5 % Platelet Count 309 TH/MM3 202 TH/MM3 192 TH/MM3 Mean Platelet Volume 8.3 FL 8.2 FL 8.8 FL Neutrophils (%) (Auto) 92.5 % 92.1 % Lymphocytes (%) (Auto) 1.3 % 3.9 % Monocytes (%) (Auto) 6.0 % 3.9 % Eosinophils (%) (Auto) 0.0 % 0.0 % Basophils (%) (Auto) 0.2 % 0.1 % Neutrophils # (Auto) 29.4 TH/MM3 16.4 TH/MM3 Lymphocytes # (Auto) 0.4 TH/MM3 0.7 TH/MM3 Monocytes # (Auto) 1.9 TH/MM3 0.7 TH/MM3 Eosinophils # (Auto) 0.0 TH/MM3 0.0 TH/MM3 Basophils # (Auto) 0.0 TH/MM3 0.0 TH/MM3 CBC Comment AUTO DIFF DIFF FINAL Differential Total Cells Counted 100 Neutrophils % (Manual) 32 % Band Neutrophils % 64 % Monocytes % 4 % Neutrophils # (Manual) 30.5 TH/MM3 Differential Comment FINAL DIFF MANUAL Toxic Granulation 1+ Toxic Vacuolation PRESENT Dohle Bodies PRESENT Platelet Estimate NORMAL Platelet Morphology Comment ENLARGED Acanthocytes OCC Blood Gas Puncture Site ART LINE Blood Gas Patient Temperature 98.6 Blood Gas HCO3 21 mmol/L Blood Gas Base Excess -2.9 mmol/L Blood Gas Oxygen Saturation 93 % Arterial Blood pH 7.40 Arterial Blood Partial Pressure CO2 35 mmHg Arterial Blood Partial Pressure O2 80 mmHg Arterial Blood Oxygen Content 10.9 Vol % Arterial Blood Carboxyhemoglobin 1.4 % Arterial Blood Methemoglobin 1.2 % Blood Gas Hemoglobin 8.3 G/DL Oxygen Delivery Device VENT Blood Gas Ventilator Setting SEE COMMENTS Blood Gas Inspired Oxygen 40 % Hematology Comments Blood Urea Nitrogen 27 MG/DL Creatinine 1.72 MG/DL Random Glucose 106 MG/DL Total Protein 4.9 GM/DL Calcium Level 6.9 MG/DL Sodium Level 143 MEQ/L Potassium Level 3.3 MEQ/L Chloride Level 112 MEQ/L Carbon Dioxide Level 19.3 MEQ/L Anion Gap 12 MEQ/L Estimat Glomerular Filtration Rate 29 ML/MIN Protein Corrected Calcium 8.1 MG/DL Culture Results Microbiology Date/Time Source Procedure Growth Status 09/21/17 19:35 Blood Peripheral Aerobic Blood Culture - Preliminary NO GROWTH IN 2 DAYS Resulted 09/21/17 19:35 Blood Peripheral Anaerobic Blood Culture - Preliminary NO GROWTH IN 2 DAYS Resulted 09/21/17 19:30 Blood Peripheral Aerobic Blood Culture - Preliminary NO GROWTH IN 2 DAYS Resulted 09/21/17 19:30 Blood Peripheral Anaerobic Blood Culture - Preliminary NO GROWTH IN 2 DAYS Resulted Imaging Studies Last 24 hours Impressions Lower Extremity Ultrasound 09/23/17 0000 Signed Impressions: Service Date/Time: Saturday, September 23, 2017 08:46 - CONCLUSION: Negative for DVT Miky Yip MD FACR Chest X-Ray 09/23/17 0000 Signed Impressions: Service Date/Time: Saturday, September 23, 2017 02:09 - CONCLUSION: Satisfactory ET tube positioning. NG tube needs to be advanced. Slight interval worsening in aeration Herbert Wylie MD Administered Medications Medications (Trade) Dose Ordered Sig/Finn Route PRN Reason Start Time Stop Time Status Last Admin Dose Admin Aztreonam 1000 mg/ Sodium Chloride 100 ml @ 200 mls/hr Q6H IV 09/22/17 04:00 09/23/17 08:45 Metronidazole 100 ml @ 100 mls/hr Q6H IV 09/22/17 03:00 09/23/17 14:03 Sodium Chloride 1,000 ml @ 100 mls/hr Q10H IV 09/21/17 23:30 09/23/17 14:03 Propofol 100 ml @ 2.19 mls/hr TITRATE PRN IV SEDATION 09/23/17 01:15 09/23/17 01:55 Fentanyl Citrate 250 ml @ 5 mls/hr TITRATE PRN IV SEDATION 09/23/17 01:15 09/23/17 01:55 Chlorhexidine Gluconate (Peridex 0.12% Liq) 15 ml BID@08,20 MT 09/23/17 08:00 09/23/17 08:45 Albuterol/ Ipratropium (Duoneb Neb) 1 ampule Q6HR NEB NEB 09/23/17 04:00 09/23/17 09:50 Pantoprazole Sodium (Protonix Inj) 40 mg Q24H IV PUSH 09/23/17 03:00 09/23/17 03:30 Vancomycin HCl 1250 mg/Sodium Chloride 262.5 ml @ 250 mls/hr Q12H IV 09/23/17 03:00 09/23/17 14:02 Objective Remarks GENERAL: Intubated, sedated elderly female resting in bed SKIN: Warm and dry. HEAD: Normocephalic. EYES: No injection or drainage. NECK: Supple, trachea midline. CARDIOVASCULAR: Regular rate and rhythm without murmurs. RESPIRATORY: Clear anteriorly. Breathing unlabored. Mechanically ventilated. GASTROINTESTINAL: Abdomen soft, non-tender, nondistended. EXTREMITIES: No cyanosis, or edema. MUSCULOSKELETAL: Adequate muscle tone. NEUROLOGICAL: No obvious focal deficit. Awake, alert, and oriented x3. Assessment/Plan Problem List: (1) Lung mass ICD Codes: R91.8 - Other nonspecific abnormal finding of lung field Status: Acute Plan: 09/23/17: No oncologic intervention planned until pt has recovered from current acute illness. -- CT Abdomen pelvis shows progressive lung cancer in the left lung base -- The patient was recently diagnosed with stage II non-small cell lung cancer and plans were made for combined concurrent radiation and chemotherapy once she had recovered from removal of the eroded LAP-BAND (2) Thrombosis of superior mesenteric artery ICD Codes: K55.069 - Acute infarction of intestine, part and extent unspecified Status: Acute Plan: -- Patient is status post surgery on 09/02/17 to remove an eroded LAP- BAND. -- Patient was admitted with abdominal pain is found to acute or subacute thromboembolic occlusion of the superior mesenteric artery --There is also a small left upper quadrant fluid and air collection noted due to postoperative abscess -- Progression of the lung cancer was noted on CT as well -- The patient is status post thrombolysis with interventional radiology (3) Abdominal pain ICD Codes: R10.9 - Unspecified abdominal pain Status: Acute Plan: -- Pt was found to have gangrene of her small intestine. -- Having repeat surgery today to reassess. 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 Attending Statement Patient is Is on the ventilator and sedated Patient underwent a small bowel resection last night Due to gangrene from Thrombosis of SMA Vision will have second look procedure later today. No oncology intervention is required until patient recover from Her surgery Her prognosis is extremely poor The exam, history, and the medical decision-making described in the above note were completed with the assistance of the mid-level provider. I reviewed and agree with the findings presented. I attest that I had a [id number] encounter with the patient on the same day, and personally performed and documented my assessment and findings in the medical record. Problem Qualifiers (1) Abdominal pain: Qualified Codes: R10.10 - Upper abdominal pain, unspecified Joann Anne Sep 23, 2017 15:00 Akil Holm MD Sep 23, 2017 23:40
--- NOTE | 2017-09-23 18:24 | PD.CAR.PN ---
CVT Progress Note Subjective/Hospital Course: Unfortunate lady with SMA occlusion and the gangrene of the small bowel Patient underwent yesterday exploratory laparotomy and resection of the majority of the small bowel and she was last about foot and a half of proximal small bowel distal to ligament of Treitz and then about 4 feet of the ileum toward the ileocecal valve which appears to be viable She had a wound VAC placed and today took her for second look operation At this point we found proximal small bowel to be semi-gangrenous and the on its way out and distally another 2 feet of small bowel that was nonviable and this was removed Wound VAC was reapplied I spoke to the family this point and there are no other options but 2 consult palliative care keep patient comfortable Objective: Vital Signs Date Time Temp Pulse Resp B/P (MAP) Pulse Ox O2 Delivery O2 Flow Rate FiO2 09/23/17 16:36 100 100 09/23/17 16:00 99.0 87 18 115/50 (71) 100 09/23/17 16:00 40 09/23/17 14:01 98 40 09/23/17 12:00 40 09/23/17 12:00 99.9 106 18 110/52 (71) 97 09/23/17 11:56 97 40 09/23/17 09:44 97 40 09/23/17 08:00 98.1 88 18 94/50 (65) 98 09/23/17 08:00 91 09/23/17 08:00 40 09/23/17 07:02 98.4 88 18 131/64 100 09/23/17 06:35 98.4 109 18 151/69 99 09/23/17 06:02 98.0 93 18 126/59 100 09/23/17 06:00 92 09/23/17 05:26 98.2 115 18 143/60 98 09/23/17 04:00 98.2 98 18 102/50 (67) 100 09/23/17 04:00 88 09/23/17 04:00 40 09/23/17 03:35 98 40 09/23/17 02:50 99.0 88 18 109/52 99 09/23/17 02:00 88 09/23/17 01:47 97.6 107 14 133/54 93 09/23/17 01:39 93 40 09/23/17 01:30 40 09/22/17 22:27 94 Nasal Cannula 2.00 09/22/17 22:00 121 09/22/17 20:00 126 09/22/17 20:00 98.1 126 22 107/72 (84) 95 09/22/17 18:45 20 Labs: Laboratory Tests Test 09/23/17 10:48 White Blood Count 17.8 TH/MM3 (4.0-11.0) Red Blood Count 3.68 MIL/MM3 (4.00-5.30) Hemoglobin 9.8 GM/DL (11.6-15.3) Hematocrit 29.4 % (35.0-46.0) Mean Corpuscular Volume 79.7 FL (80.0-100.0) Mean Corpuscular Hemoglobin 26.5 PG (27.0-34.0) Mean Corpuscular Hemoglobin Concent 33.3 % (32.0-36.0) Red Cell Distribution Width 18.5 % (11.6-17.2) Platelet Count 192 TH/MM3 (150-450) Mean Platelet Volume 8.8 FL (7.0-11.0) Neutrophils (%) (Auto) 92.1 % (16.0-70.0) Lymphocytes (%) (Auto) 3.9 % (9.0-44.0) Monocytes (%) (Auto) 3.9 % (0.0-8.0) Eosinophils (%) (Auto) 0.0 % (0.0-4.0) Basophils (%) (Auto) 0.1 % (0.0-2.0) Neutrophils # (Auto) 16.4 TH/MM3 (1.8-7.7) Lymphocytes # (Auto) 0.7 TH/MM3 (1.0-4.8) Monocytes # (Auto) 0.7 TH/MM3 (0-0.9) Eosinophils # (Auto) 0.0 TH/MM3 (0-0.4) Basophils # (Auto) 0.0 TH/MM3 (0-0.2) CBC Comment DIFF FINAL Differential Comment Blood Urea Nitrogen 27 MG/DL (7-18) Creatinine 1.72 MG/DL (0.50-1.00) Random Glucose 106 MG/DL (74-106) Total Protein 4.9 GM/DL (6.4-8.2) Calcium Level 6.9 MG/DL (8.5-10.1) Sodium Level 143 MEQ/L (136-145) Potassium Level 3.3 MEQ/L (3.5-5.1) Chloride Level 112 MEQ/L (98-107) Carbon Dioxide Level 19.3 MEQ/L (21.0-32.0) Anion Gap 12 MEQ/L (5-15) Estimat Glomerular Filtration Rate 29 ML/MIN (>89) Protein Corrected Calcium 8.1 MG/DL (8.5-10.1) Magnesium Level 1.4 MG/DL (1.5-2.5) Result Diagram: 09/23/17 1048 09/23/17 1048 Jacki King MD Sep 23, 2017 18:24
[2017-09-23] MEDS: LEVOTHYROXINE SODIUM 75 MCG TAB PO SCH (21:36)
[2017-09-23] MEDS: NOREPINEPHRINE 4 MG/D5W 250 ML IV PRN (21:47)
[2017-09-24] VITALS (11 sets, daily range): BP systolic 98–116; BP diastolic 48–53; PULSE 66–74; RESP 18; TEMP 98.3–99.3; O2SAT 99–100
[2017-09-24] MEDS: INSULIN ASPART SUPPLEMENTAL SCALE SQ SCH ×3 (01:00→08:10)
[2017-09-24] MEDS: SODIUM CHLOR 0.9% 1000 ML INJ 1,000 ML IV SCH (01:46)
[2017-09-24] MEDS ORDERED: PHARMACY ORDERED LAB ONE (02:45)
[2017-09-24] MEDS: metroNIDAZOLE 500 MG INJ 100 ML IV SCH ×2 (03:19→08:02)
[2017-09-24] MEDS: AZTREONAM INJ 1,000 MG in SODIUM CHLORIDE 0.9% INJ 100 ML IV SCH ×2 (03:20→09:25)
[2017-09-24] MEDS: PANTOPRAZOLE SODIUM 40 MG VIAL IV PUSH SCH (03:20)
[2017-09-24] MEDS: RESP: ALBUTEROL 2.5 MG/IPRATROPIUM 0.5 MG NEB (SCH) NEB (03:52)
[2017-09-24] MEDS: NOREPINEPHRINE 4 MG/D5W 250 ML IV PRN (03:55)
[2017-09-24 04:15] LABS: CREATININE 2.43 MG/DL (0.50-1.00); VANCOMYCIN TROUGH 25.4 MCG/ML (5.0-10.0)
[2017-09-24] MEDS: PROPOFOL 1000 MG/100 ML INJ 100 ML IV PRN ×2 (04:24→09:24)
[2017-09-24] MEDS: CHLORHEXIDINE 0.12% (ORAL KIT) 15 ML CUP MT SCH (08:00)
[2017-09-24] MEDS: amLODIPine BESYLATE 5 MG TAB PO SCH (08:10)
[2017-09-24] MEDS: SODIUM CHLORIDE 0.9% FLUSH 10 ML FLUSH IV FLUSH SCH (08:10)
--- NOTE | 2017-09-24 09:02 | PD.CONS ---
Consult Service Palliative Care Consult Requested By Dr. Salinas . Primary Care Physician Raoul Rodriguez MD Reason for Consultation a. To assist with evaluation and management of symptoms including: pain. b. To assist medical decision maker(s) with: better understanding of current medical conditions; weighing benefits/burdens of medical treatment options; making medical treatment decisions. . HPI History of Present Illness Mrs. Cohn is a 72 year old female with past medical history of non small care lung cancer, diverticulitis, GERD, hypothyroidism, hypertension, recent lap band removal with stomach surgery. Patient presented on 09/21/17 with severe mid to upper abdominal pain. She reported the pain as being sharp, stabbing, severe pain with nausea, no vomiting , fever, chills, diarrhea or other associated symptoms. 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 On 09/23/17, Dr. King performed exploratory laparotomy, resection of 8 feet of small bowel, placement of wound vac and exploration of superior mesenteric artery. Surgery revealed thrombus in various arteries and veins going into the mesentery, appeared to be more diffuse, wound vac applied. Patient was hemodynamically unstable so surgery was stopped. Plan to return to OR in 12-14 hours for second look procedure. Second surgery was performed and revealed severe distal disease occlusion with essentially no chance of recovery. Comfort measures have been recommended. Palliative care was consulted to assist with further clarification of treatment goals. . Function/Cognitive Trajectory Patient was in her normal state of health prior to about 3-4 weeks ago. She was living independent with her 2 dogs. . Review of Systems ROS Limitations: Intubated, Altered Mental Status (sedated, ROS per family report and EMR review. ) Constitutional: COMPLAINS OF: Change in appetite (decreased), Pain, Generalized weakness Respiratory: COMPLAINS OF: Cough Gastrointestinal: COMPLAINS OF: Abdominal pain, Nausea Hematologic/Lymphatics: COMPLAINS OF: Bruising Past Family Social History Coded Allergies: Sulfa (Sulfonamide Antibiotics) (Unverified Allergy, Severe, Hives, ) amoxicillin (Unverified Allergy, Severe, Hives, 09/21/17) clavulanic acid (Unverified Allergy, Severe, Hives, 09/21/17) doxycycline (Unverified Allergy, Severe, Nausea/Vomiting, 09/21/17) meloxicam (Unverified Allergy, Unknown, gi upset, 09/21/17) Uncoded Allergies: METAL (Allergy, Severe, Rash, 03/25/17) ALL METAL EXCEPT GOLD AND SILVER Past Medical History Hypothyroidism Hypertension GERD Diverticulitis colon rupture 1995 Lung Cancer . Past Surgical History Cholecystectomy Colon resection Lap band Gastric sleeve and removal Tubal ligation Bilateral cataract surgery D & C Tonsillectomy and adenoidectomy Diagnostic bronchoscopy with lymph node biopsies (08/28/17) EGD for eroded lap band . Reported Medications Reported Meds & Active Scripts Active Tamika-Colace (Sennosides-Docusate Sodium) 8.6-50 Mg Tab 1 Tab PO BID [place] (Hydrocodone-Acetaminophen) 7.5-325 mg Tab 1 Tab PO Q6H PRN Reported Aspirin 81 Mg Chew 81 Mg CHEW DAILY Omeprazole 20 Mg Tab 20 Mg PO BID Levothyroxine (Levothyroxine Sodium) 75 Mcg Tab 75 Mcg PO HS Amlodipine (Amlodipine Besylate) 5 Mg Tab 5 Mg PO DAILY . Current Medications Medications (Trade) Dose Ordered Sig/Finn Route Start Time Stop Time Status Last Admin Aztreonam 1000 mg/ Sodium Chloride 100 ml @ 200 mls/hr Q6H IV 09/22/17 04:00 09/24/17 03:20 Metronidazole 100 ml @ 100 mls/hr Q6H IV 09/22/17 03:00 09/24/17 08:02 Pharmacy Profile Note 0 ml @ 0 mls/hr UNSCH OTHER 09/21/17 23:30 Sodium Chloride 1,000 ml @ 100 mls/hr Q10H IV 09/21/17 23:30 09/24/17 01:46 (NS Flush) 2 ml UNSCH PRN IV FLUSH 09/21/17 23:30 (NS Flush) 2 ml BID IV FLUSH 09/22/17 09:00 09/24/17 08:10 (Zofran Inj) 4 mg Q6H PRN IVP 09/21/17 23:30 (Narcan Inj) 0.4 mg UNSCH PRN IV PUSH 09/21/17 23:30 (Milk Of Magnesia Liq) 30 ml Q12H PRN PO 09/21/17 23:30 (Senokot) 17.2 mg Q12H PRN PO 09/21/17 23:30 (Dulcolax Supp) 10 mg DAILY PRN RECTAL 09/21/17 23:30 (Lactulose Liq) 30 ml DAILY PRN PO 09/21/17 23:30 (Synthroid) 75 mcg HS PO 09/22/17 21:00 09/23/17 21:36 (Catapres) 0.1 mg Q6H PRN PO 09/21/17 23:45 (D50w (Vial) Inj) 50 ml UNSCH PRN IV PUSH 09/21/17 23:45 (Glucagon Inj) 1 mg UNSCH PRN OTHER 09/21/17 23:45 (Norvasc) 5 mg DAILY PO 09/22/17 14:00 Propofol 100 ml @ 2.19 mls/hr TITRATE PRN IV 09/23/17 01:15 09/24/17 04:24 Fentanyl Citrate 250 ml @ 5 mls/hr TITRATE PRN IV 09/23/17 01:15 09/23/17 21:44 (Peridex 0.12% Liq) 15 ml BID@08,20 MT 09/23/17 08:00 09/24/17 08:00 (NovoLOG SUPPLEMENTAL SCALE) 1 Q4H SQ 09/23/17 05:00 (Duoneb Neb) 1 ampule Q6HR NEB NEB 09/23/17 04:00 09/24/17 03:52 (Protonix Inj) 40 mg Q24H IV PUSH 09/23/17 03:00 09/24/17 03:20 Vancomycin HCl 1250 mg/Sodium Chloride 262.5 ml @ 250 mls/hr Q12H IV 09/23/17 03:00 09/23/17 14:02 Norepinephrine Bitartrate 250 ml @ 3.75 mls/hr TITRATE PRN IV 09/23/17 15:00 09/24/17 03:55 Family History Father at 46 of heart disease. . Substance Use Tobacco: none. Alcohol: rare. Prescription med abuse:none. Illicits: none. . Psychosocial History . 2 adult daughters. Lives alone with her 2 dogs. Described as a very smart, pragmatic, talkative, fun person. . Spiritual/Cultural Factors Confucianism jami. . Health Care Surrogate: Copy in medical record Date completed: 09/02/17 . Health Care Surrogate(s): Designated health care surrogate is primary as Sofía Serrato and alternate health care surrogate Jason Serrato. . Today's verbally stated goals: Sedated. Family/friends goals: Family is all certain patient would want comfort measures with withdrawal of life support. . Ethical and Legal Issues Designated health care surrogate is primary as Sofía Serrato and alternate health care surrogate Jason Serrato. . Physical Exam Vital Signs Date Time Temp Pulse Resp B/P (MAP) Pulse Ox O2 Delivery O2 Flow Rate FiO2 09/24/17 08:00 40 09/24/17 08:00 68 09/24/17 08:00 98.3 68 18 116/53 (74) 100 09/24/17 06:00 74 09/24/17 04:00 99.3 74 18 98/48 (65) 100 09/24/17 04:00 40 09/24/17 04:00 71 09/24/17 03:56 100 40 09/24/17 03:55 71 105/49 09/24/17 02:00 72 09/24/17 00:23 99 Ventilator 09/24/17 00:09 99 40 09/24/17 00:00 40 09/24/17 00:00 71 09/24/17 00:00 98.5 71 18 108/50 (69) 100 09/23/17 22:00 78 09/23/17 21:47 78 134/61 09/23/17 20:16 100 40 09/23/17 20:00 99.0 69 18 126/58 (80) 100 Automatic Cuff 09/23/17 20:00 40 09/23/17 20:00 69 09/23/17 16:36 100 100 09/23/17 16:00 99.0 87 18 115/50 (71) 100 09/23/17 16:00 40 09/23/17 14:01 98 40 09/23/17 12:00 40 09/23/17 12:00 99.9 106 18 110/52 (71) 97 09/23/17 11:56 97 40 09/23/17 09:44 97 40 Exam CONSTITUTIONAL/GENERAL: This is an adequately nourished patient, sedated on vent. TUBES/LINES/DRAINS: NG right, ETT, left subclavian central line, PIVs, bilateral soft wrist restraints, splint left wrist, catheter, SCDs. SKIN: Ecchymoses on upper extremities. Skin temperature appropriate. Not diaphoretic. HEAD: Atraumatic. Normocephalic. EYES: Pupils equal and round and reactive. Extraocular motions intact. No scleral icterus. No injection or drainage. Fundi not examined. ENT: Unable to assess hearing. Throat difficult to visualize due to tubes. NECK: Trachea midline. CARDIOVASCULAR: Regular rate and rhythm without murmurs, gallops, or rubs. No JVD. Peripheral pulses symmetric. RESPIRATORY/CHEST: Symmetric, unlabored respirations. Diminished breath sounds. GASTROINTESTINAL: Abdomen soft, wound vac in place. No bowel sounds. GENITOURINARY: Without palpable bladder distension. Catheter in place. MUSCULOSKELETAL: Extremities without clubbing, cyanosis, or edema. No calf tenderness. No mottling or clubbing. LYMPHATICS: No palpable cervical or supraclavicular adenopathy. NEUROLOGICAL: Sedated. PSYCHIATRIC: Sedated. . Diagnostic Tests Laboratory Laboratory Tests Test 09/21/17 18:30 09/21/17 19:35 09/21/17 20:45 09/22/17 01:38 Total Creatine Kinase 75 U/L (26-192) Troponin I 0.05 NG/ML (0.02-0.05) Lactic Acid Level 1.9 mmol/L (0.4-2.0) White Blood Count 18.1 TH/MM3 (4.0-11.0) 23.6 TH/MM3 (4.0-11.0) Red Blood Count 4.57 MIL/MM3 (4.00-5.30) 4.67 MIL/MM3 (4.00-5.30) Hemoglobin 11.4 GM/DL (11.6-15.3) 11.7 GM/DL (11.6-15.3) Hematocrit 36.0 % (35.0-46.0) 36.4 % (35.0-46.0) Mean Corpuscular Volume 78.8 FL (80.0-100.0) 78.1 FL (80.0-100.0) Mean Corpuscular Hemoglobin 25.0 PG (27.0-34.0) 25.1 PG (27.0-34.0) Mean Corpuscular Hemoglobin Concent 31.7 % (32.0-36.0) 32.1 % (32.0-36.0) Red Cell Distribution Width 16.7 % (11.6-17.2) 17.0 % (11.6-17.2) Platelet Count 437 TH/MM3 (150-450) 415 TH/MM3 (150-450) Mean Platelet Volume 8.7 FL (7.0-11.0) 8.1 FL (7.0-11.0) Neutrophils (%) (Auto) 92.5 % (16.0-70.0) Lymphocytes (%) (Auto) 3.5 % (9.0-44.0) Monocytes (%) (Auto) 3.5 % (0.0-8.0) Eosinophils (%) (Auto) 0.1 % (0.0-4.0) Basophils (%) (Auto) 0.4 % (0.0-2.0) Neutrophils # (Auto) 16.8 TH/MM3 (1.8-7.7) Lymphocytes # (Auto) 0.6 TH/MM3 (1.0-4.8) Monocytes # (Auto) 0.6 TH/MM3 (0-0.9) Eosinophils # (Auto) 0.0 TH/MM3 (0-0.4) Basophils # (Auto) 0.1 TH/MM3 (0-0.2) CBC Comment DIFF FINAL Differential Comment Prothrombin Time 13.3 SEC (9.8-11.6) 12.6 SEC (9.8-11.6) Prothromb Time International Ratio 1.2 RATIO 1.1 RATIO Activated Partial Thromboplast Time 38.0 SEC (24.3-30.1) 33.2 SEC (24.3-30.1) Urine Color LIGHT-YELLOW (YELLW/STRAW) Urine Turbidity CLEAR (CLEAR) Urine pH 6.0 (5.0-8.5) Urine Specific [place] 1.013 (1.002-1.035) Urine Protein 30 mg/dL (NEG-TRACE) Urine Glucose (UA) 300 mg/dL (NEG) Urine Ketones 40 mg/dL (NEG) Urine Occult Blood TRACE (NEG) Urine Nitrite NEG (NEG) Urine Bilirubin NEG (NEG) Urine Urobilinogen LESS THAN 2.0 MG/DL (LESS Urine Leukocyte Esterase SMALL (NEG) Urine RBC 3 /hpf (0-3) Urine WBC 3 /hpf (0-5) Urine Squamous Epithelial Cells <1 /hpf (0-5) Urine Bacteria OCC /hpf (NONE) Urine Hyaline Casts 1 /lpf (RARE) Urine Mucus FEW /lpf (OCC) Blood Urea Nitrogen 17 MG/DL (7-18) Creatinine 0.76 MG/DL (0.50-1.00) Random Glucose 265 MG/DL (74-106) Total Protein 7.5 GM/DL (6.4-8.2) Albumin 2.9 GM/DL (3.4-5.0) Calcium Level 7.9 MG/DL (8.5-10.1) Alkaline Phosphatase 103 U/L (45-117) Aspartate Amino Transf (AST/SGOT) 45 U/L (15-37) Alanine Aminotransferase (ALT/SGPT) 23 U/L (10-53) Total Bilirubin 0.3 MG/DL (0.2-1.0) Sodium Level 137 MEQ/L (136-145) Potassium Level 3.3 MEQ/L (3.5-5.1) Chloride Level 106 MEQ/L (98-107) Carbon Dioxide Level 20.5 MEQ/L (21.0-32.0) Anion Gap 11 MEQ/L (5-15) Estimat Glomerular Filtration Rate 75 ML/MIN (>89) Lipase 56 U/L (73-393) Test 09/22/17 06:45 09/22/17 08:07 09/22/17 10:49 09/22/17 15:53 White Blood Count 29.0 TH/MM3 (4.0-11.0) Red Blood Count 5.09 MIL/MM3 (4.00-5.30) Hemoglobin 12.7 GM/DL (11.6-15.3) Hematocrit 39.8 % (35.0-46.0) Mean Corpuscular Volume 78.2 FL (80.0-100.0) Mean Corpuscular Hemoglobin 24.9 PG (27.0-34.0) Mean Corpuscular Hemoglobin Concent 31.9 % (32.0-36.0) Red Cell Distribution Width 17.3 % (11.6-17.2) Platelet Count 442 TH/MM3 (150-450) Mean Platelet Volume 9.1 FL (7.0-11.0) Neutrophils (%) (Auto) 93.9 % (16.0-70.0) Lymphocytes (%) (Auto) 1.4 % (9.0-44.0) Monocytes (%) (Auto) 4.4 % (0.0-8.0) Eosinophils (%) (Auto) 0.0 % (0.0-4.0) Basophils (%) (Auto) 0.3 % (0.0-2.0) Neutrophils # (Auto) 27.2 TH/MM3 (1.8-7.7) Lymphocytes # (Auto) 0.4 TH/MM3 (1.0-4.8) Monocytes # (Auto) 1.3 TH/MM3 (0-0.9) Eosinophils # (Auto) 0.0 TH/MM3 (0-0.4) Basophils # (Auto) 0.1 TH/MM3 (0-0.2) CBC Comment DIFF FINAL Differential Comment Hematology Comments Blood Urea Nitrogen 12 MG/DL (7-18) Creatinine 0.60 MG/DL (0.50-1.00) Random Glucose 109 MG/DL (74-106) Total Protein 7.6 GM/DL (6.4-8.2) Albumin 3.1 GM/DL (3.4-5.0) Calcium Level 8.5 MG/DL (8.5-10.1) Alkaline Phosphatase 113 U/L (45-117) Aspartate Amino Transf (AST/SGOT) 56 U/L (15-37) Alanine Aminotransferase (ALT/SGPT) 22 U/L (10-53) Total Bilirubin 0.4 MG/DL (0.2-1.0) Sodium Level 137 MEQ/L (136-145) Potassium Level 4.3 MEQ/L (3.5-5.1) Chloride Level 102 MEQ/L (98-107) Carbon Dioxide Level 21.4 MEQ/L (21.0-32.0) Anion Gap 14 MEQ/L (5-15) Estimat Glomerular Filtration Rate 98 ML/MIN (>89) Activated Partial Thromboplast Time 50.5 SEC (24.3-30.1) Lactic Acid Level 1.3 mmol/L (0.4-2.0) Blood Gas Puncture Site RT RADIAL Blood Gas Patient Temperature 98.6 Blood Gas HCO3 22 mmol/L (22-26) Blood Gas Base Excess -1.6 mmol/L (-2-2) Blood Gas Oxygen Saturation 94 % (90-100) Arterial Blood pH 7.45 (7.380-7.420) Arterial Blood Partial Pressure CO2 32 mmHg (38-42) Arterial Blood Partial Pressure O2 84 mmHg (61-120) Arterial Blood Oxygen Content 15.9 Vol % (12.0-20.0) Arterial Blood Carboxyhemoglobin 1.3 % (0-4) Arterial Blood Methemoglobin 1.1 % (0-2) Blood Gas Hemoglobin 12.0 G/DL (12.0-16.0) Oxygen Delivery Device NASAL CANNULA Blood Gas Liter Flow 2 L/M Test 09/22/17 16:01 09/22/17 18:47 09/22/17 21:40 09/22/17 23:40 White Blood Count 32.4 TH/MM3 (4.0-11.0) 31.8 TH/MM3 (4.0-11.0) Red Blood Count 4.79 MIL/MM3 (4.00-5.30) 4.73 MIL/MM3 (4.00-5.30) Hemoglobin 11.6 GM/DL (11.6-15.3) 11.7 GM/DL (11.6-15.3) Hematocrit 37.0 % (35.0-46.0) 36.3 % (35.0-46.0) Mean Corpuscular Volume 77.3 FL (80.0-100.0) 76.8 FL (80.0-100.0) Mean Corpuscular Hemoglobin 24.3 PG (27.0-34.0) 24.8 PG (27.0-34.0) Mean Corpuscular Hemoglobin Concent 31.4 % (32.0-36.0) 32.3 % (32.0-36.0) Red Cell Distribution Width 17.2 % (11.6-17.2) 17.1 % (11.6-17.2) Platelet Count 351 TH/MM3 (150-450) 309 TH/MM3 (150-450) Mean Platelet Volume 8.1 FL (7.0-11.0) 8.3 FL (7.0-11.0) Neutrophils (%) (Auto) 90.0 % (16.0-70.0) 92.5 % (16.0-70.0) Lymphocytes (%) (Auto) 1.3 % (9.0-44.0) 1.3 % (9.0-44.0) Monocytes (%) (Auto) 7.9 % (0.0-8.0) 6.0 % (0.0-8.0) Eosinophils (%) (Auto) 0.0 % (0.0-4.0) 0.0 % (0.0-4.0) Basophils (%) (Auto) 0.8 % (0.0-2.0) 0.2 % (0.0-2.0) Neutrophils # (Auto) 29.2 TH/MM3 (1.8-7.7) 29.4 TH/MM3 (1.8-7.7) Lymphocytes # (Auto) 0.4 TH/MM3 (1.0-4.8) 0.4 TH/MM3 (1.0-4.8) Monocytes # (Auto) 2.6 TH/MM3 (0-0.9) 1.9 TH/MM3 (0-0.9) Eosinophils # (Auto) 0.0 TH/MM3 (0-0.4) 0.0 TH/MM3 (0-0.4) Basophils # (Auto) 0.3 TH/MM3 (0-0.2) 0.0 TH/MM3 (0-0.2) CBC Comment AUTO DIFF AUTO DIFF Differential Total Cells Counted 100 100 Neutrophils % (Manual) 73 % (16-70) 32 % (16-70) Band Neutrophils % 22 % (0-6) 64 % (0-6) Monocytes % 3 % (0-8) 4 % (0-8) Neutrophils # (Manual) 31.4 TH/MM3 (1.8-7.7) 30.5 TH/MM3 (1.8-7.7) Metamyelocytes 2 % (0-1) Differential Comment FINAL DIFF MANUAL FINAL DIFF MANUAL Platelet Estimate NORMAL (NORMAL) NORMAL (NORMAL) Platelet Morphology Comment NORMAL (NORMAL) ENLARGED (NORMAL) Ovalocytes 1+ (NORMAL) Activated Partial Thromboplast Time 101.4 SEC (24.3-30.1) 58.8 SEC (24.3-30.1) 51.8 SEC (24.3-30.1) Fibrinogen 210 mg/dL (227-377) 173 mg/dL (227-377) Nasal Screen MRSA (PCR) MRSA NOT DETECTED (NOT Toxic Granulation 1+ (NORMAL) Toxic Vacuolation PRESENT (NONE SEEN) Dohle Bodies PRESENT (NONE SEEN) Acanthocytes OCC (NORMAL) Test 09/23/17 02:20 09/23/17 03:46 09/23/17 10:48 09/23/17 20:00 Blood Gas Puncture Site ART LINE Blood Gas Patient Temperature 98.6 Blood Gas HCO3 21 mmol/L (22-26) Blood Gas Base Excess -2.9 mmol/L (-2-2) Blood Gas Oxygen Saturation 93 % (90-100) Arterial Blood pH 7.40 (7.380-7.420) Arterial Blood Partial Pressure CO2 35 mmHg (38-42) Arterial Blood Partial Pressure O2 80 mmHg (61-120) Arterial Blood Oxygen Content 10.9 Vol % (12.0-20.0) Arterial Blood Carboxyhemoglobin 1.4 % (0-4) Arterial Blood Methemoglobin 1.2 % (0-2) Blood Gas Hemoglobin 8.3 G/DL (12.0-16.0) Oxygen Delivery Device VENT Blood Gas Ventilator Setting SEE COMMENTS Blood Gas Inspired Oxygen 40 % White Blood Count 12.1 TH/MM3 (4.0-11.0) 17.8 TH/MM3 (4.0-11.0) Red Blood Count 2.92 MIL/MM3 (4.00-5.30) 3.68 MIL/MM3 (4.00-5.30) Hemoglobin 7.2 GM/DL (11.6-15.3) 9.8 GM/DL (11.6-15.3) Hematocrit 22.4 % (35.0-46.0) 29.4 % (35.0-46.0) Mean Corpuscular Volume 76.7 FL (80.0-100.0) 79.7 FL (80.0-100.0) Mean Corpuscular Hemoglobin 24.5 PG (27.0-34.0) 26.5 PG (27.0-34.0) Mean Corpuscular Hemoglobin Concent 31.9 % (32.0-36.0) 33.3 % (32.0-36.0) Red Cell Distribution Width 16.6 % (11.6-17.2) 18.5 % (11.6-17.2) Platelet Count 202 TH/MM3 (150-450) 192 TH/MM3 (150-450) Mean Platelet Volume 8.2 FL (7.0-11.0) 8.8 FL (7.0-11.0) Hematology Comments Neutrophils (%) (Auto) 92.1 % (16.0-70.0) Lymphocytes (%) (Auto) 3.9 % (9.0-44.0) Monocytes (%) (Auto) 3.9 % (0.0-8.0) Eosinophils (%) (Auto) 0.0 % (0.0-4.0) Basophils (%) (Auto) 0.1 % (0.0-2.0) Neutrophils # (Auto) 16.4 TH/MM3 (1.8-7.7) Lymphocytes # (Auto) 0.7 TH/MM3 (1.0-4.8) Monocytes # (Auto) 0.7 TH/MM3 (0-0.9) Eosinophils # (Auto) 0.0 TH/MM3 (0-0.4) Basophils # (Auto) 0.0 TH/MM3 (0-0.2) CBC Comment DIFF FINAL Differential Comment Blood Urea Nitrogen 27 MG/DL (7-18) Creatinine 1.72 MG/DL (0.50-1.00) Random Glucose 106 MG/DL (74-106) Total Protein 4.9 GM/DL (6.4-8.2) Calcium Level 6.9 MG/DL (8.5-10.1) Sodium Level 143 MEQ/L (136-145) Potassium Level 3.3 MEQ/L (3.5-5.1) Chloride Level 112 MEQ/L (98-107) Carbon Dioxide Level 19.3 MEQ/L (21.0-32.0) Anion Gap 12 MEQ/L (5-15) Estimat Glomerular Filtration Rate 29 ML/MIN (>89) Protein Corrected Calcium 8.1 MG/DL (8.5-10.1) Magnesium Level 1.4 MG/DL (1.5-2.5) Fibrinogen 450 mg/dL (227-377) Test 09/24/17 03:20 Creatinine 2.43 MG/DL (0.50-1.00) Estimat Glomerular Filtration Rate 20 ML/MIN (>89) Vancomycin Level Trough 25.4 MCG/ML (5.0-10.0) Result Diagram: 09/23/17 1048 09/24/17 0320 Microbiology Microbiology Date/Time Source Procedure Growth Status 09/21/17 19:35 Blood Peripheral Aerobic Blood Culture - Preliminary NO GROWTH IN 2 DAYS Resulted 09/21/17 19:35 Blood Peripheral Anaerobic Blood Culture - Preliminary NO GROWTH IN 2 DAYS Resulted 09/21/17 19:30 Blood Peripheral Aerobic Blood Culture - Preliminary NO GROWTH IN 2 DAYS Resulted 09/21/17 19:30 Blood Peripheral Anaerobic Blood Culture - Preliminary NO GROWTH IN 2 DAYS Resulted Imaging Last Impressions Lower Extremity Ultrasound 09/23/17 0000 Signed Impressions: Service Date/Time: Saturday, September 23, 2017 08:46 - CONCLUSION: Negative for DVT Miky Yip MD FACR Chest X-Ray 09/23/17 0000 Signed Impressions: Service Date/Time: Saturday, September 23, 2017 02:09 - CONCLUSION: Satisfactory ET tube positioning. NG tube needs to be advanced. Slight interval worsening in aeration Herbert Wylie MD Abdominal Angiography 09/22/17 0000 Signed Impressions: Service Date/Time: Friday, September 22, 2017 12:24 - CONCLUSION: Uncomplicated initiation of thrombolytic therapy as above. 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 Small left upper quadrant fluid and air collection may be postoperative or abscess. Prior to consideration of sampling of this collection , delineation of the exact course of the splenic flexure of colon would be required. Possible developing small bowel obstructive process versus ileus Progressive lung cancer findings in the left lung base Herbert Wylie MD Abdomen X-Ray 09/21/177 Signed Impressions: Service Date/Time: Thursday, September 21, 2017 19:00 - CONCLUSION: 1. Abnormal opacity remains at the left lung base which could indicate pneumonia. 2. Nonspecific bowel gas pattern which could represent an ileus or possible early small bowel obstruction. 3. That is post cholecystectomy. Ayan Kingsley MD Procedures See HPI Patient/Family Conference Present at Family Conference: Met with daughters, Sofía, Geni, 2 brothers, 2 grandsons, son in law and brother in law. Family Conference Time (mins): 60 Family Conference Location: Consult Room Issues Discussed: * Palliative care role, purpose, approach * Additional medical, psychosocial, and spiritual history * Patients general health, functional status, and cognitive changes in the months leading up to the current hospitalization * Patient/family understanding of the current medical problems * Patient/family understanding of prognosis * Patients goals of care as best understood from advance directives and/or conversations and/or values * Current medical treatment options and benefits/burdens of those options * Likely scenarios comparing ongoing aggressive care with a transition to comfort measures only * Questions answered to the best of my ability * Palliative care contact information provided In summary family elects to transition to comfort with withdrawal of life support. Declines hospice at this time, will consider in AM if patient survives. Manufacturing Executive requested. . Assessment and Plan Disease Oriented Problem List: (1) Thrombosis of superior mesenteric artery (2) Non-small cell carcinoma of lung (3) Abdominal pain Symptom Scale: (1) Abdominal pain 0-10 Scale: Unable to quantify Pertinent Non-Medical Issues Psychosocial: . Supported by 2 daughters, siblings and grandchildren. Spiritual: Confucianism jami. Legal:Designated health care surrogate is primary as Sofía Serrato and alternate health care surrogate Jason Serrato. Ethical issues impacting care: No Known concerns at this time. . Important Contacts * Sofía Serrato, daughter: [phone] . Prognosis Second surgery was performed and revealed severe distal disease occlusion with essentially no chance of recovery. Comfort measures have been recommended. . Code Status: No Code Plan * Patient is incapacitated to make her own decisions, not likely to regain capacity. Designated health care surrogate is primary as Sofía Serrato and alternate health care surrogate Jason Serrato. * NO CODE * Palliative care met with family, in summary they elect to transition to comfort with withdrawal of life support. Declines hospice at this time, will consider in AM if patient survives. Manufacturing Executive requested. * Exhibits B & C on chart. * SYMPTOMS: Abdominal pain: due to recent surgeries and SMA thrombosis. Orders written for transition to comfort measures with withdrawal of life support. * Palliative care number provided. * Palliative care will continue to follow. . Time Spent Total Floor Time (mins): 90 Face to Face Time (mins): 60 >50% Counseling/Coord of Care: Yes Thank you for the opportunity to participate in the care of Ms. Cohn. Attestation To help prompt me to consider important information that might be impacting today's encounter and assessment, information from prior notes written by myself or my colleagues may have been "brought forward" into today's note. My signature on this note, however, is an attestation that I personally performed the exam, history, and/or decision-making noted today, and, unless otherwise indicated, the interactions with patient, family, and staff as well as the review of records all occurred today. I also attest that the listed assessment and stated plan reflect my best clinical judgment today based on the combination of historical information, prior notes, and today's exam/ interactions. When time spent is documented, it refers only to time spent today by the signer, or if indicated, combined time spent today by collaborating physician/nurse practitioner. Ling Darnell Sep 24, 2017 09:02
[2017-09-24] MEDS: fentaNYL DRIP 250 ML IV PRN (09:25)
--- NOTE | 2017-09-24 09:40 | MP ---
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 OPERATIVE PROCEDURE Second look exploration, resection of another 2 feet of small bowel and irrigation with wound VAC placement. SURGEON MD Christine ANESTHESIA General. ESTIMATED BLOOD LOSS 50 cc. INDICATIONS FOR PROCEDURE This unfortunate lady underwent yesterday exploratory laparotomy and resection of the majority of the small bowel. She was left with but 1-1/2 feet of the bowel on the top and about 4 feet down below at best and at this point she is taken back to the operating room for a second look procedure. The wound VAC is removed. The patient is prepped and draped in the usual fashion. The abdomen is entered and explored. While the large bowel appears to be okay, the small bowel is worse, The proximal 1-1/2 feet or so of small bowel is now inundated with patchy necrotic areas and this was essentially all the way down up to the ligament of Treitz. Distally there are about 2 feet of small bowel left which is terminal ileum but there is also about 2 feet more of the more proximal ileum which is green-purple. This is resected by firing HARSH stapler across and then tying mesentery off with 2-0 silks. At this point the abdomen was explored. I looked around once more, explored the superior mesenteric artery with a Doppler and by direct exposure and this was now actually opened; however, distal disease and occlusion is so severe the patient essentially has no chance of recovery. Therefore, a new wound VAC is placed and abdomen closed and the patient taken to the OR. At this point the patient has no chance of survival of this and I will discuss this with family. Rosa Isela GILMORE/SOO /6:24 PM /9:34 AM
[2017-09-24] MEDS ORDERED: VANCOMYCIN INJ 1,250 MG in SODIUM CHLOR 0.9% 250 ML INJ 250 ML IV SCH (11:00)
[2017-09-24] MEDS ORDERED: MORPHINE SULFATE 8 MG/ML INJ IV PUSH ONE (11:00)
[2017-09-24] MEDS ORDERED: LORazepam 2 MG/ML VIAL IV PUSH ONE ×2 (11:00→11:15)
[2017-09-24] MEDS ORDERED: fentaNYL DRIP 250 ML IV PRN (11:00)
[2017-09-24] MEDS ORDERED: HYOSCYAMINE 0.5 MG/ML AMP IV PUSH ONE (11:00)
[2017-09-24] MEDS ORDERED: NOREPINEPHRINE 4 MG/D5W 250 ML IV ONE (11:15)
[2017-09-24] MEDS ORDERED: MORPHINE SULFATE 4 MG/ML INJ IV PUSH ONE (11:15)
[2017-09-24] MEDS ORDERED: HYOSCYAMINE 0.5 MG/ML AMP IV PUSH PRN (11:30)
[2017-09-24] MEDS ORDERED: MORPHINE SULFATE 4 MG/ML INJ IV PUSH PRN (11:30)
[2017-09-24] MEDS ORDERED: FUROSEMIDE 20 MG/2 ML VIAL IV PUSH PRN (11:30)
[2017-09-24] MEDS ORDERED: MORPHINE SULFATE 8 MG/ML INJ IV PUSH PRN (11:30)
[2017-09-24] MEDS ORDERED: ACETAMINOPHEN 650 MG SUPP RECTAL PRN (11:30)
[2017-09-24] MEDS ORDERED: LORazepam 2 MG/ML VIAL IV PUSH PRN (11:30)
[2017-09-24] MEDS ORDERED: LORazepam 2 MG/ML VIAL IV PUSH SCH (12:00)
[2017-09-24] MEDS: LORazepam 2 MG/ML VIAL IV PUSH PRN ×2 (15:12→17:35)
--- NOTE | 2017-09-24 17:11 | HHI.CCPN ---
Subjective Remarks/Hospital Course The patient is a 72-year-old female with past medical history of rkf-loyfa-sxem lung cancer, recently diagnosed hypertension, hypothyroidism, gastroesophageal reflux disease, morbid obesity, gastric banding which was just removed a few weeks ago. The patient presented to [facility] [place] ED on September 21 for abdominal pain and she had a CT scan of the abdomen and pelvis which showed an acute or subacute thromboembolic occlusion of the superior mesenteric artery and pulmonary embolism. She underwent t-PA infusion by Interventional Radiology followed by heparin. On September 22 she underwent abdominal angiography which showed complete occlusion of the superior mesenteric artery. She was seen by Dr. King from Vascular Surgery and she was taken to the OR where she underwent bowel resection with wound VAC placement. 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 Objective Vital Signs Date Time Temp Pulse Resp B/P (MAP) Pulse Ox O2 Delivery O2 Flow Rate FiO2 09/24/17 14:45 Room Air 21 09/24/17 11:00 100 09/24/17 10:00 66 09/24/17 08:00 98.3 18 116/53 (74) 09/22/17 22:27 2.00 Intake and Output 09/24/17 09/24/17 09/25/17 08:00 16:00 00:00 Intake Total 1200 ml 550 ml Output Total 820 ml Balance 380 ml 550 ml Result Diagram: 09/23/17 1048 09/24/17 0320 Objective Remarks PHYSICAL EXAMINATION HEENT: Atraumatic, normocephalic. Pupils equal, round, reactive to light and accommodation. Extraocular muscles intact. Conjunctivae pink. Nonicteric sclerae. Oral mucosa within normal. NECK: Supple. No JVD, adenopathy or thyromegaly. Trachea in the midline. Orally intubated. CARDIOVASCULAR EXAM: Regular rate and rhythm. Normal S1-S2. No murmur, rubs or gallops noted. PULMONARY EXAM: Bilateral equal air entry. No rales or wheezing. ABDOMEN: Soft. Quiet. Dressing in place. EXTREMITIES: No cyanosis, clubbing or edema. NEURO: Intubated and sedated. Opens eyes to voice. A/P Assessment and Plan The patient is a 72-year-old female with past medical history of emx-ookdn-sucr lung cancer, recently diagnosed hypertension, hypothyroidism, gastroesophageal reflux disease, morbid obesity, gastric banding which was just removed a few weeks ago. The patient presented to [facility] [place] ED on September 21 for abdominal pain and she had a CT scan of the abdomen and pelvis which showed an acute or subacute thromboembolic occlusion of the superior mesenteric artery and pulmonary embolism. She underwent t-PA infusion by Interventional Radiology followed by heparin. On September 22 she underwent abdominal angiography which showed complete occlusion of the superior mesenteric artery. She was seen by Dr. King from Vascular Surgery and she was taken to the OR where she underwent bowel resection with wound VAC placement. The patient is currently receiving a third unit of FFP. When seen she is sedated with Diprivan/fentanyl drip and on full mechanical ventilation. Her current blood pressure is 110/54 and saturation 97%. PAST MEDICAL HISTORY Significant for - 1. Yuv-anobd-uwnh lung cancer. 2. Hypertension. 3. Hypothyroidism. 4. Gastroesophageal reflux disease. 5. Morbid obesity. IMPRESSION: 1. Vent dependent respiratory failure. 2. Thromboembolic occlusion of the SMA status post t-PA and heparin. 3. Mesenteric ischemia status post bowel resection with a wound VAC placement. 4. Pulmonary embolism. 5. Recent diagnosis of snb-xhhrk-rtop lung cancer. 6. Leukocytosis with bandemia. 7. Hypertension. 8. Hypothyroidism. 9. Status post removal of gastric banding a few weeks ago. RECOMMENDATIONS: 1. Continue with Diprivan and fentanyl infusion for sedation. 2. Continue with vent support and maintain sats above 92%. 3. Bronchodilators in the form of DuoNeb q. 6 and will initiate ICU vent bundle. 4. Monitor heart rate and blood pressure closely and maintain MAP greater than 65 mmHg. 5. Monitor renal function, I's and O's and electrolyte replacement per protocol. 6. Continue with n.p.o. and place on Protonix 40 mg IV daily for GI prophylaxis. 7. Continue with antibiotics. She is currently on aztreonam and Flagyl. We will give one dose of vancomycin, 1 gram IV now. Monitor for signs of infection which include fever and WBC. Follow up on blood cultures and will consult Infectious Disease Service for possible peritonitis. 8. Continue sliding scale insulin with Accu-Cheks for glycemic control. In addition the patient is on Synthroid 75 mcg q.h.s. for underlying history of hypothyroidism. 9. Monitor CBC and coags. 10. GI prophylaxis with Protonix 4 mg daily. 11. DVT prophylaxis with SCDs. 12. Right-sided port in place. Overall impression: Patient is critically ill and has insurmountable intestinal loss. At her age survival is unlikely, particularly in the context of her other chronic medical problems. Critical Care 43 mins Justus Karimi MD Sep 24, 2017 17:11
--- NOTE | 2017-09-25 14:28 | DEATH SUM ---
Summary Demographics Date Pronounced : Sep 24, 2017 Time Of : 1800 Pronounced By: Laura Karimi M.D. Preliminary Cause of : Multi Organ Failure Justus Karimi MD Sep 25, 2017 14:28
--- NOTE | 2017-09-25 14:35 | HHI.DS ---
Discharge Summary Admission Date Sep 21, 2017 at 23:27 Discharge Date: Sep 24, 2017 Admitting Diagnosis Abdominal pain, postop s/p lap band removal (1) Acute intestinal infarction ICD Code: K55.069 - Acute infarction of intestine, part and extent unspecified Diagnosis: Principal (2) Metabolic acidosis ICD Code: E87.2 - Acidosis Diagnosis: Principal (3) ABBY (acute kidney injury) ICD Code: N17.9 - Acute kidney failure, unspecified Diagnosis: Principal (4) Abdominal pain ICD Code: R10.9 - Unspecified abdominal pain Status: Acute (5) Lung cancer, hilus ICD Code: C34.00 - Malignant neoplasm of unspecified main bronchus Procedures Laparotomy and small bowel resection. Repeat laparotomy. Brief History Written by LUCY Cervantes acting as scribe for Dr. Dominguez] on 09/21/17 at 23:57. 72 y/o female with a history of lung cancer-recently diagnosed, hypothyroid and HTN presented to the ED with complaints of abdominal pain. She states at 3:30pm she drank some OJ and had a constant, sharp, non radiating abdominal pain with associated chills and drinking makes it worse. She denies any chest pain, or fevers. On 09/02/17 patient underwent a lap band removal secondary to erosion. CBC/BMP: 09/23/17 1048 09/24/17 0320 Significant Findings Laboratory Tests Test 09/22/17 15:53 09/22/17 16:01 09/22/17 18:47 09/22/17 21:40 Arterial Blood pH 7.45 (7.380-7.420) Arterial Blood Partial Pressure CO2 32 mmHg (38-42) White Blood Count 32.4 TH/MM3 (4.0-11.0) Mean Corpuscular Volume 77.3 FL (80.0-100.0) Mean Corpuscular Hemoglobin 24.3 PG (27.0-34.0) Mean Corpuscular Hemoglobin Concent 31.4 % (32.0-36.0) Neutrophils (%) (Auto) 90.0 % (16.0-70.0) Lymphocytes (%) (Auto) 1.3 % (9.0-44.0) Neutrophils # (Auto) 29.2 TH/MM3 (1.8-7.7) Lymphocytes # (Auto) 0.4 TH/MM3 (1.0-4.8) Monocytes # (Auto) 2.6 TH/MM3 (0-0.9) Basophils # (Auto) 0.3 TH/MM3 (0-0.2) Neutrophils % (Manual) 73 % (16-70) Band Neutrophils % 22 % (0-6) Neutrophils # (Manual) 31.4 TH/MM3 (1.8-7.7) Metamyelocytes 2 % (0-1) Ovalocytes 1+ (NORMAL) Activated Partial Thromboplast Time 101.4 SEC (24.3-30.1) 58.8 SEC (24.3-30.1) 51.8 SEC (24.3-30.1) Fibrinogen 210 mg/dL (227-377) 173 mg/dL (227-377) Test 09/22/17 23:40 09/23/17 02:20 09/23/17 03:46 09/23/17 10:48 White Blood Count 31.8 TH/MM3 (4.0-11.0) 12.1 TH/MM3 (4.0-11.0) 17.8 TH/MM3 (4.0-11.0) Mean Corpuscular Volume 76.8 FL (80.0-100.0) 76.7 FL (80.0-100.0) 79.7 FL (80.0-100.0) Mean Corpuscular Hemoglobin 24.8 PG (27.0-34.0) 24.5 PG (27.0-34.0) 26.5 PG (27.0-34.0) Neutrophils (%) (Auto) 92.5 % (16.0-70.0) 92.1 % (16.0-70.0) Lymphocytes (%) (Auto) 1.3 % (9.0-44.0) 3.9 % (9.0-44.0) Neutrophils # (Auto) 29.4 TH/MM3 (1.8-7.7) 16.4 TH/MM3 (1.8-7.7) Lymphocytes # (Auto) 0.4 TH/MM3 (1.0-4.8) 0.7 TH/MM3 (1.0-4.8) Monocytes # (Auto) 1.9 TH/MM3 (0-0.9) Band Neutrophils % 64 % (0-6) Neutrophils # (Manual) 30.5 TH/MM3 (1.8-7.7) Toxic Granulation 1+ (NORMAL) Toxic Vacuolation PRESENT (NONE SEEN) Dohle Bodies PRESENT (NONE SEEN) Platelet Morphology Comment ENLARGED (NORMAL) Acanthocytes OCC (NORMAL) Blood Gas HCO3 21 mmol/L (22-26) Blood Gas Base Excess -2.9 mmol/L (-2-2) Arterial Blood Partial Pressure CO2 35 mmHg (38-42) Arterial Blood Oxygen Content 10.9 Vol % (12.0-20.0) Blood Gas Hemoglobin 8.3 G/DL (12.0-16.0) Red Blood Count 2.92 MIL/MM3 (4.00-5.30) 3.68 MIL/MM3 (4.00-5.30) Hemoglobin 7.2 GM/DL (11.6-15.3) 9.8 GM/DL (11.6-15.3) Hematocrit 22.4 % (35.0-46.0) 29.4 % (35.0-46.0) Mean Corpuscular Hemoglobin Concent 31.9 % (32.0-36.0) Red Cell Distribution Width 18.5 % (11.6-17.2) Blood Urea Nitrogen 27 MG/DL (7-18) Creatinine 1.72 MG/DL (0.50-1.00) Total Protein 4.9 GM/DL (6.4-8.2) Calcium Level 6.9 MG/DL (8.5-10.1) Potassium Level 3.3 MEQ/L (3.5-5.1) Chloride Level 112 MEQ/L (98-107) Carbon Dioxide Level 19.3 MEQ/L (21.0-32.0) Estimat Glomerular Filtration Rate 29 ML/MIN (>89) Protein Corrected Calcium 8.1 MG/DL (8.5-10.1) Magnesium Level 1.4 MG/DL (1.5-2.5) Test 09/23/17 20:00 09/24/17 03:20 Fibrinogen 450 mg/dL (227-377) Creatinine 2.43 MG/DL (0.50-1.00) Estimat Glomerular Filtration Rate 20 ML/MIN (>89) Vancomycin Level Trough 25.4 MCG/ML (5.0-10.0) PE at Discharge GENERAL: This is a well-nourished, well-developed patient, in no apparent distress. SKIN: No rashes, warm and dry HEAD: Atraumatic. Normocephalic. EYES: Pupils equal round and reactive. Extraocular motions intact. No scleral icterus. ENT: Nose without bleeding, or drainage, Airway patent. NECK: Trachea midline. Supple CARDIOVASCULAR: Regular rate and rhythm without murmurs, gallops, or rubs. RESPIRATORY: Fair air entry bilaterally. No wheezes, rales, or rhonchi. GASTROINTESTINAL: Abdomen soft, non-tender, nondistended. Positive bowel sounds MUSCULOSKELETAL: Extremities without clubbing, cyanosis, or edema. Pedal pulses appreciated NEUROLOGICAL: Awake and alert. Moves all extremity. Normal speech.no focal neurological deficit Transfer Summary Patient developed acute thrombosis of the superior mesenteric artery requiring resection of 8 feet of gangrenous small bowel. Second look operation the next day should further progression of intestinal infarction and a nonsurvivable disease process. The family elected for compassionate withdrawal of artificial support. She peacefully at 1800 hours on 09/24/17 with family at the bedside. Hospital Course The patient is a 72-year-old female with past medical history of raj-qawtk-qvjg lung cancer, recently diagnosed hypertension, hypothyroidism, gastroesophageal reflux disease, morbid obesity, gastric banding which was just removed a few weeks ago. The patient presented to [facility] ED on September 21 for abdominal pain and she had a CT scan of the abdomen and pelvis which showed an acute or subacute thromboembolic occlusion of the superior mesenteric artery and pulmonary embolism. She underwent t-PA infusion by Interventional Radiology followed by heparin. On September 22 she underwent abdominal angiography which showed complete occlusion of the superior mesenteric artery. She was seen by Dr. King from Vascular Surgery and she was taken to the OR where she underwent bowel resection with wound VAC placement. 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 Pt Condition on Discharge: Deteriorating uJstus Karimi MD Sep 25, 2017 14:35
== END 2017-09-24 18:00 | disposition expired | DRG 853 ==
LOC: NEPC 18:05 → NEDA 23:27 → N07B 09-22 02:06 → N03B 09-22 14:32 → N03A 09-22 15:39
PROVIDERS: ADMIT Internal Medicine Critical Care Medicine; ATTEND Internal Medicine Critical Care Medicine
PROC: 04JY0ZZ Inspection of Lower Artery, Open Approach (ICD-10-PCS; 2017-09-22)
PROC: 0DBA0ZZ Excision of Jejunum, Open Approach (ICD-10-PCS; 2017-09-22)
PROC: B4141ZZ Fluoroscopy of Superior Mesenteric Artery using Low Osmolar Contrast (ICD-10-PCS; 2017-09-22)
PROC: 3E05317 Introduction of Other Thrombolytic into Peripheral Artery, Percutaneous Approach (ICD-10-PCS; 2017-09-22)
PROC: 0DBB0ZZ Excision of Ileum, Open Approach (ICD-10-PCS; principal; 2017-09-22 23:55)
PROC: 0DBB0ZZ Excision of Ileum, Open Approach (ICD-10-PCS; 2017-09-23)
PROC: 04JY0ZZ Inspection of Lower Artery, Open Approach (ICD-10-PCS; 2017-09-23)
PROC: 5A1945Z Respiratory Ventilation, 24-96 Consecutive Hours (ICD-10-PCS; 2017-09-23)
PROC: 30233K1 Transfusion of Nonautologous Frozen Plasma into Peripheral Vein, Percutaneous Approach (ICD-10-PCS; 2017-09-23)
PROC: 30233N1 Transfusion of Nonautologous Red Blood Cells into Peripheral Vein, Percutaneous Approach (ICD-10-PCS; 2017-09-23)
DX: A41.9 Sepsis, unspecified organism (principal); K55.029 Acute infarction of small intestine, extent unspecified; I26.99 Other pulmonary embolism without acute cor pulmonale; J96.90 Respiratory failure, unspecified, unspecified whether with hypoxia or hypercapnia; Z51.5 Encounter for palliative care; N17.9 Acute kidney failure, unspecified; K56.609 Unspecified intestinal obstruction, unspecified as to partial versus complete obstruction; E87.2 Acidosis; D68.69 Other thrombophilia; C78.1 Secondary malignant neoplasm of mediastinum; T81.4XXA Infection following a procedure, initial encounter; C34.31 Malignant neoplasm of lower lobe, right bronchus or lung; C34.00 Malignant neoplasm of unspecified main bronchus; E86.0 Dehydration; I48.91 Unspecified atrial fibrillation; I10 Essential (primary) hypertension; K21.9 Gastro-esophageal reflux disease without esophagitis; E03.9 Hypothyroidism, unspecified; Z66 Do not resuscitate; Z87.891 Personal history of nicotine dependence; Z88.1 Allergy status to other antibiotic agents; Z88.2 Allergy status to sulfonamides
CPT/HCPCS: 31500; 36245; 36430; 36600; 37211; 71010; 74000; 74177; 75726; 76937; 80048; 80053; 80202; 81001; 82550; 82565; 82805; 82948; 83605; 83690; 83735; 84155; 84484; 85007; 85025; 85027; 85384; 85610; 85730; 86850; 86900; 86901; 86920; 86927; 87040; 87641; 88305; 88307; 93005; 93970; 94002; 94003; 94640; 94664; 96361; 96365; 96367; 96375; 96376; 99152; 99153; C1751; C1769; C1887; C1894; C9113; J0131; J1170; J1644; J1815; J1940; J1980; J2060; J2250; J2270; J2370; J2405; J2997; J3010; J3370; J7030; J7040; J7050; P9016; P9017; Q9967